=== PATIENT | male | born 1980 | race Caucasian/White ===

== ENCOUNTER 2017-05-06 09:12 | Inpatient (IN) | payer MEDICARE, OTHER ==
[~2017-05-06] VITALS: Ht 182.9 cm; Wt 97.0 kg
[2017-05-06] VITALS (12 sets, daily range): BP systolic 100–160; BP diastolic 56–94; PULSE 111–132; RESP 16–26; TEMP 97.9–102.9; O2SAT 98–100
--- NOTE | 2017-05-06 09:35 | PD ---
HPI . LUE SWELLING Chief Complaint: LUE SWELLING Time Seen by Provider: 09:19 Travel History International Travel<30 days: No Contact w/Intl Traveler<30days: No Traveled to known affect area: No History of Present Illness HPI PATIENT IS A WITH TRAUMATIC BRAIN INJURY. PATIENT IS NOT VERY CLEAR TO THE REASON HE IS HERE, HOWEVER, EMS GAVE REASON OF SWELLING TO LUE BUT UNCLEAR TO HOW LONG PFSH Social History Tobacco Use: No Allergies-Medications (Allergen,Severity, Reaction): Coded Allergies: No Known Allergies (Unverified , 05/06/17) Reported Meds & Prescriptions Reported Meds & Active Scripts Active Reported Trazodone (Trazodone HCl) 100 Mg Tablet 200 Mg PO HS Ranitidine (Ranitidine HCl) 150 Mg Tab 150 Mg PO BID Ambien (Zolpidem Tartrate) 10 Mg Tab 10 Mg PO HS PRN Escitalopram (Escitalopram Oxalate) 10 Mg Tab 20 Mg PO DAILY Klonopin (Clonazepam) 1 Mg Tab 0.5 Mg PO BID Buspirone (Buspirone HCl) 10 Mg Tab 20 Mg PO TID Review of Systems Except as stated in HPI: all other systems reviewed are Neg Skin: Positive Other (LUE SWELLING) Physical Exam Narrative GENERAL: SKIN: Warm and dry. HEAD: Atraumatic. Normocephalic. EYES: Pupils equal and round. No scleral icterus. No injection or drainage. ENT: No nasal bleeding or discharge. Mucous membranes pink and moist. NECK: Trachea midline. No JVD. CARDIOVASCULAR: TACHYCARDIC rate and REGULAR rhythm. RESPIRATORY: No accessory muscle use. Clear to auscultation. Breath sounds equal bilaterally. GASTROINTESTINAL: Abdomen soft, non-tender, nondistended. MUSCULOSKELETAL: Extremities without clubbing, cyanosis, or edema. No obvious deformities. LUE IS TWICE THE SIZE OF HIS RIGHT ARM, SHOWS CELLULITIS, AND HAS BLISTERS BY LEFT ELBOW THAT ARE WEEPING. NO OPEN WOUND PER SE, palpable axillary LAD on left, soft compartments, without any crepitus on lue...RIGHT HAND HAS ERYTHEMA/EDEMA TO RT HAND and forearm NEUROLOGICAL: Awake, SLOW TO RESPOND,. PSYCHIATRIC: Appropriate mood and affect; insight and judgment normal. Data Data Last Documented VS Vital Signs Date Time Temp Pulse Resp B/P (MAP) Pulse Ox O2 Delivery O2 Flow Rate FiO2 05/06/17 11:37 97.9 122 20 130/86 (101) 100 Nasal Cannula 3.00 Orders Orders Electrocardiogram (05/06/17:19) Complete Blood Count With Diff (05/06/17:19) Comprehensive Metabolic Panel (05/06/17:19) Creatine Kinase (Cpk) (05/06/17:19) Troponin I (05/06/17:19) Prothrombin Time / Inr (Pt) (05/06/17:19) Act Partial Throm Time (Ptt) (05/06/17:19) Lipase (05/06/17:19) Urinalysis - C+S If Indicated (05/06/17:) Thyroid Stimulating Hormone (05/06/17:) Chest, Single Ap (05/06/17:19) Ct Brain W/O Iv Contrast(Rout) (05/06/17:19) Iv Access Insert/Monitor (05/06/17:19) Ecg Monitoring (05/06/17:) Oximetry (05/06/17:19) Drug Screen, Random Urine (05/06/17:19) Alcohol (Ethanol) (05/06/17:19) Salicylates (Aspirin) (05/06/17:19) Tylenol (Acetaminophen) (05/06/17:19) Us Arm Venous Doppler Bilat (05/06/17 09:19) Lactic Acid Sepsis Protocol (05/06/17 09:19) CKMB (05/06/17 09:30) CKMB% (05/06/17 09:30) Sodium Chlor 0.9% 1000 Ml Inj (Ns 1000 M (05/06/17 11:00) Clindamycin Inj (Cleocin Inj) (05/06/17 11:00) Act Partial Throm Time (Ptt) (05/06/17 17:46) Piperacil-Tazo 3.375 Gm Premix (Zosyn 3. (05/06/17 11:00) Blood Culture (05/06/17 11:08) Urinary Catheter Insert/Apply (05/06/17 12:06) Admit Order (Ed Use Only) (05/06/17 12:18) Sodium Chlor 0.9% 1000 Ml Inj (Ns 1000 M (05/06/17 12:30) Labs Laboratory Tests Test 05/06/17 09:30 05/06/17 10:55 05/06/17 12:10 White Blood Count 3.3 TH/MM3 Red Blood Count 4.53 MIL/MM3 Hemoglobin 13.6 GM/DL Hematocrit 38.2 % Mean Corpuscular Volume 84.3 FL Mean Corpuscular Hemoglobin 30.0 PG Mean Corpuscular Hemoglobin Concent 35.6 % Red Cell Distribution Width 13.5 % Platelet Count 71 TH/MM3 Mean Platelet Volume 7.9 FL Neutrophils (%) (Auto) 89.5 % Lymphocytes (%) (Auto) 3.7 % Monocytes (%) (Auto) 4.2 % Eosinophils (%) (Auto) 2.5 % Basophils (%) (Auto) 0.1 % Neutrophils # (Auto) 3.0 TH/MM3 Lymphocytes # (Auto) 0.1 TH/MM3 Monocytes # (Auto) 0.1 TH/MM3 Eosinophils # (Auto) 0.1 TH/MM3 Basophils # (Auto) 0.0 TH/MM3 CBC Comment AUTO DIFF Differential Total Cells Counted 100 Neutrophils % (Manual) 82 % Band Neutrophils % 15 % Neutrophils # (Manual) 3.3 TH/MM3 Metamyelocytes 2 % Myelocytes 1 % Differential Comment FINAL DIFF MANUAL Toxic Granulation 1+ Toxic Vacuolation PRESENT Platelet Estimate LOW Platelet Morphology Comment NORMAL Blood Urea Nitrogen 9 MG/DL Creatinine 1.15 MG/DL Random Glucose 93 MG/DL Total Protein 6.3 GM/DL Albumin 2.5 GM/DL Calcium Level 7.9 MG/DL Alkaline Phosphatase 38 U/L Aspartate Amino Transf (AST/SGOT) 91 U/L Alanine Aminotransferase (ALT/SGPT) 45 U/L Total Bilirubin 3.1 MG/DL Sodium Level 102 MEQ/L Potassium Level 3.8 MEQ/L Chloride Level 69 MEQ/L Carbon Dioxide Level 17.3 MEQ/L Anion Gap 16 MEQ/L Estimat Glomerular Filtration Rate 72 ML/MIN Lactic Acid Level 3.7 mmol/L Total Creatine Kinase 422 U/L Creatine Kinase MB 6.0 NG/ML Creatine Kinase MB % 1.4 % Troponin I LESS THAN 0.02 NG/ML Lipase 20 U/L Thyroid Stimulating Hormone 3rd Gen 2.140 uIU/ML Salicylates Level LESS THAN 1.7 MG/DL Acetaminophen Level LESS THAN 2.0 MCG/ML Ethyl Alcohol Level LESS THAN 3 MG/DL Prothrombin Time 16.1 SEC Prothromb Time International Ratio 1.4 RATIO Activated Partial Thromboplast Time 36.4 SEC Fibrinogen 449 mg/dL Urine Color YELLOW Urine Turbidity CLEAR Urine pH 6.5 Urine Specific [place] 1.013 Urine Protein 100 mg/dL Urine Glucose (UA) NEG mg/dL Urine Ketones NEG mg/dL Urine Occult Blood MOD Urine Nitrite NEG Urine Bilirubin NEG Urine Urobilinogen LESS THAN 2.0 MG/DL Urine Leukocyte Esterase SMALL Urine RBC 5 /hpf Urine WBC 19 /hpf Urine Squamous Epithelial Cells <1 /hpf Urine Bacteria OCC /hpf Urine Hyaline Casts 3 /lpf Microscopic Urinalysis Comment CULTURE INDICATED Urine Osmolality 335 MOSM/KG Urine Random Sodium 8 MEQ/L Urine Opiates Screen NEG Urine Barbiturates Screen NEG Urine Amphetamines Screen NEG Urine Benzodiazepines Screen NEG Urine Cocaine Screen NEG Urine Cannabinoids Screen POS MDM Medical Decision Making Medical Screen Exam Complete: Yes Emergency Medical Condition: Yes Medical Record Reviewed: Yes Interpretation(s) SINUS TACHY, 119, NO STEMI PATTERN, NL INTERVALS, Differential Diagnosis DVT V CELLULITIS V RHABDO Narrative Course need for central line when bilateral ue foound to have dvt on ultrasound, therefore no peripheral or midline iv with ultrasound assistance could be done. additionally i believed it higher risk of extension or possibly dislodging a subvclavian or IJ DVT with placement of central line. best site for central line was believed to be right femoral. successfull on first try, available to use faisal with ivf, iv abx and patient admitted to icu Critical Care Narrative CRITICAL CARE NOTE: With evaluation of the patient, labs, EKG, receipt of radiologic studies, administration of medications, reevaluation the patient and discussion of the patient with the admitting physicians, the total critical care time was [60] minutes. Time to perform other separately billable procedures was not included in the critical care time. Procedures Procedure Narrative After the risks and benefits were discussed the following procedure was performed: CENTRAL VENOUS LINE: The site was prepped with Betadine and sterilely draped. It was infiltrated with 1% lidocaine plain. The deep vein was cannulated using normal Seldinger technique. A central line was placed in the [RIGHT FEMORAL] site and secured with simple interrupted suture. The site was sterilely dressed. The patient tolerated the procedure well. CHOICE MADE DUE TO MULTIPLE DVT NOTED FORTINO UPPER EXTREMITY, AND THUS DECISION MADE NOT TO PLACE IJ OR SUBCLAVIAN SINCE HIGH RISK OF EXTENSION INTO A PE OR INTO BRACHIOCEPHALIC TRUNK. Diagnosis Primary Impression: CELLULITIS LUE Additional Impressions: BILATERAL DVT HYPONATREMIA Matt Adames MD May 06, 2017 09:35
[2017-05-06 10:00] LABS: BASOPHIL % 0.1 % (0.0-2.0); EOSINOPHIL # 0.1 TH/MM3 (0-0.4); EOSINOPHIL % 2.5 % (0.0-4.0); HEMATOCRIT 38.2 % (39.0-51.0); LYMPH % 3.7 % (9.0-44.0); LYMPHOCYTE # 0.1 TH/MM3 (1.0-4.8); MEAN CELL VOLUME 84.3 FL (80.0-100.0); MEAN CORPUSCULAR HGB CONC 35.6 % (32.0-36.0); MONO % 4.2 % (0.0-8.0); NEUT % 89.5 % (16.0-70.0); PLATELET COUNT 71 TH/MM3 (150-450); RED BLOOD COUNT 4.53 MIL/MM3 (4.50-5.90); RED CELL DISTRIBUTION WIDTH 13.5 % (11.6-17.2); WHITE BLOOD COUNT 3.3 TH/MM3 (4.0-11.0)
[2017-05-06 10:15] LABS: HEMO FLAGS AUTO DIFF
[2017-05-06 10:23] LABS: ACETAMINOPHEN LESS THAN 2.0 MCG/ML (10.0-30.0); ALCOHOL LESS THAN 3 MG/DL (0-5); ALKALINE PHOSPHATASE 38 U/L (45-117); ALT (GPT) 45 U/L (12-78); ANION GAP 16 MEQ/L (5-15); AST (GOT) 91 U/L (15-37); BICARBONATE 17.3 MEQ/L (21.0-32.0); BLOOD UREA NITROGEN 9 MG/DL (7-18); CHLORIDE 69 MEQ/L (98-107); CREATINE KINASE 422 U/L (39-308); GLOMERULAR FILTRATION RATE 72 ML/MIN (>89); POTASSIUM 3.8 MEQ/L (3.5-5.1); TOTAL BILIRUBIN ADULT 3.1 MG/DL (0.2-1.0)
[2017-05-06 10:27] LABS: SODIUM (NA) 102 MEQ/L (136-145)
[2017-05-06 10:43] LABS: BANDS 15 % (0-6); METAMYELOCYTES 2 % (0-1); MYELOCYTES 1 % (0-0); NEUTROPHIL # MANUAL DIFF 3.3 TH/MM3 (1.8-7.7); POLYS (SEG NEUTROPHILS) 82 % (16-70); WBC DIFF SAMPLE 100
[2017-05-06 10:44] LABS: PLATELET ESTIMATE SMEAR LOW (NORMAL); PLATELET MORPHOLOGY NORMAL (NORMAL); TOXIC GRANULATION 1+ (NORMAL); TOXIC VACUOLATION PRESENT (NONE SEEN)
--- NOTE | 2017-05-06 10:59 | RADRPT ---
EXAM DATE/TIME: 05/06/2017 09:20 [facility] COMPARISON: No previous studies available for comparison. INDICATIONS : Bilateral arm swelling. MEDICAL HISTORY : None. SURGICAL HISTORY : None. ENCOUNTER: Initial ACUITY: 1 day PAIN SCORE: 10/10 LOCATION: Bilateral arms. FINDINGS: RIGHT UPPER EXTREMITY: There is spontaneous flow documented in the brachial, axillary, and subclavian veins. The vessels ar e compressible and augmentation response is documented. No filling defects are seen. The flow is ph asic with respiration. Direction of flow in the jugular vein is caudal. There is noncompressible occlusive clot identified within the basilic, proximal mid and distal f orearm. Occlusive thrombus seen within the proximal right cephalic vein and the technologist was unab le to visualize the mid and distal secondary to patient movement. LEFT UPPER EXTREMITY: There is occlusive clot identified within the mid and distal left brachial vein. There is spontaneous flow documented in the basilic, cephalic, axillary, and subclavian veins. The vessels are compressible and augmentation response is documented. No filling defects are seen. The flow is phasic with respiration. Direction of flow in the jugular vein is caudal. CONCLUSION: There is noncompressible occlusive clot identified in the right basilic, within the r ight proximal cephalic vein with nonvisualization of the mid and distal portion of the cephalic vein secondary to patient movement. Additional clot is identified within the left mid and distal radial ve in. There are bilateral axillary lymph nodes noted. Somewhat larger on the left. Norma Sampson MD on May 06, 2017 at 10:47 Board Certified Radiologist. This report was verified electronically.
[2017-05-06] MEDS ORDERED: HEPARIN-D5W 25,000 U/250 ML 250 ML IV PRN (11:00)
[2017-05-06] MEDS ORDERED: SODIUM CHLOR 0.9% 1000 ML INJ 1,000 ML IV ONE ×2 (11:00→12:30)
[2017-05-06] MEDS ORDERED: CLINDAMYCIN INJ 600 MG in SODIUM CHLORIDE 0.9% INJ 100 ML IV ONE (11:00)
[2017-05-06] MEDS ORDERED: PIPERACIL-TAZO 3.375 GM PREMIX 50 ML IV ONE (11:00)
[2017-05-06 11:15] LABS: SCAN/DIFF FINAL DIFF MANUAL
--- NOTE | 2017-05-06 11:19 | RADRPT ---
EXAM DATE/TIME: 05/06/2017 10:48 [facility] COMPARISON: No previous studies available for comparison. INDICATIONS : Altered mental status. RADIATION DOSE: 69.26 CTDIvol (mGy) MEDICAL HISTORY : Traumatic brain injury. SURGICAL HISTORY : None. ENCOUNTER: Initial ACUITY: 1 day PAIN SCALE: 0/10 LOCATION: cranial TECHNIQUE: Multiple contiguous axial images were obtained of the head. Using automated exposure control and adj ustment of the mA and/or kV according to patient size, radiation dose was kept as low as reasonably a chievable to obtain optimal diagnostic quality images. DICOM format image data is available electro nically for review and comparison. FINDINGS: CEREBRUM: The ventricles are normal for age. No evidence of midline shift, mass lesion, hemorrhage or acute in farction. No extra-axial fluid collections are seen. POSTERIOR FOSSA: The cerebellum and brainstem are intact. The 4th ventricle is midline. The cerebellopontine angle i s unremarkable. EXTRACRANIAL: The visualized portion of the orbits is intact. SKULL: The calvaria is intact. No evidence of skull fracture. CONCLUSION: Normal examination. Norma Sampson MD on May 06, 2017 at 11:17 Board Certified Radiologist. This report was verified electronically.
--- NOTE | 2017-05-06 11:47 | RADRPT ---
EXAM DATE/TIME: 05/06/2017 11:17 [facility] COMPARISON: No previous studies available for comparison. INDICATIONS : Cough and shortness of breath. MEDICAL HISTORY : None. SURGICAL HISTORY : None. ENCOUNTER: Initial ACUITY: 1 day PAIN SCORE: 0/10 LOCATION: Bilateral chest FINDINGS: A single view of the chest demonstrates the lungs to be symmetrically aerated without evidence of mas s, infiltrate or effusion. The cardiomediastinal contours are unremarkable. Osseous structures are intact. CONCLUSION: Normal examination. Norma Sampson MD on May 06, 2017 at 11:45 Board Certified Radiologist. This report was verified electronically.
[2017-05-06 11:48] LABS: APTT (PATIENT) 36.4 SEC (24.3-30.1); INTERNATIONAL NORMALIZED RATIO 1.4 RATIO; PROTHROMBIN TIME - PATIENT 16.1 SEC (9.8-11.6)
[2017-05-06 11:50] LABS: LACTIC ACID GHOST NOT REPORTABLE
[2017-05-06] MEDS ORDERED: VANCOMYCIN INJ 1,000 MG in SODIUM CHLOR 0.9% 250 ML INJ 250 ML IV ONE (12:30)
[2017-05-06 12:35] LABS: BACTERIA, URINE OCC /hpf; BLOOD, URINE MOD (NEG); COMMENT (UR) CULTURE INDICATED; CULTURE IF INDICATED CULTURE INDICATED; GLUCOSE,URINE NEG (NEG); HYALINE CAST, URINE 3 /lpf (RARE); KETONE, URINE NEG (NEG); NITRITE,URINE NEG (NEG); PH, URINE 6.5 (5.0-8.5); SQUAMOUS EPITHELIAL CELL URINE <1 /hpf (0-5); URINE COLOR YELLOW (YELLW/STRAW)
[2017-05-06] MEDS ORDERED: MISCELLANEOUS NURSING INFORMATION XX SCH (12:45)
[2017-05-06] MEDS ORDERED: MAGNESIUM HYDROXIDE SUSP 30 ML CUP PO PRN (12:45)
[2017-05-06] MEDS ORDERED: CHLORHEXIDINE GLUCONATE 2 % 1 PACK (2 CLOTHS) TOP PRN (12:45)
[2017-05-06] MEDS ORDERED: BISACODYL 10 MG SUPP RECTAL PRN (12:45)
[2017-05-06] MEDS ORDERED: LACTULOSE SYRUP 20 GM/30 ML CUP PO PRN (12:45)
[2017-05-06] MEDS ORDERED: SENNOSIDES 8.6 MG TAB PO PRN (12:45)
[2017-05-06] MEDS ORDERED: SODIUM BICARBONATE 8.4% INJ 50 MEQ/50 ML SYR IV PUSH ONE (13:00)
[2017-05-06] MEDS ORDERED: Vancomycin Consult Pharmacy 1 EA OTHER SCH (13:00)
[2017-05-06] MEDS ORDERED: CLINDAMYCIN 300 MG/NS 100 ML IV ONE ×2 (14:00)
[2017-05-06] MEDS: DEXT 5%-NACL 0.9% 1000 ML INJ 1,000 ML IV SCH (14:02)
[2017-05-06] MEDS ORDERED: CLON1 PO (14:32)
[2017-05-06] MEDS ORDERED: BUSP10TA PO (14:32)
[2017-05-06] MEDS ORDERED: ESCI10TA PO (14:32)
[2017-05-06] MEDS ORDERED: RANI150T PO (14:32)
[2017-05-06] MEDS ORDERED: AMBI10TA PO (14:32)
[2017-05-06] MEDS ORDERED: HEPARIN SODIUM - IV 10,000 UNITS/10 ML VIAL IV PUSH ONE (14:45)
[2017-05-06] MEDS ORDERED: hydrALAZINE HCL 20 MG/ML VIAL IV PUSH PRN (14:45)
[2017-05-06] MEDS: ONDANSETRON HCL 4 MG/2 ML VIAL IV PUSH PRN ×2 (14:51→18:39)
[2017-05-06] MEDS: MORPHINE SULFATE 4 MG/ML INJ IV PUSH PRN ×3 (14:52→22:21)
[2017-05-06] MEDS: ACETAMINOPHEN 325 MG TAB PO PRN (14:52)
--- NOTE | 2017-05-06 14:57 | PD.ID.CON ---
History of Present Illness Service ID Consult Requested By Dr Soto Reason for Consult LUE infx, sepsis Primary Care Physician No Primary Care Physician Diagnoses: History of Present Illness 37 yo male with pmhx of TBI, anxiety, depression presented with worsening swelling , pain and redness of LUE x 4-5 days and couple days ago he developped pain and swelling over R forearm Denies IVDU In Er he presesented tachycardic in 130, febrile up to 102.9 ax , co nausea, vomiting, abd discomfort and pain in BUE, more so in LUE Lactic acid 3.7 Increased CK, sand sk mucscle CK MB fraction There is weeping edema His US was + for b/l DVT Pt was started on broad spectrum abx (zosyn, vanco clindamycin) Sodium 102 Review of Systems Constitutional: COMPLAINS OF: Fatigue, Fever, Chills Gastrointestinal: COMPLAINS OF: Abdominal pain, Nausea, Vomiting Except as stated in HPI: all other systems reviewed are Neg Past Family Social History Allergies: Coded Allergies: No Known Allergies (Unverified , 05/06/17) Past Medical History TBI PTSD Past Surgical History L hip surgery Active Ordered Medications Medications where reviewed in EMR Antibiotics Include: zosyn, vanco clindamycin Family History reviewednon contributory no clotting d/o Social History No Tobacco. No ETOH. + MJ no IVDU Physical Exam Vital Signs Vital Signs Date Time Temp Pulse Resp B/P (MAP) Pulse Ox O2 Delivery O2 Flow Rate FiO2 05/06/17 13:06 99.6 122 18 160/67 (98) 99 Nasal Cannula 2.00 05/06/17 12:56 99.6 122 18 160/67 (98) 99 Nasal Cannula 2.00 05/06/17 11:37 97.9 122 20 130/86 (101) 100 Nasal Cannula 3.00 05/06/17 11:00 20 100 Nasal Cannula 2.00 05/06/17 11:00 98.0 128 18 132/68 (89) 99 Physical Exam CONSTITUTIONAL/GENERAL: This is an adequately nourished patient, in apparent distress 2/2 severe nausea, vomiting TUBES/LINES/DRAINS: SKIN: No jaundice, + petechia mcaulr non pruritic rash on the chest , or lesions. Ecchymoses on R forearm. Skin temperature elevated. Not diaphoretic. HEAD: Atraumatic. Normocephalic. EYES: Pupils equal and round and reactive. Extraocular motions intact. No scleral icterus. No injection or drainage. Fundi not examined. ENT: Hearing grossly normal. Nose without bleeding or purulent drainage. Throat without visible erythema, exudates, masses, or lesions. NECK: Trachea midline. Supple, nontender. No palpable thyroid enlargement or nodularity. CARDIOVASCULAR: Regular tachycardia without murmurs, gallops, or rubs. No JVD. Peripheral pulses symmetric. RESPIRATORY/CHEST: Symmetric, unlabored respirations. Clear to auscultation. Breath sounds equal bilaterally. No wheezes, rales, or rhonchi. GASTROINTESTINAL: Abdomen soft, non-tender, nondistended. No hepato-splenomegaly , or palpable masses. No guarding. Bowel sounds present. GENITOURINARY: Without palpable bladder distension. Garcia catheter in place with clear light yellow urine MUSCULOSKELETAL: lower extremities without clubbing, cyanosis, or edema. No joint tenderness or effusion noted. No calf tenderness. No mottling or clubbing. RUE is edematous 3X no erythem, tender and firmish wendy plapation w/o cords + echymposes present on medial aspect LUE is very edematous 4-5X, ethymatosi, weeping w with gage odorles serous d/c on the dressing fingers on b/l fands appear to by cyanotic with present abut delaeyd refill LYMPHATICS: No palpable cervical or supraclavicular adenopathy. NEUROLOGICAL: Awake and alert. Motor and sensory grossly within normal limits. Follows commands. Clear speech. Moves all extremities. PSYCHIATRIC: No obvious anxiety/depression. no apparent hallucinations or other psychotic thought process. Laboratory Laboratory Tests Test 05/06/17 09:30 05/06/17 10:55 05/06/17 12:10 White Blood Count 3.3 Red Blood Count 4.53 Hemoglobin 13.6 Hematocrit 38.2 Mean Corpuscular Volume 84.3 Mean Corpuscular Hemoglobin 30.0 Mean Corpuscular Hemoglobin Concent 35.6 Red Cell Distribution Width 13.5 Platelet Count 71 Mean Platelet Volume 7.9 Neutrophils (%) (Auto) 89.5 Lymphocytes (%) (Auto) 3.7 Monocytes (%) (Auto) 4.2 Eosinophils (%) (Auto) 2.5 Basophils (%) (Auto) 0.1 Neutrophils # (Auto) 3.0 Lymphocytes # (Auto) 0.1 Monocytes # (Auto) 0.1 Eosinophils # (Auto) 0.1 Basophils # (Auto) 0.0 CBC Comment AUTO DIFF Differential Total Cells Counted 100 Neutrophils % (Manual) 82 Band Neutrophils % 15 Neutrophils # (Manual) 3.3 Metamyelocytes 2 Myelocytes 1 Differential Comment FINAL DIFF MANUAL Toxic Granulation 1+ Toxic Vacuolation PRESENT Platelet Estimate LOW Platelet Morphology Comment NORMAL Blood Urea Nitrogen 9 Creatinine 1.15 Random Glucose 93 Total Protein 6.3 Albumin 2.5 Calcium Level 7.9 Alkaline Phosphatase 38 Aspartate Amino Transf (AST/SGOT) 91 Alanine Aminotransferase (ALT/SGPT) 45 Total Bilirubin 3.1 Sodium Level 102 Potassium Level 3.8 Chloride Level 69 Carbon Dioxide Level 17.3 Anion Gap 16 Estimat Glomerular Filtration Rate 72 Lactic Acid Level 3.7 Total Creatine Kinase 422 Creatine Kinase MB 6.0 Creatine Kinase MB % 1.4 Troponin I LESS THAN 0.02 Lipase 20 Thyroid Stimulating Hormone 3rd Gen 2.140 Salicylates Level LESS THAN 1.7 Acetaminophen Level LESS THAN 2.0 Ethyl Alcohol Level LESS THAN 3 Prothrombin Time 16.1 Prothromb Time International Ratio 1.4 Activated Partial Thromboplast Time 36.4 Fibrinogen 449 Urine Color YELLOW Urine Turbidity CLEAR Urine pH 6.5 Urine Specific [place] 1.013 Urine Protein 100 Urine Glucose (UA) NEG Urine Ketones NEG Urine Occult Blood MOD Urine Nitrite NEG Urine Bilirubin NEG Urine Urobilinogen LESS THAN 2.0 Urine Leukocyte Esterase SMALL Urine RBC 5 Urine WBC 19 Urine Squamous Epithelial Cells <1 Urine Bacteria OCC Urine Hyaline Casts 3 Microscopic Urinalysis Comment CULTURE INDICATED Urine Opiates Screen NEG Urine Barbiturates Screen NEG Urine Amphetamines Screen NEG Urine Benzodiazepines Screen NEG Urine Cocaine Screen NEG Urine Cannabinoids Screen POS Date/Time Source Procedure Growth Status 05/06/17 11:50 Blood Peripheral Aerobic Blood Culture Pending Received 05/06/17 11:50 Blood Peripheral Anaerobic Blood Culture Pending Received 05/06/17 12:10 Urine Clean Catch Urine Culture Pending Received Result Diagram: 05/06/17 0930 05/06/17 0930 Imaging CXR negative Assessment and Plan Assessment and Plan Sepsis LUE complicated SSTI, cellulitis, r/o deeper oinfx ? group A BUE DVT Thrombocytopenia with high fibrinogen Pt is ctitically ill cont zosyn, clinda, vanco wound culture consult hem/onc HIV CHRISTIAN test - pt agreable, fu blood clx Discussed Condition With RN pt, spouse Chayo Holley (Hem/Onc), [place] Soto Alexandra A. MD May 06, 2017 14:57
[2017-05-06] MEDS: DILTIAZEM HCL 60 MG TAB PO SCH ×3 (14:58→23:51)
[2017-05-06 15:05] LABS: HEMATOCRIT 34.4 % (39.0-51.0); MEAN CELL VOLUME 84.6 FL (80.0-100.0); MEAN CORPUSCULAR HGB CONC 35.4 % (32.0-36.0); PLATELET COUNT 69 TH/MM3 (150-450); RED BLOOD COUNT 4.06 MIL/MM3 (4.50-5.90); RED CELL DISTRIBUTION WIDTH 13.7 % (11.6-17.2); WHITE BLOOD COUNT 4.1 TH/MM3 (4.0-11.0)
[2017-05-06 15:11] LABS: HEMO FLAGS AUTO DIFF
--- NOTE | 2017-05-06 15:31 | MH ---
cc: CARMENCITA MONTES DE OCA M.D. DATE OF ADMISSION: 05/06/2017 ADMITTING DIAGNOSIS: HISTORY OF PRESENT ILLNESS: The patient is a 37-year-old male with past medical history of anxiety and depression who presented to the [facility] Emergency Department with a one day history of progressive swelling of the left upper extremity associated with blisters at the left elbow. The patient also reports subjective fever, diarrhea and emesis. He denies any abdominal pain, shortness of breath, chest pain. He also reports erythema in his upper extremities bilaterally left greater than right and a rash in his upper chest. On arrival to the emergency room, he was tachycardiac with heart rate in the 120s. Blood pressure 132/68 with a saturation of 99%. His laboratory data is significant for hyponatremia with sodium level of 102, lactic acidosis with lactic acid level of 3.7. There is no history of any seizures. The patient is awake, alert and oriented times three. Other labs showed thrombocytopenia with platelet count of 71, white blood cell count of 3.3. His urine toxicology screen was positive for cannabinoids. CT scan of the brain in the emergency room showed no evidence of any acute intracranial findings. He also had he also had a chest x-ray which was within normal. Ultrasound of the upper extremities showed occlusive clot in the right basilic within the right proximal cephalic vein and an additional clot noted in the left mid and distal radial vein. In the emergency room, the patient received one liter of normal saline and is currently receiving a second liter. In addition, clindamycin, Zosyn and Vancomycin were given. PAST MEDICAL HISTORY: Past medical history is significant for: 1. Anxiety / depression. ALLERGIES: NO KNOWN DRUG ALLERGIES. MEDICATIONS: Medications for anxiety and depression. SOCIAL HISTORY: The patient smokes cigarettes. Denies any ethyl alcohol use. He currently smokes marijuana. FAMILY HISTORY: Noncontributory. REVIEW OF SYSTEMS: The review of systems is as per the history of present illness, and the rest of the review of systems is unremarkable. PHYSICAL EXAMINATION: GENERAL: A 37-year-old male lying in bed in no acute distress however he appears ill. VITAL SIGNS: Temperature 99.6, pulse in the 120s, blood pressure 160/67, saturation 99%. HEAD, EYES, EARS, NOSE, THROAT: Normocephalic and atraumatic. Pupils equal, round and reactive to light and accommodation. Extraocular muscles intact. Conjunctivae are pink. Nonicteric sclerae. Oral mucosa with dry mucous membranes. NECK: The neck is supple. No jugular venous distention, adenopathy or thyromegaly. Trachea in the midline. CARDIOVASCULAR: Tachycardic. Normal S1-S2. No murmurs, rubs or gallops noted. PULMONARY: Bilateral equal air entry. No rales or wheezing. ABDOMEN: The abdomen is soft, nontender and no distention. Positive bowel sounds. EXTREMITIES: Erythema and edema noted along with blisters at the left elbow that are weeping and some burn-like rash noted. The patient also noted to have erythema and edema of the right upper extremity and right hand. NEUROLOGIC: No focal sensory deficit. LABORATORY DATA: WBCs 3.3, hemoglobin 13.6, hematocrit 38, platelet count 71,000. Sodium 102, potassium 3.8, chloride 69, carbon dioxide 17, anion gap 16, BUN 9, creatinine 1.15, lactic acid 3.7, total bilirubin 3.1, AST 91, ALT 45. Total CK 422. Troponin less than 0.02. TSH 2.1. Albumin 2.5. INR 1.4. PT 16.1. PTT 36.4. Urine drug screen positive for cannabinoids. RADIOGRAPHIC STUDIES: CT scan of the brain negative for acute intracranial findings. Chest x-ray shows no acute cardiopulmonary disease. Ultrasound of bilateral upper extremities is positive for DVT. IMPRESSION: 1. Sepsis. 2. Cellulitis of the upper extremities. 3. Rule out necrotizing fasciitis of the left upper extremity. 4. Lactic acidosis. 5. Hyponatremia. 6. Anion gap metabolic acidosis. 7. Elevated AST. 8. DVT bilateral upper extremities. 9. Leukopenia and thrombocytopenia likely secondary to severe sepsis. 10. History of anxiety and depression. RECOMMENDATIONS: 1. Monitor neuro status closely and avoid sedatives. CT scan of the brain in the emergency room negative for acute process and random drug screen positive for cannabinoids. 2. Continue oxygen and maintain saturations above 92%. 3. Bronchodilators on a PRN basis. 4. Monitor heart rate and blood pressure closely and maintain MAP greater than 65 mmHg. The patient is currently receiving a second liter of crystalloids and then will place on maintenance fluids D5 normal saline at 100 mL/hour. 5. Serial lactic acid monitoring until cleared. 6. Monitor renal function, intake and output and electrolyte replacement per protocol. 7. Will check urine and serum osmolality in addition to urine sodium. His TSH measured at 2.1. 8. Will hold off on hypertonic solutions as there is no history of any seizures and the patient is awake and alert. His hyponatremia is likely secondary to hypovolemia. 9. Keep NPO for now and place on Protonix 40 milligrams daily for GI prophylaxis. 10. Continue with broad-spectrum antibiotics in the form of clindamycin, Vancomycin and Zosyn. 11. Monitor for signs of infection, which include fever and WBCs. 12. Follow up on blood cultures and urine culture. 13. Will consult infectious disease service. In addition, will consult orthopedic surgery to rule out necrotizing fasciitis of the left upper extremity. Case discussed with Dr. Irving from orthopedics and plans to see the patient shortly. 14. Will check CT scan of the shoulder and left arm. 15. Sliding scale insulin with Accu-Chek if needed for glycemic control. 16. Monitor CBC and coags and check fibrinogen level. Rule out DIC. Will hold off on anticoagulation for now in case the patient goes to the operating room. 17. GI prophylaxis with Protonix 40 milligrams daily and DVT prophylaxis with SCDs for now. 18. A right femoral central line was placed by the emergency room physician. Further recommendations will be based on the hospital course. MD SOLO Bates/[facility] /12:58 PM /3:00 PM
[2017-05-06 15:32] LABS: CALCIUM-PROTEIN CORRECTED 7.7 MG/DL (8.5-10.1); POTASSIUM 3.3 MEQ/L (3.5-5.1); TOTAL BILIRUBIN ADULT 3.1 MG/DL (0.2-1.0)
[2017-05-06 15:46] LABS: BANDS 26 % (0-6); DOHLE BODIES PRESENT (NONE SEEN); METAMYELOCYTES 4 % (0-1); MYELOCYTES 2 % (0-0); NEUTROPHIL # MANUAL DIFF 4.1 TH/MM3 (1.8-7.7); POLYS (SEG NEUTROPHILS) 68 % (16-70); TOXIC GRANULATION 1+ (NORMAL); WBC DIFF SAMPLE 100
[2017-05-06 15:47] LABS: PLATELET ESTIMATE SMEAR LOW (NORMAL); PLATELET MORPHOLOGY NORMAL (NORMAL); SCAN/DIFF FINAL DIFF MANUAL
[2017-05-06] MEDS ORDERED: IOHEXOL 350 MG/ML 10 ML VIAL (for RAD DIAG) IVCONTRAST ONE (16:10)
--- NOTE | 2017-05-06 16:24 | RADRPT ---
EXAM DATE/TIME: 05/06/2017 15:42 [facility] COMPARISON: No previous studies available for comparison. INDICATIONS : Evaluate for PE IV CONTRAST: 99 cc Omnipaque 350 (iohexol) IV RADIATION DOSE: 23.24 CTDIvol (mGy) MEDICAL HISTORY : Seizures. SURGICAL HISTORY : None. ENCOUNTER: Initial ACUITY: 1 day PAIN SCALE: 8/10 LOCATION: Bilateral chest TECHNIQUE: Volumetric scanning of the chest was performed using a pulmonary embolism protocol MIP images were re constructed. Using automated exposure control and adjustment of the mA and/or kV according to patien t size, radiation dose was kept as low as reasonably achievable to obtain optimal diagnostic quality images. DICOM format image data is available electronically for review and comparison. Follow-up recommendations for detected pulmonary nodules are based at a minimum on nodule size and pa tient risk factors according to Fleischner Society Guidelines. FINDINGS: PULMONARY ARTERIES: No filling defects are seen in the pulmonary arteries through the segmental level. LUNGS: There is no consolidation or pneumothorax . No concerning pulmonary nodule is visualized. PLEURAE: There is no pleural thickening or pleural effusion. MEDIASTINUM: There is good visualization of the great vessels of the middle mediastinum. No evidence of mediastin al or hilar adenopathy/mass. MUSCULOSKELETAL: Within normal limits for patient age. MISCELLANEOUS: There is impressive reactive lymphadenopathy throughout both axilla left greater than right. There is impressive soft tissue edema in the axilla. Bilateral adrenal hyperplasia CONCLUSION: Normal examination of the pulmonary arteries. Extensive edema and reactive adenopathy throughout bot h axilla left worse than right. Jose Angel Huizar MD on May 06, 2017 at 16:20 Board Certified Radiologist. This report was verified electronically.
--- NOTE | 2017-05-06 16:29 | RADRPT ---
EXAM DATE/TIME: 05/06/2017 15:56 [facility] COMPARISON: No previous studies available for comparison. INDICATIONS : Shortness of breath; bilateral DVT in upper extrimeties, swelling. IV CONTRAST: 100 cc Omnipaque 350 (iohexol) IV ; Cumulative dose for multiple exams. RADIATION DOSE: 29.64 CTDIvol (mGy) MEDICAL HISTORY : Seizures. TBI SURGICAL HISTORY : None. ENCOUNTER: Initial ACUITY: 1 day PAIN SCALE: 4/10 LOCATION: Right shoulder TECHNIQUE: Volumetric scanning of the shoulder was performed. Using automated exposure control and adjustment o f the mA and/or kV according to patient size, radiation dose was kept as low as reasonably achievable to obtain optimal diagnostic quality images. DICOM format image data is available electronically fo r review and comparison. FINDINGS: BONES: No evidence of fracture. Alignment is within normal limits. JOINTS: No evidence of joint narrowing or effusion. SOFT TISSUES: Muscles, tendons, and neurovascular structures are grossly unremarkable. The integrity of the rotato r cuff tendons cannot be reliably evaluated on CT without intra-articular contrast. No evidence of m ass, organized fluid collection, or foreign body. CONCLUSION: Normal examination other than reactive adenopathy throughout the right axilla. Jos eAngel Huizar MD on May 06, 2017 at 16:28 Board Certified Radiologist. This report was verified electronically.
--- NOTE | 2017-05-06 16:32 | RADRPT ---
EXAM DATE/TIME: 05/06/2017 16:01 [facility] COMPARISON: No previous studies available for comparison. INDICATIONS : Shortness of breath; bilateral DVT in upper extrimeties. IV CONTRAST: 100 cc Omnipaque 350 (iohexol) IV ; Cumulative dose for multiple exams. RADIATION DOSE: 29.74 CTDIvol (mGy) MEDICAL HISTORY : Seizures. TBI SURGICAL HISTORY : None. ENCOUNTER: Initial ACUITY: 1 day PAIN SCALE: 4/10 LOCATION: Bilateral chest TECHNIQUE: Volumetric scanning of the forearm was performed. Using automated exposure control and adjustment of the mA and/or kV according to patient size, radiation dose was kept as low as reasonably achievable to obtain optimal diagnostic quality images. DICOM format image data is available electronically fo r review and comparison. FINDINGS: BONES: No evidence of fracture. Alignment is within normal limits. JOINTS: No evidence of joint narrowing or effusion. SOFT TISSUES: There is marked subcutaneous soft tissue tissue edema crossing entire forearm. There significant flui d layering between the musculature in the subcutaneous fat not in a usual finding. No deep muscular a bscess is identified CONCLUSION: Marked subcutaneous edema and swelling across the forearm. Some fluid loculated between the muscle an d fascia. No intramuscular abscess is seen. No air identified to suggest necrotizing fasciitis. Jose Angel Huizar MD on May 06, 2017 at 16:28 Board Certified Radiologist. This report was verified electronically.
[2017-05-06] MEDS: RESP: ALBUTEROL 2.5 MG/IPRATROPIUM 0.5 MG NEB (SCH) INH ×2 (16:45→20:54)
[2017-05-06] MEDS: PIPERACIL-TAZO 4.5 GM PREMIX 100 ML IV SCH (17:33)
[2017-05-06] MEDS: HEPARIN-D5W 25,000 U/250 ML 250 ML IV PRN (17:43)
--- NOTE | 2017-05-06 18:17 | MB ---
cc: TREVIZOMITCH DATE OF CONSULTATION 05/06/2017 DATE OF 1980 The patient was seen in [facility]. REASON FOR CONSULTATION Patient with bilateral DVTs and hyponatremia. CHIEF COMPLAINT Left arm pain. HISTORY OF PRESENT ILLNESS Mr. Schulte is a 37-year-old male with a past medical history of PTSD, TBI and a history of anxiety who presents today to the emergency room with left upper extremity swelling and pain. Additionally he is short of breath. 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 He states that over the past [id number] days his left arm began to swell and has been progressively painful and he presented to the emergency room. On arrival a Doppler ultrasound of the upper extremities was obtained which shows a noncompressible occlusive clot in the right basilic vein within the right proximal cephalic vein with nonvisualization of the mid and distal portions of the cephalic vein secondary to patient movement. There was additional clot in the left mid and distal radial vein. There were bilateral axillary lymph nodes that were noted somewhat larger on the left. The patient also had CT of the head on admission which did not reveal any acute abnormalities. Chest x-ray was also obtained which did not reveal any cardiopulmonary abnormalities. On admission the patient's WBC was 3.3, hemoglobin was 13.6 and he had a platelet count of 71,000. Serum chemistries revealed sodium of 102. His urine sample revealed cannabinoid. The remaining urine drug screen was negative. UA showed moderate amount of occult blood. There was small amount of leukocyte esterase. There were occasional bacteria and urine wbc's was 19. The patient has no past history of blood disorders. He tells me that he has never had a major hospitalization. He smokes half-a-pack of cigarettes per day. He very rarely drinks alcohol. He admits to marijuana use. He does not admit to any other illicit drugs. He does not admit to any IV drug use. He denies any weight loss, fevers, chills, night sweats or loss of energy over the past 6 months. He denies any chest pain. No abdominal pain. He is short of breath at rest at this time. He does not have any hemoptysis. REVIEW OF SYSTEMS A comprehensive 14-point review of systems was completed which is negative except as described in HPI. PAST MEDICAL HISTORY 1. Traumatic brain injury. 2. Anxiety. 3. Posttraumatic stress disorder. PAST SURGICAL HISTORY None. MEDICATIONS 1. Pantoprazole 40 mg IV daily. 2. Colace p.r.n. 3. Vancomycin 1500 mg q.12 h. 4. Clindamycin IV q.8 h. 5. Zosyn IV q.6h. 6. Cardizem 60 mg p.o. q.6h. 7. Hydralazine 50 mg IV q.6 h p.r.n. 8. Morphine sulfate 2 mg IV q.4 h p.r.n. 9. Zofran 4 mg IV q.8 h. 10. DuoNebs 1 ampule q.6 h p.r.n. 11. Milk of magnesia p.r.n. 12. Senna as needed. 13. Bisacodyl as needed. 14. Lactulose 30 mL as needed. ALLERGIES NO KNOWN DRUG ALLERGIES. PHYSICAL EXAMINATION VITAL SIGNS: Blood pressure is 160/70, respiratory rate is 18, pulse is 122, temperature 99.6, O2 sats are 99% on 2 liters nasal cannula. GENERAL: Young male in acute distress. He is short of breath. He complains of significant pain in his left arm. HEENT: Pupils are equal, round, reactive to light. EOMI. No oral thrush. No oral lesion. NECK: Supple. No JVD, no bruits. No lymphadenopathy. CHEST: Clear to auscultation bilaterally. CARDIOVASCULAR: S1-S2, tachycardiac. ABDOMEN: Soft, nontender, nondistended. Bowel sounds are present. No abdominal pain. EXTREMITIES: Left upper extremity with significant swelling and tenderness. There is bullous eruptions consistent with cellulitis in the left elbow. There is also some swelling in the right arm originating at the level of the elbow to the mid forearm. Again no lower extremity edema or pain. NEUROLOGIC: No focal deficits. PSYCHIATRIC: Mood and affect is appropriate. LABORATORY DATA WBC is 3.3, hemoglobin is 13.6, platelet count is 71,000, neutrophil percentage is 89.5, lymphocytes 3.7, monocytes 4.2, eosinophils 2.5. Again, absolute lymphocytes are low at 100. Coags reveal a PTT of 36.4, INR 1.4. Sodium is 102, potassium 3.8, chloride 59, CO2 17.3, BUN 9, creatinine 1.15, GFR 72, lactic acid 3.7, total bilirubin 3.1, AST is 91, ALT is 45, alk process 38. CK is elevated to 422. IMAGING STUDIES Reviewed in the EMR, discussed above. ASSESSMENT/PLAN This is a 37-year-old male with a history of PTSD, TBI and anxiety who presents to the emergency department with acute left arm pain and dyspnea. 1. Left arm pain and dyspnea consistent with DVT involving both upper extremities. There does not appear to be any precipitating factor. He has not had any injury or trauma. Given that he is severely hyponatremic, this raises a suspicion of underlying malignancy. We need to start him on anticoagulation with heparin. We need to obtain CT angiogram of the chest to make sure there is not any pulmonary embolism. This will also help us identify any adenopathy or masses in the lung. From the chest x-ray I did not see any abnormalities. 2. Mild leukopenia with lymphopenia likely due to sepsis. We should check HIV panel. 3. Thrombocytopenia. His fibrinogen is preserved at this time. We should obtain LDH and haptoglobin, check hepatitis panel. I will review his peripheral smear. 4. Hyponatremia. We need to repeat CMP certainly the sodium levels are very low and we need to confirm that this is accurate. 5. Sepsis / cellulitis from the left arm. Increased lactic acid levels at 3.7. The patient has been started on vancomycin, Zosyn and clindamycin. Blood cultures are pending. The patient has been seen by Dr. John. 6. Urinary tract infection based on the urinalysis. Urine cultures pending. Thank you for allowing me to participate in the care of this patient. I will continue to follow this patient along. I was called about this consult by Dr. John. MD CHETNA Amato/[facility] /2:50 PM /5:52 PM
[2017-05-06] MEDS ORDERED: TRAZ100T6 PO (18:53)
--- NOTE | 2017-05-06 19:03 | MB ---
cc: FRANCESCA NEWELL M.D. DATE OF CONSULTATION: 05/06/2017. REASON FOR CONSULTATION: Requested to evaluate a critically ill patient with left much more so than the right upper extremity pain and swelling. HISTORY OF PRESENT ILLNESS: Norman Schulte is a 37-year-old with a past medical history of traumatic brain injury with anxiety and depression who states that he developed severe swelling in the left upper extremity over the last 24 hours. He states that several days prior to that he was sick with vomiting and diarrhea but the left upper extremity became severely swollen he noted on Sunday and today is Sunday. He does have a history of a laceration on his ring finger on the right side, which is the opposite site from where the severe swelling is, which happened several weeks ago and he states that there is no significant infectious process involved there. He states that he was vomiting with diarrhea Sunday, , Sunday and just has felt horrible and with worsening symptoms he presented to the emergency room today where he was found to be tachycardic. 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 Ultrasound examination of the left upper extremity revealed noncompressible occlusion, clot identified in the right basilic and within the right proximal cephalic vein with nonvisualization of the mid and distal portions of the cephalic vein secondary to patient movement. Additional clot is identified within the left mid and distal radial vein. Also noted were bilateral axillary lymph nodes, larger on the left. There is no report of any abscess formation. The patient's laboratory workup revealed a low white blood cell count of 3.3 with the percentage of neutrophils a5 89.5% and the percentage of lymphocytes at 3.7. He is noted to have a lactic acid of 3.7 and a total creatine kinase of 422 and he also noted to have a low sodium of 102. His INR is 1.4. Blood cultures have been obtained. Urinalysis did reveal 19 white blood cells of the urine. PAST MEDICAL HISTORY: The patient's past medical history significant for: 1. Traumatic brain injury. 2. He does have a remote history about three or four years ago of IV drug use. PAST SURGICAL HISTORY: Previous history of left hip surgery. MEDICATIONS He has been started on three antibiotics, and the medications were reviewed in the MAR. SOCIAL HISTORY: He is . He is a . He denies alcohol and tobacco use. He does use marijuana. He denies any recent IV drug use. PHYSICAL EXAMINATION: GENERAL: The patient is alert, oriented, appropriate and his is at the bedside. LOWER EXTREMITIES: His lower extremity examination is benign. CHEST: His chest examination shows what appear to be some minimal vague petechiae on his chest. RIGHT UPPER EXTREMITY: His right upper extremity shows a healing laceration of his ring finger at the level of the PIP joint. No evidence of fluctuance or significant erythema in that area. He does have some thickening and swelling on the flexor muscle mass which is tender. He has full motion of his elbow, wrist shoulder. LEFT UPPER EXTREMITY: His left upper extremity shows full motion of his wrist, but he has limited range of motion of his elbow with range of motion 0/ 40/ 120 degrees. He has a marked amount of swelling involving his forearm, his elbow, and his upper arm. All of the tissue is firm. He has multiple blisters, several of which have popped. At the level of the elbow, there is serous drainage. There is no purulent drainage. There is no odor. He has palpable lymph nodes in the axilla. He has good range of motion of his shoulder. He has mild erythema throughout this area. His pulses are intact throughout. ASSESSMENT: 1. Severe infectious process left upper extremity with possible necrotizing fasciitis. 2. Deep venous thrombosis left upper extremity. MEDICAL DECISION MAKING: His condition was discussed. The options of treatment were discussed. Additionally we discussed his overall low white blood cell count and the possibility of HIV. He is going to discuss this further with the infectious disease doctor. There is no obvious abscess on exam and there is no obvious subcutaneous gas. I have told him that if an abscess develops then we would want to proceed with surgery and if he progresses and does worse in regards to swelling of the arm, then possibly compartment release and possible debridement if this is found to be a necrotizing fasciitis. At this point, I am hopeful that he will have significant improvement with the IV antibiotics and the intensive care treatment. I will plan on re-examining him today and if it looks like he is progressing, will discuss more the possibility of surgical intervention. We did also discuss the possibility of obtaining a CT scan of the left upper extremity which would possibly help us understand his condition better. All of his questions and his 's questions were answered. MD ALDAIR Bonilla/[facility] /3:11 PM /6:39 PM
[2017-05-06 19:08] LABS: APTT (PATIENT) 37.8 SEC (24.3-30.1)
[2017-05-06] MEDS ORDERED: CLINDAMYCIN INJ 600 MG in SODIUM CHLORIDE 0.9% INJ 100 ML IV SCH (20:00)
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
[2017-05-06] MEDS: DOCUSATE SODIUM 50 MG/SENNA 8.6 MG TAB PO SCH (21:00)
[2017-05-06] MEDS: SODIUM CHLORIDE 0.9% FLUSH 10 ML FLUSH IV FLUSH SCH (22:10)
[2017-05-06] MEDS: CLINDAMYCIN INJ 900 MG in SODIUM CHLORIDE 0.9% INJ 100 ML IV SCH (22:19)
[2017-05-06] MEDS: VANCOMYCIN INJ 1,500 MG in SODIUM CHLORID 0.9% 500 ML INJ 500 ML IV SCH (22:19)
[2017-05-06 23:39] LABS: APTT (PATIENT) 67.9 SEC (24.3-30.1)
[2017-05-07] VITALS (19 sets, daily range): BP systolic 102–119; BP diastolic 56–58; PULSE 94–125; RESP 17–22; TEMP 98–98.7; O2SAT 95–99
[2017-05-07] MEDS: ACETAMINOPHEN 325 MG TAB PO PRN (00:03)
[2017-05-07] MEDS: PIPERACIL-TAZO 4.5 GM PREMIX 100 ML IV SCH ×4 (00:04→17:14)
[2017-05-07] MEDS ORDERED: VANCOMYCIN INJ 1,000 MG in SODIUM CHLOR 0.9% 250 ML INJ 250 ML IV SCH (01:00)
[2017-05-07] MEDS: CHLORHEXIDINE GLUCONATE 2 % 1 PACK (2 CLOTHS) TOP SCH (02:29)
[2017-05-07] MEDS: MORPHINE SULFATE 4 MG/ML INJ IV PUSH PRN ×3 (02:30→10:01)
[2017-05-07] MEDS: RESP: ALBUTEROL 2.5 MG/IPRATROPIUM 0.5 MG NEB (SCH) INH ×4 (03:17→20:51)
[2017-05-07] MEDS: CLINDAMYCIN INJ 900 MG in SODIUM CHLORIDE 0.9% INJ 100 ML IV SCH ×3 (03:38→20:08)
[2017-05-07 04:43] LABS: CALCIUM-PROTEIN CORRECTED 7.6 MG/DL (8.5-10.1); MAGNESIUM 1.3 MG/DL (1.5-2.5); POTASSIUM 3.3 MEQ/L (3.5-5.1); TOTAL BILIRUBIN ADULT 3.2 MG/DL (0.2-1.0)
[2017-05-07 04:46] LABS: HEMATOCRIT 34.8 % (39.0-51.0); HEMO FLAGS AUTO DIFF; MEAN CELL VOLUME 84.2 FL (80.0-100.0); MEAN CORPUSCULAR HEMOGLOBIN 29.5 PG (27.0-34.0); PLATELET COUNT 66 TH/MM3 (150-450); RED BLOOD COUNT 4.14 MIL/MM3 (4.50-5.90); WHITE BLOOD COUNT 6.8 TH/MM3 (4.0-11.0)
[2017-05-07 04:51] LABS: APTT (PATIENT) 59.3 SEC (24.3-30.1)
[2017-05-07] MEDS: DILTIAZEM HCL 60 MG TAB PO SCH ×3 (05:23→17:14)
[2017-05-07 05:35] LABS: BANDS 36 % (0-6); EOSINOPHILS 1 % (0-4); METAMYELOCYTES 2 % (0-1); NEUTROPHIL # MANUAL DIFF 6.1 TH/MM3 (1.8-7.7); PLATELET ESTIMATE SMEAR LOW (NORMAL); POLYS (SEG NEUTROPHILS) 52 % (16-70); SCAN/DIFF FINAL DIFF MANUAL; WBC DIFF SAMPLE 100
[2017-05-07 05:36] LABS: DOHLE BODIES PRESENT (NONE SEEN); TOXIC GRANULATION 2+ (NORMAL); TOXIC VACUOLATION PRESENT (NONE SEEN)
[2017-05-07] MEDS: DOCUSATE SODIUM 50 MG/SENNA 8.6 MG TAB PO SCH ×2 (09:00→20:08)
--- NOTE | 2017-05-07 09:07 | HHI.CCPN ---
Subjective Remarks/Hospital Course The patient is a 37-year-old male with past medical history of anxiety and depression who presented to the [facility] Emergency Department with a one day history of progressive swelling of the left upper extremity associated with blisters at the left elbow. The patient also reports subjective fever, diarrhea and emesis. He denies any abdominal pain, shortness of breath, chest pain. He also reports erythema in his upper extremities bilaterally left greater than right and a rash in his upper chest. On arrival to the emergency room, he was tachycardiac with heart rate in the 120s. Blood pressure 132/68 with a saturation of 99%. His laboratory data is significant for hyponatremia with sodium level of 102, lactic acidosis with lactic acid level of 3.7. There is no history of any seizures. Patient is awake and alert. Other labs showed thrombocytopenia with platelet count of 71, white blood cell count of 3.3. His urine toxicology screen was positive for cannabinoids. CT scan of the brain in the emergency room showed no evidence of any acute intracranial findings. He also had he also had a chest x-ray which was within normal. Ultrasound of the upper extremities showed occlusive clot in the right basilic within the right proximal cephalic vein and an additional clot noted in the left mid and distal radial vein. In the emergency room, the patient received one liter of normal saline and is currently receiving a second liter. In addition, clindamycin, Zosyn and Vancomycin were given. 05/07 No events overnight. Patient is lying in bed in NAD reports pain in LUE. CT shoulder showed no air or fluid collection. CTA chest negative for PE. On Heparin drip, US UE showed b/l DVT. Objective Vital Signs Date Time Temp Pulse Resp B/P (MAP) Pulse Ox O2 Delivery O2 Flow Rate FiO2 05/07/17 08:52 99 Nasal Cannula 2.00 05/07/17 06:00 125 05/07/17 04:00 98.0 22 103/58 (73) 05/06/17 20:56 21 Intake and Output 05/07/17 05/07/17 05/08/17 08:00 16:00 00:00 Intake Total 1664 ml Output Total 575 ml Balance 1089 ml Result Diagram: 05/07/17 0350 05/07/17 0350 Other Results Laboratory Tests Test 05/06/17 09:30 05/06/17 10:55 05/06/17 12:10 05/06/17 13:30 White Blood Count 3.3 TH/MM3 Red Blood Count 4.53 MIL/MM3 Hemoglobin 13.6 GM/DL Hematocrit 38.2 % Mean Corpuscular Volume 84.3 FL Mean Corpuscular Hemoglobin 30.0 PG Mean Corpuscular Hemoglobin Concent 35.6 % Red Cell Distribution Width 13.5 % Platelet Count 71 TH/MM3 Mean Platelet Volume 7.9 FL Neutrophils (%) (Auto) 89.5 % Lymphocytes (%) (Auto) 3.7 % Monocytes (%) (Auto) 4.2 % Eosinophils (%) (Auto) 2.5 % Basophils (%) (Auto) 0.1 % Neutrophils # (Auto) 3.0 TH/MM3 Lymphocytes # (Auto) 0.1 TH/MM3 Monocytes # (Auto) 0.1 TH/MM3 Eosinophils # (Auto) 0.1 TH/MM3 Basophils # (Auto) 0.0 TH/MM3 CBC Comment AUTO DIFF Differential Total Cells Counted 100 Neutrophils % (Manual) 82 % Band Neutrophils % 15 % Neutrophils # (Manual) 3.3 TH/MM3 Metamyelocytes 2 % Myelocytes 1 % Differential Comment FINAL DIFF MANUAL Toxic Granulation 1+ Toxic Vacuolation PRESENT Platelet Estimate LOW Platelet Morphology Comment NORMAL Blood Urea Nitrogen 9 MG/DL Creatinine 1.15 MG/DL Random Glucose 93 MG/DL Total Protein 6.3 GM/DL Albumin 2.5 GM/DL Calcium Level 7.9 MG/DL Alkaline Phosphatase 38 U/L Aspartate Amino Transf (AST/SGOT) 91 U/L Alanine Aminotransferase (ALT/SGPT) 45 U/L Total Bilirubin 3.1 MG/DL Sodium Level 102 MEQ/L Potassium Level 3.8 MEQ/L Chloride Level 69 MEQ/L Carbon Dioxide Level 17.3 MEQ/L Anion Gap 16 MEQ/L Estimat Glomerular Filtration Rate 72 ML/MIN Lactic Acid Level 3.7 mmol/L Total Creatine Kinase 422 U/L Creatine Kinase MB 6.0 NG/ML Creatine Kinase MB % 1.4 % Troponin I LESS THAN 0.02 NG/ML Lipase 20 U/L Thyroid Stimulating Hormone 3rd Gen 2.140 uIU/ML Salicylates Level LESS THAN 1.7 MG/DL Acetaminophen Level LESS THAN 2.0 MCG/ML Ethyl Alcohol Level LESS THAN 3 MG/DL Prothrombin Time 16.1 SEC Prothromb Time International Ratio 1.4 RATIO Activated Partial Thromboplast Time 36.4 SEC Fibrinogen 449 mg/dL Urine Color YELLOW Urine Turbidity CLEAR Urine pH 6.5 Urine Specific [place] 1.013 Urine Protein 100 mg/dL Urine Glucose (UA) NEG mg/dL Urine Ketones NEG mg/dL Urine Occult Blood MOD Urine Nitrite NEG Urine Bilirubin NEG Urine Urobilinogen LESS THAN 2.0 MG/DL Urine Leukocyte Esterase SMALL Urine RBC 5 /hpf Urine WBC 19 /hpf Urine Squamous Epithelial Cells <1 /hpf Urine Bacteria OCC /hpf Urine Hyaline Casts 3 /lpf Microscopic Urinalysis Comment CULTURE INDICATED Urine Osmolality 335 MOSM/KG Urine Random Sodium 8 MEQ/L Urine Opiates Screen NEG Urine Barbiturates Screen NEG Urine Amphetamines Screen NEG Urine Benzodiazepines Screen NEG Urine Cocaine Screen NEG Urine Cannabinoids Screen POS Nasal Screen MRSA (PCR) MRSA NOT DETECTED Test 05/06/17 14:45 05/06/17 17:35 05/06/17 20:44 05/06/17 21:00 White Blood Count 4.1 TH/MM3 Red Blood Count 4.06 MIL/MM3 Hemoglobin 12.2 GM/DL Hematocrit 34.4 % Mean Corpuscular Volume 84.6 FL Mean Corpuscular Hemoglobin 30.0 PG Mean Corpuscular Hemoglobin Concent 35.4 % Red Cell Distribution Width 13.7 % Platelet Count 69 TH/MM3 Mean Platelet Volume 8.5 FL CBC Comment AUTO DIFF Differential Total Cells Counted 100 Neutrophils % (Manual) 68 % Band Neutrophils % 26 % Neutrophils # (Manual) 4.1 TH/MM3 Metamyelocytes 4 % Myelocytes 2 % Differential Comment FINAL DIFF MANUAL Toxic Granulation 1+ Dohle Bodies PRESENT Platelet Estimate LOW Platelet Morphology Comment NORMAL Red Cell Morphology Comment NORMAL Haptoglobin 364 MG/DL Blood Urea Nitrogen 9 MG/DL Creatinine 1.11 MG/DL Random Glucose 107 MG/DL Total Protein 5.5 GM/DL Albumin 2.2 GM/DL Calcium Level 6.9 MG/DL Alkaline Phosphatase 30 U/L Aspartate Amino Transf (AST/SGOT) 83 U/L Alanine Aminotransferase (ALT/SGPT) 43 U/L Total Bilirubin 3.1 MG/DL Sodium Level 110 MEQ/L 109 MEQ/L 110 MEQ/L Potassium Level 3.3 MEQ/L Chloride Level 73 MEQ/L Carbon Dioxide Level 22.0 MEQ/L Anion Gap 15 MEQ/L Estimat Glomerular Filtration Rate 75 ML/MIN Serum Osmolality 226 MOSM/KG Lactic Acid Level 4.1 mmol/L 3.1 mmol/L Protein Corrected Calcium 7.7 MG/DL Lactate Dehydrogenase 294 U/L Activated Partial Thromboplast Time 37.8 SEC Test 05/06/17 21:44 05/07/17 00:44 05/07/17 03:50 05/07/17 06:00 Activated Partial Thromboplast Time 67.9 SEC 59.3 SEC Sodium Level 113 MEQ/L 112 MEQ/L White Blood Count 6.8 TH/MM3 Red Blood Count 4.14 MIL/MM3 Hemoglobin 12.2 GM/DL Hematocrit 34.8 % Mean Corpuscular Volume 84.2 FL Mean Corpuscular Hemoglobin 29.5 PG Mean Corpuscular Hemoglobin Concent 35.0 % Red Cell Distribution Width 14.0 % Platelet Count 66 TH/MM3 Mean Platelet Volume 9.0 FL CBC Comment AUTO DIFF Differential Total Cells Counted 100 Neutrophils % (Manual) 52 % Band Neutrophils % 36 % Lymphocytes % 3 % Monocytes % 6 % Eosinophils % 1 % Neutrophils # (Manual) 6.1 TH/MM3 Metamyelocytes 2 % Differential Comment FINAL DIFF MANUAL Toxic Granulation 2+ Toxic Vacuolation PRESENT Dohle Bodies PRESENT Platelet Estimate LOW Red Cell Morphology Comment NORMAL Fibrinogen 462 mg/dL Blood Urea Nitrogen 20 MG/DL Creatinine 1.64 MG/DL Random Glucose 77 MG/DL Total Protein 5.3 GM/DL Albumin 2.1 GM/DL Calcium Level 6.7 MG/DL Phosphorus Level 3.4 MG/DL Magnesium Level 1.3 MG/DL Alkaline Phosphatase 30 U/L Aspartate Amino Transf (AST/SGOT) 62 U/L Alanine Aminotransferase (ALT/SGPT) 40 U/L Total Bilirubin 3.2 MG/DL Potassium Level 3.3 MEQ/L Chloride Level 75 MEQ/L Carbon Dioxide Level 24.0 MEQ/L Anion Gap 13 MEQ/L Estimat Glomerular Filtration Rate 48 ML/MIN Serum Osmolality 232 MOSM/KG Lactic Acid Level 3.1 mmol/L Protein Corrected Calcium 7.6 MG/DL Urine Osmolality 298 MOSM/KG Urine Random Sodium 5 MEQ/L Imaging Last Impressions Upper Extremity Ultrasound 05/06/17 0919 Signed Impressions: Service Date/Time: Saturday, May 06, 2017 09:20 - CONCLUSION: There is noncompressible occlusive clot identified in the right basilic, within the right proximal cephalic vein with nonvisualization of the mid and distal portion of the cephalic vein secondary to patient movement. Additional clot is identified within the left mid and distal radial vein. There are bilateral axillary lymph nodes noted. Somewhat larger on the left. Norma Sampson MD Head CT 05/06/17918 Signed Impressions: Service Date/Time: Saturday, May 06, 2017 10:48 - CONCLUSION: Normal examination. Norma Sampson MD Chest X-Ray 05/06/17918 Signed Impressions: Service Date/Time: Saturday, May 06, 2017 11:17 - CONCLUSION: Normal examination. Norma Sampson MD Upper Extremity CT 05/06/17 0000 Signed Impressions: Service Date/Time: Saturday, May 06, 2017 15:56 - CONCLUSION: Normal examination other than reactive adenopathy throughout the right axilla. Jose Angel Huizar MD CT Angiography 05/06/17 0000 Signed Impressions: Service Date/Time: Saturday, May 06, 2017 15:42 - CONCLUSION: Normal examination of the pulmonary arteries. Extensive edema and reactive adenopathy throughout both axilla left worse than right. Jose Angel Huizar MD Objective Remarks GENERAL: Patient is 37 yo lying in bed in NAD SKIN: Warm and dry. HEAD: Normocephalic. EYES: No scleral icterus. No injection or drainage. NECK: Supple, trachea midline. No JVD or lymphadenopathy. CARDIOVASCULAR: Regular rate and rhythm without murmurs, gallops, or rubs. RESPIRATORY: Breath sounds equal bilaterally. No accessory muscle use. GASTROINTESTINAL: Abdomen soft, non-tender, nondistended. MUSCULOSKELETAL: No cyanosis, or edema. Neuro: Awake and alert. A/P Assessment and Plan 1. Sepsis. 2. Cellulitis of LUE 3. BEATRIZ 4. Lactic acidosis. 5. Hyposmolar hypovolemic Hyponatremia. 6. Gram positive Bacteremia 7. Elevated AST. 8. DVT bilateral upper extremities. 9. Leukopenia and thrombocytopenia likely secondary to severe sepsis. 10. History of anxiety and depression. 11 Hx PTSD Plan Neuro: Awake and alert. Monitor neuro status closely and avoid sedatives. CT brain: negative for acute process UDS:+ cannabinoids. Resume BuSpar, Trazodone, Klonopin Pulm: Continue oxygen and maintain >above 92%. Bronchodilators CV: Monitor HR and BP and maintain MAP>65 mmHg. Received 2L crystalloids in ED Serial lactic acid monitoring .. trending down. : Monitor renal function, I/O's and electrolyte replacement per protocol. Renal is following- Dr. Pedro, Monitor Sodium level Q4hr. Sodium correction not to exceed 8-10 in 24 hrs. TSH: 2.1. On D5NS@30ml/hr GI: On Protonix 40 milligrams daily for GI prophylaxis. Start regular diet ID: Continue abx( clindamycin,Vancomycin and Zosyn) ID is following. BC 05/06: GPC, will repat BC x 2 sets today and check 2D echo r/o vegetations. Monitor for signs of infection(fever and WBCs). Follow up on blood, wound and urine culture. Ortho is following. CT shoulder showed no air or abscess Endo: SSI with Accu-Chek for glycemic control. Heme: Monitor CBC and coags- on Heparin drip. Heme is following- Dr. Holley GI prophylaxis with Protonix 40 milligrams daily and DVT prophylaxis with SCDs / on Heparin drip. Lines: Right femoral central line was placed by ED physician. Level 3 Janusz Ayala MD May 07, 2017 09:07
[2017-05-07] MEDS: VANCOMYCIN INJ 1,500 MG in SODIUM CHLORID 0.9% 500 ML INJ 500 ML IV SCH (09:58)
[2017-05-07] MEDS: PANTOPRAZOLE SODIUM 40 MG VIAL IV PUSH SCH (09:59)
[2017-05-07] MEDS: SODIUM CHLORIDE 0.9% FLUSH 10 ML FLUSH IV FLUSH SCH ×2 (09:59→20:08)
[2017-05-07] MEDS: HEPARIN-D5W 25,000 U/250 ML 250 ML IV PRN (11:00)
--- NOTE | 2017-05-07 11:24 | HHI.NPPN ---
Subjective Renal Failure: Acute Interval History He is awake. Requesting PO fluids. Creatinine is worse. (Josiane Norris) Review of Systems Endocrine Endocrine: Thirst (Josiane Norris) Objective Data Data Vital Signs Date Time Temp Pulse Resp B/P (MAP) Pulse Ox O2 Delivery O2 Flow Rate FiO2 05/07/17 08:52 96 Nasal Cannula 21 05/07/17 06:00 125 05/07/17 04:00 113 05/07/17 04:00 98.0 113 22 103/58 (73) 98 05/07/17 02:00 113 05/07/17 00:00 113 05/07/17 00:00 98.1 113 22 102/58 (73) 98 05/06/17 22:00 112 05/06/17 20:56 98 21 05/06/17 20:53 100 Nasal Cannula 2.00 05/06/17 20:00 115 05/06/17 20:00 99.3 115 16 102/56 (71) 99 05/06/17 18:00 111 05/06/17 16:47 98 Nasal Cannula 2.00 05/06/17 16:00 100.2 126 17 100/56 (71) 98 05/06/17 16:00 126 05/06/17 14:00 99 Nasal Cannula 2.00 05/06/17 14:00 102.9 132 26 152/94 (113) 99 05/06/17 14:00 132 05/06/17 13:06 99.6 122 18 160/67 (98) 99 Nasal Cannula 2.00 05/06/17 12:56 99.6 122 18 160/67 (98) 99 Nasal Cannula 2.00 05/06/17 11:37 97.9 122 20 130/86 (101) 100 Nasal Cannula 3.00 (Josiane Norris) -: 05/07/17 0350 05/07/17 0350 Microbiology 05/06/17 Aerobic Blood Culture - Preliminary, Resulted Gram Positive Cocci 05/06/17 Anaerobic Blood Culture - Preliminary, Resulted NO GROWTH IN 1 DAY 05/06/17 Aerobic Blood Culture - Preliminary, Resulted Gram Positive Cocci 05/06/17 Anaerobic Blood Culture - Preliminary, Resulted Gram Positive Cocci 05/06/17 Urine Culture, Received Pending 05/06/17 Gram Stain - Final, Resulted 05/06/17 Wound Culture, Resulted Pending Imaging Last 72 hours Impressions Upper Extremity Ultrasound 05/06/17918 Signed Impressions: Service Date/Time: Saturday, May 06, 2017 09:20 - CONCLUSION: There is noncompressible occlusive clot identified in the right basilic, within the right proximal cephalic vein with nonvisualization of the mid and distal portion of the cephalic vein secondary to patient movement. Additional clot is identified within the left mid and distal radial vein. There are bilateral axillary lymph nodes noted. Somewhat larger on the left. Norma Sampson MD Head CT 05/06/17918 Signed Impressions: Service Date/Time: Saturday, May 06, 2017 10:48 - CONCLUSION: Normal examination. Norma Sampson MD Chest X-Ray 05/06/17918 Signed Impressions: Service Date/Time: Saturday, May 06, 2017 11:17 - CONCLUSION: Normal examination. Norma Sampson MD Upper Extremity CT 05/06/17 0000 Signed Impressions: Service Date/Time: Saturday, May 06, 2017 15:56 - CONCLUSION: Normal examination other than reactive adenopathy throughout the right axilla. Jose Angel Huizar MD Upper Extremity CT 05/06/17 0000 Signed Impressions: Service Date/Time: Saturday, May 06, 2017 16:01 - CONCLUSION: Marked subcutaneous edema and swelling across the forearm. Some fluid loculated between the muscle and fascia. No intramuscular abscess is seen. No air identified to suggest necrotizing fasciitis. Jose Angel Huizar MD CT Angiography 05/06/17 Signed Impressions: Service Date/Time: Saturday, May 06, 2017 15:42 - CONCLUSION: Normal examination of the pulmonary arteries. Extensive edema and reactive adenopathy throughout both axilla left worse than right. Jose Angel Huizar MD Tubes & Lines: Garcia (Josiane Norris) Physical Exam General Appearance: Well Developed, Comfortable, Anxious (Josiane NorrisP) Eyes Eye Exam: Pupils Equal (Josiane Norris LEAD DATA ENTRY OPERATOR) Throat Throat Exam: Oral Mucosa [place] & Moist (Josiane Norris LEAD DATA ENTRY OPERATOR) Pulmonary Resp Exam: Clear Bilaterally, Breath Sounds Equal (Josiane Norris) Cardiology CV Exam: Regular, Normal Sinus Rhythm (Josiane Norris) Gastrointestinal/Abdomen GI Exam: Soft, Non-Tender (Josiane Norris) Musculoskeletal MS Exam: Normal Tone, Good Strength (Josiane Norris) Integumentary Skin Exam: Warm, Dry Skin Remarks erythema to upper extremities (Josiane Norris) Extremeties Extremities Exam: No Edema, Pedal Pulses Palpable (Josiane Norris) Neurologic Neuro Exam: Alert, Awake, Oriented, Moving All Extremities (Josiane Norris) Assessment/Plan Discussed Condition With: Patient Assessment Summary: BEATRIZ/Acute Renal Failure Problem List: (1) BEATRIZ (acute kidney injury) ICD Codes: N17.9 - Acute kidney failure, unspecified Plan: Normal renal function on arrival BEATRIZ may be due to dehydration and also renal hypoperfusion due to sepsis continue IVF, avoid nephrotoxins monitor urine output K replacement has been ordered (2) Hyponatremia ICD Codes: E87.1 - Hypo-osmolality and hyponatremia Plan: Low urine sodium suggesting hypovolemic hyponatremia or low solute hyponatremia Serum Na has corrected some since admission continue D5NS @ 30 cc/hr Follow labs Q4h, avoid overcorrection Limit oral water intake (3) Sepsis ICD Codes: A41.9 - Sepsis, unspecified organism Plan: ID to follow he is on vancomycin, zosyn, and clindamycin (Josiane Norris) Problem List: (1) BEATRIZ (acute kidney injury) ICD Codes: N17.9 - Acute kidney failure, unspecified Plan: Normal renal function on arrival BEATRIZ may be due to dehydration and also renal hypoperfusion due to sepsis continue IVF, avoid nephrotoxins monitor urine output K replacement has been ordered (2) Hyponatremia ICD Codes: E87.1 - Hypo-osmolality and hyponatremia Plan: Low urine sodium suggesting hypovolemic hyponatremia or low solute hyponatremia Serum Na has corrected some since admission continue D5NS @ 30 cc/hr Follow labs Q4h, avoid overcorrection Limit oral water intake (3) Sepsis ICD Codes: A41.9 - Sepsis, unspecified organism Plan: ID to follow he is on vancomycin, zosyn, and clindamycin Plan patient was seen and examined. Urine Na is low, suggestive of hypovolemic hyponatremia. Patient does have the habit of drinking excessive water. Therefore psychogenic polydipsia or low solute hyponatremia also will have to be considered. However, in these two conditions urine osmolality will be low, and urine Na is not expected to be low. (Nasir Rouse MD) Josiane Norris [facility] May 07, 2017 11:24 Nasir Rouse MD May 07, 2017 21:26
[2017-05-07] MEDS ORDERED: POTASSIUM CHLORIDE 10 MEQ CONTROLLED RELEASE TAB PO ONE (11:30)
--- NOTE | 2017-05-07 12:01 | PD.ONC.PN ---
Subjective Subjective Remarks Afebrile overnight. Patient reporting continued pain in arms. Unable to move left arm. Noted weeping in left arm and bullae formation in right arm. Objective Data Date Time Temp Pulse Resp B/P (MAP) Pulse Ox O2 Delivery O2 Flow Rate FiO2 05/07/17 08:52 96 Nasal Cannula 21 05/07/17 06:00 125 05/07/17 04:00 113 05/07/17 04:00 98.0 113 22 103/58 (73) 98 05/07/17 02:00 113 05/07/17 00:00 113 05/07/17 00:00 98.1 113 22 102/58 (73) 98 05/06/17 22:00 112 05/06/17 20:56 98 21 05/06/17 20:53 100 Nasal Cannula 2.00 05/06/17 20:00 115 05/06/17 20:00 99.3 115 16 102/56 (71) 99 05/06/17 18:00 111 05/06/17 16:47 98 Nasal Cannula 2.00 05/06/17 16:00 100.2 126 17 100/56 (71) 98 05/06/17 16:00 126 05/06/17 14:00 99 Nasal Cannula 2.00 05/06/17 14:00 102.9 132 26 152/94 (113) 99 05/06/17 14:00 132 05/06/17 13:06 99.6 122 18 160/67 (98) 99 Nasal Cannula 2.00 05/06/17 12:56 99.6 122 18 160/67 (98) 99 Nasal Cannula 2.00 05/07/17 05/07/17 05/07/17 07:00 15:00 23:00 Intake Total 1664 ml Output Total 575 ml Balance 1089 ml Result Diagram: 05/07/17 0350 05/07/17 1020 Laboratory Results Laboratory Tests Test 05/06/17 12:10 05/06/17 13:30 05/06/17 14:45 05/06/17 17:35 Urine Color YELLOW Urine Turbidity CLEAR Urine pH 6.5 Urine Specific [place] 1.013 Urine Protein 100 mg/dL Urine Glucose (UA) NEG mg/dL Urine Ketones NEG mg/dL Urine Occult Blood MOD Urine Nitrite NEG Urine Bilirubin NEG Urine Urobilinogen LESS THAN 2.0 MG/DL Urine Leukocyte Esterase SMALL Urine RBC 5 /hpf Urine WBC 19 /hpf Urine Squamous Epithelial Cells <1 /hpf Urine Bacteria OCC /hpf Urine Hyaline Casts 3 /lpf Microscopic Urinalysis Comment CULTURE INDICATED Urine Osmolality 335 MOSM/KG Urine Random Sodium 8 MEQ/L Urine Opiates Screen NEG Urine Barbiturates Screen NEG Urine Amphetamines Screen NEG Urine Benzodiazepines Screen NEG Urine Cocaine Screen NEG Urine Cannabinoids Screen POS Nasal Screen MRSA (PCR) MRSA NOT DETECTED White Blood Count 4.1 TH/MM3 Red Blood Count 4.06 MIL/MM3 Hemoglobin 12.2 GM/DL Hematocrit 34.4 % Mean Corpuscular Volume 84.6 FL Mean Corpuscular Hemoglobin 30.0 PG Mean Corpuscular Hemoglobin Concent 35.4 % Red Cell Distribution Width 13.7 % Platelet Count 69 TH/MM3 Mean Platelet Volume 8.5 FL CBC Comment AUTO DIFF Differential Total Cells Counted 100 Neutrophils % (Manual) 68 % Band Neutrophils % 26 % Neutrophils # (Manual) 4.1 TH/MM3 Metamyelocytes 4 % Myelocytes 2 % Differential Comment FINAL DIFF MANUAL Toxic Granulation 1+ Dohle Bodies PRESENT Platelet Estimate LOW Platelet Morphology Comment NORMAL Red Cell Morphology Comment NORMAL Haptoglobin 364 MG/DL Blood Urea Nitrogen 9 MG/DL Creatinine 1.11 MG/DL Random Glucose 107 MG/DL Total Protein 5.5 GM/DL Albumin 2.2 GM/DL Calcium Level 6.9 MG/DL Alkaline Phosphatase 30 U/L Aspartate Amino Transf (AST/SGOT) 83 U/L Alanine Aminotransferase (ALT/SGPT) 43 U/L Total Bilirubin 3.1 MG/DL Sodium Level 110 MEQ/L 109 MEQ/L Potassium Level 3.3 MEQ/L Chloride Level 73 MEQ/L Carbon Dioxide Level 22.0 MEQ/L Anion Gap 15 MEQ/L Estimat Glomerular Filtration Rate 75 ML/MIN Serum Osmolality 226 MOSM/KG Lactic Acid Level 4.1 mmol/L Protein Corrected Calcium 7.7 MG/DL Lactate Dehydrogenase 294 U/L Activated Partial Thromboplast Time 37.8 SEC Test 05/06/17 20:44 05/06/17 21:00 05/06/17 21:44 05/07/17 00:44 Sodium Level 110 MEQ/L 113 MEQ/L Lactic Acid Level 3.1 mmol/L Activated Partial Thromboplast Time 67.9 SEC Test 05/07/17 03:50 05/07/17 06:00 05/07/17 10:20 White Blood Count 6.8 TH/MM3 Red Blood Count 4.14 MIL/MM3 Hemoglobin 12.2 GM/DL Hematocrit 34.8 % Mean Corpuscular Volume 84.2 FL Mean Corpuscular Hemoglobin 29.5 PG Mean Corpuscular Hemoglobin Concent 35.0 % Red Cell Distribution Width 14.0 % Platelet Count 66 TH/MM3 Mean Platelet Volume 9.0 FL CBC Comment AUTO DIFF Differential Total Cells Counted 100 Neutrophils % (Manual) 52 % Band Neutrophils % 36 % Lymphocytes % 3 % Monocytes % 6 % Eosinophils % 1 % Neutrophils # (Manual) 6.1 TH/MM3 Metamyelocytes 2 % Differential Comment FINAL DIFF MANUAL Toxic Granulation 2+ Toxic Vacuolation PRESENT Dohle Bodies PRESENT Platelet Estimate LOW Red Cell Morphology Comment NORMAL Activated Partial Thromboplast Time 59.3 SEC Fibrinogen 462 mg/dL Blood Urea Nitrogen 20 MG/DL Creatinine 1.64 MG/DL Random Glucose 77 MG/DL Total Protein 5.3 GM/DL Albumin 2.1 GM/DL Calcium Level 6.7 MG/DL Phosphorus Level 3.4 MG/DL Magnesium Level 1.3 MG/DL Alkaline Phosphatase 30 U/L Aspartate Amino Transf (AST/SGOT) 62 U/L Alanine Aminotransferase (ALT/SGPT) 40 U/L Total Bilirubin 3.2 MG/DL Sodium Level 112 MEQ/L 110 MEQ/L Potassium Level 3.3 MEQ/L Chloride Level 75 MEQ/L Carbon Dioxide Level 24.0 MEQ/L Anion Gap 13 MEQ/L Estimat Glomerular Filtration Rate 48 ML/MIN Serum Osmolality 232 MOSM/KG Lactic Acid Level 3.1 mmol/L 2.6 mmol/L Protein Corrected Calcium 7.6 MG/DL Hepatitis B Surface Antigen NEGATIVE Hepatitis B Core IgM Antibody NEGATIVE Hepatitis C Antibody REACTIVE Urine Osmolality 298 MOSM/KG Urine Random Sodium 5 MEQ/L Culture Results Microbiology Date/Time Source Procedure Growth Status 05/06/17 11:50 Blood Peripheral Aerobic Blood Culture - Preliminary Gram Positive Cocci Resulted 05/06/17 11:50 Blood Peripheral Anaerobic Blood Culture - Preliminary NO GROWTH IN 1 DAY Resulted 05/06/17 11:30 Blood Peripheral Aerobic Blood Culture - Preliminary Gram Positive Cocci Resulted 05/06/17 11:30 Anaerobic Blood Culture - Preliminary Gram Positive Cocci Resulted 05/06/17 12:10 Urine Clean Catch Urine Culture Pending Received 05/06/17 15:15 Wound Arm Gram Stain - Final Resulted 05/06/17 15:15 Wound Arm Wound Culture Pending Resulted Administered Medications Medications (Trade) Dose Ordered Sig/Hafsa Route PRN Reason Start Time Stop Time Status Last Admin Dose Admin Sodium Chloride (NS Flush) 2 ml BID IV FLUSH 05/06/17 21:00 05/07/17 09:59 Pantoprazole Sodium (Protonix Inj) 40 mg DAILY IV PUSH 05/07/17 09:00 05/07/17 09:59 Albuterol/ Ipratropium (Duoneb Neb) 1 ampule Q6HR NEB INH 05/06/17 12:45 05/07/17 08:52 Miscellaneous Information 1 Q361D XX 05/06/17 12:45 05/06/17 12:45 Chlorhexidine Gluconate (Chlorhexidine 2% Cloth) 3 pack Taper DAILY@04 TOP 05/07/17 04:00 05/03/18 03:59 05/07/17 02:29 Dextrose/Sodium Chloride 1,000 ml @ 30 mls/hr Q24H IV 05/06/17 12:45 05/06/17 14:02 Piperacillin Sod/ Tazobactam Sod 100 ml @ 200 mls/hr Q6H IV 05/06/17 18:00 05/07/17 05:30 Clindamycin Phosphate 900 mg/ Sodium Chloride 106 ml @ 212 mls/hr Q8H IV 05/06/17 20:00 05/07/17 03:38 Vancomycin HCl 1500 mg/Sodium Chloride 515 ml @ 250 mls/hr Q12H IV 05/06/17 21:00 Future Hold 05/07/17 09:58 Acetaminophen (Tylenol) 650 mg Q6H PRN PO pain 1-10 05/06/17 14:30 05/07/17 00:03 Ondansetron HCl (Zofran Inj) 4 mg Q8HR PRN IV PUSH N/V 05/06/17 14:30 05/06/17 18:39 Diltiazem HCl (Cardizem) 60 mg Q6HR PO 05/06/17 14:45 05/06/17 14:58 Heparin Sodium/ Dextrose 250 ml @ 17 mls/hr TITRATE PRN IV Coagulation management 05/06/17 14:45 05/06/17 17:43 Objective Remarks GENERAL: Young man, sitting up in bed in nad. SKIN: Warm and dry. HEAD: Normocephalic. EYES: No injection or drainage. NECK: Supple, trachea midline. CARDIOVASCULAR: Regular rate and rhythm RESPIRATORY: Breath sounds equal bilaterally. No accessory muscle use. GASTROINTESTINAL: Abdomen soft, non-tender, nondistended. EXTREMITIES: No cyanosis. bilateral upper extremities with severe edema. left arm is wrapped with yellow fluid oozing from arm. bullae formation noted along right forearm NEUROLOGICAL: awake and alert, normal speech. Assessment/Plan Problem List: (1) Acute bilateral deep vein thrombosis (DVT) of upper extremities ICD Codes: I82.623 - Acute embolism and thrombosis of deep veins of upper extremity, bilateral Plan: on IV heparin gtt --Doppler ultrasound, upper extremities-->noncompressible occlusive clot in the right basilic vein within the right proximal cephalic vein with nonvisualization of the mid and distal portions of the cephalic vein secondary to patient movement. There was additional clot in the left mid and distal radial vein. --no precipitating factor. --CTA showed no PE (2) Hyponatremia ICD Codes: E87.1 - Hypo-osmolality and hyponatremia Plan: --?malignancy --CTA showing reactive axillary LAD (3) Thrombocytopenia ICD Codes: D69.6 - Thrombocytopenia, unspecified Plan: --fibrinogen is preserved ++hepatitis C (4) Sepsis ICD Codes: A41.9 - Sepsis, unspecified organism Plan: -- Sepsis / cellulitis from the left arm. --on vancomycin, Zosyn and clindamycin. --BC +GPC --UC pending (5) Axillary lymphadenopathy ICD Codes: R59.0 - Localized enlarged lymph nodes Assessment 37y/o male with bilateral DVTs and hyponatremia. h/o past medical history of PTSD, TBI and anxiety Plan 1. continue heparin gtt 2. obtain liver ultrasound 3. monitor CBC Attending Statement The exam, history, and the medical decision-making described in the above note were completed with the assistance of the mid-level provider. I reviewed and agree with the findings presented. I attest that I had a [id number] encounter with the patient on the same day, and personally performed and documented my assessment and findings in the medical record. continue anticoagulation Hypercoagulable w/u ordered Liver U/S --Hep C positive --check Viral load-- will need GI f/u outpatient refused HIV testing thrombocytopenia due to acute infection and Hep C Nephrology addressing hyponatremia d/w rn o/n events reviewed Robyn Scott May 07, 2017 12:01 David Holley MD May 07, 2017 22:28
[2017-05-07] MEDS: busPIRone HCL 10 MG TAB PO SCH ×2 (12:31→17:22)
[2017-05-07] MEDS: HYDROmorphone HCL PF 1 MG/ML VIAL IV PUSH PRN ×2 (12:32→17:15)
[2017-05-07] MEDS: clonazePAM 1 MG TAB PO SCH ×2 (12:53→20:08)
--- NOTE | 2017-05-07 15:06 | HHI.IDPN ---
Subjective Subjective Remarks pt is hemodynamically stable worsening pain and edema Tmax 102.9 CT with LUE loculated fluid collection in muscle, fascia Antibiotics clindamycion zosyn vanco - stopped Allergies: Coded Allergies: No Known Allergies (Unverified , 05/06/17) Objective . Vital Signs Date Time Temp Pulse Resp B/P (MAP) Pulse Ox O2 Delivery O2 Flow Rate FiO2 05/07/17 08:52 96 Nasal Cannula 21 05/07/17 06:00 125 05/07/17 04:00 113 05/07/17 04:00 98.0 113 22 103/58 (73) 98 05/07/17 02:00 113 05/07/17 00:00 113 05/07/17 00:00 98.1 113 22 102/58 (73) 98 05/06/17 22:00 112 05/06/17 20:56 98 21 05/06/17 20:53 100 Nasal Cannula 2.00 05/06/17 20:00 115 05/06/17 20:00 99.3 115 16 102/56 (71) 99 05/06/17 18:00 111 05/06/17 16:47 98 Nasal Cannula 2.00 05/06/17 16:00 100.2 126 17 100/56 (71) 98 05/06/17 16:00 126 . Laboratory Tests Test 05/06/17 09:30 05/06/17 14:45 05/07/17 03:50 White Blood Count 3.3 TH/MM3 4.1 TH/MM3 6.8 TH/MM3 Red Blood Count 4.53 MIL/MM3 4.06 MIL/MM3 4.14 MIL/MM3 Hemoglobin 13.6 GM/DL 12.2 GM/DL 12.2 GM/DL Hematocrit 38.2 % 34.4 % 34.8 % Mean Corpuscular Volume 84.3 FL 84.6 FL 84.2 FL Mean Corpuscular Hemoglobin 30.0 PG 30.0 PG 29.5 PG Mean Corpuscular Hemoglobin Concent 35.6 % 35.4 % 35.0 % Red Cell Distribution Width 13.5 % 13.7 % 14.0 % Platelet Count 71 TH/MM3 69 TH/MM3 66 TH/MM3 Mean Platelet Volume 7.9 FL 8.5 FL 9.0 FL Neutrophils (%) (Auto) 89.5 % Lymphocytes (%) (Auto) 3.7 % Monocytes (%) (Auto) 4.2 % Eosinophils (%) (Auto) 2.5 % Basophils (%) (Auto) 0.1 % Neutrophils # (Auto) 3.0 TH/MM3 Lymphocytes # (Auto) 0.1 TH/MM3 Monocytes # (Auto) 0.1 TH/MM3 Eosinophils # (Auto) 0.1 TH/MM3 Basophils # (Auto) 0.0 TH/MM3 CBC Comment AUTO DIFF AUTO DIFF AUTO DIFF Differential Total Cells Counted 100 100 100 Neutrophils % (Manual) 82 % 68 % 52 % Band Neutrophils % 15 % 26 % 36 % Neutrophils # (Manual) 3.3 TH/MM3 4.1 TH/MM3 6.1 TH/MM3 Metamyelocytes 2 % 4 % 2 % Myelocytes 1 % 2 % Differential Comment FINAL DIFF MANUAL FINAL DIFF MANUAL FINAL DIFF MANUAL Toxic Granulation 1+ 1+ 2+ Toxic Vacuolation PRESENT PRESENT Platelet Estimate LOW LOW LOW Platelet Morphology Comment NORMAL NORMAL Dohle Bodies PRESENT PRESENT Red Cell Morphology Comment NORMAL NORMAL Haptoglobin 364 MG/DL Lymphocytes % 3 % Monocytes % 6 % Eosinophils % 1 % Laboratory Tests Test 05/06/17 09:30 05/06/17 14:45 05/06/17 17:35 05/06/17 20:44 Blood Urea Nitrogen 9 MG/DL 9 MG/DL Creatinine 1.15 MG/DL 1.11 MG/DL Random Glucose 93 MG/DL 107 MG/DL Total Protein 6.3 GM/DL 5.5 GM/DL Albumin 2.5 GM/DL 2.2 GM/DL Calcium Level 7.9 MG/DL 6.9 MG/DL Alkaline Phosphatase 38 U/L 30 U/L Aspartate Amino Transf (AST/SGOT) 91 U/L 83 U/L Alanine Aminotransferase (ALT/SGPT) 45 U/L 43 U/L Total Bilirubin 3.1 MG/DL 3.1 MG/DL Sodium Level 102 MEQ/L 110 MEQ/L 109 MEQ/L 110 MEQ/L Potassium Level 3.8 MEQ/L 3.3 MEQ/L Chloride Level 69 MEQ/L 73 MEQ/L Carbon Dioxide Level 17.3 MEQ/L 22.0 MEQ/L Anion Gap 16 MEQ/L 15 MEQ/L Estimat Glomerular Filtration Rate 72 ML/MIN 75 ML/MIN Lactic Acid Level 3.7 mmol/L 4.1 mmol/L Total Creatine Kinase 422 U/L Creatine Kinase MB 6.0 NG/ML Creatine Kinase MB % 1.4 % Troponin I LESS THAN 0.02 NG/ML Lipase 20 U/L Thyroid Stimulating Hormone 3rd Gen 2.140 uIU/ML Serum Osmolality 226 MOSM/KG Protein Corrected Calcium 7.7 MG/DL Lactate Dehydrogenase 294 U/L Test 05/06/17 21:00 05/07/17 00:44 05/07/17 03:50 05/07/17 10:20 Lactic Acid Level 3.1 mmol/L 3.1 mmol/L 2.6 mmol/L Sodium Level 113 MEQ/L 112 MEQ/L 110 MEQ/L Blood Urea Nitrogen 20 MG/DL Creatinine 1.64 MG/DL Random Glucose 77 MG/DL Total Protein 5.3 GM/DL Albumin 2.1 GM/DL Calcium Level 6.7 MG/DL Phosphorus Level 3.4 MG/DL Magnesium Level 1.3 MG/DL Alkaline Phosphatase 30 U/L Aspartate Amino Transf (AST/SGOT) 62 U/L Alanine Aminotransferase (ALT/SGPT) 40 U/L Total Bilirubin 3.2 MG/DL Potassium Level 3.3 MEQ/L Chloride Level 75 MEQ/L Carbon Dioxide Level 24.0 MEQ/L Anion Gap 13 MEQ/L Estimat Glomerular Filtration Rate 48 ML/MIN Serum Osmolality 232 MOSM/KG Protein Corrected Calcium 7.6 MG/DL Microbiology Date/Time Source Procedure Growth Status 05/07/17 13:45 Blood Peripheral Aerobic Blood Culture Pending Received 05/07/17 13:45 Blood Peripheral Anaerobic Blood Culture Pending Received 05/07/17 10:09 Blood Peripheral Aerobic Blood Culture Pending Received 05/07/17 10:09 Blood Peripheral Anaerobic Blood Culture Pending Received 05/06/17 11:50 Blood Peripheral Aerobic Blood Culture - Preliminary Gram Positive Cocci Resulted 05/06/17 11:50 Blood Peripheral Anaerobic Blood Culture - Preliminary NO GROWTH IN 1 DAY Resulted 05/06/17 11:30 Blood Peripheral Aerobic Blood Culture - Preliminary Gram Positive Cocci Resulted 05/06/17 11:30 Anaerobic Blood Culture - Preliminary Gram Positive Cocci Resulted 05/06/17 12:10 Urine Clean Catch Urine Culture - Preliminary NO GROWTH IN 24 HOURS. Resulted 05/06/17 15:15 Wound Arm Gram Stain - Final Resulted 05/06/17 15:15 Wound Culture - Preliminary Group A Beta Strep Resulted Imaging Last Impressions Upper Extremity Ultrasound 05/06/17918 Signed Impressions: Service Date/Time: Saturday, May 06, 2017 09:20 - CONCLUSION: There is noncompressible occlusive clot identified in the right basilic, within the right proximal cephalic vein with nonvisualization of the mid and distal portion of the cephalic vein secondary to patient movement. Additional clot is identified within the left mid and distal radial vein. There are bilateral axillary lymph nodes noted. Somewhat larger on the left. Norma Sampson MD Head CT 05/06/17918 Signed Impressions: Service Date/Time: Saturday, May 06, 2017 10:48 - CONCLUSION: Normal examination. Norma Sampson MD Chest X-Ray 05/06/17918 Signed Impressions: Service Date/Time: Saturday, May 06, 2017 11:17 - CONCLUSION: Normal examination. Norma Sampson MD Upper Extremity CT 05/06/17 0000 Signed Impressions: Service Date/Time: Saturday, May 06, 2017 15:56 - CONCLUSION: Normal examination other than reactive adenopathy throughout the right axilla. Jose Angel Huizar MD CT Angiography 05/06/17 Signed Impressions: Service Date/Time: Saturday, May 06, 2017 15:42 - CONCLUSION: Normal examination of the pulmonary arteries. Extensive edema and reactive adenopathy throughout both axilla left worse than right. Jose Angel Huizar MD Physical Exam CONSTITUTIONAL/GENERAL: This is an adequately nourished patient, in apparent distress 2/2 severe nausea, vomiting TUBES/LINES/DRAINS: SKIN: No jaundice, + stable petechia mcaulr non pruritic rash on the chest , or lesions. Ecchymoses on R forearm. Skin temperature elevated. Not diaphoretic. CARDIOVASCULAR: Regular tachycardia without murmurs, gallops, or rubs. No JVD. Peripheral pulses symmetric. RESPIRATORY/CHEST: Symmetric, unlabored respirations. Clear to auscultation. Breath sounds equal bilaterally. No wheezes, rales, or rhonchi. GASTROINTESTINAL: Abdomen soft, non-tender, nondistended. No hepato-splenomegaly , or palpable masses. No guarding. Bowel sounds present. GENITOURINARY: Without palpable bladder distension. Garcia catheter in place with clear light yellow urine MUSCULOSKELETAL: lower extremities without clubbing, cyanosis, or edema. No joint tenderness or effusion noted. No calf tenderness. No mottling or clubbing. RUE worsening 3-4X with blisters with hemorragic fluid LUE is very edematous 4-5X, ethymatosi, weeping w with gage odorles serous d/c on the dressing fingers on b/l fands appear to by cyanotic with present abut delaeyd refill NEUROLOGICAL: Awake and alert. Motor and sensory grossly within normal limits. Follows commands. Clear speech. Moves all extremities. PSYCHIATRIC: calm cooperative Assessment & Plan Remarks Assessment and Plan Sepsis, GAS from arms LUE complicated SSTI, cellulitis, CT e/o abscesses (loculated fluid collection) group A BUE DVT Thrombocytopenia with high fibrinogen Pt is ctitically ill Hep C + cont zosyn, clinda, vanco wound culture consult hem/onc cancell HIV CHRISTINA test - pt was previously agreable, now wants to post pone testing fu blood clx Discussed Condition With Jeannie Vernon MD May 07, 2017 15:06
--- NOTE | 2017-05-07 16:46 | ECHRPT ---
Indication: R/O vegetations CONCLUSIONS Normal left ventricular size and wall thickness. The left ventricular systolic function is normal with an estimated ejection fraction in the range of 60-65%. Left ventricular diastolic function parameters are normal. There is trace tricuspid valve regurgitation. The estimated pulmonary arterial pressure is 14.2 mmHg. No massess or vegetations noted BP: / HR: Rhythm: Sinus MEASUREMENTS (Male / Female) Normal Values Technical Quality:Good 2D ECHO LV Diastolic Diameter PLAX 4.1 cm 4.2 - 5.9 / 3.9 - 5.3 cm LV Systolic Diameter PLAX 2.3 cm IVS Diastolic Thickness 0.9 cm 0.6 - 1.0 / 0.6 - 0.9 cm LVPW Diastolic Thickness 0.9 cm 0.6 - 1.0 / 0.6 - 0.9 cm LV Relative Wall Thickness 0.4 RV Internal Dim ED PLAX 2.0 cm LVOT Diameter 2.4 cm LA Systolic Diameter LX 3.7 cm 3.0 - 4.0 / 2.7 - 3.8 cm LV Ejection Fraction MOD 4C 71.0 % LV Ejection Fraction 4C AL 71.5 % M-MODE Aortic Root Diameter MM 3.4 cm AV Cusp Separation MM 2.5 cm DOPPLER AV Peak Velocity 140.0 cm/s AV Peak Gradient 7.8 mmHg LVOT Peak Velocity 122.0 cm/s LVOT Peak Gradient 6.0 mmHg AV Area Cont Eq pk 3.9 cm MV Area PHT 3.9 cm Mitral E Point Velocity 62.9 cm/s Mitral A Point Velocity 67.4 cm/s Mitral E to A Ratio 0.9 LV E' Lateral Velocity 11.7 cm/s Mitral E to LV E' Lateral Ratio 5.4 LV E' Septal Velocity 11.7 cm/s Mitral E to LV E' Septal Ratio 5.4 TR Peak Velocity 102.0 cm/s TR Peak Gradient 4.2 mmHg Right Atrial Pressure 10.0 mmHg Pulmonary Artery Systolic Pressu 14.2 mmHg Right Ventricular Systolic Press 14.2 mmHg PV Peak Velocity 100.0 cm/s PV Peak Gradient 4.0 mmHg FINDINGS LEFT VENTRICLE Normal left ventricular size and wall thickness. The left ventricular systolic function is normal wi th an estimated ejection fraction in the range of 60-65%. Left ventricular diastolic function parameters a re normal. RIGHT VENTRICLE Normal right ventricular size and systolic function. LEFT ATRIUM The left atrial size is normal. RIGHT ATRIUM The right atrial size is normal. ATRIAL SEPTUM Normal atrial septal thickness without atrial level shunting by limited color doppler interrogation. AORTA The aortic root and proximal ascending aorta are normal in size on limited imaging. MITRAL VALVE Structurally normal mitral valve. No mitral valve stenosis or regurgitation. AORTIC VALVE Trileaflet aortic valve. No aortic valve stenosis or regurgitation. TRICUSPID VALVE There is trace tricuspid valve regurgitation. The estimated pulmonary arterial pressure is 14.2 mmHg. PULMONARY VALVE No pulmonary valve regurgitation or stenosis. VESSELS The inferior vena cava is normal in size. PERICARDIUM No pericardial effusion. Carlyle Rueda MD (Electronically Signed) Final Date:07 May 2017 16:46
--- NOTE | 2017-05-07 18:31 | PD.ORT.PN ---
Subjective Subjective Remarks Patient c/o LUE pain. Objective Vitals Vital Signs Date Time Temp Pulse Resp B/P (MAP) Pulse Ox O2 Delivery O2 Flow Rate FiO2 05/07/17 08:52 96 Nasal Cannula 21 05/07/17 06:00 125 05/07/17 04:00 113 05/07/17 04:00 98.0 113 22 103/58 (73) 98 05/07/17 02:00 113 05/07/17 00:00 113 05/07/17 00:00 98.1 113 22 102/58 (73) 98 05/06/17 22:00 112 05/06/17 20:56 98 21 05/06/17 20:53 100 Nasal Cannula 2.00 05/06/17 20:00 115 05/06/17 20:00 99.3 115 16 102/56 (71) 99 I/O 05/06/17 05/06/17 05/06/17 05/07/17 05/07/17 05/07/17 07:00 15:00 23:00 07:00 15:00 23:00 Intake Total 1154 ml 136 ml 1664 ml Output Total 950 ml 575 ml Balance 1154 ml -814 ml 1089 ml Intake Oral 30 ml 520 ml IV Total 1154 ml 106 ml 1144 ml Output Urine Total 850 ml 575 ml Emesis 100 ml # Bowel Movements 0 Result Diagram: 05/07/17 0350 05/07/17 1020 Imaging Last Impressions Upper Extremity Ultrasound 05/06/17918 Signed Impressions: Service Date/Time: Saturday, May 06, 2017 09:20 - CONCLUSION: There is noncompressible occlusive clot identified in the right basilic, within the right proximal cephalic vein with nonvisualization of the mid and distal portion of the cephalic vein secondary to patient movement. Additional clot is identified within the left mid and distal radial vein. There are bilateral axillary lymph nodes noted. Somewhat larger on the left. Norma Sampson MD Head CT 05/06/17918 Signed Impressions: Service Date/Time: Saturday, May 06, 2017 10:48 - CONCLUSION: Normal examination. Norma Sampson MD Chest X-Ray 05/06/17918 Signed Impressions: Service Date/Time: Saturday, May 06, 2017 11:17 - CONCLUSION: Normal examination. Norma Sampson MD Upper Extremity CT 05/06/17 0000 Signed Impressions: Service Date/Time: Saturday, May 06, 2017 15:56 - CONCLUSION: Normal examination other than reactive adenopathy throughout the right axilla. Jose Angel Huizar MD CT Angiography 05/06/17 0000 Signed Impressions: Service Date/Time: Saturday, May 06, 2017 15:42 - CONCLUSION: Normal examination of the pulmonary arteries. Extensive edema and reactive adenopathy throughout both axilla left worse than right. Jose Angel Huizar MD Objective Remarks RIGHT UPPER EXTREMITY: His right upper extremity shows a healing laceration of his ring finger at the level of the PIP joint. No evidence of fluctuance or significant erythema in that area. He does have some thickening and swelling on the flexor muscle mass which is tender. He has full motion of his elbow, wrist shoulder. LEFT UPPER EXTREMITY: His left upper extremity shows full motion of his wrist, but he has limited range of motion of his elbow with range of motion 0/ 40/ 120 degrees. He has a marked amount of swelling involving his forearm, his elbow, and his upper arm. All of the tissue is firm. He has multiple blisters, several of which have popped. At the level of the elbow, there is serous drainage. There is no purulent drainage. There is no odor. He has palpable lymph nodes in the axilla. He has good range of motion of his shoulder. He has mild erythema throughout this area. His pulses are intact throughout. Assessment & Plan Assessment and Plan ASSESSMENT: 1. Severe infectious process left upper extremity with possible necrotizing fasciitis. 2. Deep venous thrombosis left upper extremity. Wound culture demonstrates Group A Beta Strep Pain management ID management ICU management Continue IV antibiotic therapy Conservative management at this time. If an abscess develops then we would want to proceed with surgery and if he progresses and does worse in regards to swelling of the arm, then possibly compartment release and possible debridement if this is found to be a necrotizing fasciitis. CT scans reviewed by Dr. Irving. Hill Burk May 07, 2017 18:31
--- NOTE | 2017-05-07 19:45 | EKG ---
Date Performed: 05/06/2017 Time Performed: 09:33:01 PTAGE: 37 years EKG: SINUS TACHYCARDIA POSSIBLE RIGHT ATRIAL ENLARGEMENT POSSIBLE LEFT ATRIAL ENLARGEMENT ABNORM AL RHYTHM ECG NO PREVIOUS TRACING DOCTOR: Abel Tracy Interpretating Date/Time 05/07/2017 19:40:12
[2017-05-07] MEDS: traZODone HCL 100 MG TAB PO SCH (20:09)
--- NOTE | 2017-05-07 20:20 | RADRPT ---
EXAM DATE/TIME: 05/07/2017 18:39 [facility] COMPARISON: No previous studies available for comparison. INDICATIONS : Hepatitis C. MEDICAL HISTORY : Hepatitis C. Blisters on arms. SURGICAL HISTORY : None. ENCOUNTER: Initial ACUITY: 1 day PAIN SCORE: 0/10 LOCATION: Bilateral upper quadrant MEASUREMENTS: LIVER: 20.9 cm length COMMON DUCT: 7 mm RIGHT KIDNEY: 13.5 x 5.9 x 5.1 cm SPLEEN: 14.1 cm length FINDINGS: LIVER: The liver is enlarged. Focal hepatic lesions are not seen. COMMON DUCT: Common bile duct is dilated at 7 mm. GALLBLADDER: There is gallbladder sludge. Gallstones are not seen. The gallbladder wall is not thickened. PANCREAS: The visualized portions are within normal limits. RIGHT KIDNEY: The right kidney appears echogenic. No hydronephrosis is seen. The left kidney was not examined. SPLEEN: The spleen is enlarged measuring 14.1 cm in length. CONCLUSION: 1. Hepatosplenomegaly 2. Gallbladder sludge. 3. Mild dilatation of the common bile duct. Because of this mild dilatation is not seen. 4. Echogenic right kidney which can be seen with medical renal disease. Brent Nugent MD on May 07, 2017 at 20:16 Board Certified Radiologist. This report was verified electronically.
[2017-05-07 22:18] LABS: TOTAL PROTEIN SPE 4.4 GM/DL (6.0-7.6)
[2017-05-07 22:24] LABS: SODIUM (NA) 108 MEQ/L (136-145)
[2017-05-08] VITALS (15 sets, daily range): BP systolic 103–124; BP diastolic 53–59; PULSE 78–94; RESP 13–26; TEMP 98.1–98.6; O2SAT 94–97
[2017-05-08] MEDS: DILTIAZEM HCL 60 MG TAB PO SCH ×5 (00:02→22:33)
[2017-05-08] MEDS: PIPERACIL-TAZO 4.5 GM PREMIX 100 ML IV SCH ×2 (00:03→05:40)
[2017-05-08] MEDS: HYDROmorphone HCL PF 1 MG/ML VIAL IV PUSH PRN ×6 (00:04→22:12)
[2017-05-08] MEDS: HEPARIN-D5W 25,000 U/250 ML 250 ML IV PRN ×2 (01:34→17:36)
[2017-05-08] MEDS: CLINDAMYCIN INJ 900 MG in SODIUM CHLORIDE 0.9% INJ 100 ML IV SCH ×3 (03:20→22:40)
[2017-05-08 03:39] LABS: AUTOMATED NEUTROPHIL # 10.5 TH/MM3 (1.8-7.7); BASOPHIL % 0.4 % (0.0-2.0); EOSINOPHIL # 0.2 TH/MM3 (0-0.4); EOSINOPHIL % 1.6 % (0.0-4.0); HEMATOCRIT 30.6 % (39.0-51.0); LYMPH % 4.3 % (9.0-44.0); LYMPHOCYTE # 0.5 TH/MM3 (1.0-4.8); MEAN CELL VOLUME 83.9 FL (80.0-100.0); MEAN CORPUSCULAR HEMOGLOBIN 29.6 PG (27.0-34.0); MEAN CORPUSCULAR HGB CONC 35.3 % (32.0-36.0); NEUT % 89.7 % (16.0-70.0); PLATELET COUNT 66 TH/MM3 (150-450); RED BLOOD COUNT 3.65 MIL/MM3 (4.50-5.90); RED CELL DISTRIBUTION WIDTH 14.3 % (11.6-17.2); WHITE BLOOD COUNT 11.7 TH/MM3 (4.0-11.0)
[2017-05-08 03:41] LABS: HEMO FLAGS AUTO DIFF
[2017-05-08] MEDS: CHLORHEXIDINE GLUCONATE 2 % 1 PACK (2 CLOTHS) TOP SCH (04:00)
[2017-05-08] MEDS: RESP: ALBUTEROL 2.5 MG/IPRATROPIUM 0.5 MG NEB (SCH) INH ×3 (04:00→20:37)
[2017-05-08 04:12] LABS: BICARBONATE 24.4 MEQ/L (21.0-32.0); MAGNESIUM 1.6 MG/DL (1.5-2.5); POTASSIUM 3.3 MEQ/L (3.5-5.1); TOTAL BILIRUBIN ADULT 2.7 MG/DL (0.2-1.0)
[2017-05-08 04:16] LABS: CALCIUM-PROTEIN CORRECTED 7.2 MG/DL (8.5-10.1)
[2017-05-08 05:06] LABS: BANDS 31 % (0-6); METAMYELOCYTES 5 % (0-1); NEUTROPHIL # MANUAL DIFF 11.1 TH/MM3 (1.8-7.7); POLYS (SEG NEUTROPHILS) 59 % (16-70); WBC DIFF SAMPLE 100
[2017-05-08 05:07] LABS: DOHLE BODIES PRESENT (NONE SEEN); PLATELET ESTIMATE SMEAR LOW (NORMAL); PLATELET MORPHOLOGY NORMAL (NORMAL); SCAN/DIFF FINAL DIFF MANUAL; TOXIC GRANULATION 1+ (NORMAL); TOXIC VACUOLATION PRESENT (NONE SEEN)
[2017-05-08] MEDS ORDERED: CALCIUM GLUCONATE INJ 2 GM in SODIUM CHLORIDE 0.9% INJ 100 ML IV ONE (05:30)
[2017-05-08] MEDS ORDERED: PHARMACY ORDERED LAB ONE (08:45)
[2017-05-08] MEDS: busPIRone HCL 10 MG TAB PO SCH ×3 (09:23→18:06)
[2017-05-08] MEDS: DOCUSATE SODIUM 50 MG/SENNA 8.6 MG TAB PO SCH ×2 (09:23→21:00)
[2017-05-08] MEDS: PANTOPRAZOLE SODIUM 40 MG VIAL IV PUSH SCH (09:23)
[2017-05-08] MEDS: SODIUM CHLORIDE 0.9% FLUSH 10 ML FLUSH IV FLUSH SCH ×2 (09:24→22:34)
[2017-05-08] MEDS: clonazePAM 1 MG TAB PO SCH ×2 (09:24→22:33)
--- NOTE | 2017-05-08 09:25 | HHI.NPPN ---
Subjective Renal Failure: Acute Interval History His serum sodium is not improving. Renal function is better. (Josiane Norris) Review of Systems General Constitutional: Fatigue (Josiane Norris) Endocrine Endocrine: Thirst (Josiane Norris) Objective Data Data Vital Signs Date Time Temp Pulse Resp B/P (MAP) Pulse Ox O2 Delivery O2 Flow Rate FiO2 05/08/17 08:26 97 21 05/08/17 06:00 89 05/08/17 04:18 95 21 05/08/17 04:00 98.1 91 16 103/54 (70) 95 05/08/17 04:00 91 05/08/17 02:00 92 05/08/17 00:00 98.3 94 17 107/53 (71) 95 05/08/17 00:00 94 05/07/17 23:11 21 05/07/17 22:00 94 05/07/17 20:00 100 05/07/17 20:00 98.1 100 18 116/56 (76) 97 05/07/17 19:00 97 Room Air 05/07/17 18:00 103 05/07/17 17:00 113 05/07/17 16:00 98.3 106 17 119/58 (78) 95 05/07/17 16:00 106 05/07/17 15:00 108 05/07/17 14:00 109 05/07/17 13:00 116 05/07/17 12:00 98.0 111 18 119/58 (78) 98 05/07/17 12:00 111 05/07/17 11:00 121 05/07/17 10:00 119 (Josiane Norris) -: 05/08/17 0326 05/08/17 0800 Microbiology 05/07/17 Aerobic Blood Culture, Received Pending 05/07/17 Anaerobic Blood Culture, Received Pending 05/07/17 Aerobic Blood Culture, Received Pending 05/07/17 Anaerobic Blood Culture, Received Pending Imaging Last 72 hours Impressions Liver Ultrasound 05/07/17 0000 Signed Impressions: Service Date/Time: Sunday, May 07, 2017 18:39 - CONCLUSION: 1. Hepatosplenomegaly 2. Gallbladder sludge. 3. Mild dilatation of the common bile duct. Because of this mild dilatation is not seen. 4. Echogenic right kidney which can be seen with medical renal disease. Brent Nugent MD Upper Extremity Ultrasound 05/06/17918 Signed Impressions: Service Date/Time: Saturday, May 06, 2017 09:20 - CONCLUSION: There is noncompressible occlusive clot identified in the right basilic, within the right proximal cephalic vein with nonvisualization of the mid and distal portion of the cephalic vein secondary to patient movement. Additional clot is identified within the left mid and distal radial vein. There are bilateral axillary lymph nodes noted. Somewhat larger on the left. Norma Sampson MD Head CT 05/06/17918 Signed Impressions: Service Date/Time: Saturday, May 06, 2017 10:48 - CONCLUSION: Normal examination. Norma Sampson MD Chest X-Ray 05/06/17918 Signed Impressions: Service Date/Time: Saturday, May 06, 2017 11:17 - CONCLUSION: Normal examination. Norma Sampson MD Upper Extremity CT 05/06/17 Signed Impressions: Service Date/Time: Saturday, May 06, 2017 15:56 - CONCLUSION: Normal examination other than reactive adenopathy throughout the right axilla. Jose Angel Huizar MD Upper Extremity CT 05/06/17 Signed Impressions: Service Date/Time: Saturday, May 06, 2017 16:01 - CONCLUSION: Marked subcutaneous edema and swelling across the forearm. Some fluid loculated between the muscle and fascia. No intramuscular abscess is seen. No air identified to suggest necrotizing fasciitis. Jose Angel Huizar MD CT Angiography 05/06/17 Signed Impressions: Service Date/Time: Saturday, May 06, 2017 15:42 - CONCLUSION: Normal examination of the pulmonary arteries. Extensive edema and reactive adenopathy throughout both axilla left worse than right. Jose Angel Huizar MD Tubes & Lines: Garcia (Josiane Norris) Physical Exam General Appearance: Well Developed, Comfortable, Anxious (Josiane Norris B. [employer]) Eyes Eye Exam: Pupils Equal (Josiane Norris B. [employer]) Throat Throat Exam: Oral Mucosa Hidalgo & Moist (Josiane Norris [employer]) Pulmonary Resp Exam: Clear Bilaterally, Breath Sounds Equal (Josiane Norris) Cardiology CV Exam: Regular, Normal Sinus Rhythm (Josiane Norris) Gastrointestinal/Abdomen GI Exam: Soft, Non-Tender (Josiane Norris) Musculoskeletal MS Exam: Normal Tone, Good Strength (Josiane Norris) Integumentary Skin Exam: Warm, Dry Skin Remarks erythema to upper extremities; left arm more edematous (Josiane Norris) Extremeties Extremities Exam: No Edema, Pedal Pulses Palpable (Josiane Norris) Neurologic Neuro Exam: Alert, Awake, Oriented, Moving All Extremities (Josiane Norris) Assessment/Plan Discussed Condition With: Patient Assessment Summary: BEATRIZ/Acute Renal Failure Problem List: (1) BEATRIZ (acute kidney injury) ICD Codes: N17.9 - Acute kidney failure, unspecified Plan: Normal renal function on arrival BEATRIZ may be due to dehydration and also renal hypoperfusion due to sepsis Renal function improved slightly continue IVF, avoid nephrotoxins monitor urine output, he is non oliguric K replacement if needed (2) Hyponatremia ICD Codes: E87.1 - Hypo-osmolality and hyponatremia Plan: Low urine sodium suggesting hypovolemic hyponatremia or low solute hyponatremia Serum Na has not improved past 24 hours despite IVF Recheck urine electrolytes; check uric acid as he may have a component of SIADH as well. CT shows bilateral axillary adenopathy, ? malignancy continue D5NS @ 30 cc/hr Follow labs Q4h, avoid overcorrection Limit oral water intake (3) Sepsis ICD Codes: A41.9 - Sepsis, unspecified organism Plan: ID is following he is on zosyn, and clindamycin off vancomycin (4) Acute bilateral deep vein thrombosis (DVT) of upper extremities ICD Codes: I82.623 - Acute embolism and thrombosis of deep veins of upper extremity, bilateral Plan: On heparin gtt; hematology following (Josiane Norris) Plan patient was seen and examined. Hyponatremia has not improved in spite of IVF with isotonic fluid. Start oral fluid restriction. (Nasir Rouse MD) Josiane Norris May 08, 2017 09:25 Nasir Rouse MD May 08, 2017 20:50
[2017-05-08] MEDS ORDERED: AMPICILLIN INJ 2,000 MG in SODIUM CHLORIDE 0.9% INJ 100 ML IV SCH (09:30)
--- NOTE | 2017-05-08 09:41 | HHI.CCPN ---
Subjective Remarks/Hospital Course The patient is a 37-year-old male with past medical history of anxiety and depression who presented to the [facility] Emergency Department with a one day history of progressive swelling of the left upper extremity associated with blisters at the left elbow. The patient also reports subjective fever, diarrhea and emesis. He denies any abdominal pain, shortness of breath, chest pain. He also reports erythema in his upper extremities bilaterally left greater than right and a rash in his upper chest. On arrival to the emergency room, he was tachycardiac with heart rate in the 120s. Blood pressure 132/68 with a saturation of 99%. His laboratory data is significant for hyponatremia with sodium level of 102, lactic acidosis with lactic acid level of 3.7. There is no history of any seizures. Patient is awake and alert. Other labs showed thrombocytopenia with platelet count of 71, white blood cell count of 3.3. His urine toxicology screen was positive for cannabinoids. CT scan of the brain in the emergency room showed no evidence of any acute intracranial findings. He also had he also had a chest x-ray which was within normal. Ultrasound of the upper extremities showed occlusive clot in the right basilic within the right proximal cephalic vein and an additional clot noted in the left mid and distal radial vein. In the emergency room, the patient received one liter of normal saline and is currently receiving a second liter. In addition, clindamycin, Zosyn and Vancomycin were given. 10/2 No events overnight. Patient is lying in bed in NAD reports pain in LUE. CT shoulder showed no air or fluid collection. CTA chest negative for PE. On Heparin drip, US UE showed b/l DVT. 05/08 No events overnight. Afebrile. On Heparin drip. Wound and Blood cxs: Group A Beta strep. Objective Vital Signs Date Time Temp Pulse Resp B/P (MAP) Pulse Ox O2 Delivery O2 Flow Rate FiO2 05/08/17 08:26 97 21 05/08/17 06:00 89 05/08/17 04:00 98.1 16 103/54 (70) 05/07/17 19:00 Room Air 05/07/17 08:52 Intake and Output 05/08/17 05/08/17 05/09/17 08:00 16:00 00:00 Intake Total 2067 ml Output Total 2200 ml Balance -133 ml Result Diagram: 05/08/17 0326 05/08/17 0800 Other Results Laboratory Tests Test 05/07/17 10:20 05/07/17 15:45 05/07/17 20:05 05/07/17 21:03 Sodium Level 110 MEQ/L 108 MEQ/L 108 MEQ/L Lactic Acid Level 2.6 mmol/L Triglycerides Level 343 MG/DL Total Protein 4.4 GM/DL Test 05/08/17 00:18 05/08/17 03:26 05/08/17 08:00 Sodium Level 109 MEQ/L 111 MEQ/L 109 MEQ/L White Blood Count 11.7 TH/MM3 Red Blood Count 3.65 MIL/MM3 Hemoglobin 10.8 GM/DL Hematocrit 30.6 % Mean Corpuscular Volume 83.9 FL Mean Corpuscular Hemoglobin 29.6 PG Mean Corpuscular Hemoglobin Concent 35.3 % Red Cell Distribution Width 14.3 % Platelet Count 66 TH/MM3 Mean Platelet Volume 9.4 FL Neutrophils (%) (Auto) 89.7 % Lymphocytes (%) (Auto) 4.3 % Monocytes (%) (Auto) 4.0 % Eosinophils (%) (Auto) 1.6 % Basophils (%) (Auto) 0.4 % Neutrophils # (Auto) 10.5 TH/MM3 Lymphocytes # (Auto) 0.5 TH/MM3 Monocytes # (Auto) 0.5 TH/MM3 Eosinophils # (Auto) 0.2 TH/MM3 Basophils # (Auto) 0.0 TH/MM3 CBC Comment AUTO DIFF Differential Total Cells Counted 100 Neutrophils % (Manual) 59 % Band Neutrophils % 31 % Lymphocytes % 3 % Monocytes % 2 % Neutrophils # (Manual) 11.1 TH/MM3 Metamyelocytes 5 % Differential Comment FINAL DIFF MANUAL Toxic Granulation 1+ Toxic Vacuolation PRESENT Dohle Bodies PRESENT Platelet Estimate LOW Platelet Morphology Comment NORMAL Red Cell Morphology Comment NORMAL Activated Partial Thromboplast Time 56.0 SEC Blood Urea Nitrogen 30 MG/DL Creatinine 1.56 MG/DL Random Glucose 85 MG/DL Total Protein 5.0 GM/DL Albumin 1.7 GM/DL Calcium Level 6.2 MG/DL Phosphorus Level 3.1 MG/DL Magnesium Level 1.6 MG/DL Alkaline Phosphatase 39 U/L Aspartate Amino Transf (AST/SGOT) 34 U/L Alanine Aminotransferase (ALT/SGPT) 29 U/L Total Bilirubin 2.7 MG/DL Potassium Level 3.3 MEQ/L Chloride Level 74 MEQ/L Carbon Dioxide Level 24.4 MEQ/L Anion Gap 13 MEQ/L Estimat Glomerular Filtration Rate 51 ML/MIN Protein Corrected Calcium 7.2 MG/DL Random Vancomycin Level 15.7 COMMENT Imaging Laboratory Tests Test 05/07/17 10:20 05/07/17 15:45 05/07/17 20:05 05/07/17 21:03 Sodium Level 110 MEQ/L 108 MEQ/L 108 MEQ/L Lactic Acid Level 2.6 mmol/L Triglycerides Level 343 MG/DL Total Protein 4.4 GM/DL Test 05/08/17 00:18 05/08/17 03:26 05/08/17 08:00 Sodium Level 109 MEQ/L 111 MEQ/L 109 MEQ/L White Blood Count 11.7 TH/MM3 Red Blood Count 3.65 MIL/MM3 Hemoglobin 10.8 GM/DL Hematocrit 30.6 % Mean Corpuscular Volume 83.9 FL Mean Corpuscular Hemoglobin 29.6 PG Mean Corpuscular Hemoglobin Concent 35.3 % Red Cell Distribution Width 14.3 % Platelet Count 66 TH/MM3 Mean Platelet Volume 9.4 FL Neutrophils (%) (Auto) 89.7 % Lymphocytes (%) (Auto) 4.3 % Monocytes (%) (Auto) 4.0 % Eosinophils (%) (Auto) 1.6 % Basophils (%) (Auto) 0.4 % Neutrophils # (Auto) 10.5 TH/MM3 Lymphocytes # (Auto) 0.5 TH/MM3 Monocytes # (Auto) 0.5 TH/MM3 Eosinophils # (Auto) 0.2 TH/MM3 Basophils # (Auto) 0.0 TH/MM3 CBC Comment AUTO DIFF Differential Total Cells Counted 100 Neutrophils % (Manual) 59 % Band Neutrophils % 31 % Lymphocytes % 3 % Monocytes % 2 % Neutrophils # (Manual) 11.1 TH/MM3 Metamyelocytes 5 % Differential Comment FINAL DIFF MANUAL Toxic Granulation 1+ Toxic Vacuolation PRESENT Dohle Bodies PRESENT Platelet Estimate LOW Platelet Morphology Comment NORMAL Red Cell Morphology Comment NORMAL Activated Partial Thromboplast Time 56.0 SEC Blood Urea Nitrogen 30 MG/DL Creatinine 1.56 MG/DL Random Glucose 85 MG/DL Total Protein 5.0 GM/DL Albumin 1.7 GM/DL Calcium Level 6.2 MG/DL Phosphorus Level 3.1 MG/DL Magnesium Level 1.6 MG/DL Alkaline Phosphatase 39 U/L Aspartate Amino Transf (AST/SGOT) 34 U/L Alanine Aminotransferase (ALT/SGPT) 29 U/L Total Bilirubin 2.7 MG/DL Potassium Level 3.3 MEQ/L Chloride Level 74 MEQ/L Carbon Dioxide Level 24.4 MEQ/L Anion Gap 13 MEQ/L Estimat Glomerular Filtration Rate 51 ML/MIN Protein Corrected Calcium 7.2 MG/DL Random Vancomycin Level 15.7 COMMENT Objective Remarks GENERAL: Patient is 37 yo lying in bed in NAD SKIN: Warm and dry. HEAD: Normocephalic. EYES: No scleral icterus. No injection or drainage. NECK: Supple, trachea midline. No JVD or lymphadenopathy. CARDIOVASCULAR: Regular rate and rhythm without murmurs, gallops, or rubs. RESPIRATORY: Breath sounds equal bilaterally. No accessory muscle use. GASTROINTESTINAL: Abdomen soft, non-tender, nondistended. MUSCULOSKELETAL: No cyanosis, or edema. Neuro: Awake and alert. A/P Assessment and Plan 1. Sepsis. 2. Cellulitis of LUE 3. BEATRIZ 4. Lactic acidosis. 5. Hyposmolar hypovolemic Hyponatremia. 6. Group A Beta strep Bacteremia 7. Elevated AST. 8. DVT bilateral upper extremities. 9. Leukopenia and thrombocytopenia likely secondary to severe sepsis. 10. History of anxiety and depression. 11 Hx PTSD Plan Neuro: Awake and alert. Monitor neuro status closely and avoid sedatives. CT brain: negative for acute process UDS:+ cannabinoids. On BuSpar, Trazodone, Klonopin Pulm: Continue oxygen and maintain >above 92%. Bronchodilators CV: Monitor HR and BP and maintain MAP>65 mmHg. Received 2L crystalloids in ED Serial lactic acid monitoring .. trending down. : Monitor renal function, I/O's and electrolyte replacement per protocol. Renal is following- Dr. Rouse, Monitor Sodium level Q4hr. Cr: 1.56 from 1.64 Sodium correction not to exceed 8-10 in 24 hrs. TSH: 2.1. Increase D5NS@50ml/hr GI: On Protonix 40 milligrams daily for GI prophylaxis. On PO diet ID: Continue abx( clindamycin,Vancomycin and Zosyn) ID is following. BC, wound cx 05/06: Group A Beta strep. Monitor for signs of infection(fever and WBCs). Ortho is following. CT shoulder showed no air or abscess Discussed with -not enough fluid to drain. Endo: SSI with Accu-Chek for glycemic control. Heme: Monitor CBC and coags- on Heparin drip. Heme is following- Dr. Holley GI prophylaxis with Protonix 40 milligrams daily and DVT prophylaxis with SCDs / on Heparin drip. Lines: Right femoral central line was placed by ED physician. Level 3 Janusz Ayala MD May 08, 2017 09:41
[2017-05-08] MEDS: DEXT 5%-NACL 0.9% 1000 ML INJ 1,000 ML IV SCH ×2 (10:00→10:10)
[2017-05-08] MEDS: AMPICILLIN 2 GM/NS 100 ML IV SCH ×4 (11:36→22:35)
--- NOTE | 2017-05-08 11:45 | PD.ONC.PN ---
Subjective Subjective Remarks Afebrile overnight. Patient resting in room in nad. No complaints. Objective Data Date Time Temp Pulse Resp B/P (MAP) Pulse Ox O2 Delivery O2 Flow Rate FiO2 05/08/17 10:00 85 05/08/17 09:49 16 05/08/17 08:26 97 21 05/08/17 08:00 98.4 84 26 113/55 (74) 95 05/08/17 08:00 85 05/08/17 07:00 Nasal Cannula 2.00 05/08/17 06:00 89 05/08/17 04:18 95 21 05/08/17 04:00 98.1 91 16 103/54 (70) 95 05/08/17 04:00 91 05/08/17 02:00 92 05/08/17 00:00 98.3 94 17 107/53 (71) 95 05/08/17 00:00 94 05/07/17 23:11 21 05/07/17 22:00 94 05/07/17 20:00 100 05/07/17 20:00 98.1 100 18 116/56 (76) 97 05/07/17 19:00 97 Room Air 05/07/17 18:00 103 05/07/17 17:00 113 05/07/17 16:00 98.3 106 17 119/58 (78) 95 05/07/17 16:00 106 05/07/17 15:00 108 05/07/17 14:00 109 05/07/17 13:00 116 05/07/17 12:00 98.0 111 18 119/58 (78) 98 05/07/17 12:00 111 05/08/17 05/08/17 05/08/17 07:00 15:00 23:00 Intake Total 2067 ml Output Total 2200 ml Balance -133 ml Result Diagram: 05/08/17 0326 05/08/17 0800 Laboratory Results Laboratory Tests Test 05/07/17 15:45 05/07/17 20:05 05/07/17 21:03 05/08/17 00:18 Sodium Level 108 MEQ/L 108 MEQ/L 109 MEQ/L Triglycerides Level 343 MG/DL Total Protein 4.4 GM/DL Test 05/08/17 03:26 05/08/17 08:00 White Blood Count 11.7 TH/MM3 Red Blood Count 3.65 MIL/MM3 Hemoglobin 10.8 GM/DL Hematocrit 30.6 % Mean Corpuscular Volume 83.9 FL Mean Corpuscular Hemoglobin 29.6 PG Mean Corpuscular Hemoglobin Concent 35.3 % Red Cell Distribution Width 14.3 % Platelet Count 66 TH/MM3 Mean Platelet Volume 9.4 FL Neutrophils (%) (Auto) 89.7 % Lymphocytes (%) (Auto) 4.3 % Monocytes (%) (Auto) 4.0 % Eosinophils (%) (Auto) 1.6 % Basophils (%) (Auto) 0.4 % Neutrophils # (Auto) 10.5 TH/MM3 Lymphocytes # (Auto) 0.5 TH/MM3 Monocytes # (Auto) 0.5 TH/MM3 Eosinophils # (Auto) 0.2 TH/MM3 Basophils # (Auto) 0.0 TH/MM3 CBC Comment AUTO DIFF Differential Total Cells Counted 100 Neutrophils % (Manual) 59 % Band Neutrophils % 31 % Lymphocytes % 3 % Monocytes % 2 % Neutrophils # (Manual) 11.1 TH/MM3 Metamyelocytes 5 % Differential Comment FINAL DIFF MANUAL Toxic Granulation 1+ Toxic Vacuolation PRESENT Dohle Bodies PRESENT Platelet Estimate LOW Platelet Morphology Comment NORMAL Red Cell Morphology Comment NORMAL Activated Partial Thromboplast Time 56.0 SEC Blood Urea Nitrogen 30 MG/DL Creatinine 1.56 MG/DL Random Glucose 85 MG/DL Total Protein 5.0 GM/DL Albumin 1.7 GM/DL Calcium Level 6.2 MG/DL Phosphorus Level 3.1 MG/DL Magnesium Level 1.6 MG/DL Alkaline Phosphatase 39 U/L Aspartate Amino Transf (AST/SGOT) 34 U/L Alanine Aminotransferase (ALT/SGPT) 29 U/L Total Bilirubin 2.7 MG/DL Sodium Level 111 MEQ/L 109 MEQ/L Potassium Level 3.3 MEQ/L Chloride Level 74 MEQ/L Carbon Dioxide Level 24.4 MEQ/L Anion Gap 13 MEQ/L Estimat Glomerular Filtration Rate 51 ML/MIN Protein Corrected Calcium 7.2 MG/DL Random Vancomycin Level 15.7 COMMENT Culture Results Microbiology Date/Time Source Procedure Growth Status 05/07/17 13:45 Blood Peripheral Aerobic Blood Culture - Preliminary NO GROWTH IN 1 DAY Resulted 05/07/17 13:45 Blood Peripheral Anaerobic Blood Culture - Preliminary NO GROWTH IN 1 DAY Resulted 05/07/17 13:35 Blood Peripheral Aerobic Blood Culture - Preliminary NO GROWTH IN 1 DAY Resulted 10/2/17 13:35 Blood Peripheral Anaerobic Blood Culture - Preliminary NO GROWTH IN 1 DAY Resulted 05/06/17 11:50 Blood Peripheral Aerobic Blood Culture - Preliminary Group A Beta Strep Resulted 05/06/17 11:50 Blood Peripheral Anaerobic Blood Culture - Preliminary NO GROWTH IN 2 DAYS Resulted 05/06/17 11:30 Blood Peripheral Aerobic Blood Culture - Final Group A Beta Strep Complete 05/06/17 11:30 Anaerobic Blood Culture - Final Group A Beta Strep Complete 05/06/17 12:10 Urine Clean Catch Urine Culture - Final NO GROWTH IN 48 HOURS. Complete 05/06/17 15:15 Wound Arm Gram Stain - Final Complete 05/06/17 15:15 Wound Culture - Final Group A Beta Strep Complete Administered Medications Medications (Trade) Dose Ordered Sig/Hafsa Route PRN Reason Start Time Stop Time Status Last Admin Dose Admin Sodium Chloride (NS Flush) 2 ml BID IV FLUSH 05/06/17 21:00 05/08/17 09:24 Pantoprazole Sodium (Protonix Inj) 40 mg DAILY IV PUSH 05/07/17 09:00 05/08/17 09:23 Albuterol/ Ipratropium (Duoneb Neb) 1 ampule Q6HR NEB INH 05/06/17 12:45 05/07/17 08:52 Miscellaneous Information 1 Q361D XX 05/06/17 12:45 05/06/17 12:45 Chlorhexidine Gluconate (Chlorhexidine 2% Cloth) 3 pack Taper DAILY@04 TOP 05/07/17 04:00 05/03/18 03:59 05/07/17 02:29 Senna/Docusate Sodium (Tammy-Colace) 1 tab BID PO 05/06/17 21:00 05/08/17 09:23 Clindamycin Phosphate 900 mg/ Sodium Chloride 106 ml @ 212 mls/hr Q8H IV 05/06/17 20:00 05/08/17 03:20 Acetaminophen (Tylenol) 650 mg Q6H PRN PO pain 1-10 05/06/17 14:30 05/07/17 00:03 Ondansetron HCl (Zofran Inj) 4 mg Q8HR PRN IV PUSH N/V 05/06/17 14:30 05/06/17 18:39 Diltiazem HCl (Cardizem) 60 mg Q6HR PO 05/06/17 14:45 05/08/17 05:40 Heparin Sodium/ Dextrose 250 ml @ 17 mls/hr TITRATE PRN IV Coagulation management 05/06/17 14:45 05/08/17 01:34 Buspirone HCl (Buspar) 20 mg TID PO 05/07/17 13:00 05/08/17 09:23 Clonazepam (KlonoPIN) 0.5 mg BID PO 05/07/17 11:15 05/08/17 09:24 Trazodone HCl (Desyrel) 200 mg HS PO 05/07/17 21:00 05/07/17 20:09 Hydromorphone HCl (Dilaudid Pf Inj) 1 mg Q4H PRN IV PUSH pain 1-10 05/07/17 10:15 05/08/17 09:19 Ampicillin Sodium 2000 mg/Sodium Chloride 100 ml @ 300 mls/hr Q4H IV 05/08/17 11:00 05/08/17 11:36 Dextrose/Sodium Chloride 1,000 ml @ 50 mls/hr Q20H IV 05/08/17 10:00 05/08/17 10:00 Objective Remarks GENERAL: Young man, upright in bed, anxious, but otherwise in nad. SKIN: Warm and dry. HEAD: Normocephalic. EYES: No injection or drainage. NECK: Supple, trachea midline. CARDIOVASCULAR: Regular rate and rhythm RESPIRATORY: Breath sounds equal bilaterally. No accessory muscle use. GASTROINTESTINAL: Abdomen soft, non-tender, nondistended. EXTREMITIES: No cyanosis. left arm with edema and weeping. right arm edematous. NEUROLOGICAL: awake and alert, normal speech. Assessment/Plan Problem List: (1) Acute bilateral deep vein thrombosis (DVT) of upper extremities ICD Codes: I82.623 - Acute embolism and thrombosis of deep veins of upper extremity, bilateral Plan: on IV heparin gtt --Doppler ultrasound, upper extremities-->noncompressible occlusive clot in the right basilic vein within the right proximal cephalic vein with nonvisualization of the mid and distal portions of the cephalic vein secondary to patient movement. There was additional clot in the left mid and distal radial vein. --no precipitating factor. --CTA showed no PE (2) Hyponatremia ICD Codes: E87.1 - Hypo-osmolality and hyponatremia Plan: --?malignancy --CTA showing reactive axillary LAD (3) Thrombocytopenia ICD Codes: D69.6 - Thrombocytopenia, unspecified Plan: --multifactorial d/t splenomegaly, infection, possible medication effect , consumption from DVT's --fibrinogen is preserved ++hepatitis C --liver u/s shows hepatosplenomegaly (4) Sepsis ICD Codes: A41.9 - Sepsis, unspecified organism Plan: -- Sepsis / cellulitis from the left arm. --on Ampicillin and clindamycin. --BC +group A beta strep --UC no growth (5) Axillary lymphadenopathy ICD Codes: R59.0 - Localized enlarged lymph nodes Assessment 37y/o male with bilateral DVTs and hyponatremia. h/o past medical history of PTSD, TBI and anxiety Plan 1. continue heparin gtt 2. monitor CBC Attending Statement The exam, history, and the medical decision-making described in the above note were completed with the assistance of the mid-level provider. I reviewed and agree with the findings presented. I attest that I had a [id number] encounter with the patient on the same day, and personally performed and documented my assessment and findings in the medical record. Thrombocytopenia due to sepsis/consumption/Hep C Check daily fibrinogen continue Heparin d/w rn o/n events reviewed Robyn Scott May 08, 2017 11:45 David Holley MD May 08, 2017 23:22
--- NOTE | 2017-05-08 17:24 | HHI.PR ---
Addendum to Inpatient Note Additional Information seen around 1600 full note to follow Jeannie John MD May 08, 2017 17:24
--- NOTE | 2017-05-08 17:51 | PD.ORT.PN ---
Subjective Subjective Remarks Patient c/o bilateral upper extremities, LUE>RUE. Objective Vitals Vital Signs Date Time Temp Pulse Resp B/P (MAP) Pulse Ox O2 Delivery O2 Flow Rate FiO2 05/08/17 14:00 85 05/08/17 13:42 16 05/08/17 12:00 85 05/08/17 12:00 98.5 78 14 118/55 (76) 94 05/08/17 10:00 85 05/08/17 08:26 97 21 05/08/17 08:00 98.4 84 26 113/55 (74) 95 05/08/17 08:00 85 05/08/17 07:00 Nasal Cannula 2.00 05/08/17 06:00 89 05/08/17 04:18 95 21 05/08/17 04:00 98.1 91 16 103/54 (70) 95 05/08/17 04:00 91 05/08/17 02:00 92 05/08/17 00:00 98.3 94 17 107/53 (71) 95 05/08/17 00:00 94 05/07/17 23:11 21 05/07/17 22:00 94 05/07/17 20:00 100 05/07/17 20:00 98.1 100 18 116/56 (76) 97 05/07/17 19:00 97 Room Air 05/07/17 18:00 103 I/O 05/07/17 05/07/17 05/07/17 05/08/17 05/08/17 05/08/17 07:00 15:00 23:00 07:00 15:00 23:00 Intake Total 1664 ml 2106 ml 2067 ml Output Total 575 ml 50 ml 2200 ml Balance 1089 ml 2056 ml -133 ml Intake Oral 520 ml 2000 ml 960 ml IV Total 1144 ml 106 ml 1107 ml Output Urine Total 575 ml 50 ml 2200 ml Result Diagram: 05/08/17 0326 05/08/17 1625 Imaging Last Impressions Upper Extremity Ultrasound 05/06/17 0919 Signed Impressions: Service Date/Time: Saturday, May 06, 2017 09:20 - CONCLUSION: There is noncompressible occlusive clot identified in the right basilic, within the right proximal cephalic vein with nonvisualization of the mid and distal portion of the cephalic vein secondary to patient movement. Additional clot is identified within the left mid and distal radial vein. There are bilateral axillary lymph nodes noted. Somewhat larger on the left. Norma Sampson MD Head CT 05/06/17918 Signed Impressions: Service Date/Time: Saturday, May 06, 2017 10:48 - CONCLUSION: Normal examination. Norma Sampson MD Chest X-Ray 05/06/17918 Signed Impressions: Service Date/Time: Saturday, May 06, 2017 11:17 - CONCLUSION: Normal examination. Norma Sampson MD Upper Extremity CT 05/06/17 0000 Signed Impressions: Service Date/Time: Saturday, May 06, 2017 15:56 - CONCLUSION: Normal examination other than reactive adenopathy throughout the right axilla. Jose Angel Huizar MD CT Angiography 05/06/17 Signed Impressions: Service Date/Time: Saturday, May 06, 2017 15:42 - CONCLUSION: Normal examination of the pulmonary arteries. Extensive edema and reactive adenopathy throughout both axilla left worse than right. Jose Angel Huizar MD Objective Remarks RIGHT UPPER EXTREMITY: His right upper extremity shows a healing laceration of his ring finger at the level of the PIP joint. No evidence of fluctuance or significant erythema in that area. He does have some thickening and swelling on the flexor muscle mass which is tender. He has full motion of his elbow, wrist shoulder. Multiple blisters noted throughout upper arm and forearm LEFT UPPER EXTREMITY: His left upper extremity shows full motion of his wrist, but he has limited range of motion of his elbow with range of motion 0/ 40/ 120 degrees. He has a marked amount of swelling involving his forearm, his elbow, and his upper arm. All of the tissue is firm. He has multiple blisters, several of which have popped. At the level of the elbow, there is serous drainage. There is no purulent drainage. There is no odor. He has palpable lymph nodes in the axilla. He has good range of motion of his shoulder. He has mild erythema throughout this area. His pulses are intact throughout. Assessment & Plan Assessment and Plan ASSESSMENT: 1. Severe infectious process left upper extremity with possible necrotizing fasciitis. 2. Deep venous thrombosis left upper extremity. Wound culture demonstrates Group A Beta Strep Pain management ID management ICU management Continue IV antibiotic therapy Conservative management at this time. If an abscess develops then we would want to proceed with surgery and if he progresses and does worse in regards to swelling of the arm, then possibly compartment release and possible debridement if this is found to be a necrotizing fasciitis. Monitor Hill Lopez May 08, 2017 17:51
--- NOTE | 2017-05-08 21:02 | HHI.IDPN ---
Subjective Subjective Remarks seen around 1600 delayed entry Pt pain is the same LUE hurts more no fever BP is stable Upset about his Hep C diagnosis Now agereable again to HIV testing Antibiotics clindamycion zosyn Allergies: Coded Allergies: No Known Allergies (Unverified , 05/06/17) Objective . Vital Signs Date Time Temp Pulse Resp B/P (MAP) Pulse Ox O2 Delivery O2 Flow Rate FiO2 05/08/17 20:37 97 21 05/08/17 18:00 85 05/08/17 16:00 85 05/08/17 16:00 98.6 79 13 111/54 (73) 95 05/08/17 14:00 85 05/08/17 13:42 16 05/08/17 12:00 85 05/08/17 12:00 98.5 78 14 118/55 (76) 94 05/08/17 10:00 85 05/08/17 08:26 97 21 05/08/17 08:00 98.4 84 26 113/55 (74) 95 05/08/17 08:00 85 05/08/17 07:00 Nasal Cannula 2.00 05/08/17 06:00 89 05/08/17 04:18 95 21 05/08/17 04:00 98.1 91 16 103/54 (70) 95 05/08/17 04:00 91 05/08/17 02:00 92 05/08/17 00:00 98.3 94 17 107/53 (71) 95 05/08/17 00:00 94 05/07/17 23:11 21 05/07/17 22:00 94 05/08/17 05/08/17 05/09/17 15:00 23:00 07:00 Intake Total 2206 ml Output Total 3500 ml Balance -1294 ml Intake Oral 900 ml IV Total 1306 ml Output Urine Total 3500 ml . Laboratory Tests Test 05/07/17 03:50 05/08/17 03:26 White Blood Count 6.8 TH/MM3 11.7 TH/MM3 Red Blood Count 4.14 MIL/MM3 3.65 MIL/MM3 Hemoglobin 12.2 GM/DL 10.8 GM/DL Hematocrit 34.8 % 30.6 % Mean Corpuscular Volume 84.2 FL 83.9 FL Mean Corpuscular Hemoglobin 29.5 PG 29.6 PG Mean Corpuscular Hemoglobin Concent 35.0 % 35.3 % Red Cell Distribution Width 14.0 % 14.3 % Platelet Count 66 TH/MM3 66 TH/MM3 Mean Platelet Volume 9.0 FL 9.4 FL CBC Comment AUTO DIFF AUTO DIFF Differential Total Cells Counted 100 100 Neutrophils % (Manual) 52 % 59 % Band Neutrophils % 36 % 31 % Lymphocytes % 3 % 3 % Monocytes % 6 % 2 % Eosinophils % 1 % Neutrophils # (Manual) 6.1 TH/MM3 11.1 TH/MM3 Metamyelocytes 2 % 5 % Differential Comment FINAL DIFF MANUAL FINAL DIFF MANUAL Toxic Granulation 2+ 1+ Toxic Vacuolation PRESENT PRESENT Dohle Bodies PRESENT PRESENT Platelet Estimate LOW LOW Red Cell Morphology Comment NORMAL NORMAL Neutrophils (%) (Auto) 89.7 % Lymphocytes (%) (Auto) 4.3 % Monocytes (%) (Auto) 4.0 % Eosinophils (%) (Auto) 1.6 % Basophils (%) (Auto) 0.4 % Neutrophils # (Auto) 10.5 TH/MM3 Lymphocytes # (Auto) 0.5 TH/MM3 Monocytes # (Auto) 0.5 TH/MM3 Eosinophils # (Auto) 0.2 TH/MM3 Basophils # (Auto) 0.0 TH/MM3 Platelet Morphology Comment NORMAL Laboratory Tests Test 05/06/17 21:00 05/07/17 00:44 05/07/17 03:50 05/07/17 10:20 Lactic Acid Level 3.1 mmol/L 3.1 mmol/L 2.6 mmol/L Sodium Level 113 MEQ/L 112 MEQ/L 110 MEQ/L Blood Urea Nitrogen 20 MG/DL Creatinine 1.64 MG/DL Random Glucose 77 MG/DL Total Protein 5.3 GM/DL Albumin 2.1 GM/DL Calcium Level 6.7 MG/DL Phosphorus Level 3.4 MG/DL Magnesium Level 1.3 MG/DL Alkaline Phosphatase 30 U/L Aspartate Amino Transf (AST/SGOT) 62 U/L Alanine Aminotransferase (ALT/SGPT) 40 U/L Total Bilirubin 3.2 MG/DL Potassium Level 3.3 MEQ/L Chloride Level 75 MEQ/L Carbon Dioxide Level 24.0 MEQ/L Anion Gap 13 MEQ/L Estimat Glomerular Filtration Rate 48 ML/MIN Serum Osmolality 232 MOSM/KG Protein Corrected Calcium 7.6 MG/DL Test 05/07/17 15:45 05/07/17 20:05 05/07/17 21:03 05/08/17 00:18 Sodium Level 108 MEQ/L 108 MEQ/L 109 MEQ/L Triglycerides Level 343 MG/DL Total Protein 4.4 GM/DL Test 05/08/17 03:26 05/08/17 08:00 05/08/17 12:00 05/08/17 16:25 Blood Urea Nitrogen 30 MG/DL Creatinine 1.56 MG/DL Random Glucose 85 MG/DL Total Protein 5.0 GM/DL Albumin 1.7 GM/DL Calcium Level 6.2 MG/DL Phosphorus Level 3.1 MG/DL Magnesium Level 1.6 MG/DL Alkaline Phosphatase 39 U/L Aspartate Amino Transf (AST/SGOT) 34 U/L Alanine Aminotransferase (ALT/SGPT) 29 U/L Total Bilirubin 2.7 MG/DL Sodium Level 111 MEQ/L 109 MEQ/L 110 MEQ/L 112 MEQ/L Potassium Level 3.3 MEQ/L Chloride Level 74 MEQ/L Carbon Dioxide Level 24.4 MEQ/L Anion Gap 13 MEQ/L Estimat Glomerular Filtration Rate 51 ML/MIN Protein Corrected Calcium 7.2 MG/DL Microbiology Date/Time Source Procedure Growth Status 05/07/17 13:45 Blood Peripheral Aerobic Blood Culture - Preliminary NO GROWTH IN 1 DAY Resulted 05/07/17 13:45 Blood Peripheral Anaerobic Blood Culture - Preliminary NO GROWTH IN 1 DAY Resulted 05/07/17 13:35 Blood Peripheral Aerobic Blood Culture - Preliminary NO GROWTH IN 1 DAY Resulted 05/07/17 13:35 Blood Peripheral Anaerobic Blood Culture - Preliminary NO GROWTH IN 1 DAY Resulted 05/06/17 11:50 Blood Peripheral Aerobic Blood Culture - Preliminary Group A Beta Strep Resulted 05/06/17 11:50 Blood Peripheral Anaerobic Blood Culture - Preliminary NO GROWTH IN 2 DAYS Resulted 05/06/17 11:30 Blood Peripheral Aerobic Blood Culture - Final Group A Beta Strep Complete 05/06/17 11:30 Anaerobic Blood Culture - Final Group A Beta Strep Complete 05/06/17 12:10 Urine Clean Catch Urine Culture - Final NO GROWTH IN 48 HOURS. Complete 05/06/17 15:15 Wound Arm Gram Stain - Final Complete 05/06/17 15:15 Wound Culture - Final Group A Beta Strep Complete Imaging Last Impressions Liver Ultrasound 05/07/17 0000 Signed Impressions: Service Date/Time: Sunday, May 07, 2017 18:39 - CONCLUSION: 1. Hepatosplenomegaly 2. Gallbladder sludge. 3. Mild dilatation of the common bile duct. Because of this mild dilatation is not seen. 4. Echogenic right kidney which can be seen with medical renal disease. Brent Nugent MD Upper Extremity Ultrasound 05/06/17918 Signed Impressions: Service Date/Time: Saturday, May 06, 2017 09:20 - CONCLUSION: There is noncompressible occlusive clot identified in the right basilic, within the right proximal cephalic vein with nonvisualization of the mid and distal portion of the cephalic vein secondary to patient movement. Additional clot is identified within the left mid and distal radial vein. There are bilateral axillary lymph nodes noted. Somewhat larger on the left. Norma Sampson MD Head CT 05/06/17918 Signed Impressions: Service Date/Time: Saturday, May 06, 2017 10:48 - CONCLUSION: Normal examination. Norma Sampson MD Chest X-Ray 05/06/17918 Signed Impressions: Service Date/Time: Saturday, May 06, 2017 11:17 - CONCLUSION: Normal examination. Norma Sampson MD Upper Extremity CT 05/06/17 Signed Impressions: Service Date/Time: Saturday, May 06, 2017 15:56 - CONCLUSION: Normal examination other than reactive adenopathy throughout the right axilla. Jose Angel Huizar MD CT Angiography 05/06/17 Signed Impressions: Service Date/Time: Saturday, May 06, 2017 15:42 - CONCLUSION: Normal examination of the pulmonary arteries. Extensive edema and reactive adenopathy throughout both axilla left worse than right. Jose Angel Huizar MD Physical Exam CONSTITUTIONAL/GENERAL: This is an adequately nourished patient, in apparent distress 2/2 severe nausea, vomiting TUBES/LINES/DRAINS: SKIN: No jaundice, + stable petechia mcaulr non pruritic rash on the chest , or lesions. Ecchymoses on R forearm. Skin temperature elevated. Not diaphoretic. CARDIOVASCULAR: Regular tachycardia without murmurs, gallops, or rubs. No JVD. Peripheral pulses symmetric. RESPIRATORY/CHEST: Symmetric, unlabored respirations. Clear to auscultation. Breath sounds equal bilaterally. No wheezes, rales, or rhonchi. GASTROINTESTINAL: Abdomen soft, non-tender, nondistended. No hepato-splenomegaly , or palpable masses. No guarding. Bowel sounds present. GENITOURINARY: Without palpable bladder distension. Garcia catheter in place with clear light yellow urine MUSCULOSKELETAL: lower extremities without clubbing, cyanosis, or edema. No joint tenderness or effusion noted. No calf tenderness. No mottling or clubbing. RUE worsening 3-4X with blisters with hemorragic fluid LUE is very edematous 4-5X, ethymatosi, weeping w with gage odorles serous d/c on the dressing More redness spreading proximally now noted on the back fingers on b/l fands appear be well perfused and free of neurovasc deficit NEUROLOGICAL: Awake and alert. Motor and sensory grossly within normal limits. Follows commands. Clear speech. Moves all extremities. PSYCHIATRIC: tearful, anxious Assessment & Plan Remarks Assessment and Plan Sepsis, GAS from BUE complicated SSTI LUE complicated SSTI, cellulitis, CT e/o abscesses (loculated fluid collection) group A - ortho recommends conservative treatmetn and monitoring for signs of compartment sdf BUE DVT Thrombocytopenia with high fibrinogen Refractory hyponatremia - Hep C + dc zosyn, - switch to ampicillin + clinda, monitor erythema spreading HIV Rosa Maria - pt counseled and is agreable, again Discussed Condition With RN Dr Brittany John,Jeannie Bentley MD May 08, 2017 21:02
[2017-05-08] MEDS: traZODone HCL 100 MG TAB PO SCH (22:34)
[2017-05-08 22:43] LABS: URIC ACID 4.4 MG/DL (2.6-7.2)
[2017-05-09] VITALS (41 sets, daily range): BP systolic 105–176; BP diastolic 51–97; PULSE 67–109; RESP 9–39; TEMP 97.4–98.5; O2SAT 94–100
[2017-05-09] MEDS: HYDROmorphone HCL PF 1 MG/ML VIAL IV PUSH PRN ×4 (02:07→16:49)
[2017-05-09] MEDS: AMPICILLIN 2 GM/NS 100 ML IV SCH ×12 (02:07→20:11)
[2017-05-09] MEDS: CHLORHEXIDINE GLUCONATE 2 % 1 PACK (2 CLOTHS) TOP SCH (04:00)
[2017-05-09] MEDS: RESP: ALBUTEROL 2.5 MG/IPRATROPIUM 0.5 MG NEB (SCH) INH ×3 (04:00→20:45)
[2017-05-09] MEDS: CLINDAMYCIN INJ 900 MG in SODIUM CHLORIDE 0.9% INJ 100 ML IV SCH ×3 (05:08→20:58)
[2017-05-09] MEDS: DILTIAZEM HCL 60 MG TAB PO SCH ×4 (06:06→23:09)
[2017-05-09] MEDS: HEPARIN-D5W 25,000 U/250 ML 250 ML IV PRN ×2 (06:09→23:08)
[2017-05-09] MEDS: DEXT 5%-NACL 0.9% 1000 ML INJ 1,000 ML IV SCH (06:11)
[2017-05-09 06:21] LABS: APTT (PATIENT) 45.7 SEC (24.3-30.1)
[2017-05-09 06:22] LABS: HEMATOCRIT 28.7 % (39.0-51.0); MEAN CELL VOLUME 84.8 FL (80.0-100.0); MEAN CORPUSCULAR HEMOGLOBIN 29.8 PG (27.0-34.0); MEAN CORPUSCULAR HGB CONC 35.1 % (32.0-36.0); PLATELET COUNT 88 TH/MM3 (150-450); RED BLOOD COUNT 3.38 MIL/MM3 (4.50-5.90); RED CELL DISTRIBUTION WIDTH 14.3 % (11.6-17.2)
[2017-05-09 06:26] LABS: HEMO FLAGS AUTO DIFF
[2017-05-09 06:44] LABS: BICARBONATE 25.4 MEQ/L (21.0-32.0)
[2017-05-09 06:48] LABS: POTASSIUM 2.7 MEQ/L (3.5-5.1)
[2017-05-09 07:03] LABS: CALCIUM-PROTEIN CORRECTED 8.5 MG/DL (8.5-10.1)
[2017-05-09] MEDS ORDERED: POTASSIUM CHLOR 20 MEQ PREMIX 100 ML IV PRN ×2 (09:00)
[2017-05-09] MEDS ORDERED: POTASSIUM PHOSPHATE INJ 30 MMOL in SODIUM CHLOR 0.9% 250 ML INJ 250 ML IV PRN (09:00)
[2017-05-09] MEDS ORDERED: MAGNESIUM SULFATE INJ 2 GM in SODIUM CHLORIDE 0.9% INJ 96 ML IV PRN (09:00)
[2017-05-09] MEDS ORDERED: SODIUM PHOSPHATE INJ 30 MMOL in SODIUM CHLOR 0.9% 250 ML INJ 240 ML IV PRN (09:00)
[2017-05-09] MEDS ORDERED: POTASSIUM CHLORIDE 25 MEQ EFFERVESCENT TAB PO PRN (09:00)
[2017-05-09] MEDS ORDERED: POTASSIUM PHOSPHATE MONOBASIC 500 MG TAB PO PRN (09:00)
[2017-05-09] MEDS ORDERED: MAGNESIUM SULFATE INJ 4 GM in SODIUM CHLORIDE 0.9% INJ 92 ML IV PRN (09:00)
[2017-05-09] MEDS ORDERED: MAGNESIUM OXIDE 400 MG TAB PO PRN (09:00)
[2017-05-09] MEDS ORDERED: POTASSIUM PHOSPHATE MONOBASIC 500 MG TAB PO/TUBE PRN (09:00)
[2017-05-09] MEDS ORDERED: POTASSIUM CHLOR 40 MEQ PREMIX 100 ML IV PRN ×2 (09:00)
--- NOTE | 2017-05-09 09:02 | HHI.CCPN ---
Subjective Remarks/Hospital Course The patient is a 37-year-old male with past medical history of anxiety and depression who presented to the [facility] Emergency Department with a one day history of progressive swelling of the left upper extremity associated with blisters at the left elbow. The patient also reports subjective fever, diarrhea and emesis. He denies any abdominal pain, shortness of breath, chest pain. He also reports erythema in his upper extremities bilaterally left greater than right and a rash in his upper chest. On arrival to the emergency room, he was tachycardiac with heart rate in the 120s. Blood pressure 132/68 with a saturation of 99%. His laboratory data is significant for hyponatremia with sodium level of 102, lactic acidosis with lactic acid level of 3.7. There is no history of any seizures. Patient is awake and alert. Other labs showed thrombocytopenia with platelet count of 71, white blood cell count of 3.3. His urine toxicology screen was positive for cannabinoids. CT scan of the brain in the emergency room showed no evidence of any acute intracranial findings. He also had he also had a chest x-ray which was within normal. Ultrasound of the upper extremities showed occlusive clot in the right basilic within the right proximal cephalic vein and an additional clot noted in the left mid and distal radial vein. In the emergency room, the patient received one liter of normal saline and is currently receiving a second liter. In addition, clindamycin, Zosyn and Vancomycin were given. 10 No events overnight. Patient is lying in bed in NAD reports pain in LUE. CT shoulder showed no air or fluid collection. CTA chest negative for PE. On Heparin drip, US UE showed b/l DVT. 05/08 No events overnight. Afebrile. On Heparin drip. Wound and Blood cxs: Group A Beta strep. 05/09 No events overnight. Remains on Geaprin drip. Sodium is improving 118 this morning. Objective Vital Signs Date Time Temp Pulse Resp B/P (MAP) Pulse Ox O2 Delivery O2 Flow Rate FiO2 05/09/17 06:00 69 05/09/17 04:00 98.3 16 105/51 (69) 96 05/08/17 20:37 21 05/08/17 19:00 Room Air 05/08/17 07:00 2.00 Intake and Output 05/09/17 05/09/17 05/10/17 08:00 16:00 00:00 Intake Total 2110 ml Output Total 4000 ml Balance -1890 ml Result Diagram: 05/09/17 0600 05/09/17 0600 Other Results Laboratory Tests Test 05/08/17 12:00 05/08/17 16:25 05/08/17 21:45 05/09/17 06:00 Urine Osmolality 148 MOSM/KG Urine Random Sodium 6 MEQ/L Sodium Level 110 MEQ/L 112 MEQ/L 116 MEQ/L 118 MEQ/L Uric Acid 4.4 MG/DL White Blood Count 17.0 TH/MM3 Red Blood Count 3.38 MIL/MM3 Hemoglobin 10.1 GM/DL Hematocrit 28.7 % Mean Corpuscular Volume 84.8 FL Mean Corpuscular Hemoglobin 29.8 PG Mean Corpuscular Hemoglobin Concent 35.1 % Red Cell Distribution Width 14.3 % Platelet Count 88 TH/MM3 Mean Platelet Volume 9.1 FL CBC Comment AUTO DIFF Activated Partial Thromboplast Time 45.7 SEC Fibrinogen 449 mg/dL Blood Urea Nitrogen 28 MG/DL Creatinine 1.03 MG/DL Random Glucose 103 MG/DL Total Protein 5.1 GM/DL Calcium Level 7.4 MG/DL Potassium Level 2.7 MEQ/L Chloride Level 84 MEQ/L Carbon Dioxide Level 25.4 MEQ/L Anion Gap 9 MEQ/L Estimat Glomerular Filtration Rate 82 ML/MIN Protein Corrected Calcium 8.5 MG/DL Imaging Last Impressions Liver Ultrasound 05/07/17 0000 Signed Impressions: Service Date/Time: Sunday, May 07, 2017 18:39 - CONCLUSION: 1. Hepatosplenomegaly 2. Gallbladder sludge. 3. Mild dilatation of the common bile duct. Because of this mild dilatation is not seen. 4. Echogenic right kidney which can be seen with medical renal disease. Brent Nugent MD Upper Extremity Ultrasound 05/06/17 0919 Signed Impressions: Service Date/Time: Saturday, May 06, 2017 09:20 - CONCLUSION: There is noncompressible occlusive clot identified in the right basilic, within the right proximal cephalic vein with nonvisualization of the mid and distal portion of the cephalic vein secondary to patient movement. Additional clot is identified within the left mid and distal radial vein. There are bilateral axillary lymph nodes noted. Somewhat larger on the left. Norma Sampson MD Head CT 05/06/17918 Signed Impressions: Service Date/Time: Saturday, May 06, 2017 10:48 - CONCLUSION: Normal examination. Norma Sampson MD Chest X-Ray 05/06/17918 Signed Impressions: Service Date/Time: Saturday, May 06, 2017 11:17 - CONCLUSION: Normal examination. Norma Sampson MD Upper Extremity CT 05/06/17 Signed Impressions: Service Date/Time: Saturday, May 06, 2017 15:56 - CONCLUSION: Normal examination other than reactive adenopathy throughout the right axilla. Jose Angel Huizar MD CT Angiography 05/06/17 Signed Impressions: Service Date/Time: Saturday, May 06, 2017 15:42 - CONCLUSION: Normal examination of the pulmonary arteries. Extensive edema and reactive adenopathy throughout both axilla left worse than right. Jose Angel Huizar MD Objective Remarks GENERAL: Patient is 37 yo lying in bed in NAD SKIN: Warm and dry. HEAD: Normocephalic. EYES: No scleral icterus. No injection or drainage. NECK: Supple, trachea midline. No JVD or lymphadenopathy. CARDIOVASCULAR: Regular rate and rhythm without murmurs, gallops, or rubs. RESPIRATORY: Breath sounds equal bilaterally. No accessory muscle use. GASTROINTESTINAL: Abdomen soft, non-tender, nondistended. MUSCULOSKELETAL: No cyanosis, or edema. Neuro: Awake and alert. A/P Assessment and Plan 1. Sepsis. 2. Cellulitis of LUE 3. BEATRIZ 4. Lactic acidosis. 5. Hyposmolar hypovolemic Hyponatremia. 6. Group A Beta strep Bacteremia 7. Elevated AST. 8. DVT bilateral upper extremities. 9. Leukopenia and thrombocytopenia likely secondary to severe sepsis. 10. History of anxiety and depression. 11 Hx PTSD Plan Neuro: Awake and alert. Monitor neuro status closely and avoid sedatives. CT brain: negative for acute process UDS:+ cannabinoids. On BuSpar, Trazodone, Klonopin Pulm: Continue oxygen and maintain >above 92%. Bronchodilators CV: Monitor HR and BP and maintain MAP>65 mmHg. Received 2L crystalloids in ED Serial lactic acid monitoring .. trending down. : Monitor renal function, I/O's and electrolyte replacement per protocol. Will need K replacement today Renal is following- Dr. Rouse, Monitor Sodium level Q4hr. Cr: 1.03 from 1.56 Sodium correction not to exceed 8-10 in 24 hrs. TSH: 2.1. Change IVF NS@42ml/hr GI: On Protonix 40 milligrams daily for GI prophylaxis. On PO diet ID: Continue abx( clindamycin, Ampicillin) ID is following. BC, wound cx 05/06: Group A Beta strep. Monitor for signs of infection(fever and WBCs). Ortho is following. CT shoulder showed no air or abscess Discussed with -not enough fluid to drain. Endo: SSI with Accu-Chek for glycemic control. Heme: Monitor CBC and coags- on Heparin drip. Heme is following- Dr. Holely GI prophylaxis with Protonix 40 milligrams daily and DVT prophylaxis with SCDs / on Heparin drip. Lines: Right femoral central line was placed by ED physician. Level 3 Janusz Ayala MD May 09, 2017 09:02
[2017-05-09] MEDS: clonazePAM 1 MG TAB PO SCH ×2 (09:18→20:12)
[2017-05-09] MEDS: busPIRone HCL 10 MG TAB PO SCH ×3 (09:18→16:49)
[2017-05-09] MEDS: SODIUM CHLOR 0.9% 1000 ML INJ 1,000 ML IV SCH (09:18)
[2017-05-09] MEDS: PANTOPRAZOLE SODIUM 40 MG VIAL IV PUSH SCH (09:18)
[2017-05-09] MEDS: SODIUM CHLORIDE 0.9% FLUSH 10 ML FLUSH IV FLUSH SCH ×2 (09:19→20:11)
[2017-05-09] MEDS: DOCUSATE SODIUM 50 MG/SENNA 8.6 MG TAB PO SCH ×2 (09:19→20:12)
[2017-05-09] MEDS: POTASSIUM CHLORIDE 20 MEQ CONTROLLED RELEASE TAB PO SCH ×2 (09:47→20:12)
--- NOTE | 2017-05-09 09:58 | HHI.NPPN ---
Subjective Renal Failure: Acute Interval History His sodium is improving. Renal function is also better. He made over 7 liters of urine. (Josiane Norris) Review of Systems General Constitutional: Fatigue (Josiane Norris) Endocrine Endocrine: Thirst (Josiane Norris) Objective Data Data Vital Signs Date Time Temp Pulse Resp B/P (MAP) Pulse Ox O2 Delivery O2 Flow Rate FiO2 05/09/17 09:37 100 21 05/09/17 06:00 69 05/09/17 04:00 98.3 69 16 105/51 (69) 96 05/09/17 04:00 69 05/09/17 02:00 75 05/09/17 00:00 98.1 76 13 122/57 (78) 95 05/09/17 00:00 76 05/08/17 22:00 83 05/08/17 20:37 97 21 05/08/17 20:00 88 05/08/17 20:00 98.5 88 15 124/59 (80) 95 05/08/17 19:00 94 Room Air 05/08/17 18:00 85 05/08/17 16:00 85 05/08/17 16:00 98.6 79 13 111/54 (73) 95 05/08/17 14:00 85 05/08/17 13:42 16 05/08/17 12:00 85 05/08/17 12:00 98.5 78 14 118/55 (76) 94 05/08/17 10:00 85 (Josiane Norris) -: 05/09/17 0600 05/09/17 0600 Tubes & Lines: Garcia (Josiane Norris) Physical Exam General Appearance: Well Developed, Comfortable, Anxious (Josiane Norris) Eyes Eye Exam: Pupils Equal (Josiane Norris) Throat Throat Exam: Oral Mucosa Downs & Moist (Josiane Norris) Pulmonary Resp Exam: Clear Bilaterally, Breath Sounds Equal (Josiane Norris) Cardiology CV Exam: Regular, Normal Sinus Rhythm (Josiane Norris) Gastrointestinal/Abdomen GI Exam: Soft, Non-Tender (Josiane Norris) Musculoskeletal MS Exam: Normal Tone, Good Strength (Josiane Norris) Integumentary Skin Exam: Warm, Dry Skin Remarks erythema to upper extremities; left arm more edematous (Josiane Norris) Extremeties Extremities Exam: No Edema, Pedal Pulses Palpable (Josiane Norris) Neurologic Neuro Exam: Alert, Awake, Oriented, Moving All Extremities (Josiane Norris) Assessment/Plan Discussed Condition With: Patient Assessment Summary: BEATRIZ/Acute Renal Failure Problem List: (1) BEATRIZ (acute kidney injury) ICD Codes: N17.9 - Acute kidney failure, unspecified Plan: Normal renal function on arrival BEATRIZ may be due to dehydration and also renal hypoperfusion due to sepsis Renal function has improved continue IVF, avoid nephrotoxins monitor urine output, he is polyuric due to saline diuresis K replacement ordered (2) Hyponatremia ICD Codes: E87.1 - Hypo-osmolality and hyponatremia Plan: Mixed picture: initially low urine sodium suggesting hypovolemic hyponatremia Serum Na with minimal improvement initially despite IVF Rechecked urine sodium which is consistently low; however now urine osmolality is now low which may suggest low solute hyponatremia May have not limited oral intake initially; now on 1200 ml fluid restriction IVF changed to NS @ 50 cc/hr Follow labs Q4h, avoid overcorrection Limit oral water intake (3) Sepsis ICD Codes: A41.9 - Sepsis, unspecified organism Plan: ID is following he is on zosyn and ampicillin (4) Acute bilateral deep vein thrombosis (DVT) of upper extremities ICD Codes: I82.623 - Acute embolism and thrombosis of deep veins of upper extremity, bilateral Plan: On heparin gtt; hematology following (Josiane Norris) Plan patient was seen and examined. Agree with above assessment and plan. (Nasir Rouse MD) Josiane Norris May 09, 2017 09:58 Nasir Rouse MD May 10, 2017 07:56
[2017-05-09 10:02] LABS: BANDS 19 % (0-6); EOSINOPHILS 1 % (0-4); NEUTROPHIL # MANUAL DIFF 15.8 TH/MM3 (1.8-7.7); POLYS (SEG NEUTROPHILS) 74 % (16-70); WBC DIFF SAMPLE 100
[2017-05-09 10:03] LABS: DOHLE BODIES PRESENT (NONE SEEN); PLATELET ESTIMATE SMEAR LOW (NORMAL); PLATELET MORPHOLOGY NORMAL (NORMAL); SCAN/DIFF FINAL DIFF MANUAL; TOXIC GRANULATION 2+ (NORMAL)
[2017-05-09 11:04] LABS: POTASSIUM 2.7 MEQ/L (3.5-5.1)
[2017-05-09] MEDS: SODIUM CHLORIDE 0.9% FLUSH 10 ML FLUSH IV FLUSH PRN (12:37)
--- NOTE | 2017-05-09 12:53 | PD.ONC.PN ---
Subjective Subjective Remarks Afebrile overnight. Patient complaining of thirst. asking for water. He is currently on fluid restriction d/t hyponatremia. Objective Data Date Time Temp Pulse Resp B/P (MAP) Pulse Ox O2 Delivery O2 Flow Rate FiO2 05/09/17 09:37 100 21 05/09/17 06:00 69 05/09/17 04:00 98.3 69 16 105/51 (69) 96 05/09/17 04:00 69 05/09/17 02:00 75 05/09/17 00:00 98.1 76 13 122/57 (78) 95 05/09/17 00:00 76 05/08/17 22:00 83 05/08/17 20:37 97 21 05/08/17 20:00 88 05/08/17 20:00 98.5 88 15 124/59 (80) 95 05/08/17 19:00 94 Room Air 05/08/17 18:00 85 05/08/17 16:00 85 05/08/17 16:00 98.6 79 13 111/54 (73) 95 05/08/17 14:00 85 05/08/17 13:42 16 05/09/17 05/09/17 05/09/17 07:00 15:00 23:00 Intake Total 2316 ml Output Total 4000 ml Balance -1684 ml Result Diagram: 05/09/17 0600 05/09/17 0937 Laboratory Results Laboratory Tests Test 05/08/17 16:25 05/08/17 21:45 05/09/17 06:00 05/09/17 09:37 Sodium Level 112 MEQ/L 116 MEQ/L 118 MEQ/L 119 MEQ/L Uric Acid 4.4 MG/DL White Blood Count 17.0 TH/MM3 Red Blood Count 3.38 MIL/MM3 Hemoglobin 10.1 GM/DL Hematocrit 28.7 % Mean Corpuscular Volume 84.8 FL Mean Corpuscular Hemoglobin 29.8 PG Mean Corpuscular Hemoglobin Concent 35.1 % Red Cell Distribution Width 14.3 % Platelet Count 88 TH/MM3 Mean Platelet Volume 9.1 FL CBC Comment AUTO DIFF Differential Total Cells Counted 100 Neutrophils % (Manual) 74 % Band Neutrophils % 19 % Lymphocytes % 3 % Monocytes % 3 % Eosinophils % 1 % Neutrophils # (Manual) 15.8 TH/MM3 Differential Comment FINAL DIFF MANUAL Toxic Granulation 2+ Dohle Bodies PRESENT Platelet Estimate LOW Platelet Morphology Comment NORMAL Activated Partial Thromboplast Time 45.7 SEC Fibrinogen 449 mg/dL Blood Urea Nitrogen 28 MG/DL Creatinine 1.03 MG/DL Random Glucose 103 MG/DL Total Protein 5.1 GM/DL Calcium Level 7.4 MG/DL Potassium Level 2.7 MEQ/L 2.7 MEQ/L Chloride Level 84 MEQ/L Carbon Dioxide Level 25.4 MEQ/L Anion Gap 9 MEQ/L Estimat Glomerular Filtration Rate 82 ML/MIN Protein Corrected Calcium 8.5 MG/DL Phosphorus Level 1.7 MG/DL Culture Results Microbiology Date/Time Source Procedure Growth Status 05/07/17 13:45 Blood Peripheral Aerobic Blood Culture - Preliminary NO GROWTH IN 2 DAYS Resulted 05/07/17 13:45 Blood Peripheral Anaerobic Blood Culture - Preliminary NO GROWTH IN 2 DAYS Resulted 05/07/17 13:35 Blood Peripheral Aerobic Blood Culture - Preliminary NO GROWTH IN 2 DAYS Resulted 05/07/17 13:35 Blood Peripheral Anaerobic Blood Culture - Preliminary NO GROWTH IN 2 DAYS Resulted 05/06/17 15:15 Wound Arm Gram Stain - Final Complete 05/06/17 15:15 Wound Culture - Final Group A Beta Strep Complete Administered Medications Medications (Trade) Dose Ordered Sig/Hafsa Route PRN Reason Start Time Stop Time Status Last Admin Dose Admin Sodium Chloride (NS Flush) 2 ml UNSCH PRN IV FLUSH FLUSH AFTER USING IV ACCESS 05/06/17 12:45 05/09/17 12:37 Sodium Chloride (NS Flush) 2 ml BID IV FLUSH 05/06/17 21:00 05/09/17 09:19 Pantoprazole Sodium (Protonix Inj) 40 mg DAILY IV PUSH 05/07/17 09:00 05/09/17 09:18 Albuterol/ Ipratropium (Duoneb Neb) 1 ampule Q6HR NEB INH 05/06/17 12:45 05/08/17 15:00 Miscellaneous Information 1 [id number] XX 05/06/17 12:45 05/06/17 12:45 Chlorhexidine Gluconate (Chlorhexidine 2% Cloth) 3 pack Taper DAILY@04 TOP 05/07/17 04:00 05/03/18 03:59 05/09/17 04:00 Senna/Docusate Sodium (Tammy-Colace) 1 tab BID PO 05/06/17 21:00 05/09/17 09:19 Clindamycin Phosphate 900 mg/ Sodium Chloride 106 ml @ 212 mls/hr Q8H IV 05/06/17 20:00 05/09/17 05:08 Acetaminophen (Tylenol) 650 mg Q6H PRN PO pain 1-10 05/06/17 14:30 05/07/17 00:03 Ondansetron HCl (Zofran Inj) 4 mg Q8HR PRN IV PUSH N/V 05/06/17 14:30 05/06/17 18:39 Diltiazem HCl (Cardizem) 60 mg Q6HR PO 05/06/17 14:45 05/09/17 06:06 Heparin Sodium/ Dextrose 250 ml @ 17 mls/hr TITRATE PRN IV Coagulation management 05/06/17 14:45 05/09/17 06:09 Buspirone HCl (Buspar) 20 mg TID PO 05/07/17 13:00 05/09/17 09:18 Clonazepam (KlonoPIN) 0.5 mg BID PO 05/07/17 11:15 05/09/17 09:18 Trazodone HCl (Desyrel) 200 mg HS PO 05/07/17 21:00 05/08/17 22:34 Hydromorphone HCl (Dilaudid Pf Inj) 1 mg Q4H PRN IV PUSH pain 1-10 05/07/17 10:15 05/09/17 12:37 Ampicillin Sodium 2000 mg/Sodium Chloride 100 ml @ 300 mls/hr Q4H IV 05/08/17 11:00 05/09/17 06:06 Potassium Chloride (KCl) 40 meq BID PO 05/09/17 09:00 05/10/17 09:00 05/09/17 09:47 Sodium Chloride 1,000 ml @ 42 mls/hr [id number] IV 05/09/17 09:00 05/09/17 09:18 Potassium Chloride 100 ml @ 50 mls/hr Q2H PRN IV For Potassium 2.8 - 3.2 mEq/L 05/09/17 09:00 05/09/17 09:46 Objective Remarks GENERAL: Young man, sitting upright in bed, at bedside. SKIN: Warm and dry. HEAD: Normocephalic. EYES: No injection or drainage. NECK: Supple, trachea midline. CARDIOVASCULAR: Regular rate and rhythm RESPIRATORY: Breath sounds equal bilaterally. No accessory muscle use. GASTROINTESTINAL: Abdomen soft, non-tender, nondistended. EXTREMITIES: No cyanosis. bilateral upper extremities edematous, weeping, L>R NEUROLOGICAL: awake and alert, normal speech. Assessment/Plan Problem List: (1) Acute bilateral deep vein thrombosis (DVT) of upper extremities ICD Codes: I82.623 - Acute embolism and thrombosis of deep veins of upper extremity, bilateral Plan: on IV heparin gtt --Doppler ultrasound, upper extremities-->noncompressible occlusive clot in the right basilic vein within the right proximal cephalic vein with nonvisualization of the mid and distal portions of the cephalic vein secondary to patient movement. There was additional clot in the left mid and distal radial vein. --no precipitating factor. --CTA showed no PE (2) Hyponatremia ICD Codes: E87.1 - Hypo-osmolality and hyponatremia Plan: --?malignancy --CTA showing reactive axillary LAD (3) Thrombocytopenia ICD Codes: D69.6 - Thrombocytopenia, unspecified Plan: --multifactorial d/t splenomegaly, infection, possible medication effect , consumption from DVT's --fibrinogen is preserved ++hepatitis C --liver u/s shows hepatosplenomegaly (4) Sepsis ICD Codes: A41.9 - Sepsis, unspecified organism Plan: -- Sepsis / cellulitis from the left arm. --on Ampicillin and clindamycin. --BC +group A beta strep --UC no growth (5) Axillary lymphadenopathy ICD Codes: R59.0 - Localized enlarged lymph nodes Assessment 37y/o male with bilateral DVTs and hyponatremia. h/o past medical history of PTSD, TBI and anxiety Plan 1. continue heparin gtt 2. monitor CBC Attending Statement The exam, history, and the medical decision-making described in the above note were completed with the assistance of the mid-level provider. I reviewed and agree with the findings presented. I attest that I had a [id number] encounter with the patient on the same day, and personally performed and documented my assessment and findings in the medical record. Thrombocytopenia due to sepsis/Hep C B/L UE DVT on Heparin GTT Will order hypercoagulable w/u d/w rn o/n events reviewed Robyn Scott May 09, 2017 12:53 David Holley MD May 09, 2017 22:56
[2017-05-09] MEDS: traZODone HCL 100 MG TAB PO SCH (20:12)
--- NOTE | 2017-05-09 22:39 | HHI.IDPN ---
Subjective Subjective Remarks seen around 1800 delayed entry hemodynamically stable and afebrile Sodium improving co BUE pain staes the same Antibiotics clindamycion ampicillin Allergies: Coded Allergies: No Known Allergies (Unverified , 05/06/17) Objective . Vital Signs Date Time Temp Pulse Resp B/P (MAP) Pulse Ox O2 Delivery O2 Flow Rate FiO2 05/09/17 18:00 73 12 118/57 (77) 98 05/09/17 17:45 74 11 117/56 (76) 97 05/09/17 17:30 75 20 122/59 (80) 100 05/09/17 17:15 78 19 122/58 (79) 100 05/09/17 17:00 98.5 82 22 135/70 (91) 99 05/09/17 16:45 78 18 139/68 (91) 100 05/09/17 16:30 77 23 139/69 (92) 100 05/09/17 16:01 75 18 122/60 (80) 100 05/09/17 16:00 78 17 100 05/09/17 15:45 74 16 112/57 (75) 99 05/09/17 15:30 78 21 139/63 (88) 100 05/09/17 15:15 93 20 139/65 (89) 97 05/09/17 15:01 106 23 105/59 (74) 99 05/09/17 15:00 109 29 99 05/09/17 11:45 80 29 126/57 (80) 100 05/09/17 11:30 78 13 129/56 (80) 97 05/09/17 11:15 82 17 128/58 (81) 98 05/09/17 11:01 100 15 152/97 (115) 99 05/09/17 11:00 98 19 99 05/09/17 10:45 75 13 131/59 (83) 96 05/09/17 10:30 78 15 133/56 (81) 99 05/09/17 10:15 79 15 142/65 (90) 100 05/09/17 10:00 75 15 144/62 (89) 100 05/09/17 09:45 83 25 158/75 (102) 98 05/09/17 09:37 100 21 05/09/17 09:32 75 14 119/60 (79) 99 05/09/17 09:00 68 22 110/53 (72) 97 05/09/17 08:45 67 39 111/55 (73) 96 05/09/17 08:30 67 15 107/51 (69) 97 05/09/17 08:15 70 22 111/55 (73) 96 05/09/17 08:00 70 9 111/53 (72) 96 05/09/17 07:45 74 13 117/56 (76) 95 05/09/17 07:30 80 13 123/59 (80) 94 05/09/17 07:15 109 19 141/59 (86) 99 05/09/17 07:00 77 14 131/60 (83) 94 05/09/17 06:00 69 05/09/17 04:00 98.3 69 16 105/51 (69) 96 05/09/17 04:00 69 05/09/17 02:00 75 05/09/17 00:00 98.1 76 13 122/57 (78) 95 05/09/17 00:00 76 05/09/17 05/09/17 05/10/17 15:00 23:00 07:00 Intake Total 300 ml 1815 ml Output Total 3700 ml Balance 300 ml -1885 ml Intake Oral 810 ml IV Total 300 ml 1005 ml Output Urine Total 3700 ml # Bowel Movements 0 . Laboratory Tests Test 05/08/17 03:26 05/09/17 06:00 White Blood Count 11.7 TH/MM3 17.0 TH/MM3 Red Blood Count 3.65 MIL/MM3 3.38 MIL/MM3 Hemoglobin 10.8 GM/DL 10.1 GM/DL Hematocrit 30.6 % 28.7 % Mean Corpuscular Volume 83.9 FL 84.8 FL Mean Corpuscular Hemoglobin 29.6 PG 29.8 PG Mean Corpuscular Hemoglobin Concent 35.3 % 35.1 % Red Cell Distribution Width 14.3 % 14.3 % Platelet Count 66 TH/MM3 88 TH/MM3 Mean Platelet Volume 9.4 FL 9.1 FL Neutrophils (%) (Auto) 89.7 % Lymphocytes (%) (Auto) 4.3 % Monocytes (%) (Auto) 4.0 % Eosinophils (%) (Auto) 1.6 % Basophils (%) (Auto) 0.4 % Neutrophils # (Auto) 10.5 TH/MM3 Lymphocytes # (Auto) 0.5 TH/MM3 Monocytes # (Auto) 0.5 TH/MM3 Eosinophils # (Auto) 0.2 TH/MM3 Basophils # (Auto) 0.0 TH/MM3 CBC Comment AUTO DIFF AUTO DIFF Differential Total Cells Counted 100 100 Neutrophils % (Manual) 59 % 74 % Band Neutrophils % 31 % 19 % Lymphocytes % 3 % 3 % Monocytes % 2 % 3 % Neutrophils # (Manual) 11.1 TH/MM3 15.8 TH/MM3 Metamyelocytes 5 % Differential Comment FINAL DIFF MANUAL FINAL DIFF MANUAL Toxic Granulation 1+ 2+ Toxic Vacuolation PRESENT Dohle Bodies PRESENT PRESENT Platelet Estimate LOW LOW Platelet Morphology Comment NORMAL NORMAL Red Cell Morphology Comment NORMAL Eosinophils % 1 % Laboratory Tests Test 05/08/17 00:18 05/08/17 03:26 05/08/17 08:00 05/08/17 12:00 Sodium Level 109 MEQ/L 111 MEQ/L 109 MEQ/L 110 MEQ/L Blood Urea Nitrogen 30 MG/DL Creatinine 1.56 MG/DL Random Glucose 85 MG/DL Total Protein 5.0 GM/DL Albumin 1.7 GM/DL Calcium Level 6.2 MG/DL Phosphorus Level 3.1 MG/DL Magnesium Level 1.6 MG/DL Alkaline Phosphatase 39 U/L Aspartate Amino Transf (AST/SGOT) 34 U/L Alanine Aminotransferase (ALT/SGPT) 29 U/L Total Bilirubin 2.7 MG/DL Potassium Level 3.3 MEQ/L Chloride Level 74 MEQ/L Carbon Dioxide Level 24.4 MEQ/L Anion Gap 13 MEQ/L Estimat Glomerular Filtration Rate 51 ML/MIN Protein Corrected Calcium 7.2 MG/DL Test 05/08/17 16:25 05/08/17 21:45 05/09/17 06:00 05/09/17 09:37 Sodium Level 112 MEQ/L 116 MEQ/L 118 MEQ/L 119 MEQ/L Uric Acid 4.4 MG/DL Blood Urea Nitrogen 28 MG/DL Creatinine 1.03 MG/DL Random Glucose 103 MG/DL Total Protein 5.1 GM/DL Calcium Level 7.4 MG/DL Potassium Level 2.7 MEQ/L 2.7 MEQ/L Chloride Level 84 MEQ/L Carbon Dioxide Level 25.4 MEQ/L Anion Gap 9 MEQ/L Estimat Glomerular Filtration Rate 82 ML/MIN Protein Corrected Calcium 8.5 MG/DL Phosphorus Level 1.7 MG/DL Test 05/09/17 16:00 05/09/17 21:30 Sodium Level 125 MEQ/L 127 MEQ/L Potassium Level 3.5 MEQ/L Microbiology Date/Time Source Procedure Growth Status 05/07/17 13:45 Blood Peripheral Aerobic Blood Culture - Preliminary NO GROWTH IN 2 DAYS Resulted 05/07/17 13:45 Blood Peripheral Anaerobic Blood Culture - Preliminary NO GROWTH IN 2 DAYS Resulted 05/07/17 13:35 Blood Peripheral Aerobic Blood Culture - Preliminary NO GROWTH IN 2 DAYS Resulted 05/07/17 13:35 Blood Peripheral Anaerobic Blood Culture - Preliminary NO GROWTH IN 2 DAYS Resulted Imaging Last Impressions Liver Ultrasound 05/07/17 Signed Impressions: Service Date/Time: Sunday, May 07, 2017 18:39 - CONCLUSION: 1. Hepatosplenomegaly 2. Gallbladder sludge. 3. Mild dilatation of the common bile duct. Because of this mild dilatation is not seen. 4. Echogenic right kidney which can be seen with medical renal disease. Brent Nugent MD Upper Extremity Ultrasound 05/06/17918 Signed Impressions: Service Date/Time: Saturday, May 06, 2017 09:20 - CONCLUSION: There is noncompressible occlusive clot identified in the right basilic, within the right proximal cephalic vein with nonvisualization of the mid and distal portion of the cephalic vein secondary to patient movement. Additional clot is identified within the left mid and distal radial vein. There are bilateral axillary lymph nodes noted. Somewhat larger on the left. Norma Sampson MD Head CT 05/06/17918 Signed Impressions: Service Date/Time: Saturday, May 06, 2017 10:48 - CONCLUSION: Normal examination. Norma Sampson MD Chest X-Ray 05/06/17918 Signed Impressions: Service Date/Time: Saturday, May 06, 2017 11:17 - CONCLUSION: Normal examination. Norma Sampson MD Upper Extremity CT 05/06/17 Signed Impressions: Service Date/Time: Saturday, May 06, 2017 15:56 - CONCLUSION: Normal examination other than reactive adenopathy throughout the right axilla. Jose Angel Huizar MD CT Angiography 05/06/17 Signed Impressions: Service Date/Time: Saturday, May 06, 2017 15:42 - CONCLUSION: Normal examination of the pulmonary arteries. Extensive edema and reactive adenopathy throughout both axilla left worse than right. Jose Angel Huizar MD Physical Exam CONSTITUTIONAL/GENERAL: This is an adequately nourished patient, in apparent distress 2/2 severe nausea, vomiting TUBES/LINES/DRAINS: SKIN: No jaundice, rash resolved CARDIOVASCULAR: Regular tachycardia without murmurs, gallops, or rubs. No JVD. Peripheral pulses symmetric. RESPIRATORY/CHEST: Symmetric, unlabored respirations. Clear to auscultation. Breath sounds equal bilaterally. No wheezes, rales, or rhonchi. GASTROINTESTINAL: Abdomen soft, non-tender, nondistended. No hepato-splenomegaly , or palpable masses. No guarding. Bowel sounds present. GENITOURINARY: Without palpable bladder distension. Garcia catheter in place with clear light yellow urine MUSCULOSKELETAL: lower extremities without clubbing, cyanosis, or edema. BUE edema and erythema gradually improving both UE with considerable weeping edema NEUROLOGICAL: Awake and alert. non focal PSYCHIATRIC: anxious Assessment & Plan Remarks Assessment and Plan Sepsis, GAS from BUE complicated SSTI BUE complicated SSTI, cellulitis, CT e/o abscesses (loculated fluid collection) group A - ortho recommends conservative treatmetn and monitoring for signs of compartment sdf BUE DVT Thrombocytopenia with high fibrinogen Refractory hyponatremia - Hep C + / HIV negative Overall appear s to improve Worsening leukocytosis -cont ampicillin + clinda, - fu WBC fu HIV Rosa Maria Discussed Condition With Jeannie Vernon MD May 09, 2017 22:39
[2017-05-10] VITALS (12 sets, daily range): BP systolic 108–173; BP diastolic 55–78; PULSE 71–95; RESP 15–31; TEMP 96.7–98.1; O2SAT 96–100
[2017-05-10] MEDS: AMPICILLIN 2 GM/NS 100 ML IV SCH ×10 (01:27→18:22)
[2017-05-10] MEDS: HYDROmorphone HCL PF 1 MG/ML VIAL IV PUSH PRN ×5 (01:27→17:34)
[2017-05-10] MEDS: CLINDAMYCIN INJ 900 MG in SODIUM CHLORIDE 0.9% INJ 100 ML IV SCH ×3 (04:00→20:00)
[2017-05-10] MEDS: RESP: ALBUTEROL 2.5 MG/IPRATROPIUM 0.5 MG NEB (SCH) INH ×2 (04:00→09:30)
[2017-05-10] MEDS: CHLORHEXIDINE GLUCONATE 2 % 1 PACK (2 CLOTHS) TOP SCH (04:00)
[2017-05-10 05:24] LABS: INTERNATIONAL NORMALIZED RATIO 1.3 RATIO; PROTHROMBIN TIME - PATIENT 14.3 SEC (9.8-11.6)
[2017-05-10] MEDS: DILTIAZEM HCL 60 MG TAB PO SCH ×3 (05:39→18:36)
--- NOTE | 2017-05-10 07:48 | PD.ORT.PN ---
Subjective Subjective Remarks Patient is feeling stronger Chart reviewed Labs Reviewed Objective Vitals Vital Signs Date Time Temp Pulse Resp B/P (MAP) Pulse Ox O2 Delivery O2 Flow Rate FiO2 05/10/17 06:09 18 05/10/17 06:00 75 05/10/17 04:00 86 05/10/17 04:00 96.8 72 15 125/58 (80) 96 05/10/17 02:00 71 05/10/17 00:00 98.1 88 31 139/65 (89) 98 05/10/17 00:00 88 05/09/17 22:00 76 05/09/17 20:00 97.4 85 21 176/80 (112) 100 05/09/17 20:00 85 05/09/17 19:00 97 Room Air 05/09/17 18:00 73 12 118/57 (77) 98 05/09/17 17:45 74 11 117/56 (76) 97 05/09/17 17:30 75 20 122/59 (80) 100 05/09/17 17:15 78 19 122/58 (79) 100 05/09/17 17:00 98.5 82 22 135/70 (91) 99 05/09/17 16:45 78 18 139/68 (91) 100 05/09/17 16:30 77 23 139/69 (92) 100 05/09/17 16:01 75 18 122/60 (80) 100 05/09/17 16:00 78 17 100 05/09/17 15:45 74 16 112/57 (75) 99 05/09/17 15:30 78 21 139/63 (88) 100 05/09/17 15:15 93 20 139/65 (89) 97 05/09/17 15:01 106 23 105/59 (74) 99 05/09/17 15:00 109 29 99 05/09/17 11:45 80 29 126/57 (80) 100 05/09/17 11:30 78 13 129/56 (80) 97 05/09/17 11:15 82 17 128/58 (81) 98 05/09/17 11:01 100 15 152/97 (115) 99 05/09/17 11:00 98 19 99 05/09/17 10:45 75 13 131/59 (83) 96 05/09/17 10:30 78 15 133/56 (81) 99 05/09/17 10:15 79 15 142/65 (90) 100 05/09/17 10:00 75 15 144/62 (89) 100 05/09/17 09:45 83 25 158/75 (102) 98 05/09/17 09:37 100 21 05/09/17 09:32 75 14 119/60 (79) 99 05/09/17 09:00 68 22 110/53 (72) 97 05/09/17 08:45 67 39 111/55 (73) 96 05/09/17 08:30 67 15 107/51 (69) 97 05/09/17 08:15 70 22 111/55 (73) 96 05/09/17 08:00 70 9 111/53 (72) 96 05/09/17 07:45 74 13 117/56 (76) 95 I/O 05/09/17 05/09/17 05/09/17 05/10/17 05/10/17 05/10/17 07:00 15:00 23:00 07:00 15:00 23:00 Intake Total 2316 ml 300 ml 1815 ml 390 ml Output Total 4000 ml 3700 ml 3300 ml Balance -1684 ml 300 ml -1885 ml -2910 ml Intake Oral 1000 ml 810 ml 390 ml IV Total 1316 ml 300 ml 1005 ml Output Urine Total 4000 ml 3700 ml 3300 ml # Bowel Movements 0 0 2 Result Diagram: 05/09/17 0600 05/10/17 0455 Other Results Laboratory Tests Test 05/10/17 04:55 Prothromb Time International Ratio 1.3 RATIO Prothrombin Time 14.3 SEC (9.8-11.6) Imaging Last Impressions Upper Extremity Ultrasound 05/06/17918 Signed Impressions: Service Date/Time: Saturday, May 06, 2017 09:20 - CONCLUSION: There is noncompressible occlusive clot identified in the right basilic, within the right proximal cephalic vein with nonvisualization of the mid and distal portion of the cephalic vein secondary to patient movement. Additional clot is identified within the left mid and distal radial vein. There are bilateral axillary lymph nodes noted. Somewhat larger on the left. Norma Sampson MD Head CT 05/06/17918 Signed Impressions: Service Date/Time: Saturday, May 06, 2017 10:48 - CONCLUSION: Normal examination. Norma Sampson MD Chest X-Ray 05/06/17 0919 Signed Impressions: Service Date/Time: Saturday, May 06, 2017 11:17 - CONCLUSION: Normal examination. Norma Sampson MD Upper Extremity CT 05/06/17 0000 Signed Impressions: Service Date/Time: Saturday, May 06, 2017 15:56 - CONCLUSION: Normal examination other than reactive adenopathy throughout the right axilla. Jose Angel Huizar MD CT Angiography 05/06/17 0000 Signed Impressions: Service Date/Time: Saturday, May 06, 2017 15:42 - CONCLUSION: Normal examination of the pulmonary arteries. Extensive edema and reactive adenopathy throughout both axilla left worse than right. Jose Angel Huizar MD Objective Remarks RIGHT UPPER EXTREMITY: Decreased but continued generalized swelling of the forearm Soft to palpation No fluctuance 0/10/140 Neuro intact Vascular intact LEFT UPPER EXTREMITY: Decreased but continued generalized swelling of the forearm/elbow/arm Multiple small petechia Delaminating blisters Mild generalized errythema Soft to palpation No fluctuance 0/20/140 Neuro intact Vascular intact Assessment & Plan Assessment and Plan ASSESSMENT: 1. Severe/improving Strep infectious process left upper extremity(Cellulitis/ Myositis/Fascitis) 2. Deep venous thrombosis left upper extremity. No evidence of abscess Overall, he is markedly improved Risk of developing abscess appears relatively low ID management ICU management I will sign off at this time Lenny Irving MD May 10, 2017 07:48
[2017-05-10 08:39] LABS: AUTOMATED NEUTROPHIL # 19.3 TH/MM3 (1.8-7.7); BASOPHIL # 0.1 TH/MM3 (0-0.2); BASOPHIL % 0.4 % (0.0-2.0); EOSINOPHIL # 0.3 TH/MM3 (0-0.4); EOSINOPHIL % 1.2 % (0.0-4.0); HEMATOCRIT 27.1 % (39.0-51.0); LYMPH % 10.2 % (9.0-44.0); LYMPHOCYTE # 2.4 TH/MM3 (1.0-4.8); MEAN CELL VOLUME 84.3 FL (80.0-100.0); MEAN CORPUSCULAR HGB CONC 35.6 % (32.0-36.0); MONO % 5.7 % (0.0-8.0); NEUT % 82.5 % (16.0-70.0); PLATELET COUNT 126 TH/MM3 (150-450); RED BLOOD COUNT 3.22 MIL/MM3 (4.50-5.90); RED CELL DISTRIBUTION WIDTH 14.1 % (11.6-17.2); WHITE BLOOD COUNT 23.4 TH/MM3 (4.0-11.0)
--- NOTE | 2017-05-10 08:40 | HHI.NPPN ---
Subjective Renal Failure: Acute Interval History patient is about the same. His main concern is that he is not getting enough to eat and drink(fluids). He appears forgetful, likely due to TBI Review of Systems General Constitutional: Fatigue Endocrine Endocrine: Thirst Objective Data Data Vital Signs Date Time Temp Pulse Resp B/P (MAP) Pulse Ox O2 Delivery O2 Flow Rate FiO2 05/10/17 06:09 18 05/10/17 06:00 75 05/10/17 04:00 86 05/10/17 04:00 96.8 72 15 125/58 (80) 96 05/10/17 02:00 71 05/10/17 00:00 98.1 88 31 139/65 (89) 98 05/10/17 00:00 88 05/09/17 22:00 76 05/09/17 20:00 97.4 85 21 176/80 (112) 100 05/09/17 20:00 85 05/09/17 19:00 97 Room Air 05/09/17 18:00 73 12 118/57 (77) 98 05/09/17 17:45 74 11 117/56 (76) 97 05/09/17 17:30 75 20 122/59 (80) 100 05/09/17 17:15 78 19 122/58 (79) 100 05/09/17 17:00 98.5 82 22 135/70 (91) 99 05/09/17 16:45 78 18 139/68 (91) 100 05/09/17 16:30 77 23 139/69 (92) 100 05/09/17 16:01 75 18 122/60 (80) 100 05/09/17 16:00 78 17 100 05/09/17 15:45 74 16 112/57 (75) 99 05/09/17 15:30 78 21 139/63 (88) 100 05/09/17 15:15 93 20 139/65 (89) 97 05/09/17 15:01 106 23 105/59 (74) 99 05/09/17 15:00 109 29 99 05/09/17 11:45 80 29 126/57 (80) 100 05/09/17 11:30 78 13 129/56 (80) 97 05/09/17 11:15 82 17 128/58 (81) 98 05/09/17 11:01 100 15 152/97 (115) 99 10/4/17 11:00 98 19 99 05/09/17 10:45 75 13 131/59 (83) 96 05/09/17 10:30 78 15 133/56 (81) 99 05/09/17 10:15 79 15 142/65 (90) 100 05/09/17 10:00 75 15 144/62 (89) 100 05/09/17 09:45 83 25 158/75 (102) 98 05/09/17 09:37 100 21 05/09/17 09:32 75 14 119/60 (79) 99 05/09/17 09:00 68 22 110/53 (72) 97 05/09/17 08:45 67 39 111/55 (73) 96 -: 05/09/17 0600 05/10/17 0455 Tubes & Lines: Garcia Physical Exam General Appearance: Well Developed, Comfortable, Anxious Eyes Eye Exam: Pupils Equal Throat Throat Exam: Oral Mucosa Salix & Moist Pulmonary Resp Exam: Clear Bilaterally, Breath Sounds Equal Cardiology CV Exam: Regular, Normal Sinus Rhythm Gastrointestinal/Abdomen GI Exam: Soft, Non-Tender Musculoskeletal MS Exam: Normal Tone, Good Strength Integumentary Skin Exam: Warm, Dry Extremeties Extremities Exam: No Edema, Pedal Pulses Palpable Neurologic Neuro Exam: Alert, Awake, Oriented, Moving All Extremities Assessment/Plan Discussed Condition With: Patient Assessment Summary: BEATRIZ/Acute Renal Failure Problem List: (1) BEATRIZ (acute kidney injury) ICD Codes: N17.9 - Acute kidney failure, unspecified Plan: Normal renal function on arrival BEATRIZ may be due to dehydration and also renal hypoperfusion due to sepsis Renal function has improved Replace potassium and phosphorus as needed. (2) Hyponatremia ICD Codes: E87.1 - Hypo-osmolality and hyponatremia Plan: Mixed picture: initially low urine sodium suggesting hypovolemic hyponatremia Serum Na with minimal improvement initially despite IVF Serum Na improved after fluid restriction. Patient may have a component of polydipsia: he does have a tendency to drink a lot of water, always is asking for water. Off IVF. Continue fluid restriction, increase fluid intake to 1500 ml. (3) Sepsis ICD Codes: A41.9 - Sepsis, unspecified organism Plan: ID is following he is on zosyn and ampicillin (4) Acute bilateral deep vein thrombosis (DVT) of upper extremities ICD Codes: I82.623 - Acute embolism and thrombosis of deep veins of upper extremity, bilateral Plan: On heparin gtt; hematology following Nasir Rouse MD May 10, 2017 08:40
[2017-05-10 08:41] LABS: HEMO FLAGS AUTO DIFF
[2017-05-10 08:45] LABS: APTT (PATIENT) 42.1 SEC (24.3-30.1)
--- NOTE | 2017-05-10 08:45 | HHI.CCPN ---
Subjective Remarks/Hospital Course The patient is a 37-year-old male with past medical history of anxiety and depression who presented to the [facility] Emergency Department with a one day history of progressive swelling of the left upper extremity associated with blisters at the left elbow. The patient also reports subjective fever, diarrhea and emesis. He denies any abdominal pain, shortness of breath, chest pain. He also reports erythema in his upper extremities bilaterally left greater than right and a rash in his upper chest. On arrival to the emergency room, he was tachycardiac with heart rate in the 120s. Blood pressure 132/68 with a saturation of 99%. His laboratory data is significant for hyponatremia with sodium level of 102, lactic acidosis with lactic acid level of 3.7. There is no history of any seizures. Patient is awake and alert. Other labs showed thrombocytopenia with platelet count of 71, white blood cell count of 3.3. His urine toxicology screen was positive for cannabinoids. CT scan of the brain in the emergency room showed no evidence of any acute intracranial findings. He also had he also had a chest x-ray which was within normal. Ultrasound of the upper extremities showed occlusive clot in the right basilic within the right proximal cephalic vein and an additional clot noted in the left mid and distal radial vein. In the emergency room, the patient received one liter of normal saline and is currently receiving a second liter. In addition, clindamycin, Zosyn and Vancomycin were given. 10 No events overnight. Patient is lying in bed in NAD reports pain in LUE. CT shoulder showed no air or fluid collection. CTA chest negative for PE. On Heparin drip, US UE showed b/l DVT. 05/08 No events overnight. Afebrile. On Heparin drip. Wound and Blood cxs: Group A Beta strep. 05/09 No events overnight. Remains on Heaprin drip. Sodium is improving 118 this morning. 05/10 No events overnight. Afebrile. Decrease swelling LUE. Objective Vital Signs Date Time Temp Pulse Resp B/P (MAP) Pulse Ox O2 Delivery O2 Flow Rate FiO2 05/10/17 06:09 18 05/10/17 06:00 75 05/10/17 04:00 96.8 125/58 (80) 96 05/09/17 19:00 Room Air 05/09/17 09:37 21 05/08/17 07:00 2.00 Intake and Output 05/10/17 05/10/17 05/11/17 08:00 16:00 00:00 Intake Total 390 ml Output Total 3300 ml Balance -2910 ml Result Diagram: 05/09/17 0600 05/10/17 0455 Other Results Laboratory Tests Test 05/09/17 09:37 05/09/17 16:00 05/09/17 21:30 05/10/17 04:55 Sodium Level 119 MEQ/L 125 MEQ/L 127 MEQ/L 128 MEQ/L Potassium Level 2.7 MEQ/L 3.5 MEQ/L Phosphorus Level 1.7 MG/DL Prothrombin Time 14.3 SEC Prothromb Time International Ratio 1.3 RATIO Fibrinogen 392 mg/dL Test 05/10/17 07:45 Imaging Last Impressions Liver Ultrasound 05/07/17 0000 Signed Impressions: Service Date/Time: Sunday, May 07, 2017 18:39 - CONCLUSION: 1. Hepatosplenomegaly 2. Gallbladder sludge. 3. Mild dilatation of the common bile duct. Because of this mild dilatation is not seen. 4. Echogenic right kidney which can be seen with medical renal disease. Brent Nugent MD Upper Extremity Ultrasound 05/06/17918 Signed Impressions: Service Date/Time: Saturday, May 06, 2017 09:20 - CONCLUSION: There is noncompressible occlusive clot identified in the right basilic, within the right proximal cephalic vein with nonvisualization of the mid and distal portion of the cephalic vein secondary to patient movement. Additional clot is identified within the left mid and distal radial vein. There are bilateral axillary lymph nodes noted. Somewhat larger on the left. Norma Sampson MD Head CT 05/06/17918 Signed Impressions: Service Date/Time: Saturday, May 06, 2017 10:48 - CONCLUSION: Normal examination. Norma Sampson MD Chest X-Ray 05/06/17918 Signed Impressions: Service Date/Time: Saturday, May 06, 2017 11:17 - CONCLUSION: Normal examination. Norma Sampson MD Upper Extremity CT 05/06/17 0000 Signed Impressions: Service Date/Time: Saturday, May 06, 2017 15:56 - CONCLUSION: Normal examination other than reactive adenopathy throughout the right axilla. Jose Angel Huizar MD CT Angiography 05/06/17 0000 Signed Impressions: Service Date/Time: Saturday, May 06, 2017 15:42 - CONCLUSION: Normal examination of the pulmonary arteries. Extensive edema and reactive adenopathy throughout both axilla left worse than right. Jose Angel Huizar MD Objective Remarks GENERAL: Patient is 37 yo lying in bed in NAD SKIN: Warm and dry. HEAD: Normocephalic. EYES: No scleral icterus. No injection or drainage. NECK: Supple, trachea midline. No JVD or lymphadenopathy. CARDIOVASCULAR: Regular rate and rhythm without murmurs, gallops, or rubs. RESPIRATORY: Breath sounds equal bilaterally. No accessory muscle use. GASTROINTESTINAL: Abdomen soft, non-tender, nondistended. MUSCULOSKELETAL: LUE:: Decreased swelling ,multiple small petechia and mild generalized erythema Neuro: Awake and alert. A/P Assessment and Plan 1. Sepsis. 2. Cellulitis of LUE 3. BEATRIZ 4. Lactic acidosis. 5. Hyposmolar hypovolemic Hyponatremia. 6. Group A Beta strep Bacteremia 7. Elevated AST. 8. DVT bilateral upper extremities. 9. Leukopenia and thrombocytopenia likely secondary to severe sepsis. 10. History of anxiety and depression. 11 Hx PTSD 12: Reactive Hep C antibody. Plan Neuro: Awake and alert. Monitor neuro status closely and avoid sedatives. CT brain: negative for acute process UDS:+ cannabinoids. On BuSpar, Trazodone, Klonopin Pulm: Continue oxygen and maintain >above 92%. Bronchodilators CV: Monitor HR and BP and maintain MAP>65 mmHg. Received 2L crystalloids in ED Serial lactic acid monitoring .. trending down. : Monitor renal function, I/O's and electrolyte replacement per protocol. Renal is following- Dr. Rouse, Monitor Sodium level Q4hr. Follow up on BMP. Sodium correction not to exceed 8-10 in 24 hrs. TSH: 2.1. IVF NS@30ml/hr GI: On Protonix 40 milligrams daily for GI prophylaxis. On PO diet ID: Continue abx( clindamycin, Ampicillin) ID is following. BC, wound cx 05/06: Group A Beta strep. Monitor for signs of infection(fever and WBCs). Ortho is following. CT shoulder showed no air or abscess Discussed with Dr.Aristides -not enough fluid to drain. Endo: SSI with Accu-Chek for glycemic control. Heme: Monitor CBC and coags- on Heparin drip. Heme is following- Dr. Holley Doppler US : DVT b/l UE. GI prophylaxis with Protonix 40 milligrams daily and DVT prophylaxis with SCDs / on Heparin drip. Lines: Right femoral central line was placed by ED physician. Not a candidate for peripheral IV;s in arms due to swelling and DVT upper ext b/l. Follow up on labs Level 3 Janusz Ayala MD May 10, 2017 08:45
[2017-05-10 08:48] LABS: BICARBONATE 26.2 MEQ/L (21.0-32.0); POTASSIUM 3.3 MEQ/L (3.5-5.1)
[2017-05-10] MEDS: PANTOPRAZOLE SODIUM 40 MG VIAL IV PUSH SCH (08:48)
[2017-05-10] MEDS: clonazePAM 1 MG TAB PO SCH ×2 (08:49→20:37)
[2017-05-10] MEDS: POTASSIUM CHLORIDE 20 MEQ CONTROLLED RELEASE TAB PO SCH (08:50)
[2017-05-10] MEDS: SODIUM CHLOR 0.9% 1000 ML INJ 1,000 ML IV SCH (09:00)
[2017-05-10] MEDS: DOCUSATE SODIUM 50 MG/SENNA 8.6 MG TAB PO SCH ×2 (09:00→20:37)
[2017-05-10] MEDS: SODIUM CHLORIDE 0.9% FLUSH 10 ML FLUSH IV FLUSH SCH ×2 (09:00→21:00)
[2017-05-10] MEDS: busPIRone HCL 10 MG TAB PO SCH ×3 (09:00→18:00)
[2017-05-10 09:04] LABS: CALCIUM-PROTEIN CORRECTED 8.5 MG/DL (8.5-10.1)
[2017-05-10 09:27] LABS: BANDS 25 % (0-6); EOSINOPHILS 2 % (0-4); METAMYELOCYTES 4 % (0-1); MYELOCYTES 6 % (0-0); NEUTROPHIL # MANUAL DIFF 18.7 TH/MM3 (1.8-7.7); POLYS (SEG NEUTROPHILS) 44 % (16-70); PROMYELOCYTES 1 % (0-0); WBC DIFF SAMPLE 100
[2017-05-10 09:29] LABS: PLATELET ESTIMATE SMEAR LOW (NORMAL); PLATELET MORPHOLOGY NORMAL (NORMAL); SCAN/DIFF FINAL DIFF MANUAL; TOXIC GRANULATION 2+ (NORMAL)
--- NOTE | 2017-05-10 09:33 | PD.ONC.PN ---
Subjective Subjective Remarks Afebrile overnight. patient sitting up in bed in nad. No complaints. Objective Data Date Time Temp Pulse Resp B/P (MAP) Pulse Ox O2 Delivery O2 Flow Rate FiO2 05/10/17 08:00 95 05/10/17 08:00 75 05/10/17 07:00 100 Room Air 05/10/17 06:09 18 05/10/17 06:00 75 05/10/17 04:00 86 05/10/17 04:00 96.8 72 15 125/58 (80) 96 05/10/17 02:00 71 05/10/17 00:00 98.1 88 31 139/65 (89) 98 05/10/17 00:00 88 05/09/17 22:00 76 05/09/17 20:00 97.4 85 21 176/80 (112) 100 05/09/17 20:00 85 05/09/17 19:00 97 Room Air 05/09/17 18:00 73 12 118/57 (77) 98 05/09/17 17:45 74 11 117/56 (76) 97 05/09/17 17:30 75 20 122/59 (80) 100 05/09/17 17:15 78 19 122/58 (79) 100 05/09/17 17:00 98.5 82 22 135/70 (91) 99 05/09/17 16:45 78 18 139/68 (91) 100 05/09/17 16:30 77 23 139/69 (92) 100 05/09/17 16:01 75 18 122/60 (80) 100 05/09/17 16:00 78 17 100 05/09/17 15:45 74 16 112/57 (75) 99 05/09/17 15:30 78 21 139/63 (88) 100 05/09/17 15:15 93 20 139/65 (89) 97 05/09/17 15:01 106 23 105/59 (74) 99 05/09/17 15:00 109 29 99 05/09/17 11:45 80 29 126/57 (80) 100 05/09/17 11:30 78 13 129/56 (80) 97 05/09/17 11:15 82 17 128/58 (81) 98 05/09/17 11:01 100 15 152/97 (115) 99 05/09/17 11:00 98 19 99 05/09/17 10:45 75 13 131/59 (83) 96 05/09/17 10:30 78 15 133/56 (81) 99 05/09/17 10:15 79 15 142/65 (90) 100 05/09/17 10:00 75 15 144/62 (89) 100 05/09/17 09:45 83 25 158/75 (102) 98 05/09/17 09:37 100 21 05/09/17 09:32 75 14 119/60 (79) 99 05/10/17 05/10/17 05/10/17 07:00 15:00 23:00 Intake Total 390 ml Output Total 3300 ml Balance -2910 ml Result Diagram: 05/10/1745 05/10/17 0745 Laboratory Results Laboratory Tests Test 05/09/17 09:37 05/09/17 16:00 05/09/17 21:30 05/10/17 04:55 Sodium Level 119 MEQ/L 125 MEQ/L 127 MEQ/L 128 MEQ/L Potassium Level 2.7 MEQ/L 3.5 MEQ/L Phosphorus Level 1.7 MG/DL Prothrombin Time 14.3 SEC Prothromb Time International Ratio 1.3 RATIO Activated Partial Thromboplast Time 42.1 SEC Fibrinogen 392 mg/dL Test 05/10/17 07:45 White Blood Count 23.4 TH/MM3 Red Blood Count 3.22 MIL/MM3 Hemoglobin 9.7 GM/DL Hematocrit 27.1 % Mean Corpuscular Volume 84.3 FL Mean Corpuscular Hemoglobin 30.0 PG Mean Corpuscular Hemoglobin Concent 35.6 % Red Cell Distribution Width 14.1 % Platelet Count 126 TH/MM3 Mean Platelet Volume 9.0 FL Neutrophils (%) (Auto) 82.5 % Lymphocytes (%) (Auto) 10.2 % Monocytes (%) (Auto) 5.7 % Eosinophils (%) (Auto) 1.2 % Basophils (%) (Auto) 0.4 % Neutrophils # (Auto) 19.3 TH/MM3 Lymphocytes # (Auto) 2.4 TH/MM3 Monocytes # (Auto) 1.3 TH/MM3 Eosinophils # (Auto) 0.3 TH/MM3 Basophils # (Auto) 0.1 TH/MM3 CBC Comment AUTO DIFF Blood Urea Nitrogen 19 MG/DL Creatinine 0.76 MG/DL Random Glucose 101 MG/DL Total Protein 5.2 GM/DL Calcium Level 7.4 MG/DL Sodium Level 128 MEQ/L Potassium Level 3.3 MEQ/L Chloride Level 94 MEQ/L Carbon Dioxide Level 26.2 MEQ/L Anion Gap 8 MEQ/L Estimat Glomerular Filtration Rate 116 ML/MIN Protein Corrected Calcium 8.5 MG/DL Culture Results Microbiology Date/Time Source Procedure Growth Status 05/07/17 13:45 Blood Peripheral Aerobic Blood Culture - Preliminary NO GROWTH IN 2 DAYS Resulted 05/07/17 13:45 Blood Peripheral Anaerobic Blood Culture - Preliminary NO GROWTH IN 2 DAYS Resulted 05/07/17 13:35 Blood Peripheral Aerobic Blood Culture - Preliminary NO GROWTH IN 2 DAYS Resulted 05/07/17 13:35 Blood Peripheral Anaerobic Blood Culture - Preliminary NO GROWTH IN 2 DAYS Resulted Administered Medications Medications (Trade) Dose Ordered Sig/Hafsa Route PRN Reason Start Time Stop Time Status Last Admin Dose Admin Sodium Chloride (NS Flush) 2 ml UNSCH PRN IV FLUSH FLUSH AFTER USING IV ACCESS 05/06/17 12:45 05/09/17 12:37 Sodium Chloride (NS Flush) 2 ml BID IV FLUSH 05/06/17 21:00 05/10/17 09:00 Pantoprazole Sodium (Protonix Inj) 40 mg DAILY IV PUSH 05/07/17 09:00 05/10/17 08:48 Albuterol/ Ipratropium (Duoneb Neb) 1 ampule Q6HR NEB INH 05/06/17 12:45 05/08/17 15:00 Miscellaneous Information 1 Q361D XX 05/06/17 12:45 05/06/17 12:45 Chlorhexidine Gluconate (Chlorhexidine 2% Cloth) 3 pack Taper DAILY@04 TOP 05/07/17 04:00 05/03/18 03:59 05/10/17 04:00 Senna/Docusate Sodium (Tammy-Colace) 1 tab BID PO 05/06/17 21:00 05/09/17 20:12 Clindamycin Phosphate 900 mg/ Sodium Chloride 106 ml @ 212 mls/hr Q8H IV 05/06/17 20:00 05/10/17 04:00 Acetaminophen (Tylenol) 650 mg Q6H PRN PO pain 1-10 05/06/17 14:30 05/07/17 00:03 Ondansetron HCl (Zofran Inj) 4 mg Q8HR PRN IV PUSH N/V 05/06/17 14:30 05/06/17 18:39 Diltiazem HCl (Cardizem) 60 mg Q6HR PO 05/06/17 14:45 05/10/17 05:39 Heparin Sodium/ Dextrose 250 ml @ 17 mls/hr TITRATE PRN IV Coagulation management 05/06/17 14:45 05/09/17 23:08 Buspirone HCl (Buspar) 20 mg TID PO 05/07/17 13:00 05/09/17 16:49 Clonazepam (KlonoPIN) 0.5 mg BID PO 05/07/17 11:15 05/10/17 08:49 Trazodone HCl (Desyrel) 200 mg HS PO 05/07/17 21:00 05/09/17 20:12 Hydromorphone HCl (Dilaudid Pf Inj) 1 mg Q4H PRN IV PUSH pain 1-10 05/07/17 10:15 05/10/17 05:39 Ampicillin Sodium 2000 mg/Sodium Chloride 100 ml @ 300 mls/hr Q4H IV 05/08/17 11:00 05/10/17 07:38 Sodium Chloride 1,000 ml @ 30 mls/hr Q24H IV 05/09/17 09:00 05/09/17 09:18 Potassium Chloride 100 ml @ 50 mls/hr Q2H PRN IV For Potassium 2.8 - 3.2 mEq/L 05/09/17 09:00 05/09/17 09:46 Objective Remarks GENERAL: Young man, upright in bed in nad. SKIN: Warm and dry. HEAD: Normocephalic. EYES: No injection or drainage. NECK: Supple, trachea midline. CARDIOVASCULAR: Regular rate and rhythm RESPIRATORY: Breath sounds equal bilaterally. No accessory muscle use. GASTROINTESTINAL: Abdomen soft, non-tender, nondistended. EXTREMITIES: No cyanosis. bilateral upper extremities with edema and weeping. NEUROLOGICAL: awake and alert, normal speech. Assessment/Plan Problem List: (1) Acute bilateral deep vein thrombosis (DVT) of upper extremities ICD Codes: I82.623 - Acute embolism and thrombosis of deep veins of upper extremity, bilateral Plan: on IV heparin gtt --Doppler ultrasound, upper extremities-->noncompressible occlusive clot in the right basilic vein within the right proximal cephalic vein with nonvisualization of the mid and distal portions of the cephalic vein secondary to patient movement. There was additional clot in the left mid and distal radial vein. --no precipitating factor. --CTA showed no PE (2) Hyponatremia ICD Codes: E87.1 - Hypo-osmolality and hyponatremia Plan: --improving (3) Thrombocytopenia ICD Codes: D69.6 - Thrombocytopenia, unspecified Plan: --multifactorial d/t splenomegaly, infection, possible medication effect , consumption from DVT's --fibrinogen is preserved ++hepatitis C --liver u/s shows hepatosplenomegaly (4) Sepsis ICD Codes: A41.9 - Sepsis, unspecified organism Plan: -- Sepsis / cellulitis from the left arm. --on Ampicillin and clindamycin. --BC +group A beta strep --UC no growth (5) Axillary lymphadenopathy ICD Codes: R59.0 - Localized enlarged lymph nodes Assessment 37y/o male with bilateral DVTs and hyponatremia. h/o past medical history of PTSD, TBI and anxiety Plan 1. monitor CBC 2. supportive care 3. continue heparin gtt Attending Statement The exam, history, and the medical decision-making described in the above note were completed with the assistance of the mid-level provider. I reviewed and agree with the findings presented. I attest that I had a [id number] encounter with the patient on the same day, and personally performed and documented my assessment and findings in the medical record. Thrombocytopenia improving on Heparin GTT overall clinical improvement Robyn Scott May 10, 2017 09:33 David Holley MD May 10, 2017 23:30
[2017-05-10 13:52] LABS: HCV RNA PCR IU/ML LESS THAN 15 IU/mL (0-14); HCV RNA PCR LOGIU/ML LESS THAN 1.18 (0-1.18)
[2017-05-10] MEDS: HEPARIN-D5W 25,000 U/250 ML 250 ML IV PRN (14:27)
[2017-05-10] MEDS: traZODone HCL 100 MG TAB PO SCH (20:37)
[2017-05-11] VITALS (11 sets, daily range): BP systolic 111–143; BP diastolic 55–67; PULSE 78–94; RESP 13–18; TEMP 95.8–98.9; O2SAT 93–100
[2017-05-11] MEDS: SODIUM CHLOR 0.9% 1000 ML INJ 1,000 ML IV SCH (02:23)
[2017-05-11] MEDS: AMPICILLIN 2 GM/NS 100 ML IV SCH ×14 (02:25→22:09)
[2017-05-11] MEDS: DILTIAZEM HCL 60 MG TAB PO SCH ×4 (02:25→18:12)
[2017-05-11] MEDS: HYDROmorphone HCL PF 1 MG/ML VIAL IV PUSH PRN ×5 (02:32→19:00)
[2017-05-11] MEDS: CHLORHEXIDINE GLUCONATE 2 % 1 PACK (2 CLOTHS) TOP SCH (03:45)
[2017-05-11] MEDS: CLINDAMYCIN INJ 900 MG in SODIUM CHLORIDE 0.9% INJ 100 ML IV SCH ×3 (04:39→21:31)
[2017-05-11 05:32] LABS: AUTOMATED NEUTROPHIL # 20.6 TH/MM3 (1.8-7.7); BASOPHIL # 0.2 TH/MM3 (0-0.2); BASOPHIL % 0.6 % (0.0-2.0); EOSINOPHIL # 0.2 TH/MM3 (0-0.4); EOSINOPHIL % 0.9 % (0.0-4.0); LYMPH % 13.9 % (9.0-44.0); LYMPHOCYTE # 3.5 TH/MM3 (1.0-4.8); MEAN CELL VOLUME 85.4 FL (80.0-100.0); MEAN CORPUSCULAR HGB CONC 35.1 % (32.0-36.0); MONO % 2.4 % (0.0-8.0); NEUT % 82.2 % (16.0-70.0); PLATELET COUNT 160 TH/MM3 (150-450); RED BLOOD COUNT 3.16 MIL/MM3 (4.50-5.90); RED CELL DISTRIBUTION WIDTH 14.4 % (11.6-17.2)
[2017-05-11 05:35] LABS: HEMO FLAGS AUTO DIFF
[2017-05-11 05:47] LABS: APTT (PATIENT) 114.4 SEC (24.3-30.1)
[2017-05-11 05:51] LABS: BICARBONATE 25.6 MEQ/L (21.0-32.0); POTASSIUM 3.7 MEQ/L (3.5-5.1)
[2017-05-11] MEDS: HEPARIN-D5W 25,000 U/250 ML 250 ML IV PRN ×2 (06:02→20:29)
[2017-05-11 06:32] LABS: APTT (PATIENT) 83.7 SEC (24.3-30.1)
[2017-05-11] MEDS: clonazePAM 1 MG TAB PO SCH ×2 (08:14→21:32)
[2017-05-11] MEDS: busPIRone HCL 10 MG TAB PO SCH ×3 (08:14→18:00)
[2017-05-11] MEDS: DOCUSATE SODIUM 50 MG/SENNA 8.6 MG TAB PO SCH ×2 (08:15→21:32)
[2017-05-11] MEDS: PANTOPRAZOLE SODIUM 40 MG VIAL IV PUSH SCH (08:15)
[2017-05-11] MEDS: SODIUM CHLORIDE 0.9% FLUSH 10 ML FLUSH IV FLUSH SCH ×2 (08:16→21:32)
[2017-05-11 08:31] LABS: BANDS 22 % (0-6); METAMYELOCYTES 8 % (0-1); MYELOCYTES 4 % (0-0); NEUTROPHIL # MANUAL DIFF 20.8 TH/MM3 (1.8-7.7); PLATELET ESTIMATE SMEAR NORMAL (NORMAL); PLATELET MORPHOLOGY NORMAL (NORMAL); POLYS (SEG NEUTROPHILS) 48 % (16-70); PROMYELOCYTES 1 % (0-0); SCAN/DIFF FINAL DIFF MANUAL; TOXIC GRANULATION 2+ (NORMAL); WBC DIFF SAMPLE 100
--- NOTE | 2017-05-11 09:07 | HHI.NPPN ---
Subjective Renal Failure: Acute Interval History He looks better. Out of bed using bedside commode. Sodium continues to improve. (Josiane Norris) Review of Systems General Constitutional: Fatigue (Josiane Norris) Endocrine Endocrine: Thirst (Josiane Norris) Objective Data Data Vital Signs Date Time Temp Pulse Resp B/P (MAP) Pulse Ox O2 Delivery O2 Flow Rate FiO2 05/11/17 06:30 18 05/11/17 06:00 83 05/11/17 04:00 84 05/11/17 04:00 97.6 84 13 143/64 (90) 05/11/17 02:00 83 05/11/17 00:00 98.1 79 18 111/55 (73) 95 05/11/17 00:00 79 05/10/17 22:00 83 05/10/17 20:00 88 05/10/17 20:00 97.7 88 18 153/78 (103) 100 05/10/17 19:00 100 Room Air 05/10/17 18:00 82 05/10/17 16:00 97.7 78 20 108/55 (72) 96 05/10/17 16:00 79 05/10/17 14:00 82 05/10/17 12:00 80 05/10/17 12:00 97.3 80 22 137/68 (91) 99 05/10/17 11:15 80 (Josiane Norris) -: 05/11/17 0430 05/11/17 0430 Tubes & Lines Comment TLC Drip Comment heparin (Josiane Norris) Physical Exam General Appearance: Well Developed, Well Nourished, Comfortable (Josiane Norris) Eyes Eye Exam: Pupils Equal (Josiane Norris) Throat Throat Exam: Oral Mucosa [place] & Moist (Josiane Norris) Pulmonary Resp Exam: Clear Bilaterally, Breath Sounds Equal, No Distress (Josiane Norris) Cardiology CV Exam: Regular, Normal Sinus Rhythm (Josiane Norris) Gastrointestinal/Abdomen GI Exam: Soft, Non-Tender, Bowel Sounds Present (Josiane Norris) Musculoskeletal MS Exam: Joints Intact, Normal Tone, Good Strength (Josiane Norris) Integumentary Skin Exam: Warm, Dry Skin Remarks erythema to upper extremities; left arm more edematous (Josiane Norris) Extremeties Extremities Exam: No Edema, Pedal Pulses Palpable (Josiane Norris) Neurologic Neuro Exam: Alert, Awake, Oriented, Speech Clear, Moving All Extremities (Josiane Norris) Assessment/Plan Discussed Condition With: Patient Assessment Summary: BEATRIZ/Acute Renal Failure Electrolyte Assessment: Hyponatremia Problem List: (1) BEATRIZ (acute kidney injury) ICD Codes: N17.9 - Acute kidney failure, unspecified Plan: Normal renal function on arrival BEATRIZ may be due to dehydration and also renal hypoperfusion due to sepsis Renal function has returned to baseline Replace potassium and phosphorus as needed. On replacement protocols. Avoid nephrotoxins (2) Hyponatremia ICD Codes: E87.1 - Hypo-osmolality and hyponatremia Plan: Mixed picture: initially low urine sodium suggesting hypovolemic hyponatremia Serum Na with minimal improvement initially despite IVF Serum Na improved after fluid restriction. Patient may have a component of polydipsia: he does have a tendency to drink a lot of water, always is asking for water. On 0.9% @ 30 ml/hr Continue fluid restriction, increase fluid intake to 1500 ml. (3) Sepsis ICD Codes: A41.9 - Sepsis, unspecified organism Plan: ID is following he is on zosyn and ampicillin (4) Acute bilateral deep vein thrombosis (DVT) of upper extremities ICD Codes: I82.623 - Acute embolism and thrombosis of deep veins of upper extremity, bilateral Plan: On heparin gtt; hematology following (Josiane Norris) Problem List: (1) BEATRIZ (acute kidney injury) ICD Codes: N17.9 - Acute kidney failure, unspecified Plan: Normal renal function on arrival BEATRIZ may be due to dehydration and also renal hypoperfusion due to sepsis Renal function has returned to baseline Replace potassium and phosphorus as needed. On replacement protocols. Avoid nephrotoxins (2) Hyponatremia ICD Codes: E87.1 - Hypo-osmolality and hyponatremia Plan: Mixed picture: initially low urine sodium suggesting hypovolemic hyponatremia Serum Na with minimal improvement initially despite IVF Serum Na improved after fluid restriction. Patient may have a component of polydipsia: he does have a tendency to drink a lot of water, always is asking for water. On 0.9% @ 30 ml/hr Continue fluid restriction, increase fluid intake to 1500 ml. (3) Sepsis ICD Codes: A41.9 - Sepsis, unspecified organism Plan: ID is following he is on zosyn and ampicillin (4) Acute bilateral deep vein thrombosis (DVT) of upper extremities ICD Codes: I82.623 - Acute embolism and thrombosis of deep veins of upper extremity, bilateral Plan: On heparin gtt; hematology following Plan patient was seen and examined. Renal function continues to improve. We will see as needed. Thanks. Continue fluid restriction. IVF can be stopped. (Nasir Rouse MD) Josiane Norris May 11, 2017 09:07 Nasir Rouse MD May 11, 2017 16:49
[2017-05-11 09:50] LABS: APTT (PATIENT) 47.4 SEC (24.3-30.1)
--- NOTE | 2017-05-11 11:35 | PD.ONC.PN ---
Subjective Subjective Remarks Afebrile overnight. Patient resting in bed in nad. Reports skin is peeling off arms. Objective Data Date Time Temp Pulse Resp B/P (MAP) Pulse Ox O2 Delivery O2 Flow Rate FiO2 05/11/17 10:00 91 05/11/17 08:00 78 05/11/17 08:00 98.3 78 13 115/63 (80) 100 05/11/17 07:00 98 Room Air 05/11/17 06:30 18 05/11/17 06:00 83 05/11/17 04:00 84 05/11/17 04:00 97.6 84 13 143/64 (90) 05/11/17 02:00 83 05/11/17 00:00 98.1 79 18 111/55 (73) 95 05/11/17 00:00 79 05/10/17 22:00 83 05/10/17 20:00 88 05/10/17 20:00 97.7 88 18 153/78 (103) 100 05/10/17 19:00 100 Room Air 05/10/17 18:00 82 05/10/17 16:00 97.7 78 20 108/55 (72) 96 05/10/17 16:00 79 05/10/17 14:00 82 05/10/17 12:00 80 05/10/17 12:00 97.3 80 22 137/68 (91) 99 05/11/17 05/11/17 05/11/17 07:00 15:00 23:00 Intake Total 2665 ml Output Total 1400 ml Balance 1265 ml Result Diagram: 05/11/17 0430 05/11/17 043 Laboratory Results Laboratory Tests Test 05/10/17 13:45 05/10/17 18:25 05/11/17 04:30 05/11/17 06:10 Sodium Level 127 MEQ/L 128 MEQ/L 130 MEQ/L White Blood Count 25.0 TH/MM3 Red Blood Count 3.16 MIL/MM3 Hemoglobin 9.5 GM/DL Hematocrit 27.0 % Mean Corpuscular Volume 85.4 FL Mean Corpuscular Hemoglobin 30.0 PG Mean Corpuscular Hemoglobin Concent 35.1 % Red Cell Distribution Width 14.4 % Platelet Count 160 TH/MM3 Mean Platelet Volume 8.6 FL Neutrophils (%) (Auto) 82.2 % Lymphocytes (%) (Auto) 13.9 % Monocytes (%) (Auto) 2.4 % Eosinophils (%) (Auto) 0.9 % Basophils (%) (Auto) 0.6 % Neutrophils # (Auto) 20.6 TH/MM3 Lymphocytes # (Auto) 3.5 TH/MM3 Monocytes # (Auto) 0.6 TH/MM3 Eosinophils # (Auto) 0.2 TH/MM3 Basophils # (Auto) 0.2 TH/MM3 CBC Comment AUTO DIFF Differential Total Cells Counted 100 Neutrophils % (Manual) 48 % Band Neutrophils % 22 % Lymphocytes % 12 % Monocytes % 5 % Neutrophils # (Manual) 20.8 TH/MM3 Metamyelocytes 8 % Myelocytes 4 % Promyelocytes 1 % Differential Comment FINAL DIFF MANUAL Toxic Granulation 2+ Platelet Estimate NORMAL Platelet Morphology Comment NORMAL Red Cell Morphology Comment NORMAL Activated Partial Thromboplast Time 114.4 SEC 83.7 SEC Blood Urea Nitrogen 10 MG/DL Creatinine 0.60 MG/DL Random Glucose 94 MG/DL Calcium Level 7.5 MG/DL Phosphorus Level 2.3 MG/DL Magnesium Level 2.0 MG/DL Potassium Level 3.7 MEQ/L Chloride Level 97 MEQ/L Carbon Dioxide Level 25.6 MEQ/L Anion Gap 7 MEQ/L Estimat Glomerular Filtration Rate 152 ML/MIN Test 05/11/17 08:20 Activated Partial Thromboplast Time 47.4 SEC Administered Medications Medications (Trade) Dose Ordered Sig/Hafsa Route PRN Reason Start Time Stop Time Status Last Admin Dose Admin Sodium Chloride (NS Flush) 2 ml UNSCH PRN IV FLUSH FLUSH AFTER USING IV ACCESS 05/06/17 12:45 05/09/17 12:37 Sodium Chloride (NS Flush) 2 ml BID IV FLUSH 05/06/17 21:00 05/11/17 08:16 Pantoprazole Sodium (Protonix Inj) 40 mg DAILY IV PUSH 05/07/17 09:00 05/11/17 08:15 Miscellaneous Information 1 Q361D XX 05/06/17 12:45 05/06/17 12:45 Chlorhexidine Gluconate (Chlorhexidine 2% Cloth) 3 pack Taper DAILY@04 TOP 05/07/17 04:00 05/03/18 03:59 05/11/17 03:45 Senna/Docusate Sodium (Tammy-Colace) 1 tab BID PO 05/06/17 21:00 05/10/17 20:37 Clindamycin Phosphate 900 mg/ Sodium Chloride 106 ml @ 212 mls/hr Q8H IV 05/06/17 20:00 05/11/17 04:39 Acetaminophen (Tylenol) 650 mg Q6H PRN PO pain 1-10 05/06/17 14:30 05/07/17 00:03 Ondansetron HCl (Zofran Inj) 4 mg Q8HR PRN IV PUSH N/V 05/06/17 14:30 05/06/17 18:39 Diltiazem HCl (Cardizem) 60 mg Q6HR PO 05/06/17 14:45 05/11/17 11:22 Heparin Sodium/ Dextrose 250 ml @ 17 mls/hr TITRATE PRN IV Coagulation management 05/06/17 14:45 05/11/17 06:02 Buspirone HCl (Buspar) 20 mg TID PO 05/07/17 13:00 05/11/17 08:14 Clonazepam (KlonoPIN) 0.5 mg BID PO 05/07/17 11:15 05/11/17 08:14 Trazodone HCl (Desyrel) 200 mg HS PO 05/07/17 21:00 05/10/17 20:37 Hydromorphone HCl (Dilaudid Pf Inj) 1 mg Q4H PRN IV PUSH pain 1-10 05/07/17 10:15 05/11/17 10:06 Ampicillin Sodium 2000 mg/Sodium Chloride 100 ml @ 300 mls/hr Q4H IV 05/08/17 11:00 05/11/17 11:22 Sodium Chloride 1,000 ml @ 30 mls/hr Q24H IV 05/09/17 09:00 05/11/17 02:23 Potassium Chloride 100 ml @ 50 mls/hr Q2H PRN IV For Potassium 2.8 - 3.2 mEq/L 05/09/17 09:00 05/09/17 09:46 Potassium Chloride 100 ml @ 25 mls/hr UNSCH PRN IV For Potassium 3.3 - 3.5 mEq/L 05/09/17 09:00 05/10/17 14:20 Objective Remarks GENERAL: Young man, sitting up in bed in [facility]. SKIN: Warm and dry. HEAD: Normocephalic. EYES: No injection or drainage. NECK: Supple, trachea midline. CARDIOVASCULAR: Regular rate and rhythm RESPIRATORY: Breath sounds equal bilaterally. No accessory muscle use. GASTROINTESTINAL: Abdomen soft, non-tender, nondistended. EXTREMITIES: No cyanosis. bilateral upper extremities with extensive edema, L> R. skin in upper extremities peeling/sloughing off. NEUROLOGICAL: awake and alert, normal speech. moving all extremities. Assessment/Plan Problem List: (1) Acute bilateral deep vein thrombosis (DVT) of upper extremities ICD Codes: I82.623 - Acute embolism and thrombosis of deep veins of upper extremity, bilateral Plan: on IV heparin gtt --Doppler ultrasound, upper extremities-->noncompressible occlusive clot in the right basilic vein within the right proximal cephalic vein with nonvisualization of the mid and distal portions of the cephalic vein secondary to patient movement. There was additional clot in the left mid and distal radial vein. --no precipitating factor. --CTA showed no PE (2) Hyponatremia ICD Codes: E87.1 - Hypo-osmolality and hyponatremia Plan: --improving (3) Thrombocytopenia ICD Codes: D69.6 - Thrombocytopenia, unspecified Status: Resolved Plan: --multifactorial d/t splenomegaly, infection, possible medication effect , consumption from DVT's --fibrinogen is preserved --liver u/s shows hepatosplenomegaly (4) Sepsis ICD Codes: A41.9 - Sepsis, unspecified organism Plan: -- Sepsis / cellulitis from the left arm. --on Ampicillin and clindamycin. --BC +group A beta strep --UC no growth (5) Axillary lymphadenopathy ICD Codes: R59.0 - Localized enlarged lymph nodes Assessment 37y/o male with bilateral DVTs and hyponatremia. h/o past medical history of PTSD, TBI and anxiety Plan 1. monitor CBC 2. supportive care 3. continue heparin gtt Attending Statement The exam, history, and the medical decision-making described in the above note were completed with the assistance of the mid-level provider. I reviewed and agree with the findings presented. I attest that I had a [id number] encounter with the patient on the same day, and personally performed and documented my assessment and findings in the medical record. Thrombocytopenia resolved continue Heparin GTT Hypercoag w/u pending. APL Ab positive d/w rn o/n events reviewed Robyn Scott May 11, 2017 11:35 David Holley MD May 11, 2017 19:17
[2017-05-11 12:18] LABS: ALBUMIN SPE 2.11 GM/DL (3.50-5.00); ALPHA 1 GLOBULIN 0.35 GM/DL (0.11-0.29); ALPHA 2 GLOBULIN 0.97 GM/DL (0.22-1.00); BETA GLOBULINS (SPE) 0.42 GM/DL (0.53-1.03)
[2017-05-11] MEDS ORDERED: RESP: ALBUTEROL 2.5 MG/3 ML NEB (PRN) NEB (13:00)
--- NOTE | 2017-05-11 13:12 | HHI.CCPN ---
Subjective Remarks/Hospital Course The patient is a 37-year-old male with past medical history of anxiety and depression who presented to the [facility] Emergency Department with a one day history of progressive swelling of the left upper extremity associated with blisters at the left elbow. The patient also reports subjective fever, diarrhea and emesis. He denies any abdominal pain, shortness of breath, chest pain. He also reports erythema in his upper extremities bilaterally left greater than right and a rash in his upper chest. On arrival to the emergency room, he was tachycardiac with heart rate in the 120s. Blood pressure 132/68 with a saturation of 99%. His laboratory data is significant for hyponatremia with sodium level of 102, lactic acidosis with lactic acid level of 3.7. There is no history of any seizures. Patient is awake and alert. Other labs showed thrombocytopenia with platelet count of 71, white blood cell count of 3.3. His urine toxicology screen was positive cannabinoids. CT scan of the brain in the emergency room showed no evidence of any acute intracranial findings. He also had he also had a chest x-ray which was within normal. Ultrasound of the upper extremities showed occlusive clot in the right basilic within the right proximal cephalic vein and an additional clot noted in the left mid and distal radial vein. In the emergency room, the patient received one liter of normal saline and is currently receiving a second liter. In addition, clindamycin, Zosyn and Vancomycin were given. 10 No events overnight. Patient is lying in bed in NAD reports pain in LUE. CT shoulder showed no air or fluid collection. CTA chest negative for PE. On Heparin drip, US UE showed b/l DVT. 05/08 No events overnight. Afebrile. On Heparin drip. Wound and Blood cxs: Group A Beta strep. 05/09 No events overnight. Remains on Heparin drip. Sodium is improving 118 this morning. 05/10 No events overnight. Afebrile. Decrease swelling LUE. Subjective 05/11: Afebrile. Sodium currently 130. Remains on heparin drip. Pain controlled with Dilaudid. Objective Vital Signs Date Time Temp Pulse Resp B/P (MAP) Pulse Ox O2 Delivery O2 Flow Rate FiO2 05/11/17 10:00 91 05/11/17 08:00 98.3 13 115/63 (80) 100 05/11/17 07:00 Room Air 10/4/17 09:37 21 05/08/17 07:00 2.00 Intake and Output 05/11/17 05/11/17 05/12/17 08:00 16:00 00:00 Intake Total 2665 ml Output Total 1400 ml Balance 1265 ml Result Diagram: 05/11/17 0430 05/11/17 0430 Other Results Microbiology Date/Time Source Procedure Growth Status 05/07/17 13:45 Blood Peripheral Aerobic Blood Culture - Preliminary NO GROWTH IN 4 DAYS Resulted 05/07/17 13:45 Blood Peripheral Anaerobic Blood Culture - Preliminary NO GROWTH IN 4 DAYS Resulted 05/06/17 12:10 Urine Clean Catch Urine Culture - Final NO GROWTH IN 48 HOURS. Complete 05/06/17 15:15 Wound Arm Gram Stain - Final Complete 05/06/17 15:15 Wound Culture - Final Group A Beta Strep Complete Imaging Last Impressions Liver Ultrasound 05/07/17 0000 Signed Impressions: Service Date/Time: Sunday, May 07, 2017 18:39 - CONCLUSION: 1. Hepatosplenomegaly 2. Gallbladder sludge. 3. Mild dilatation of the common bile duct. Because of this mild dilatation is not seen. 4. Echogenic right kidney which can be seen with medical renal disease. Brent Nugent MD Upper Extremity Ultrasound 05/06/17918 Signed Impressions: Service Date/Time: Saturday, May 06, 2017 09:20 - CONCLUSION: There is noncompressible occlusive clot identified in the right basilic, within the right proximal cephalic vein with nonvisualization of the mid and distal portion of the cephalic vein secondary to patient movement. Additional clot is identified within the left mid and distal radial vein. There are bilateral axillary lymph nodes noted. Somewhat larger on the left. Norma Sampson MD Head CT 05/06/17918 Signed Impressions: Service Date/Time: Saturday, May 06, 2017 10:48 - CONCLUSION: Normal examination. Norma Sampson MD Chest X-Ray 05/06/17918 Signed Impressions: Service Date/Time: Saturday, May 06, 2017 11:17 - CONCLUSION: Normal examination. Norma Sampson MD Upper Extremity CT 05/06/17 0000 Signed Impressions: Service Date/Time: Saturday, May 06, 2017 15:56 - CONCLUSION: Normal examination other than reactive adenopathy throughout the right axilla. Jose Angel Huizar MD CT Angiography 05/06/17 0000 Signed Impressions: Service Date/Time: Saturday, May 06, 2017 15:42 - CONCLUSION: Normal examination of the pulmonary arteries. Extensive edema and reactive adenopathy throughout both axilla left worse than right. Jose Angel Huizar MD Objective Remarks GENERAL: Patient is 37 yo lying in bed in NAD SKIN: Warm and dry. HEAD: Normocephalic. EYES: No scleral icterus. No injection or drainage. NECK: Supple, trachea midline. No JVD or lymphadenopathy. CARDIOVASCULAR: Regular rate and rhythm without murmurs, gallops, or rubs. RESPIRATORY: Breath sounds equal bilaterally. No accessory muscle use. GASTROINTESTINAL: Abdomen soft, non-tender, nondistended. MUSCULOSKELETAL: LUE:: Decreased swelling ,multiple small petechiae and mild generalized erythema Neuro: Awake and alert. Strength is equal symmetric. Normal sensation A/P Assessment and Plan Neuro/Psych: Anxiety disorder NOS History of TBI Posttraumatic stress disorder THC use Awake and alert. CT brain: negative for acute process UDS:+ cannabinoids. Resume home medications of buspirone 20 mg 3 times a day, trazodone 200 mg a night and clonazepam 0.5 mill grams twice a day Restart escitalopram 20 mg daily for depression Hydromorphone as needed for pain management. Start hydrocodone/acetaminophen 1 tabs every 4 hours when necessary pain Acetaminophen for fever Pulm: Continue oxygen and maintain >above 92%. albuterol aerosol every 2 hours as needed Dyspnea CV: Monitor HR and BP and maintain MAP>65 mmHg. Received 2L crystalloids in ED Serial lactic acid monitoring .. trending down. Echocardiogram revealed EF 60-65%. PAP 14.2 mmHg RENAL/FEN/: Hypoosmolar hypovolemic hyponatremia Acute kidney injury - resolved Monitor renal function, I/O's and electrolyte replacement per protocol. Renal is following- Dr. Rouse, Monitor Sodium level Q8hr. IVF NS@30ml/hr GI: Reactive Hep C antibody. Hepatosplenomegaly On ranitidine 150 mg twice a day for GI prophylaxis. Abdominal ultrasound revealed HSM. Mildly dilatated common bile duct. Gallbladder sludge. ID: Group A beta strep cellulitis/fasciitis Continue abx( clindamycin, Ampicillin) ID is following. BC, wound cx 05/06: Group A Beta strep. Monitor for signs of infection(fever and WBCs). Ortho as followed and signed off. CT shoulder showed no air or abscess Discussed with -not enough fluid to drain. Endo: SSI with Accu-Chek for glycemic control. TSH 2.1 Heme: Right basilic/cephalic superficial thrombus/left mid/distal radial thrombus Monitor CBC and coags- on Heparin drip. Heme is following- Dr. Holley Doppler ultrasound revealed right cephalic/basilic superficial thrombus in left mid/distal radial thrombus. Noted IgM phospholipid antibody positive GI prophylaxis with ranitidine 150 mg twice a day and DVT prophylaxis with SCDs / on Heparin drip. Lines: Right femoral central line was placed by ED physician. Not a candidate for peripheral IV;s in arms due to swelling and DVT upper ext b/ l. Level 2 Patient is stable from a critical care medicine standpoint. Transfer care to hospitalist in a.m. 05/12 Jeremie Jon MD May 11, 2017 13:12
[2017-05-11] MEDS: ACETAMINOPHEN/HYDROcodone 325 MG/5 MG TAB PO PRN ×2 (18:12→22:58)
[2017-05-11] MEDS: traZODone HCL 100 MG TAB PO SCH (21:32)
[2017-05-11] MEDS: FAMOTIDINE 20 MG TAB PO SCH (21:32)
[2017-05-12] VITALS: BP 118/63; PULSE 93; RESP 17; TEMP 97.9; O2SAT 98
[2017-05-12] MEDS: DILTIAZEM HCL 60 MG TAB PO SCH ×5 (00:24→23:05)
[2017-05-12 01:35] LABS: APTT (PATIENT) 44.8 SEC (24.3-30.1)
[2017-05-12] MEDS: AMPICILLIN 2 GM/NS 100 ML IV SCH ×12 (03:00→23:04)
[2017-05-12] MEDS: HYDROmorphone HCL PF 1 MG/ML VIAL IV PUSH PRN ×6 (03:12→23:05)
[2017-05-12] MEDS: CHLORHEXIDINE GLUCONATE 2 % 1 PACK (2 CLOTHS) TOP SCH (04:00)
[2017-05-12] MEDS: CLINDAMYCIN INJ 900 MG in SODIUM CHLORIDE 0.9% INJ 100 ML IV SCH ×3 (04:00→19:46)
[2017-05-12 05:20] LABS: AUTOMATED NEUTROPHIL # 17.7 TH/MM3 (1.8-7.7); BASOPHIL # 0.1 TH/MM3 (0-0.2); BASOPHIL % 0.5 % (0.0-2.0); EOSINOPHIL # 0.1 TH/MM3 (0-0.4); EOSINOPHIL % 0.4 % (0.0-4.0); HEMATOCRIT 25.2 % (39.0-51.0); LYMPH % 14.9 % (9.0-44.0); LYMPHOCYTE # 3.4 TH/MM3 (1.0-4.8); MEAN CELL VOLUME 85.2 FL (80.0-100.0); MEAN CORPUSCULAR HGB CONC 35.3 % (32.0-36.0); MONO % 6.7 % (0.0-8.0); NEUT % 77.5 % (16.0-70.0); PLATELET COUNT 195 TH/MM3 (150-450); RED BLOOD COUNT 2.96 MIL/MM3 (4.50-5.90); RED CELL DISTRIBUTION WIDTH 14.3 % (11.6-17.2); WHITE BLOOD COUNT 22.9 TH/MM3 (4.0-11.0)
[2017-05-12 05:35] LABS: APTT (PATIENT) 42.9 SEC (24.3-30.1); HEMO FLAGS AUTO DIFF
[2017-05-12 05:42] LABS: BICARBONATE 24.3 MEQ/L (21.0-32.0); MAGNESIUM 1.8 MG/DL (1.5-2.5); POTASSIUM 3.9 MEQ/L (3.5-5.1)
[2017-05-12 05:45] LABS: CALCIUM-PROTEIN CORRECTED 8.2 MG/DL (8.5-10.1); TOTAL BILIRUBIN ADULT 0.8 MG/DL (0.2-1.0)
[2017-05-12] MEDS: ACETAMINOPHEN/HYDROcodone 325 MG/5 MG TAB PO PRN ×2 (06:06→09:47)
[2017-05-12 06:08] VITALS: BP 115/67; PULSE 102
[2017-05-12 08:00] VITALS: BP 120/66; PULSE 101; RESP 19; TEMP 97.4; O2SAT 96
[2017-05-12] MEDS: busPIRone HCL 10 MG TAB PO SCH ×3 (08:13→17:29)
[2017-05-12] MEDS: FAMOTIDINE 20 MG TAB PO SCH ×2 (08:14→19:48)
[2017-05-12] MEDS: DOCUSATE SODIUM 50 MG/SENNA 8.6 MG TAB PO SCH ×2 (08:14→19:48)
[2017-05-12] MEDS: ESCITALOPRAM OXALATE 20 MG TAB PO SCH (08:14)
[2017-05-12] MEDS: clonazePAM 1 MG TAB PO SCH ×2 (08:15→19:49)
[2017-05-12] MEDS: SODIUM CHLORIDE 0.9% FLUSH 10 ML FLUSH IV FLUSH SCH ×2 (08:17→19:46)
[2017-05-12 09:21] LABS: BANDS 17 % (0-6); METAMYELOCYTES 6 % (0-1); MYELOCYTES 6 % (0-0); NEUTROPHIL # MANUAL DIFF 18.3 TH/MM3 (1.8-7.7); PLATELET ESTIMATE SMEAR NORMAL (NORMAL); PLATELET MORPHOLOGY NORMAL (NORMAL); POLYS (SEG NEUTROPHILS) 50 % (16-70); PROMYELOCYTES 1 % (0-0); SCAN/DIFF FINAL DIFF MANUAL; WBC DIFF SAMPLE 100
[2017-05-12 09:22] LABS: DOHLE BODIES PRESENT (NONE SEEN); TARGET CELLS 1+ (NORMAL); TOXIC GRANULATION 1+ (NORMAL); TOXIC VACUOLATION PRESENT (NONE SEEN)
--- NOTE | 2017-05-12 09:51 | HHI.PR ---
Subjective Remarks Follow up for bilateral upper extremity complicated cellulitis, bilateral upper ext DVT. Patient complains of inadequate pain control. Denies any fever, chills, chest pain, SOB. Objective Vitals Vital Signs Date Time Temp Pulse Resp B/P (MAP) Pulse Ox O2 Delivery O2 Flow Rate FiO2 05/12/17 08:00 97.4 101 19 120/66 (84) 96 05/12/17 06:08 102 115/67 (83) 05/12/17 03:42 16 05/12/17 00:00 97.9 93 17 118/63 (81) 98 05/11/17 20:00 95.8 91 17 127/67 (87) 96 05/11/17 19:00 98 Room Air 05/11/17 18:00 94 05/11/17 16:00 88 05/11/17 16:00 98.9 88 16 133/60 (84) 93 05/11/17 14:00 85 05/11/17 12:00 98.3 86 16 140/61 (87) 100 05/11/17 12:00 86 05/11/17 10:00 91 I/O 05/11/17 05/11/17 05/11/17 05/12/17 05/12/17 05/12/17 06:59 14:59 22:59 06:59 14:59 22:59 Intake Total 2665 ml 406 ml 1980 ml 240 ml 120 ml Output Total 1400 ml Balance 1265 ml 406 ml 1980 ml 240 ml 120 ml Intake Oral 800 ml 1630 ml 240 ml 120 ml IV Total 1865 ml 406 ml 350 ml Output Urine Total 1400 ml # Voids 4 1 # Bowel Movements 1 1 Result Diagram: 05/12/17 0500 05/12/17 0500 Imaging Last Impressions Liver Ultrasound 05/07/17 0000 Signed Impressions: Service Date/Time: Sunday, May 07, 2017 18:39 - CONCLUSION: 1. Hepatosplenomegaly 2. Gallbladder sludge. 3. Mild dilatation of the common bile duct. Because of this mild dilatation is not seen. 4. Echogenic right kidney which can be seen with medical renal disease. Brent Nugent MD Upper Extremity Ultrasound 05/06/17 0919 Signed Impressions: Service Date/Time: Saturday, May 06, 2017 09:20 - CONCLUSION: There is noncompressible occlusive clot identified in the right basilic, within the right proximal cephalic vein with nonvisualization of the mid and distal portion of the cephalic vein secondary to patient movement. Additional clot is identified within the left mid and distal radial vein. There are bilateral axillary lymph nodes noted. Somewhat larger on the left. Norma Sampson MD Head CT 05/06/17918 Signed Impressions: Service Date/Time: Saturday, May 06, 2017 10:48 - CONCLUSION: Normal examination. Norma Sampson MD Chest X-Ray 05/06/17918 Signed Impressions: Service Date/Time: Saturday, May 06, 2017 11:17 - CONCLUSION: Normal examination. Norma Sampson MD Upper Extremity CT 05/06/17 0000 Signed Impressions: Service Date/Time: Saturday, May 06, 2017 15:56 - CONCLUSION: Normal examination other than reactive adenopathy throughout the right axilla. Jose Angel Huizar MD CT Angiography 05/06/17 0000 Signed Impressions: Service Date/Time: Saturday, May 06, 2017 15:42 - CONCLUSION: Normal examination of the pulmonary arteries. Extensive edema and reactive adenopathy throughout both axilla left worse than right. Jose Angel Huizar MD Objective Remarks GENERAL: Alert, Oriented x 3, NAD. SKIN: Warm and dry. HEAD: Normocephalic. EYES: No scleral icterus. No injection or drainage. NECK: Supple, trachea midline. No JVD or lymphadenopathy. CARDIOVASCULAR: Regular rate and rhythm without murmurs, gallops, or rubs. RESPIRATORY: Breath sounds equal bilaterally. No accessory muscle use. GASTROINTESTINAL: Abdomen soft, non-tender, nondistended. MUSCULOSKELETAL: No cyanosis, or edema. Significant edema, erythema with drainage present specially on the left upper ext. BACK: Nontender without obvious deformity. No CVA tenderness. Procedures 05/07/2017 Echo Normal left ventricular size and wall thickness. The left ventricular systolic function is normal with an estimated ejection fraction in the range of 60-65%. Left ventricular diastolic function parameters are normal. There is trace tricuspid valve regurgitation. The estimated pulmonary arterial pressure is 14.2 mmHg. No massess or vegetations noted A/P Problem List: (1) Bacteremia due to Streptococcus ICD Code: R78.81 - Bacteremia (2) Cellulitis of left upper extremity ICD Code: L03.114 - Cellulitis of left upper limb (3) Cellulitis of right upper extremity ICD Code: L03.113 - Cellulitis of right upper limb (4) Group A streptococcal infection ICD Code: B95.0 - Streptococcus, group A, as the cause of diseases classified elsewhere Assessment and Plan Mr. Schulte is a pleasant 37 year old [employer] with a history of TBI, anxiety, depression who was admitted to the hospital on 05/06/2017 due to progressive swelling, erythema, blisters of both upper extremities, especially left upper ext. Several days prior to this admission, patient was taking care of his generator. He cut is arms and subsequently also burned his arms by the exhaust system of the generator. In the ensuing days, he noticed progressive erythema, swelling of his upper extremities and he also developed nausea, vomiting, diarrhea. Upon arrival, HR 128, Resp 18, BP 132/68. Temp 98%, 99% on 2L of O2 via NC. WBC 3.3 with 89.5% neutrophils, Hgb 13.6, HCT 38.2, Plt 71K. Sodium 102, Potassium 3.8, Cr 1.15, Lactic acid 3.7, 4.1. CT of the extremities indicated soft tissue swelling but no evidence of necrotizing fascitis. Orthopedic surgery, ID were consulted. Patient was started on Vancomycin, Zosyn and Clindamycin. - Severe Sepsis (Tachycardia, WBC < 4.0, Lactic acid >2.0, know infection upper ext). - Bilateral upper extremity cellulitis due to Group A streptococcus - Bacteremia due to Group A Streptococcus - Sepsis resolved. - ID following. Patient is currently on Ampicillin IV 2g Q4hrs and Clindamycin 900 mg Q8hrs. - Continue wound care. - Orthopedic surgery evaluated patient and recommended no surgical intervention. - Patient is currently on [place] PRN and Dilaudid for breakthrough. - Will change [place] to Percocet and keep Dilaudid for breakthrough. - Bilateral upper extremity DVT - Thrombocytopenia - Hematology was consulted. Patient is currently on Heparin drip. - Thrombocytopenia is likely due to hepatosplenomegaly as well as infection, medications. - PLT count improved to 160, 195K. - Acute kidney injury - Hyponatremia - BEATRIZ likely due to volume depletion, sepsis. Currently resolved. - Hyponatremia is possibly psychotropic meds - Buspirone, Lexapro. - Patient has not found these meds helpful. - Hyponatremia is improved to 129-130. - Anxiety/Depression - TBI - Continue Clonazepam 0.5mg BID. - Continue Trazodone. Full code. Heparin drip. Stas Perez DO May 12, 2017 09:51
[2017-05-12] MEDS: SODIUM CHLORIDE 0.9% FLUSH 10 ML FLUSH IV FLUSH PRN (10:40)
[2017-05-12] MEDS: HEPARIN-D5W 25,000 U/250 ML 250 ML IV PRN (11:14)
[2017-05-12 12:00] VITALS: BP 114/59; PULSE 100; RESP 19; TEMP 98.1; O2SAT 96
[2017-05-12] MEDS: oxyCODONE/ACETAMINOPHEN 10 MG/325 MG TAB PO PRN ×3 (14:04→22:15)
[2017-05-12 16:00] VITALS: BP 127/71; PULSE 100; RESP 19; TEMP 97.8; O2SAT 95
[2017-05-12] MEDS: traZODone HCL 100 MG TAB PO SCH (19:49)
[2017-05-12 20:00] VITALS: BP 118/57; PULSE 97; RESP 22; TEMP 99.1; O2SAT 95
[2017-05-13] VITALS: BP 112/56; PULSE 98; RESP 22; TEMP 99.8; O2SAT 93
[2017-05-13] MEDS: oxyCODONE/ACETAMINOPHEN 10 MG/325 MG TAB PO PRN ×6 (02:15→22:09)
[2017-05-13] MEDS: HEPARIN-D5W 25,000 U/250 ML 250 ML IV PRN ×2 (02:15→17:28)
[2017-05-13] MEDS: AMPICILLIN 2 GM/NS 100 ML IV SCH ×12 (02:15→22:50)
[2017-05-13] MEDS: HYDROmorphone HCL PF 1 MG/ML VIAL IV PUSH PRN ×6 (03:15→22:51)
[2017-05-13] MEDS: CLINDAMYCIN INJ 900 MG in SODIUM CHLORIDE 0.9% INJ 100 ML IV SCH ×3 (03:15→20:07)
[2017-05-13] MEDS: CHLORHEXIDINE GLUCONATE 2 % 1 PACK (2 CLOTHS) TOP SCH (03:35)
[2017-05-13 03:52] LABS: THROMBIN TIME FOR LA ND sec (13-19)
[2017-05-13] MEDS: DILTIAZEM HCL 60 MG TAB PO SCH ×3 (06:18→17:29)
[2017-05-13 06:46] LABS: APTT (PATIENT) 45.1 SEC (24.3-30.1)
[2017-05-13 08:00] VITALS: BP 114/56; PULSE 100; RESP 20; TEMP 99.1; O2SAT 97
[2017-05-13] MEDS: busPIRone HCL 10 MG TAB PO SCH ×3 (09:00→16:32)
[2017-05-13] MEDS: SODIUM CHLORIDE 0.9% FLUSH 10 ML FLUSH IV FLUSH SCH ×2 (09:00→20:07)
[2017-05-13] MEDS: ESCITALOPRAM OXALATE 20 MG TAB PO SCH (09:00)
[2017-05-13] MEDS: FAMOTIDINE 20 MG TAB PO SCH ×2 (09:02→20:10)
[2017-05-13] MEDS: DOCUSATE SODIUM 50 MG/SENNA 8.6 MG TAB PO SCH ×2 (09:02→20:10)
[2017-05-13] MEDS: clonazePAM 1 MG TAB PO SCH ×2 (09:02→20:09)
--- NOTE | 2017-05-13 09:49 | HHI.PR ---
Subjective Remarks Follow up for bilateral upper extremity complicated cellulitis, bilateral upper ext DVT. Mr. Schulte is doing well. No fever, chills. However, he continues to have pain on his upper ext moshe left upper ext. Pain is reasonably controlled with current pain meds (Percocet and Dilaudid IV for breakthrough). Objective Vitals Vital Signs Date Time Temp Pulse Resp B/P (MAP) Pulse Ox O2 Delivery O2 Flow Rate FiO2 05/13/17 08:00 99.1 100 20 114/56 (75) 97 05/13/17 07:40 18 05/13/17 00:00 99.8 98 22 112/56 (74) 93 05/12/17 20:00 99.1 97 22 118/57 (77) 95 05/12/17 18:31 18 05/12/17 16:00 97.8 100 19 127/71 (89) 95 05/12/17 12:00 98.1 100 19 114/59 (77) 96 05/12/17 10:47 18 I/O 05/12/17 05/12/17 05/12/17 05/13/17 05/13/17 05/13/17 07:00 15:00 23:00 07:00 15:00 23:00 Intake Total 240 ml 120 ml 3010 ml 718 ml 120 ml Output Total 1100 ml Balance 240 ml 120 ml 1910 ml 718 ml 120 ml Intake Oral 240 ml 120 ml 1720 ml 240 ml 120 ml IV Total 1290 ml 478 ml Output Urine Total 1100 ml # Voids 1 2 1 # Bowel Movements 1 Result Diagram: 05/12/17 0500 05/12/17 0500 Imaging Last Impressions Liver Ultrasound 05/07/17 0000 Signed Impressions: Service Date/Time: Sunday, May 07, 2017 18:39 - CONCLUSION: 1. Hepatosplenomegaly 2. Gallbladder sludge. 3. Mild dilatation of the common bile duct. Because of this mild dilatation is not seen. 4. Echogenic right kidney which can be seen with medical renal disease. Brent Nugent MD Upper Extremity Ultrasound 05/06/17 0919 Signed Impressions: Service Date/Time: Saturday, May 06, 2017 09:20 - CONCLUSION: There is noncompressible occlusive clot identified in the right basilic, within the right proximal cephalic vein with nonvisualization of the mid and distal portion of the cephalic vein secondary to patient movement. Additional clot is identified within the left mid and distal radial vein. There are bilateral axillary lymph nodes noted. Somewhat larger on the left. Norma Sampson MD Head CT 05/06/1719 Signed Impressions: Service Date/Time: Saturday, May 06, 2017 10:48 - CONCLUSION: Normal examination. Norma Sampson MD Chest X-Ray 05/06/17918 Signed Impressions: Service Date/Time: Saturday, May 06, 2017 11:17 - CONCLUSION: Normal examination. Norma Sampson MD Upper Extremity CT 05/06/17 0000 Signed Impressions: Service Date/Time: Saturday, May 06, 2017 15:56 - CONCLUSION: Normal examination other than reactive adenopathy throughout the right axilla. Jose Angel Huizar MD CT Angiography 05/06/17 0000 Signed Impressions: Service Date/Time: Saturday, May 06, 2017 15:42 - CONCLUSION: Normal examination of the pulmonary arteries. Extensive edema and reactive adenopathy throughout both axilla left worse than right. Jose Angel Huizar MD Objective Remarks GENERAL: Alert, Oriented x 3, NAD. SKIN: Warm and dry. HEAD: Normocephalic. EYES: No scleral icterus. No injection or drainage. NECK: Supple, trachea midline. No JVD or lymphadenopathy. CARDIOVASCULAR: Regular rate and rhythm without murmurs, gallops, or rubs. RESPIRATORY: Breath sounds equal bilaterally. No accessory muscle use. GASTROINTESTINAL: Abdomen soft, non-tender, nondistended. MUSCULOSKELETAL: No cyanosis, or edema. Significant edema, erythema with drainage present specially on the left upper ext. BACK: Nontender without obvious deformity. No CVA tenderness. Procedures 05/07/2017 Echo Normal left ventricular size and wall thickness. The left ventricular systolic function is normal with an estimated ejection fraction in the range of 60-65%. Left ventricular diastolic function parameters are normal. There is trace tricuspid valve regurgitation. The estimated pulmonary arterial pressure is 14.2 mmHg. No massess or vegetations noted A/P Assessment and Plan Mr. Schulte is a pleasant 37 year old [employer] with a history of TBI, anxiety, depression who was admitted to the hospital on 05/06/2017 due to progressive swelling, erythema, blisters of both upper extremities, especially left upper ext. Several days prior to this admission, patient was taking care of his generator. He cut is arms and subsequently also burned his arms by the exhaust system of the generator. In the ensuing days, he noticed progressive erythema, swelling of his upper extremities and he also developed nausea, vomiting, diarrhea. Upon arrival, HR 128, Resp 18, BP 132/68. Temp 98%, 99% on 2L of O2 via NC. WBC 3.3 with 89.5% neutrophils, Hgb 13.6, HCT 38.2, Plt 71K. Sodium 102, Potassium 3.8, Cr 1.15, Lactic acid 3.7, 4.1. CT of the extremities indicated soft tissue swelling but no evidence of necrotizing fascitis. Orthopedic surgery, ID were consulted. Patient was started on Vancomycin, Zosyn and Clindamycin. - Severe Sepsis (Tachycardia, WBC < 4.0, Lactic acid >2.0, know infection upper ext). - Bilateral upper extremity cellulitis due to Group A streptococcus - Bacteremia due to Group A Streptococcus - Sepsis resolved. - ID following. Patient is currently on Ampicillin IV 2g Q4hrs and Clindamycin 900 mg Q8hrs. - Continue wound care. - Orthopedic surgery evaluated patient and recommended no surgical intervention. - Will change [place] to Percocet and keep Dilaudid for breakthrough. - Patient had an episode of fever today. If fever continues, we will obtain CXR, UA, blood cultures and d/w ID. - Bilateral upper extremity DVT - Thrombocytopenia - Hematology was consulted. Patient is currently on Heparin drip. - Thrombocytopenia is likely due to hepatosplenomegaly as well as infection, medications. - PLT count improved to 160, 195K. - Obtain CBC, BMP in the AM. - Acute kidney injury - Hyponatremia - BEATRIZ likely due to volume depletion, sepsis. Currently resolved. - Hyponatremia is possibly psychotropic meds - Buspirone, Lexapro. - Patient has not found these meds helpful. - Hyponatremia is improved to 129-130. - Anxiety/Depression - TBI - Continue Clonazepam 0.5mg BID. - Continue Trazodone. Full code. Heparin drip. Stas Perez DO May 13, 2017 09:49
[2017-05-13] MEDS: ACETAMINOPHEN 325 MG TAB PO PRN (11:34)
[2017-05-13 12:00] VITALS: BP 126/56; PULSE 105; RESP 19; TEMP 101.4; O2SAT 96
[2017-05-13 13:54] LABS: PHOSPHATIDYLSERINE AB IGA LESS THAN 20.0 U/mL (< 20.0)
[2017-05-13 16:00] VITALS: BP 122/59; PULSE 92; RESP 19; TEMP 97.8; O2SAT 95
[2017-05-13 20:00] VITALS: BP 112/57; PULSE 97; RESP 18; TEMP 100.8; O2SAT 98
[2017-05-13] MEDS: traZODone HCL 100 MG TAB PO SCH (20:08)
[2017-05-14] VITALS: BP 97/56; PULSE 91; RESP 18; TEMP 101.3; O2SAT 96
[2017-05-14] MEDS: oxyCODONE/ACETAMINOPHEN 10 MG/325 MG TAB PO PRN ×6 (02:43→23:48)
[2017-05-14] MEDS: AMPICILLIN 2 GM/NS 100 ML IV SCH ×12 (02:44→23:44)
[2017-05-14] MEDS: CHLORHEXIDINE GLUCONATE 2 % 1 PACK (2 CLOTHS) TOP SCH (03:42)
[2017-05-14] MEDS: CLINDAMYCIN INJ 900 MG in SODIUM CHLORIDE 0.9% INJ 100 ML IV SCH ×3 (03:42→20:22)
[2017-05-14] MEDS: HYDROmorphone HCL PF 1 MG/ML VIAL IV PUSH PRN ×5 (03:46→20:11)
[2017-05-14 04:04] VITALS: BP 109/61
[2017-05-14] MEDS: DILTIAZEM HCL 60 MG TAB PO SCH ×5 (04:56→23:48)
[2017-05-14] MEDS: SODIUM CHLORIDE 0.9% FLUSH 10 ML FLUSH IV FLUSH PRN ×2 (06:03→23:45)
[2017-05-14 06:29] LABS: APTT (PATIENT) 56.8 SEC (24.3-30.1)
[2017-05-14 08:00] VITALS: BP 112/56; PULSE 85; RESP 18; TEMP 98.5; O2SAT 97
--- NOTE | 2017-05-14 08:19 | RADRPT ---
EXAM DATE/TIME: 05/14/2017 07:50 [place] COMPARISON: CHEST SINGLE AP, May 06, 2017, 11:17. INDICATIONS : Short of breath. MEDICAL HISTORY : Seizures. TBI SURGICAL HISTORY : None. ENCOUNTER: Subsequent ACUITY: 2 days PAIN SCORE: 0/10 LOCATION: Bilateral chest FINDINGS: A single view of the chest demonstrates minimal bibasilar patchy densities. Heart and the upper limit s of normal in size. The cardiomediastinal contours are unremarkable. Osseous structures are intact. CONCLUSION: Minimal bibasilar patchy infiltrates. Francisco Coulter MD on May 14, 2017 at 8:17 Board Certified Radiologist. This report was verified electronically.
[2017-05-14] MEDS: clonazePAM 1 MG TAB PO SCH ×2 (09:01→21:40)
[2017-05-14] MEDS: FAMOTIDINE 20 MG TAB PO SCH ×2 (09:01→20:21)
[2017-05-14] MEDS: DOCUSATE SODIUM 50 MG/SENNA 8.6 MG TAB PO SCH ×2 (09:01→20:15)
[2017-05-14] MEDS: SODIUM CHLORIDE 0.9% FLUSH 10 ML FLUSH IV FLUSH SCH ×2 (09:13→20:09)
[2017-05-14 09:24] LABS: BLOOD, URINE NEG (NEG); GLUCOSE,URINE NEG (NEG); KETONE, URINE NEG (NEG); NITRITE,URINE NEG (NEG); PH, URINE 6.5 (5.0-8.5); URINE COLOR LIGHT-YELLOW (YELLW/STRAW)
[2017-05-14 10:12] LABS: COMMENT (UR) CULT NOT INDICATED; CULTURE IF INDICATED CULT NOT INDICATED
--- NOTE | 2017-05-14 10:26 | PD.ONC.PN ---
Subjective Subjective Remarks Tmax 101.3 overnight. Patient states he can move arms a bit more today. Eating breakfast. No complaints. Objective Data Date Time Temp Pulse Resp B/P (MAP) Pulse Ox O2 Delivery O2 Flow Rate FiO2 05/14/17 08:00 98.5 85 18 112/56 (74) 97 05/14/17 04:04 109/61 (77) 05/14/17 00:00 101.3 91 18 97/56 (70) 96 05/13/17 20:00 100.8 97 18 112/57 (75) 98 05/13/17 18:54 18 05/13/17 16:00 97.8 92 19 122/59 (80) 95 05/13/17 12:00 101.4 105 19 126/56 (79) 96 05/13/17 11:30 18 05/14/17 05/14/17 05/14/17 07:00 15:00 23:00 Intake Total 300 ml Balance 300 ml Result Diagram: 05/12/17 0500 05/12/17 0500 Laboratory Results Laboratory Tests Test 05/14/17 06:05 05/14/17 08:55 Activated Partial Thromboplast Time 56.8 SEC Urine Color LIGHT-YELLOW Urine Turbidity CLEAR Urine pH 6.5 Urine Specific [place] 1.004 Urine Protein NEG mg/dL Urine Glucose (UA) NEG mg/dL Urine Ketones NEG mg/dL Urine Occult Blood NEG Urine Nitrite NEG Urine Bilirubin NEG Urine Urobilinogen LESS THAN 2.0 MG/DL Urine Leukocyte Esterase NEG Urine RBC 1 /hpf Urine WBC LESS THAN 1 /hpf Microscopic Urinalysis Comment CULT NOT INDICATED Imaging Studies Last 24 hours Impressions Chest X-Ray 05/14/17 0000 Signed Impressions: Service Date/Time: Sunday, May 14, 2017 07:50 - CONCLUSION: Minimal bibasilar patchy infiltrates. Francisco Coulter MD Administered Medications Medications (Trade) Dose Ordered Sig/Hafsa Route PRN Reason Start Time Stop Time Status Last Admin Dose Admin Sodium Chloride (NS Flush) 2 ml UNSCH PRN IV FLUSH FLUSH AFTER USING IV ACCESS 05/06/17 12:45 05/14/17 06:03 Sodium Chloride (NS Flush) 2 ml BID IV FLUSH 05/06/17 21:00 05/14/17 09:13 Miscellaneous Information 1 Q361D XX 05/06/17 12:45 05/06/17 12:45 Chlorhexidine Gluconate (Chlorhexidine 2% Cloth) Taper DAILY@04 TOP 05/07/17 04:00 05/03/18 03:59 05/11/17 03:45 Senna/Docusate Sodium (Tammy-Colace) 1 tab BID PO 05/06/17 21:00 05/14/17 09:01 Clindamycin Phosphate 900 mg/ Sodium Chloride 106 ml @ 212 mls/hr Q8H IV 05/06/17 20:00 05/14/17 03:42 Acetaminophen (Tylenol) 650 mg Q6H PRN PO Headache, fever, pain 1-4 05/06/17 14:30 05/13/17 11:34 Ondansetron HCl (Zofran Inj) 4 mg Q8HR PRN IV PUSH N/V 05/06/17 14:30 05/06/17 18:39 Diltiazem HCl (Cardizem) 60 mg Q6HR PO 05/06/17 14:45 05/13/17 17:29 Heparin Sodium/ Dextrose 250 ml @ 17 mls/hr TITRATE PRN IV Coagulation management 05/06/17 14:45 05/13/17 17:28 Clonazepam (KlonoPIN) 0.5 mg BID PO 05/07/17 11:15 05/14/17 09:01 Trazodone HCl (Desyrel) 200 mg HS PO 05/07/17 21:00 05/13/17 20:08 Hydromorphone HCl (Dilaudid Pf Inj) 1 mg Q4H PRN IV PUSH breakthrough pain 05/07/17 10:15 05/14/17 08:01 Ampicillin Sodium 2000 mg/Sodium Chloride 100 ml @ 300 mls/hr Q4H IV 05/08/17 11:00 05/14/17 06:02 Famotidine (Pepcid) 20 mg BID PO 05/11/17 21:00 05/14/17 09:01 Oxycodone/ Acetaminophen (Percocet 10-325 Mg) 1 tab Q4H PRN PO PAIN SCALE 5 TO 10 05/12/17 10:00 05/14/17 06:35 Objective Remarks GENERAL: Young man, upright in bed in nad. SKIN: Warm and dry. HEAD: Normocephalic. EYES: No injection or drainage. NECK: Supple, trachea midline. CARDIOVASCULAR: Regular rate and rhythm RESPIRATORY: Breath sounds equal bilaterally. No accessory muscle use. GASTROINTESTINAL: Abdomen soft, non-tender, nondistended. EXTREMITIES: No cyanosis. bue with extensive edema. NEUROLOGICAL: awake and alert, normal speech. moving all extremities. Assessment/Plan Problem List: (1) Acute bilateral deep vein thrombosis (DVT) of upper extremities ICD Codes: I82.623 - Acute embolism and thrombosis of deep veins of upper extremity, bilateral Plan: on IV heparin gtt --Doppler ultrasound, upper extremities-->noncompressible occlusive clot in the right basilic vein within the right proximal cephalic vein with nonvisualization of the mid and distal portions of the cephalic vein secondary to patient movement. There was additional clot in the left mid and distal radial vein. --no precipitating factor. --CTA showed no PE (2) Hyponatremia ICD Codes: E87.1 - Hypo-osmolality and hyponatremia Plan: --improving (3) Thrombocytopenia ICD Codes: D69.6 - Thrombocytopenia, unspecified Status: Resolved Plan: --multifactorial d/t splenomegaly, infection, possible medication effect , consumption from DVT's --fibrinogen is preserved --liver u/s shows hepatosplenomegaly (4) Sepsis ICD Codes: A41.9 - Sepsis, unspecified organism Plan: -- Sepsis / cellulitis from the left arm. --on Ampicillin and clindamycin. --BC +group A beta strep --UC no growth (5) Axillary lymphadenopathy ICD Codes: R59.0 - Localized enlarged lymph nodes Assessment 37y/o male with bilateral DVTs and hyponatremia. h/o past medical history of PTSD, TBI and anxiety Plan 1. check CBC today 2. supportive care 3. Stop heparin and start Eliquis tonight. Attending Statement The exam, history, and the medical decision-making described in the above note were completed with the assistance of the mid-level provider. I reviewed and agree with the findings presented. I attest that I had a [id number] encounter with the patient on the same day, and personally performed and documented my assessment and findings in the medical record. Hypercoagulable w/u largely negative thus far Only weak positive Phospholipid IgM positive which can be seen in reactive conditions transition to eliquis d/w rn o/n events reviewed Robyn Scott May 14, 2017 10:26 David Holley MD May 14, 2017 22:49
[2017-05-14 10:36] LABS: AUTOMATED NEUTROPHIL # 13.4 TH/MM3 (1.8-7.7); BASOPHIL # 0.1 TH/MM3 (0-0.2); BASOPHIL % 0.4 % (0.0-2.0); EOSINOPHIL % 0.2 % (0.0-4.0); HEMATOCRIT 24.2 % (39.0-51.0); HEMO FLAGS DIFF FINAL; LYMPH % 8.3 % (9.0-44.0); LYMPHOCYTE # 1.4 TH/MM3 (1.0-4.8); MEAN CELL VOLUME 86.2 FL (80.0-100.0); MEAN CORPUSCULAR HEMOGLOBIN 29.9 PG (27.0-34.0); MEAN CORPUSCULAR HGB CONC 34.7 % (32.0-36.0); MONO % 10.1 % (0.0-8.0); PLATELET COUNT 215 TH/MM3 (150-450); RED BLOOD COUNT 2.81 MIL/MM3 (4.50-5.90); WHITE BLOOD COUNT 16.6 TH/MM3 (4.0-11.0)
[2017-05-14] MEDS: HEPARIN-D5W 25,000 U/250 ML 250 ML IV PRN (10:58)
[2017-05-14 11:07] LABS: BICARBONATE 25.1 MEQ/L (21.0-32.0); POTASSIUM 3.8 MEQ/L (3.5-5.1)
[2017-05-14 12:00] VITALS: BP 117/58; PULSE 93; RESP 18; TEMP 98.9; O2SAT 94
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
[2017-05-14 16:00] VITALS: BP 133/59; PULSE 96; RESP 18; TEMP 100.9; O2SAT 96
--- NOTE | 2017-05-14 16:33 | HHI.PR ---
Addendum to Inpatient Note Additional Information pt seen around 1500 full note to follow Jeannie Tinajero RN, MD May 14, 2017 16:33
[2017-05-14 20:00] VITALS: BP 115/55; PULSE 96; RESP 20; TEMP 99.8; O2SAT 94
[2017-05-14] MEDS: APIXABAN 5 MG TABLET PO SCH (21:39)
[2017-05-14] MEDS: traZODone HCL 100 MG TAB PO SCH (21:40)
--- NOTE | 2017-05-14 23:37 | HHI.IDPN ---
Subjective Subjective Remarks delayed entry pt seen around 1500 + low grade fever co persistently swollen, painful LUE Antibiotics clindamycion ampicillin Allergies: Coded Allergies: No Known Allergies (Unverified , 05/06/17) Objective . Vital Signs Date Time Temp Pulse Resp B/P (MAP) Pulse Ox O2 Delivery O2 Flow Rate FiO2 05/14/17 20:00 99.8 96 20 115/55 (75) 94 05/14/17 16:00 100.9 96 18 133/59 (83) 96 05/14/17 12:00 98.9 93 18 117/58 (77) 94 05/14/17 08:00 98.5 85 18 112/56 (74) 97 05/14/17 04:04 109/61 (77) 05/14/17 00:00 101.3 91 18 97/56 (70) 96 05/14/17 05/14/17 05/15/17 15:00 23:00 07:00 Intake Total 1387 ml 100 ml Balance 1387 ml 100 ml Intake Oral 750 ml IV Total 637 ml 100 ml # Voids 3 # Bowel Movements 1 . Laboratory Tests Test 05/14/17 10:05 White Blood Count 16.6 TH/MM3 Red Blood Count 2.81 MIL/MM3 Hemoglobin 8.4 GM/DL Hematocrit 24.2 % Mean Corpuscular Volume 86.2 FL Mean Corpuscular Hemoglobin 29.9 PG Mean Corpuscular Hemoglobin Concent 34.7 % Red Cell Distribution Width 14.0 % Platelet Count 215 TH/MM3 Mean Platelet Volume 8.1 FL Neutrophils (%) (Auto) 81.0 % Lymphocytes (%) (Auto) 8.3 % Monocytes (%) (Auto) 10.1 % Eosinophils (%) (Auto) 0.2 % Basophils (%) (Auto) 0.4 % Neutrophils # (Auto) 13.4 TH/MM3 Lymphocytes # (Auto) 1.4 TH/MM3 Monocytes # (Auto) 1.7 TH/MM3 Eosinophils # (Auto) 0.0 TH/MM3 Basophils # (Auto) 0.1 TH/MM3 CBC Comment DIFF FINAL Differential Comment Laboratory Tests Test 05/14/17 10:05 Blood Urea Nitrogen 5 MG/DL Creatinine 0.68 MG/DL Random Glucose 108 MG/DL Calcium Level 7.6 MG/DL Sodium Level 121 MEQ/L Potassium Level 3.8 MEQ/L Chloride Level 88 MEQ/L Carbon Dioxide Level 25.1 MEQ/L Anion Gap 8 MEQ/L Estimat Glomerular Filtration Rate 132 ML/MIN Imaging Last Impressions Chest X-Ray 05/14/17 Signed Impressions: Service Date/Time: Sunday, May 14, 2017 07:50 - CONCLUSION: Minimal bibasilar patchy infiltrates. Francisco Coulter MD Liver Ultrasound 05/07/17 Signed Impressions: Service Date/Time: Sunday, May 07, 2017 18:39 - CONCLUSION: 1. Hepatosplenomegaly 2. Gallbladder sludge. 3. Mild dilatation of the common bile duct. Because of this mild dilatation is not seen. 4. Echogenic right kidney which can be seen with medical renal disease. Brent Nugent MD Upper Extremity Ultrasound [id number]/06/17918 Signed Impressions: Service Date/Time: Saturday, May 06, 2017 09:20 - CONCLUSION: There is noncompressible occlusive clot identified in the right basilic, within the right proximal cephalic vein with nonvisualization of the mid and distal portion of the cephalic vein secondary to patient movement. Additional clot is identified within the left mid and distal radial vein. There are bilateral axillary lymph nodes noted. Somewhat larger on the left. Norma Sampson MD Head CT [id number]/06/[id number] Signed Impressions: Service Date/Time: Saturday, May 06, 2017 10:48 - CONCLUSION: Normal examination. Norma Sampson MD Upper Extremity CT 05/06/17 Signed Impressions: Service Date/Time: Saturday, May 06, 2017 15:56 - CONCLUSION: Normal examination other than reactive adenopathy throughout the right axilla. Jose Angel Huizar MD CT Angiography 05/06/17 Signed Impressions: Service Date/Time: Saturday, May 06, 2017 15:42 - CONCLUSION: Normal examination of the pulmonary arteries. Extensive edema and reactive adenopathy throughout both axilla left worse than right. Jose Angel Huizar MD Physical Exam CONSTITUTIONAL/GENERAL: This is an adequately nourished patient, in NAD TUBES/LINES/DRAINS: SKIN: No jaundice, no rash CARDIOVASCULAR: Regular tachycardia without murmurs, gallops, or rubs. No JVD. Peripheral pulses symmetric. RESPIRATORY/CHEST: Symmetric, unlabored respirations. Clear to auscultation. Breath sounds equal bilaterally. No wheezes, rales, or rhonchi. GASTROINTESTINAL: Abdomen soft, non-tender, nondistended. No hepato-splenomegaly , or palpable masses. No guarding. Bowel sounds present. GENITOURINARY: Without palpable bladder distension. MUSCULOSKELETAL: lower extremities without clubbing, cyanosis, or edema. RUE edema and erythema has markedly improved LUE with persistent weeping edema, erythema, induration + tender to palpation + sloughing of skin NEUROLOGICAL: Awake and alert. non focal PSYCHIATRIC: calm and cooperative Assessment & Plan Remarks Assessment and Plan Sepsis, GAS from BUE complicated SSTI BUE complicated SSTI, cellulitis, CT e/o abscesses (loculated fluid collection) group A - ortho recommends conservative treatmetn and monitoring for signs of compartment sdf BUE DVT Thrombocytopenia with high fibrinogen Refractory hyponatremia - Hep C + / HIV negative Overall appear s to improve Persistent fever and leukocytosis -cont ampicillin + clinda, - fu WBC - will re-image to exclude an underlying abscess Jeannie John MD May 14, 2017 23:37
[2017-05-15] VITALS: BP 112/55; PULSE 88; RESP 20; TEMP 100.3; O2SAT 95
[2017-05-15] MEDS: HYDROmorphone HCL PF 1 MG/ML VIAL IV PUSH PRN ×7 (00:44→23:47)
[2017-05-15] MEDS: SODIUM CHLORIDE 0.9% FLUSH 10 ML FLUSH IV FLUSH PRN ×4 (00:44→05:50)
[2017-05-15] MEDS: AMPICILLIN 2 GM/NS 100 ML IV SCH ×12 (03:27→23:47)
[2017-05-15] MEDS: oxyCODONE/ACETAMINOPHEN 10 MG/325 MG TAB PO PRN ×5 (03:27→19:45)
[2017-05-15] MEDS: CHLORHEXIDINE GLUCONATE 2 % 1 PACK (2 CLOTHS) TOP SCH (03:30)
[2017-05-15] MEDS: CLINDAMYCIN INJ 900 MG in SODIUM CHLORIDE 0.9% INJ 100 ML IV SCH ×3 (03:30→19:44)
[2017-05-15 04:00] VITALS: BP 105/58; PULSE 97; RESP 20; TEMP 97.5; O2SAT 95
[2017-05-15] MEDS: DILTIAZEM HCL 60 MG TAB PO SCH ×3 (04:47→17:18)
[2017-05-15 06:18] LABS: AUTOMATED NEUTROPHIL # 11.3 TH/MM3 (1.8-7.7); BASOPHIL # 0.1 TH/MM3 (0-0.2); BASOPHIL % 0.4 % (0.0-2.0); EOSINOPHIL % 0.2 % (0.0-4.0); HEMO FLAGS DIFF FINAL; LYMPH % 8.4 % (9.0-44.0); LYMPHOCYTE # 1.2 TH/MM3 (1.0-4.8); MEAN CELL VOLUME 86.5 FL (80.0-100.0); MEAN CORPUSCULAR HEMOGLOBIN 29.6 PG (27.0-34.0); MEAN CORPUSCULAR HGB CONC 34.3 % (32.0-36.0); MONO % 11.4 % (0.0-8.0); NEUT % 79.6 % (16.0-70.0); PLATELET COUNT 235 TH/MM3 (150-450); RED BLOOD COUNT 2.66 MIL/MM3 (4.50-5.90); RED CELL DISTRIBUTION WIDTH 13.9 % (11.6-17.2); WHITE BLOOD COUNT 14.2 TH/MM3 (4.0-11.0)
[2017-05-15 06:27] LABS: APTT (PATIENT) 35.2 SEC (24.3-30.1)
[2017-05-15 06:41] LABS: BICARBONATE 25.6 MEQ/L (21.0-32.0); POTASSIUM 3.5 MEQ/L (3.5-5.1)
[2017-05-15 08:00] VITALS: BP 104/51; PULSE 84; RESP 17; TEMP 98.8; O2SAT 98
[2017-05-15] MEDS: DOCUSATE SODIUM 50 MG/SENNA 8.6 MG TAB PO SCH ×3 (08:54→21:00)
[2017-05-15] MEDS: FAMOTIDINE 20 MG TAB PO SCH ×2 (08:54→19:46)
[2017-05-15] MEDS: clonazePAM 1 MG TAB PO SCH ×2 (08:55→19:46)
[2017-05-15] MEDS: APIXABAN 5 MG TABLET PO SCH ×2 (08:55→19:46)
[2017-05-15] MEDS: SODIUM CHLORIDE 0.9% FLUSH 10 ML FLUSH IV FLUSH SCH ×2 (08:55→19:46)
[2017-05-15 12:00] VITALS: BP 101/50; PULSE 82; RESP 18; TEMP 98.7; O2SAT 99
--- NOTE | 2017-05-15 12:01 | HHI.NPPN ---
Subjective Renal Failure: Acute Interval History We were asked to see this patient again as his hyponatremia is worse. He is more alert today. Not on IVF. Left arm remains edematous with multiple skin lesions. (Josiane Norris) Review of Systems General Constitutional: Fatigue (Josiane Norris) Endocrine Endocrine: Thirst (Josiane Norris) Objective Data Data Vital Signs Date Time Temp Pulse Resp B/P (MAP) Pulse Ox O2 Delivery O2 Flow Rate FiO2 05/15/17 08:00 98.8 84 17 104/51 (68) 98 05/15/17 04:00 97.5 97 20 105/58 (74) 95 05/15/17 00:00 100.3 88 20 112/55 (74) 95 05/14/17 20:00 99.8 96 20 115/55 (75) 94 05/14/17 16:00 100.9 96 18 133/59 (83) 96 05/14/17 12:00 98.9 93 18 117/58 (77) 94 (Josiane Norris) -: 05/15/17 0600 05/15/17 0600 Imaging Last Impressions Chest X-Ray 05/14/17 0000 Signed Impressions: Service Date/Time: Sunday, May 14, 2017 07:50 - CONCLUSION: Minimal bibasilar patchy infiltrates. Francisco Coulter MD Liver Ultrasound 05/07/17 0000 Signed Impressions: Service Date/Time: Sunday, May 07, 2017 18:39 - CONCLUSION: 1. Hepatosplenomegaly 2. Gallbladder sludge. 3. Mild dilatation of the common bile duct. Because of this mild dilatation is not seen. 4. Echogenic right kidney which can be seen with medical renal disease. Brent Nugent MD Upper Extremity Ultrasound 05/06/17 0919 Signed Impressions: Service Date/Time: Saturday, May 06, 2017 09:20 - CONCLUSION: There is noncompressible occlusive clot identified in the right basilic, within the right proximal cephalic vein with nonvisualization of the mid and distal portion of the cephalic vein secondary to patient movement. Additional clot is identified within the left mid and distal radial vein. There are bilateral axillary lymph nodes noted. Somewhat larger on the left. Norma Sampson MD Head CT 05/06/17 0919 Signed Impressions: Service Date/Time: Saturday, May 06, 2017 10:48 - CONCLUSION: Normal examination. Norma Sampson MD Upper Extremity CT 05/06/17 0000 Signed Impressions: Service Date/Time: Saturday, May 06, 2017 15:56 - CONCLUSION: Normal examination other than reactive adenopathy throughout the right axilla. Jose Angel Huizar MD CT Angiography 05/06/17 0000 Signed Impressions: Service Date/Time: Saturday, May 06, 2017 15:42 - CONCLUSION: Normal examination of the pulmonary arteries. Extensive edema and reactive adenopathy throughout both axilla left worse than right. Jose Angel Huizar MD Tubes & Lines Comment TLC (Jr,Josiane B. REHAB TRAINER) Physical Exam General Appearance: Well Developed, Well Nourished, No Acute Distress, Comfortable (Jr,Josiane B. REHAB TRAINER) Eyes Eye Exam: Pupils Equal (Jr,Josiane B. REHAB TRAINER) Throat Throat Exam: Oral Mucosa [place] & Moist (Jr,Josiane B. REHAB TRAINER) Pulmonary Resp Exam: Clear Bilaterally, Breath Sounds Equal, No Distress (Jr,Josiane B. REHAB TRAINER) Cardiology CV Exam: Regular, Normal Sinus Rhythm, Good Perfusion (Jr,Josiane B. REHAB TRAINER) Gastrointestinal/Abdomen GI Exam: Soft, Non-Tender, Bowel Sounds Present (Jr,Josiane B. REHAB TRAINER) Musculoskeletal MS Exam: Joints Intact, Normal Tone, Good Strength (Jr,Josiane B. REHAB TRAINER) Integumentary Skin Exam: Warm, Dry Skin Remarks erythema to upper extremities; left arm more edematous (Jr,Josiane B. REHAB TRAINER) Extremeties Extremities Exam: No Edema, Pedal Pulses Palpable (Jr,Josiane B. REHAB TRAINER) Neurologic Neuro Exam: Alert, Awake, Oriented, Speech Clear, Moving All Extremities (Jr,Josiane B. REHAB TRAINER) Assessment/Plan Discussed Condition With: Patient Assessment Summary: BEATRIZ/Acute Renal Failure Electrolyte Assessment: Hyponatremia Problem List: (1) Hyponatremia ICD Codes: E87.1 - Hypo-osmolality and hyponatremia Plan: Mixed picture: initially low urine sodium suggesting hypovolemic hyponatremia; which improved slightly with IVF then plateaued After fluid restriction he continued to improve, suggesting he may have a component of polydipsia Repeat urine studies for osmolality and sodium levels has been ordered He is not on IVF, was on heparin in D5 which may have contributed to worsening hyponatremia Restrict fluids to 1 liter/day, we discussed this with the patient Repeat labs in the morning (2) BEATRIZ (acute kidney injury) ICD Codes: N17.9 - Acute kidney failure, unspecified Plan: BEATRIZ may be due to dehydration and also renal hypoperfusion due to sepsis Renal function has returned to baseline Monitor for changes Avoid nephrotoxins. (3) Sepsis ICD Codes: A41.9 - Sepsis, unspecified organism Plan: ID is following he is on clindamycin and ampicillin continue wound care (4) Acute bilateral deep vein thrombosis (DVT) of upper extremities ICD Codes: I82.623 - Acute embolism and thrombosis of deep veins of upper extremity, bilateral Plan: Off heparin gtt; he is on eliquis hematology following (Josiane Norris) Plan patient was seen and examined. His serum Na has dropped again. He will need to restrict fluid intake. Repeat Urine Na and urine osmolality. (Nasir Rouse MD) Josiane Norris May 15, 2017 12:01 Nasir Rouse MD May 15, 2017 17:04
--- NOTE | 2017-05-15 16:44 | RADRPT ---
EXAM DATE/TIME: 05/15/2017 16:14 [place] COMPARISON: No previous studies available for comparison. INDICATIONS : Patient presents with upper extremity deep vein thrombosis in need of central line placement for medi cation administration. MEDICAL HISTORY : Anxiety Bilat DVT Sepsis Cellulitis SURGICAL HISTORY : n/a ENCOUNTER: Initial ACUITY: 1 week PAIN SCORE: 10/10 LOCATION: Left upper arm FLUORO TIME: 0.3 minutes IMAGE SERIES: ACCESS: Right internal jugular vein DEVICE(S): 1.) 7 Tamaz[place] triple lumen 20 cm Central line PROCEDURE : 1. Ultrasound guided venipuncture. 2. Fluoroscopic guidance. 3. Central line placement. The risks, benefits and alternatives to the procedure were explained and verbal and written consent w as obtained. The site was prepped in sterile fashion. Full sterile technique was used, including ca p, mask, sterile gloves and gown and a large sterile sheet. Hand hygiene and 2% chlorhexidine prep w as utilized per protocol for cutaneous antisepsis with appropriate dry time for site. Sterile gel an d sterile probe cover were utilized for ultrasound guidance. The skin and subcutaneous tissues were infiltrated with local anesthetic solution. A suitable site a osmany the vein was selected with ultrasound and fluoroscopic guidance. A small incision was made. Th e vein was accessed under direct ultrasound visualization using the micropuncture technique. The elias ropuncture set was exchanged for a 0.035 wire. The tract was dilated. The catheter was advanced int o position under direct fluoroscopic visualization. The catheter was fixed in place with suture and a sterile dressing was applied. The patient tolerated the procedure well and there were no complications. CONCLUSION: Uncomplicated line placement as above. Anish Avila MD on May 15, 2017 at 16:42 Board Certified Radiologist. This report was verified electronically.
--- NOTE | 2017-05-15 17:08 | PD.RAD ---
Post Procedure Progress Note Pre Procedure Diagnosis: (1) Sepsis Post Procedure Diagnosis: (1) Sepsis Procedure Date: May 15, 2017 Supervising Radiologist: Anish Avila Proceduralist/Assist: Cristal Smith RT(R)(), RT Cristian(R) Anesthesia: Local Plan of Activity Patient to Unit: Nursing Unit Patient Condition: Good See PACS Report for procedural detail/treatment Central Venous Access Device Procedure 1 Right Internal Jugular Central Line Placement triple lumen Anish Avila MD May 15, 2017 17:08
[2017-05-15] MEDS ORDERED: SODIUM CHLORIDE 0.9% FLUSH 10 ML FLUSH IV FLUSH PRN (17:15)
[2017-05-15 17:19] VITALS: BP 115/55; PULSE 97
[2017-05-15] MEDS: traZODone HCL 100 MG TAB PO SCH (19:45)
[2017-05-15 20:00] VITALS: BP 126/58; PULSE 93; RESP 20; TEMP 98.7; O2SAT 97
--- NOTE | 2017-05-15 22:06 | HHI.PR ---
Subjective Remarks Patient seen in the morning. Follow up for bilateral upper extremity complicated cellulitis, bilateral upper ext DVT. Patient is currently doing well. He reports persistent left upper ext pain. He continues to have low grade fever but clinically feels very well. Objective Vitals Vital Signs Date Time Temp Pulse Resp B/P (MAP) Pulse Ox O2 Delivery O2 Flow Rate FiO2 05/15/17 20:00 98.7 93 20 126/58 (80) 97 05/15/17 17:19 97 115/55 (75) 05/15/17 12:00 98.7 82 18 101/50 (67) 99 05/15/17 08:00 98.8 84 17 104/51 (68) 98 05/15/17 04:00 97.5 97 20 105/58 (74) 95 05/15/17 00:00 100.3 88 20 112/55 (74) 95 I/O 05/14/17 05/14/17 05/14/17 05/15/17 05/15/17 05/15/17 06:59 14:59 22:59 06:59 14:59 22:59 Intake Total 300 ml 1387 ml 880 ml 100 ml 240 ml Output Total 475 ml Balance 300 ml 1387 ml 880 ml 100 ml -235 ml Intake Oral 750 ml 480 ml 240 ml IV Total 300 ml 637 ml 400 ml 100 ml Output Urine Total 475 ml # Voids 2 3 4 # Bowel Movements 1 1 0 Result Diagram: 05/15/17 0600 05/15/17 0600 Objective Remarks GENERAL: Alert, Oriented x 3, NAD. SKIN: Warm and dry. HEAD: Normocephalic. EYES: No scleral icterus. No injection or drainage. NECK: Supple, trachea midline. No JVD or lymphadenopathy. CARDIOVASCULAR: Regular rate and rhythm without murmurs, gallops, or rubs. RESPIRATORY: Breath sounds equal bilaterally. No accessory muscle use. GASTROINTESTINAL: Abdomen soft, non-tender, nondistended. MUSCULOSKELETAL: No cyanosis, or edema. Significant edema, erythema with drainage present specially on the left upper ext. BACK: Nontender without obvious deformity. No CVA tenderness. Procedures 05/07/2017 Echo Normal left ventricular size and wall thickness. The left ventricular systolic function is normal with an estimated ejection fraction in the range of 60-65%. Left ventricular diastolic function parameters are normal. There is trace tricuspid valve regurgitation. The estimated pulmonary arterial pressure is 14.2 mmHg. No massess or vegetations noted A/P Problem List: (1) Bacteremia due to Streptococcus ICD Code: R78.81 - Bacteremia (2) Cellulitis of left upper extremity ICD Code: L03.114 - Cellulitis of left upper limb (3) Cellulitis of right upper extremity ICD Code: L03.113 - Cellulitis of right upper limb (4) Group A streptococcal infection ICD Code: B95.0 - Streptococcus, group A, as the cause of diseases classified elsewhere Assessment and Plan Mr. Schulte is a pleasant 37 year old [employer] with a history of TBI, anxiety, depression who was admitted to the hospital on 05/06/2017 due to progressive swelling, erythema, blisters of both upper extremities, especially left upper ext. Several days prior to this admission, patient was taking care of his generator. He cut is arms and subsequently also burned his arms by the exhaust system of the generator. In the ensuing days, he noticed progressive erythema, swelling of his upper extremities and he also developed nausea, vomiting, diarrhea. Upon arrival, HR 128, Resp 18, BP 132/68. Temp 98%, 99% on 2L of O2 via NC. WBC 3.3 with 89.5% neutrophils, Hgb 13.6, HCT 38.2, Plt 71K. Sodium 102, Potassium 3.8, Cr 1.15, Lactic acid 3.7, 4.1. CT of the extremities indicated soft tissue swelling but no evidence of necrotizing fascitis. Orthopedic surgery, ID were consulted. Patient was started on Vancomycin, Zosyn and Clindamycin. - Severe Sepsis (Tachycardia, WBC < 4.0, Lactic acid >2.0, know infection upper ext). - Bilateral upper extremity cellulitis due to Group A streptococcus - Bacteremia due to Group A Streptococcus - Sepsis resolved. - ID following. Patient is currently on Ampicillin IV 2g Q4hrs and Clindamycin 900 mg Q8hrs. - Continue wound care. - Orthopedic surgery evaluated patient and recommended no surgical intervention. - Continue Percocet and keep Dilaudid for breakthrough. - Discontinue femoral line today and will consult IR for a IJ central line placement. - Bilateral upper extremity DVT - Thrombocytopenia - Hematology was consulted. Heparin drip was discontinued and patient is now on Apixaban. - Thrombocytopenia is likely due to hepatosplenomegaly as well as infection, medications. - PLT count improved to 215K - WBC 22.9 --> 16.6. - Acute kidney injury - Hyponatremia - BEATRIZ likely due to volume depletion, sepsis. Currently resolved. - Hyponatremia is possibly psychotropic meds - Buspirone, Lexapro. - Patient has not found these meds helpful. - Hyponatremia 129 --> 121 --> 123. - Nephrology evaluated patient, recommends fluid restriction to 1L. - Anxiety/Depression - TBI - Continue Clonazepam 0.5mg BID. - Continue Trazodone. Full code. Apixaban. Discussed with ID, Hematology. Stas Perez DO May 15, 2017 22:06
--- NOTE | 2017-05-15 23:26 | PD.ONC.PN ---
Subjective Subjective Remarks left arm swelling and cellulitis improving asking for pain meds on Eliquis no bleeding Objective Data Date Time Temp Pulse Resp B/P (MAP) Pulse Ox O2 Delivery O2 Flow Rate FiO2 05/15/17 20:00 98.7 93 20 126/58 (80) 97 05/15/17 17:19 97 115/55 (75) 05/15/17 12:00 98.7 82 18 101/50 (67) 99 05/15/17 08:00 98.8 84 17 104/51 (68) 98 05/15/17 04:00 97.5 97 20 105/58 (74) 95 05/15/17 00:00 100.3 88 20 112/55 (74) 95 Result Diagram: 05/15/17 0605/15/17 06 Laboratory Results Laboratory Tests Test 05/15/17 06:00 05/15/17 11:20 White Blood Count 14.2 TH/MM3 Red Blood Count 2.66 MIL/MM3 Hemoglobin 7.9 GM/DL Hematocrit 23.0 % Mean Corpuscular Volume 86.5 FL Mean Corpuscular Hemoglobin 29.6 PG Mean Corpuscular Hemoglobin Concent 34.3 % Red Cell Distribution Width 13.9 % Platelet Count 235 TH/MM3 Mean Platelet Volume 7.8 FL Neutrophils (%) (Auto) 79.6 % Lymphocytes (%) (Auto) 8.4 % Monocytes (%) (Auto) 11.4 % Eosinophils (%) (Auto) 0.2 % Basophils (%) (Auto) 0.4 % Neutrophils # (Auto) 11.3 TH/MM3 Lymphocytes # (Auto) 1.2 TH/MM3 Monocytes # (Auto) 1.6 TH/MM3 Eosinophils # (Auto) 0.0 TH/MM3 Basophils # (Auto) 0.1 TH/MM3 CBC Comment DIFF FINAL Differential Comment Activated Partial Thromboplast Time 35.2 SEC Blood Urea Nitrogen 4 MG/DL Creatinine 0.66 MG/DL Random Glucose 102 MG/DL Calcium Level 7.7 MG/DL Sodium Level 123 MEQ/L Potassium Level 3.5 MEQ/L Chloride Level 90 MEQ/L Carbon Dioxide Level 25.6 MEQ/L Anion Gap 7 MEQ/L Estimat Glomerular Filtration Rate 137 ML/MIN Lactic Acid Level 1.0 mmol/L Urine Osmolality 233 MOSM/KG Urine Random Sodium 28 MEQ/L Imaging Studies Last 24 hours Impressions Central Venous Line 05/15/17 1339 Signed Impressions: Service Date/Time: Monday, May 15, 2017 16:14 - CONCLUSION: Uncomplicated line placement as above. Anish Avila MD Administered Medications Medications (Trade) Dose Ordered Sig/Hafsa Route PRN Reason Start Time Stop Time Status Last Admin Dose Admin Sodium Chloride (NS Flush) 2 ml UNSCH PRN IV FLUSH FLUSH AFTER USING IV ACCESS 05/06/17 12:45 05/15/17 05:50 Sodium Chloride (NS Flush) 2 ml BID IV FLUSH 05/06/17 21:00 05/15/17 19:46 Miscellaneous Information 1 Q361D XX 05/06/17 12:45 05/06/17 12:45 Chlorhexidine Gluconate (Chlorhexidine 2% Cloth) Taper DAILY@04 TOP 05/07/17 04:00 05/03/18 03:59 05/11/17 03:45 Senna/Docusate Sodium (Tammy-Colace) 1 tab BID PO 05/06/17 21:00 05/15/17 08:54 Clindamycin Phosphate 900 mg/ Sodium Chloride 106 ml @ 212 mls/hr Q8H IV 05/06/17 20:00 05/15/17 19:44 Acetaminophen (Tylenol) 650 mg Q6H PRN PO Headache, fever, pain 1-4 05/06/17 14:30 05/13/17 11:34 Ondansetron HCl (Zofran Inj) 4 mg Q8HR PRN IV PUSH N/V 05/06/17 14:30 05/06/17 18:39 Diltiazem HCl (Cardizem) 60 mg Q6HR PO 05/06/17 14:45 05/14/17 18:52 Clonazepam (KlonoPIN) 0.5 mg BID PO 05/07/17 11:15 05/15/17 19:46 Trazodone HCl (Desyrel) 200 mg HS PO 05/07/17 21:00 05/15/17 19:45 Hydromorphone HCl (Dilaudid Pf Inj) 1 mg Q4H PRN IV PUSH breakthrough pain 05/07/17 10:15 05/15/17 21:14 Ampicillin Sodium 2000 mg/Sodium Chloride 100 ml @ 300 mls/hr Q4H IV 05/08/17 11:00 05/15/17 17:12 Famotidine (Pepcid) 20 mg BID PO 05/11/17 21:00 05/15/17 19:46 Oxycodone/ Acetaminophen (Percocet 10-325 Mg) 1 tab Q4H PRN PO PAIN SCALE 5 TO 10 05/12/17 10:00 05/15/17 19:45 Apixaban (Eliquis) 10 mg BID PO 05/14/17 21:00 05/21/17 20:59 05/15/17 19:46 Objective Remarks GENERAL: nad SKIN: Warm and dry.. LYMPHATIC: No adenopathy. CARDIOVASCULAR: Regular rate and rhythm without murmurs. RESPIRATORY: Breath sounds equal bilaterally. No accessory muscle use. GASTROINTESTINAL: Abdomen soft, non-tender, nondistended. EXTREMITIES: left arm swelling Assessment/Plan Problem List: (1) Acute bilateral deep vein thrombosis (DVT) of upper extremities ICD Codes: I82.623 - Acute embolism and thrombosis of deep veins of upper extremity, bilateral Plan: on IV heparin gtt --Doppler ultrasound, upper extremities-->noncompressible occlusive clot in the right basilic vein within the right proximal cephalic vein with nonvisualization of the mid and distal portions of the cephalic vein secondary to patient movement. There was additional clot in the left mid and distal radial vein. --no precipitating factor. --CTA showed no PE (2) Hyponatremia ICD Codes: E87.1 - Hypo-osmolality and hyponatremia Plan: --improving (3) Thrombocytopenia ICD Codes: D69.6 - Thrombocytopenia, unspecified Status: Resolved Plan: --multifactorial d/t splenomegaly, infection, possible medication effect , consumption from DVT's --fibrinogen is preserved --liver u/s shows hepatosplenomegaly (4) Sepsis ICD Codes: A41.9 - Sepsis, unspecified organism Plan: -- Sepsis / cellulitis from the left arm. --on Ampicillin and clindamycin. --BC +group A beta strep --UC no growth (5) Axillary lymphadenopathy ICD Codes: R59.0 - Localized enlarged lymph nodes Assessment 37y/o male with bilateral DVTs and hyponatremia. h/o past medical history of PTSD, TBI and anxiety Plan - Will need to be on anticoagulation for 6 months to 1 year - DVT occurred in the setting for cellulitis David Holley MD May 15, 2017 23:26
[2017-05-16] VITALS: BP 118/60; PULSE 81; RESP 20; TEMP 96.9; O2SAT 98
[2017-05-16] MEDS: oxyCODONE/ACETAMINOPHEN 10 MG/325 MG TAB PO PRN ×6 (00:54→21:19)
[2017-05-16] MEDS: CLINDAMYCIN INJ 900 MG in SODIUM CHLORIDE 0.9% INJ 100 ML IV SCH ×3 (03:48→21:22)
[2017-05-16] MEDS: AMPICILLIN 2 GM/NS 100 ML IV SCH ×12 (03:48→23:54)
[2017-05-16] MEDS: HYDROmorphone HCL PF 1 MG/ML VIAL IV PUSH PRN ×5 (03:48→20:09)
[2017-05-16 04:00] VITALS: BP 127/68; PULSE 101; RESP 20; TEMP 97; O2SAT 96
[2017-05-16] MEDS: CHLORHEXIDINE GLUCONATE 2 % 1 PACK (2 CLOTHS) TOP SCH (04:00)
[2017-05-16 05:06] LABS: APTT (PATIENT) 31.3 SEC (24.3-30.1)
[2017-05-16] MEDS: DILTIAZEM HCL 60 MG TAB PO SCH ×5 (05:27→23:54)
[2017-05-16] MEDS: clonazePAM 1 MG TAB PO SCH ×2 (07:56→22:50)
[2017-05-16] MEDS: FAMOTIDINE 20 MG TAB PO SCH ×2 (07:56→22:50)
[2017-05-16] MEDS: DOCUSATE SODIUM 50 MG/SENNA 8.6 MG TAB PO SCH ×2 (07:58→21:00)
[2017-05-16] MEDS: SODIUM CHLORIDE 0.9% FLUSH 10 ML FLUSH IV FLUSH SCH ×3 (07:58→22:51)
[2017-05-16] MEDS: APIXABAN 5 MG TABLET PO SCH ×2 (07:58→22:51)
[2017-05-16 08:00] VITALS: BP 130/62; PULSE 99; RESP 18; TEMP 96.6; O2SAT 96
--- NOTE | 2017-05-16 11:33 | HHI.PR ---
Subjective Remarks patient c/o of pain in upper extremities, more on the left denies fevers/chills states he is very thirsty Objective Vitals Vital Signs Date Time Temp Pulse Resp B/P (MAP) Pulse Ox O2 Delivery O2 Flow Rate FiO2 05/16/17 08:00 96.6 99 18 130/62 (84) 96 05/16/17 04:00 97.0 101 20 127/68 (87) 96 05/16/17 00:00 96.9 81 20 118/60 (79) 98 05/15/17 20:00 98.7 93 20 126/58 (80) 97 05/15/17 17:19 97 115/55 (75) 05/15/17 12:00 98.7 82 18 101/50 (67) 99 I/O 05/15/17 05/15/17 05/15/17 05/16/17 05/16/17 05/16/17 07:00 15:00 23:00 07:00 15:00 23:00 Intake Total 880 ml 100 ml 340 ml 780 ml Output Total 475 ml Balance 880 ml 100 ml -135 ml 780 ml Intake Oral 480 ml 240 ml 480 ml IV Total 400 ml 100 ml 100 ml 300 ml Output Urine Total 475 ml # Voids 4 3 # Bowel Movements 1 0 2 Result Diagram: 05/15/17 0600 05/15/17 0600 Imaging Last Impressions Central Venous Line 05/15/17 1339 Signed Impressions: Service Date/Time: Monday, May 15, 2017 16:14 - CONCLUSION: Uncomplicated line placement as above. Anish Avila MD Chest X-Ray 05/14/17 0000 Signed Impressions: Service Date/Time: Sunday, May 14, 2017 07:50 - CONCLUSION: Minimal bibasilar patchy infiltrates. Francisco Coulter MD Liver Ultrasound 05/07/17 0000 Signed Impressions: Service Date/Time: Sunday, May 07, 2017 18:39 - CONCLUSION: 1. Hepatosplenomegaly 2. Gallbladder sludge. 3. Mild dilatation of the common bile duct. Because of this mild dilatation is not seen. 4. Echogenic right kidney which can be seen with medical renal disease. Brent Nugent MD Upper Extremity Ultrasound 05/06/17 0919 Signed Impressions: Service Date/Time: Saturday, May 06, 2017 09:20 - CONCLUSION: There is noncompressible occlusive clot identified in the right basilic, within the right proximal cephalic vein with nonvisualization of the mid and distal portion of the cephalic vein secondary to patient movement. Additional clot is identified within the left mid and distal radial vein. There are bilateral axillary lymph nodes noted. Somewhat larger on the left. Norma Sampson MD Head CT 05/06/17 0919 Signed Impressions: Service Date/Time: Saturday, May 06, 2017 10:48 - CONCLUSION: Normal examination. Norma Sampson MD Upper Extremity CT 05/06/17 0000 Signed Impressions: Service Date/Time: Saturday, May 06, 2017 15:56 - CONCLUSION: Normal examination other than reactive adenopathy throughout the right axilla. Jose Angel Huizar MD CT Angiography 05/06/17 0000 Signed Impressions: Service Date/Time: Saturday, May 06, 2017 15:42 - CONCLUSION: Normal examination of the pulmonary arteries. Extensive edema and reactive adenopathy throughout both axilla left worse than right. Jose Angel Huizar MD Objective Remarks Awake, alert and oriented 3 There is significant edema especially in the left upper extremity with associated crusting. abdomen soft, non tender, non distended no edema in lower extremities. There is a left sided IJ Procedures 05/07/2017 Echo Normal left ventricular size and wall thickness. The left ventricular systolic function is normal with an estimated ejection fraction in the range of 60-65%. Left ventricular diastolic function parameters are normal. There is trace tricuspid valve regurgitation. The estimated pulmonary arterial pressure is 14.2 mmHg. No massess or vegetations noted Medications and IVs Current Medications Medications (Trade) Dose Ordered Sig/Hafsa Route Start Time Stop Time Status Last Admin (NS Flush) 2 ml UNSCH PRN IV FLUSH 05/06/17 12:45 05/15/17 05:50 (NS Flush) 2 ml BID IV FLUSH 05/06/17 21:00 05/16/17 07:58 Miscellaneous Information 1 Q361D XX 05/06/17 12:45 05/06/17 12:45 (Chlorhexidine 2% Cloth) Taper DAILY@04 TOP 05/07/17 04:00 05/03/18 03:59 05/11/17 03:45 (Chlorhexidine 2% Cloth) 3 pack UNSCH PRN TOP 05/06/17 12:45 (Tammy-Colace) 1 tab BID PO 05/06/17 21:00 05/15/17 08:54 (Milk Of Magnesia Liq) 30 ml Q12H PRN PO 05/06/17 12:45 (Senokot) 17.2 mg Q12H PRN PO 05/06/17 12:45 (Dulcolax Supp) 10 mg DAILY PRN RECTAL 05/06/17 12:45 (Lactulose Liq) 30 ml DAILY PRN PO 05/06/17 12:45 Clindamycin Phosphate 900 mg/ Sodium Chloride 106 ml @ 212 mls/hr Q8H IV 05/06/17 20:00 05/16/17 03:48 (Tylenol) 650 mg Q6H PRN PO 05/06/17 14:30 05/13/17 11:34 (Zofran Inj) 4 mg Q8HR PRN IV PUSH 05/06/17 14:30 05/06/17 18:39 (Cardizem) 60 mg Q6HR PO 05/06/17 14:45 05/14/17 18:52 (Apresoline Inj) 10 mg Q6H PRN IV PUSH 05/06/17 14:45 (KlonoPIN) 0.5 mg BID PO 05/07/17 11:15 05/16/17 07:56 (Desyrel) 200 mg HS PO 05/07/17 21:00 05/15/17 19:45 (Dilaudid Pf Inj) 1 mg Q4H PRN IV PUSH 05/07/17 10:15 05/16/17 07:55 Ampicillin Sodium 2000 mg/Sodium Chloride 100 ml @ 300 mls/hr Q4H IV 05/08/17 11:00 05/16/17 07:58 (Ambien) 10 mg HS PRN PO 05/11/17 21:00 (Pepcid) 20 mg BID PO 05/11/17 21:00 05/16/17 07:56 (Albuterol Neb) 2.5 mg Q2HR NEB PRN NEB 05/11/17 13:00 (Percocet 10-325 Mg) 1 tab Q4H PRN PO 05/12/17 10:00 05/16/17 09:10 (Eliquis) 10 mg BID PO 05/14/17 21:00 05/21/17 20:59 05/16/17 07:58 (NS Flush) DAILY IV FLUSH 05/16/17 09:00 05/16/17 07:59 (NS Flush) UNSCH PRN IV FLUSH 05/15/17 17:15 A/P Problem List: (1) Bacteremia due to Streptococcus ICD Code: R78.81 - Bacteremia (2) Cellulitis of left upper extremity ICD Code: L03.114 - Cellulitis of left upper limb (3) Cellulitis of right upper extremity ICD Code: L03.113 - Cellulitis of right upper limb (4) Group A streptococcal infection ICD Code: B95.0 - Streptococcus, group A, as the cause of diseases classified elsewhere Assessment and Plan Mr. Schulte is a pleasant 37 year old [employer] with a history of TBI, anxiety, depression who was admitted to the hospital on 05/06/2017 due to progressive swelling, erythema, blisters of both upper extremities, especially left upper ext. Several days prior to this admission, patient was taking care of his generator. He cut is arms and subsequently also burned his arms by the exhaust system of the generator. In the ensuing days, he noticed progressive erythema, swelling of his upper extremities and he also developed nausea, vomiting, diarrhea. Upon arrival, HR 128, Resp 18, BP 132/68. Temp 98%, 99% on 2L of O2 via NC. WBC 3.3 with 89.5% neutrophils, Hgb 13.6, HCT 38.2, Plt 71K. Sodium 102, Potassium 3.8, Cr 1.15, Lactic acid 3.7, 4.1. CT of the extremities indicated soft tissue swelling but no evidence of necrotizing fascitis. Orthopedic surgery, ID were consulted. Patient was started on Vancomycin, Zosyn and Clindamycin. - Severe Sepsis (Tachycardia, WBC < 4.0, Lactic acid >2.0, know infection upper ext). - Bilateral upper extremity cellulitis due to Group A streptococcus - Bacteremia due to Group A Streptococcus - ID consulted on following patient. Continue antibiotics as per ID. -Patient is currently on Ampicillin IV 2g Q4hrs and Clindamycin 900 mg Q8hrs. - Continue wound care. - Orthopedic surgery evaluated patient and recommended no surgical intervention. - Continue Percocet and keep Dilaudid for breakthrough. - Discontinue femoral line today and will consult IR for a IJ central line placement. - Bilateral upper extremity DVT - Thrombocytopenia - Hematology was consulted. Heparin drip was discontinued and patient was transitioned to Apixaban. - Thrombocytopenia is likely due to hepatosplenomegaly as well as infection, medications. - PLT count improved to 215K - WBC 22.9 --> 16.6 --> 14.2 - 05/16 thrombocytopenia resolved. Continue management as per hematology oncology. Continue apixaban. Monitor WBC for leukocytosis which is likely secondary to sepsis and cellulitis. - Acute kidney injury - Hyponatremia - BEATRIZ likely due to volume depletion, sepsis. Currently resolved. - Hyponatremia is possibly psychotropic meds - Buspirone, Lexapro. - Patient has not found these meds helpful. - Hyponatremia 129 --> 121 --> 123. - Nephrology consulted. Patient on 1 liter fluid restriction - 05/16 Continue to monitor BMP. Nephrology following. Case discussed with franki Norris ([facility]). Patient will be started on sodium chloride tablets. - Anxiety/Depression - TBI - Continue Clonazepam 0.5mg BID. - Continue Trazodone. - Seems to be stable. Will consult psychiatry since all psych Meds have been discontinued due to hyponatremia. Full code. Apixaban. Discharge Planning Patient still hyponatremic, cellulitis still present, needs ID Clearance. Jonel Correa MD May 16, 2017 11:33
[2017-05-16 12:00] VITALS: BP 111/56; PULSE 79; RESP 17; TEMP 97.7; O2SAT 93
--- NOTE | 2017-05-16 12:30 | HHI.NPPN ---
Subjective Renal Failure: Acute Interval History Repeat sodium is 128. He is on a 1L oral fluid restriction. (Josiane Norris) Review of Systems General Constitutional: Fatigue (Josiane Norris) Endocrine Endocrine: Thirst (Josiane Norris) Objective Data Data Vital Signs Date Time Temp Pulse Resp B/P (MAP) Pulse Ox O2 Delivery O2 Flow Rate FiO2 05/16/17 08:00 96.6 99 18 130/62 (84) 96 05/16/17 04:00 97.0 101 20 127/68 (87) 96 05/16/17 00:00 96.9 81 20 118/60 (79) 98 05/15/17 20:00 98.7 93 20 126/58 (80) 97 05/15/17 17:19 97 115/55 (75) (Josiane Norris) -: 05/15/17 0600 05/15/17 0600 Imaging Last Impressions Central Venous Line 05/15/17 1339 Signed Impressions: Service Date/Time: Monday, May 15, 2017 16:14 - CONCLUSION: Uncomplicated line placement as above. Anish Avila MD Chest X-Ray 05/14/17 0000 Signed Impressions: Service Date/Time: Sunday, May 14, 2017 07:50 - CONCLUSION: Minimal bibasilar patchy infiltrates. Francisco Coulter MD Liver Ultrasound 05/07/17 0000 Signed Impressions: Service Date/Time: Sunday, May 07, 2017 18:39 - CONCLUSION: 1. Hepatosplenomegaly 2. Gallbladder sludge. 3. Mild dilatation of the common bile duct. Because of this mild dilatation is not seen. 4. Echogenic right kidney which can be seen with medical renal disease. Brent Nugent MD Upper Extremity Ultrasound 05/06/17 0919 Signed Impressions: Service Date/Time: Saturday, May 06, 2017 09:20 - CONCLUSION: There is noncompressible occlusive clot identified in the right basilic, within the right proximal cephalic vein with nonvisualization of the mid and distal portion of the cephalic vein secondary to patient movement. Additional clot is identified within the left mid and distal radial vein. There are bilateral axillary lymph nodes noted. Somewhat larger on the left. Norma Sampson MD Head CT 05/06/17 0919 Signed Impressions: Service Date/Time: Saturday, May 06, 2017 10:48 - CONCLUSION: Normal examination. Norma Sampson MD Upper Extremity CT 05/06/17 0000 Signed Impressions: Service Date/Time: Saturday, May 06, 2017 15:56 - CONCLUSION: Normal examination other than reactive adenopathy throughout the right axilla. Jose Angel Huizar MD CT Angiography 05/06/17 0000 Signed Impressions: Service Date/Time: Saturday, May 06, 2017 15:42 - CONCLUSION: Normal examination of the pulmonary arteries. Extensive edema and reactive adenopathy throughout both axilla left worse than right. Jose Angel Huizar MD Tubes & Lines Comment TLC (Jr,[employer]iane [employer]) Physical Exam General Appearance: Well Developed, Well Nourished, No Acute Distress, Comfortable (Jr,[employer]) Eyes Eye Exam: Pupils Equal (Jr,[employer]) Throat Throat Exam: Oral Mucosa [place] & Moist (Jr,[employer]) Pulmonary Resp Exam: Clear Bilaterally, Breath Sounds Equal, No Distress (Jr,[employer]) Cardiology CV Exam: Regular, Normal Sinus Rhythm, Good Perfusion (Jr,[employer]) Gastrointestinal/Abdomen GI Exam: Soft, Non-Tender, Bowel Sounds Present (Jr,[employer]) Musculoskeletal MS Exam: Joints Intact, Normal Tone, Good Strength (Jr,[employer]) Integumentary Skin Exam: Warm, Dry Skin Remarks erythema to upper extremities; left arm more edematous (Jr,[employer]) Extremeties Extremities Exam: No Edema, Pedal Pulses Palpable (Jr,[employer]) Neurologic Neuro Exam: Alert, Awake, Oriented, Speech Clear, Moving All Extremities (Jr,[employer]) Assessment/Plan Discussed Condition With: Patient Assessment Summary: BEATRIZ/Acute Renal Failure Electrolyte Assessment: Hyponatremia Problem List: (1) Hyponatremia ICD Codes: E87.1 - Hypo-osmolality and hyponatremia Plan: Mixed picture: initially had hypovolemic hyponatremia; which improved slightly with IVF then plateaued After fluid restriction he continued to improve, suggesting he may have a component of polydipsia His fluid restriction did not account for IVF, in addition he was on isotonic fluid in the heparin gtt that may have worsened his condition Repeat sodium level is improving. Repeat labs tomorrow. Consider NaCl tabs, possibly a dose of tolvaptan if no improvement. Avoid IVF Repeat labs in the morning (2) BEATRIZ (acute kidney injury) ICD Codes: N17.9 - Acute kidney failure, unspecified Plan: BEATRIZ may be due to dehydration and also renal hypoperfusion due to sepsis Renal function has returned to baseline Monitor for changes Avoid nephrotoxins. (3) Sepsis ICD Codes: A41.9 - Sepsis, unspecified organism Plan: ID is following he is on clindamycin and ampicillin continue wound care (4) Acute bilateral deep vein thrombosis (DVT) of upper extremities ICD Codes: I82.623 - Acute embolism and thrombosis of deep veins of upper extremity, bilateral Plan: Off heparin gtt; he is on eliquis hematology following (Josiane Norris) Problem List: (1) Hyponatremia ICD Codes: E87.1 - Hypo-osmolality and hyponatremia Plan: Mixed picture: initially had hypovolemic hyponatremia; which improved slightly with IVF then plateaued After fluid restriction he continued to improve, suggesting he may have a component of polydipsia His fluid restriction did not account for IVF, in addition he was on isotonic fluid in the heparin gtt that may have worsened his condition Repeat sodium level is improving. Repeat labs tomorrow. Consider NaCl tabs, possibly a dose of tolvaptan if no improvement. Avoid IVF Repeat labs in the morning (2) BEATRIZ (acute kidney injury) ICD Codes: N17.9 - Acute kidney failure, unspecified Plan: BEATRIZ may be due to dehydration and also renal hypoperfusion due to sepsis Renal function has returned to baseline Monitor for changes Avoid nephrotoxins. (3) Sepsis ICD Codes: A41.9 - Sepsis, unspecified organism Plan: ID is following he is on clindamycin and ampicillin continue wound care (4) Acute bilateral deep vein thrombosis (DVT) of upper extremities ICD Codes: I82.623 - Acute embolism and thrombosis of deep veins of upper extremity, bilateral Plan: Off heparin gtt; he is on eliquis hematology following Plan patient was seen and examined. Continue fluid restriction. (Nasir Rouse MD) Josiane Norris [employer] May 16, 2017 12:30 Nasir Rouse MD May 16, 2017 17:56
[2017-05-16 14:01] LABS: AUTOMATED NEUTROPHIL # 5.5 TH/MM3 (1.8-7.7); BASOPHIL # 0.1 TH/MM3 (0-0.2); BASOPHIL % 0.8 % (0.0-2.0); EOSINOPHIL % 0.4 % (0.0-4.0); HEMATOCRIT 21.9 % (39.0-51.0); HEMO FLAGS DIFF FINAL; LYMPH % 18.6 % (9.0-44.0); LYMPHOCYTE # 1.5 TH/MM3 (1.0-4.8); MEAN CELL VOLUME 86.2 FL (80.0-100.0); MEAN CORPUSCULAR HEMOGLOBIN 29.9 PG (27.0-34.0); MEAN CORPUSCULAR HGB CONC 34.6 % (32.0-36.0); MONO % 12.1 % (0.0-8.0); NEUT % 68.1 % (16.0-70.0); PLATELET COUNT 324 TH/MM3 (150-450); RED BLOOD COUNT 2.54 MIL/MM3 (4.50-5.90); RED CELL DISTRIBUTION WIDTH 14.2 % (11.6-17.2); WHITE BLOOD COUNT 8.1 TH/MM3 (4.0-11.0)
[2017-05-16 14:34] LABS: BICARBONATE 26.3 MEQ/L (21.0-32.0); POTASSIUM 3.5 MEQ/L (3.5-5.1)
[2017-05-16 16:00] VITALS: BP 121/58; PULSE 84; RESP 16; TEMP 97.9; O2SAT 96
[2017-05-16 20:00] VITALS: BP 133/71; PULSE 91; RESP 16; TEMP 97.8; O2SAT 97
--- NOTE | 2017-05-16 22:33 | PD.ONC.PN ---
Subjective Subjective Remarks drowsy because of pain meds arm swelling about the same continues to complain of pain no bleeding platelet count has completed recovered Objective Data Date Time Temp Pulse Resp B/P (MAP) Pulse Ox O2 Delivery O2 Flow Rate FiO2 05/16/17 20:00 97.8 91 16 133/71 (91) 97 05/16/17 16:00 97.9 84 16 121/58 (79) 96 05/16/17 12:00 97.7 79 17 111/56 (74) 93 05/16/17 08:00 96.6 99 18 130/62 (84) 96 05/16/17 04:00 97.0 101 20 127/68 (87) 96 05/16/17 00:00 96.9 81 20 118/60 (79) 98 05/16/17 05/16/17 05/16/17 06:59 14:59 22:59 Intake Total 780 ml 200 ml 480 ml Output Total 650 ml Balance 780 ml 200 ml -170 ml Result Diagram: 05/16/17 1325 05/16/17 1325 Laboratory Results Laboratory Tests Test 05/16/17 04:35 05/16/17 13:25 Activated Partial Thromboplast Time 31.3 SEC White Blood Count 8.1 TH/MM3 Red Blood Count 2.54 MIL/MM3 Hemoglobin 7.6 GM/DL Hematocrit 21.9 % Mean Corpuscular Volume 86.2 FL Mean Corpuscular Hemoglobin 29.9 PG Mean Corpuscular Hemoglobin Concent 34.6 % Red Cell Distribution Width 14.2 % Platelet Count 324 TH/MM3 Mean Platelet Volume 7.7 FL Neutrophils (%) (Auto) 68.1 % Lymphocytes (%) (Auto) 18.6 % Monocytes (%) (Auto) 12.1 % Eosinophils (%) (Auto) 0.4 % Basophils (%) (Auto) 0.8 % Neutrophils # (Auto) 5.5 TH/MM3 Lymphocytes # (Auto) 1.5 TH/MM3 Monocytes # (Auto) 1.0 TH/MM3 Eosinophils # (Auto) 0.0 TH/MM3 Basophils # (Auto) 0.1 TH/MM3 CBC Comment DIFF FINAL Differential Comment Blood Urea Nitrogen 4 MG/DL Creatinine 0.46 MG/DL Random Glucose 97 MG/DL Calcium Level 7.5 MG/DL Sodium Level 128 MEQ/L Potassium Level 3.5 MEQ/L Chloride Level 95 MEQ/L Carbon Dioxide Level 26.3 MEQ/L Anion Gap 7 MEQ/L Estimat Glomerular Filtration Rate 207 ML/MIN Administered Medications Medications (Trade) Dose Ordered Sig/Hafsa Route PRN Reason Start Time Stop Time Status Last Admin Dose Admin Sodium Chloride (NS Flush) 2 ml UNSCH PRN IV FLUSH FLUSH AFTER USING IV ACCESS 05/06/17 12:45 05/15/17 05:50 Sodium Chloride (NS Flush) 2 ml BID IV FLUSH 05/06/17 21:00 05/16/17 07:58 Miscellaneous Information 1 Q361D XX 05/06/17 12:45 05/06/17 12:45 Chlorhexidine Gluconate (Chlorhexidine 2% Cloth) Taper DAILY@04 TOP 05/07/17 04:00 05/03/18 03:59 05/11/17 03:45 Senna/Docusate Sodium (Tammy-Colace) 1 tab BID PO 05/06/17 21:00 05/15/17 08:54 Clindamycin Phosphate 900 mg/ Sodium Chloride 106 ml @ 212 mls/hr Q8H IV 05/06/17 20:00 05/16/17 21:22 Acetaminophen (Tylenol) 650 mg Q6H PRN PO Headache, fever, pain 1-4 05/06/17 14:30 05/13/17 11:34 Ondansetron HCl (Zofran Inj) 4 mg Q8HR PRN IV PUSH N/V 05/06/17 14:30 05/06/17 18:39 Diltiazem HCl (Cardizem) 60 mg Q6HR PO 05/06/17 14:45 05/14/17 18:52 Clonazepam (KlonoPIN) 0.5 mg BID PO 05/07/17 11:15 05/16/17 07:56 Trazodone HCl (Desyrel) 200 mg HS PO 05/07/17 21:00 05/15/17 19:45 Hydromorphone HCl (Dilaudid Pf Inj) 1 mg Q4H PRN IV PUSH breakthrough pain 05/07/17 10:15 05/16/17 20:09 Ampicillin Sodium 2000 mg/Sodium Chloride 100 ml @ 300 mls/hr Q4H IV 05/08/17 11:00 10/11/17 20:15 Famotidine (Pepcid) 20 mg BID PO 05/11/17 21:00 05/16/17 07:56 Oxycodone/ Acetaminophen (Percocet 10-325 Mg) 1 tab Q4H PRN PO PAIN SCALE 5 TO 10 05/12/17 10:00 05/16/17 21:19 Apixaban (Eliquis) 10 mg BID PO 05/14/17 21:00 05/21/17 20:59 05/16/17 07:58 Sodium Chloride (NS Flush) DAILY IV FLUSH 05/16/17 09:00 05/16/17 07:59 Objective Remarks GENERAL:nad SKIN: Warm and dry. HEAD: Normocephalic. EYES: No scleral icterus. No injection or drainage. NECK: Supple, trachea midline. No JVD or lymphadenopathy. LYMPHATIC: No adenopathy. CARDIOVASCULAR: Regular rate and rhythm without murmurs. RESPIRATORY: Breath sounds equal bilaterally. No accessory muscle use. GASTROINTESTINAL: Abdomen soft, non-tender, nondistended. EXTREMITIES: No cyanosis, left arm swelling //cellulitis Assessment/Plan Problem List: (1) Acute bilateral deep vein thrombosis (DVT) of upper extremities ICD Codes: I82.623 - Acute embolism and thrombosis of deep veins of upper extremity, bilateral Plan: on IV heparin gtt --Doppler ultrasound, upper extremities-->noncompressible occlusive clot in the right basilic vein within the right proximal cephalic vein with nonvisualization of the mid and distal portions of the cephalic vein secondary to patient movement. There was additional clot in the left mid and distal radial vein. --no precipitating factor. --CTA showed no PE (2) Hyponatremia ICD Codes: E87.1 - Hypo-osmolality and hyponatremia Plan: --improving (3) Thrombocytopenia ICD Codes: D69.6 - Thrombocytopenia, unspecified Status: Resolved Plan: --multifactorial d/t splenomegaly, infection, possible medication effect , consumption from DVT's --fibrinogen is preserved --liver u/s shows hepatosplenomegaly (4) Sepsis ICD Codes: A41.9 - Sepsis, unspecified organism Plan: -- Sepsis / cellulitis from the left arm. --on Ampicillin and clindamycin. --BC +group A beta strep --UC no growth (5) Axillary lymphadenopathy ICD Codes: R59.0 - Localized enlarged lymph nodes Assessment 37y/o male with bilateral DVTs and hyponatremia. h/o past medical history of PTSD, TBI and anxiety Plan - Will need to be on anticoagulation for 6 months to 1 year - DVT occurred in the setting for cellulitis - severe anemia - obtain anemia studies - stool heme-occult - Transfuse 2 units of pRBC - d/w rn o/n events reviewed David Holley MD May 16, 2017 22:33
[2017-05-16] MEDS ORDERED: ACETAMINOPHEN 325 MG TAB PO PRN (22:45)
[2017-05-16] MEDS ORDERED: diphenhydrAMINE HCL 25 MG CAP PO PRN (22:45)
[2017-05-16] MEDS: traZODone HCL 100 MG TAB PO SCH (22:50)
[2017-05-17] VITALS (10 sets, daily range): BP systolic 115–134; BP diastolic 55–71; PULSE 70–90; RESP 16–20; TEMP 95.7–98.3; O2SAT 93–100
[2017-05-17] MEDS: oxyCODONE/ACETAMINOPHEN 10 MG/325 MG TAB PO PRN ×6 (01:10→21:12)
[2017-05-17 01:13] LABS: TRANSFERRIN IRON PROFILE 139 MG/DL (200-360)
[2017-05-17 01:55] LABS: FERRITIN 743 NG/ML (26-388)
[2017-05-17] MEDS: CHLORHEXIDINE GLUCONATE 2 % 1 PACK (2 CLOTHS) TOP SCH (04:00)
[2017-05-17] MEDS: HYDROmorphone HCL PF 1 MG/ML VIAL IV PUSH PRN ×6 (04:04→20:08)
[2017-05-17] MEDS: AMPICILLIN 2 GM/NS 100 ML IV SCH ×10 (04:07→20:13)
[2017-05-17] MEDS: CLINDAMYCIN INJ 900 MG in SODIUM CHLORIDE 0.9% INJ 100 ML IV SCH ×2 (05:05→13:04)
[2017-05-17] MEDS: DILTIAZEM HCL 60 MG TAB PO SCH ×3 (05:05→18:00)
[2017-05-17] MEDS: clonazePAM 1 MG TAB PO SCH ×2 (08:06→22:45)
[2017-05-17] MEDS: FAMOTIDINE 20 MG TAB PO SCH ×2 (08:06→21:13)
[2017-05-17] MEDS: APIXABAN 5 MG TABLET PO SCH ×2 (08:06→21:13)
[2017-05-17] MEDS: SODIUM CHLORIDE 0.9% FLUSH 10 ML FLUSH IV FLUSH SCH ×3 (08:11→21:14)
[2017-05-17] MEDS: DOCUSATE SODIUM 50 MG/SENNA 8.6 MG TAB PO SCH ×2 (08:12→21:12)
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
--- NOTE | 2017-05-17 12:12 | HHI.NPPN ---
Subjective Renal Failure: Acute Interval History Ambulates in the room. Looks better. Awaiting repeat labs. (Josiane Norris) Review of Systems General Constitutional: Fatigue (Josiane Norris) Endocrine Endocrine: Thirst (Josiane Norris) Objective Data Data 05/17/17 05/18/17 19:00 07:00 Intake Total 500 ml Balance 500 ml IV Total 100 ml Packed Cells 400 ml Vital Signs Date Time Temp Pulse Resp B/P (MAP) Pulse Ox O2 Delivery O2 Flow Rate FiO2 05/17/17 08:00 97.2 70 18 131/63 (85) 93 05/17/17 06:02 95.7 78 20 121/66 98 05/17/17 05:45 96.7 81 20 118/56 97 05/17/17 05:26 96.6 83 20 130/62 99 05/17/17 03:02 97.8 80 18 116/55 96 05/17/17 02:38 98.1 86 18 123/59 100 05/17/17 00:00 98.3 77 16 134/71 (92) 100 05/16/17 20:00 97.8 91 16 133/71 (91) 97 05/16/17 16:00 97.9 84 16 121/58 (79) 96 (Josiane Norris) -: 05/16/17 1325 05/16/17 1325 Tubes & Lines Comment TLC (Josiane Norris) Physical Exam General Appearance: Well Developed, Well Nourished, No Acute Distress, Comfortable (Josiane Norrsi) Eyes Eye Exam: Pupils Equal (Josiane Norris) Throat Throat Exam: Oral Mucosa [place] & Moist (Josiane Norris) Pulmonary Resp Exam: Clear Bilaterally, Breath Sounds Equal, No Distress (Josiane Norris) Cardiology CV Exam: Regular, Normal Sinus Rhythm, Good Perfusion (Josiane Norris) Gastrointestinal/Abdomen GI Exam: Soft, Non-Tender, Bowel Sounds Present (Josiane Norris) Musculoskeletal MS Exam: Joints Intact, Normal Tone, Good Strength (Josiane Norris) Integumentary Skin Exam: Warm, Dry Skin Remarks erythema to upper extremities; left arm more edematous (Josiane Norris) Extremeties Extremities Exam: No Edema, Pedal Pulses Palpable (Josiane Norris) Neurologic Neuro Exam: Alert, Awake, Oriented, Speech Clear, Moving All Extremities (Josiane Norris) Assessment/Plan Discussed Condition With: Patient Assessment Summary: BEATRIZ/Acute Renal Failure Electrolyte Assessment: Hyponatremia Problem List: (1) Hyponatremia ICD Codes: E87.1 - Hypo-osmolality and hyponatremia Plan: Sodium improves with oral fluid restriction, 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 Renal function is preserved Avoid IVF; limit oral intake . Continue to monitor (2) BEATRIZ (acute kidney injury) ICD Codes: N17.9 - Acute kidney failure, unspecified Plan: BEATRIZ may be due to dehydration and also renal hypoperfusion due to sepsis Renal function has returned to baseline Monitor for changes Avoid nephrotoxins. (3) Sepsis ICD Codes: A41.9 - Sepsis, unspecified organism Plan: ID is following he is on clindamycin and ampicillin continue wound care (4) Acute bilateral deep vein thrombosis (DVT) of upper extremities ICD Codes: I82.623 - Acute embolism and thrombosis of deep veins of upper extremity, bilateral Plan: Off heparin gtt; he is on eliquis hematology following Plan patient was seen and examined. Continue fluid restriction. (Josiane Norris) Plan May need to start Sodium tablet. (Nasir Rouse MD) Josiane Norris May 17, 2017 12:12 Nasir Rouse MD May 17, 2017 16:59
[2017-05-17 13:05] LABS: AUTOMATED NEUTROPHIL # 4.4 TH/MM3 (1.8-7.7); BASOPHIL # 0.2 TH/MM3 (0-0.2); BASOPHIL % 2.4 % (0.0-2.0); EOSINOPHIL % 0.6 % (0.0-4.0); HEMATOCRIT 26.9 % (39.0-51.0); HEMO FLAGS DIFF FINAL; LYMPH % 20.8 % (9.0-44.0); LYMPHOCYTE # 1.5 TH/MM3 (1.0-4.8); MEAN CELL VOLUME 85.7 FL (80.0-100.0); MEAN CORPUSCULAR HEMOGLOBIN 29.8 PG (27.0-34.0); MEAN CORPUSCULAR HGB CONC 34.8 % (32.0-36.0); MONO % 13.7 % (0.0-8.0); NEUT % 62.5 % (16.0-70.0); PLATELET COUNT 387 TH/MM3 (150-450); RED BLOOD COUNT 3.14 MIL/MM3 (4.50-5.90); RED CELL DISTRIBUTION WIDTH 14.3 % (11.6-17.2)
[2017-05-17 13:13] LABS: APTT (PATIENT) 25.8 SEC (24.3-30.1)
[2017-05-17 13:34] LABS: ANION GAP 9 MEQ/L (5-15); BICARBONATE 25.2 MEQ/L (21.0-32.0); BLOOD UREA NITROGEN 3 MG/DL (7-18); CHLORIDE 92 MEQ/L (98-107); GLOMERULAR FILTRATION RATE 184 ML/MIN (>89); MAGNESIUM 1.8 MG/DL (1.5-2.5); POTASSIUM 3.6 MEQ/L (3.5-5.1); SODIUM (NA) 126 MEQ/L (136-145)
[2017-05-17 13:35] LABS: ALT (GPT) 18 U/L (12-78); AST (GOT) 30 U/L (15-37)
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
[2017-05-17 13:38] LABS: ALKALINE PHOSPHATASE 91 U/L (45-117); TOTAL BILIRUBIN ADULT 0.4 MG/DL (0.2-1.0)
--- NOTE | 2017-05-17 13:52 | HHI.IDPN ---
Subjective Subjective Remarks no fever, WBC normal still has considerable pauin, swelling, redness LUE RUE improving rapidly Antibiotics clindamycion ampicillin Allergies: Coded Allergies: No Known Allergies (Unverified , 05/06/17) Objective . Vital Signs Date Time Temp Pulse Resp B/P (MAP) Pulse Ox O2 Delivery O2 Flow Rate FiO2 05/17/17 08:00 97.2 70 18 131/63 (85) 93 05/17/17 06:02 95.7 78 20 121/66 98 05/17/17 05:45 96.7 81 20 118/56 97 05/17/17 05:26 96.6 83 20 130/62 99 05/17/17 03:02 97.8 80 18 116/55 96 05/17/17 02:38 98.1 86 18 123/59 100 05/17/17 00:00 98.3 77 16 134/71 (92) 100 05/16/17 20:00 97.8 91 16 133/71 (91) 97 05/16/17 16:00 97.9 84 16 121/58 (79) 96 05/17/17 05/17/17 05/18/17 15:00 23:00 07:00 Intake Total 600 ml Balance 600 ml IV Total 200 ml Packed Cells 400 ml . Laboratory Tests Test 05/16/17 13:25 05/17/17 12:56 White Blood Count 8.1 TH/MM3 7.0 TH/MM3 Red Blood Count 2.54 MIL/MM3 3.14 MIL/MM3 Hemoglobin 7.6 GM/DL 9.4 GM/DL Hematocrit 21.9 % 26.9 % Mean Corpuscular Volume 86.2 FL 85.7 FL Mean Corpuscular Hemoglobin 29.9 PG 29.8 PG Mean Corpuscular Hemoglobin Concent 34.6 % 34.8 % Red Cell Distribution Width 14.2 % 14.3 % Platelet Count 324 TH/MM3 387 TH/MM3 Mean Platelet Volume 7.7 FL 7.3 FL Neutrophils (%) (Auto) 68.1 % 62.5 % Lymphocytes (%) (Auto) 18.6 % 20.8 % Monocytes (%) (Auto) 12.1 % 13.7 % Eosinophils (%) (Auto) 0.4 % 0.6 % Basophils (%) (Auto) 0.8 % 2.4 % Neutrophils # (Auto) 5.5 TH/MM3 4.4 TH/MM3 Lymphocytes # (Auto) 1.5 TH/MM3 1.5 TH/MM3 Monocytes # (Auto) 1.0 TH/MM3 1.0 TH/MM3 Eosinophils # (Auto) 0.0 TH/MM3 0.0 TH/MM3 Basophils # (Auto) 0.1 TH/MM3 0.2 TH/MM3 CBC Comment DIFF FINAL DIFF FINAL Differential Comment Laboratory Tests Test 05/16/17 13:25 05/17/17 00:27 05/17/17 12:56 Blood Urea Nitrogen 4 MG/DL 3 MG/DL Creatinine 0.46 MG/DL 0.51 MG/DL Random Glucose 97 MG/DL 92 MG/DL Calcium Level 7.5 MG/DL 7.8 MG/DL Sodium Level 128 MEQ/L 126 MEQ/L Potassium Level 3.5 MEQ/L 3.6 MEQ/L Chloride Level 95 MEQ/L 92 MEQ/L Carbon Dioxide Level 26.3 MEQ/L 25.2 MEQ/L Anion Gap 7 MEQ/L 9 MEQ/L Estimat Glomerular Filtration Rate 207 ML/MIN 184 ML/MIN Iron Level 16 MCG/DL Total Iron Binding Capacity 195 MCG/DL Percent Iron Saturation 8.2 % Ferritin 743 NG/ML Vitamin B12 Level GREATER THAN 2000 PG/ML Total Protein 6.2 GM/DL Albumin 1.8 GM/DL Phosphorus Level 3.8 MG/DL Magnesium Level 1.8 MG/DL Alkaline Phosphatase 91 U/L Aspartate Amino Transf (AST/SGOT) 30 U/L Alanine Aminotransferase (ALT/SGPT) 18 U/L Total Bilirubin 0.4 MG/DL Imaging Last Impressions Central Venous Line 05/15/17 1339 Signed Impressions: Service Date/Time: Monday, May 15, 2017 16:14 - CONCLUSION: Uncomplicated line placement as above. Anish Avila MD Chest X-Ray 05/14/17 0000 Signed Impressions: Service Date/Time: Sunday, May 14, 2017 07:50 - CONCLUSION: Minimal bibasilar patchy infiltrates. Francisco Coulter MD Liver Ultrasound 05/07/17 0000 Signed Impressions: Service Date/Time: Sunday, May 07, 2017 18:39 - CONCLUSION: 1. Hepatosplenomegaly 2. Gallbladder sludge. 3. Mild dilatation of the common bile duct. Because of this mild dilatation is not seen. 4. Echogenic right kidney which can be seen with medical renal disease. Brent Nugent MD Upper Extremity Ultrasound 05/06/17918 Signed Impressions: Service Date/Time: Saturday, May 06, 2017 09:20 - CONCLUSION: There is noncompressible occlusive clot identified in the right basilic, within the right proximal cephalic vein with nonvisualization of the mid and distal portion of the cephalic vein secondary to patient movement. Additional clot is identified within the left mid and distal radial vein. There are bilateral axillary lymph nodes noted. Somewhat larger on the left. Norma Sampson MD Head CT 05/06/17918 Signed Impressions: Service Date/Time: Saturday, May 06, 2017 10:48 - CONCLUSION: Normal examination. Norma Sampson MD Upper Extremity CT 05/06/17 Signed Impressions: Service Date/Time: Saturday, May 06, 2017 15:56 - CONCLUSION: Normal examination other than reactive adenopathy throughout the right axilla. Jose Angel Huizar MD CT Angiography 05/06/17 0000 Signed Impressions: Service Date/Time: Saturday, May 06, 2017 15:42 - CONCLUSION: Normal examination of the pulmonary arteries. Extensive edema and reactive adenopathy throughout both axilla left worse than right. Jose Angel Huizar MD Physical Exam CONSTITUTIONAL/GENERAL: This is an adequately nourished patient, in NAD TUBES/LINES/DRAINS: SKIN: No jaundice, no rash CARDIOVASCULAR: Regular tachycardia without murmurs, gallops, or rubs. No JVD. Peripheral pulses symmetric. RESPIRATORY/CHEST: Symmetric, unlabored respirations. Clear to auscultation. Breath sounds equal bilaterally. No wheezes, rales, or rhonchi. GASTROINTESTINAL: Abdomen soft, non-tender, nondistended. No hepato-splenomegaly , or palpable masses. No guarding. Bowel sounds present. GENITOURINARY: Without palpable bladder distension. MUSCULOSKELETAL: lower extremities without clubbing, cyanosis, or edema. RUE edema and erythema has markedly improved, crusting LUE with persistent weeping edema, erythema, induration + needle loom tender to palpation + sloughing of skin There is a very tense, indurated area on prox forearm exquisetely tender to palpation NEUROLOGICAL: Awake and alert. non focal PSYCHIATRIC: anxious Assessment & Plan Remarks Assessment and Plan Sepsis, GAS from BUE complicated SSTI BUE complicated SSTI, cellulitis, CT e/o abscesses (loculated fluid collection) group A - ortho recommends conservative treatmetn and monitoring for signs of compartment sdf BUE DVT Thrombocytopenia with high fibrinogen Refractory hyponatremia - Hep C + / HIV negative Overall appear s to improve Persistent fever and leukocytosis -cont ampicillin dc clinda, - fu WBC - will re-image to exclude an underlying abscess ( MRI w and w/o c) - dw radiologist : his ipsilateral hip harware is not a contraindication to MRI dw Dr Herberth villatoro radiologist Jeannie John MD May 17, 2017 13:52
[2017-05-17] MEDS ORDERED: GADODIAMIDE PF 287 MG/ML 20 ML VIAL (for RAD MRI) IVCONTRAST ONE (18:53)
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
--- NOTE | 2017-05-17 19:30 | RADRPT ---
EXAM DATE/TIME: 05/17/2017 19:10 [facility] COMPARISON: No previous studies available for comparison. INDICATIONS : Evaluate left hip previous dislocation MEDICAL HISTORY : Cellulitis bilateral arms, Anxiety SURGICAL HISTORY : Left total hip arthroplasty ENCOUNTER: Initial ACUITY: 1 week PAIN SCORE: 3/10 LOCATION: Left Hip FINDINGS: Examination of the left hip was performed with AP Pelvis. Postoperative left total hip replacement. N ormal alignment. No fracture or dislocation. Mild sclerosis at the right femoral head. CONCLUSION: 1. Postoperative left hip replacement. Mild sclerosis of the right femoral head that could represent mild changes of avascular necrosis. Chava Robbins MD on May 17, 2017 at 19:26 Board Certified Radiologist. This report was verified electronically.
[2017-05-17] MEDS: traZODone HCL 100 MG TAB PO SCH (22:44)
--- NOTE | 2017-05-17 23:48 | PD.ONC.PN ---
Subjective Subjective Remarks doing okay eating able to walk around in rooms still has pain and swelling in left arm Objective Data Date Time Temp Pulse Resp B/P (MAP) Pulse Ox O2 Delivery O2 Flow Rate FiO2 05/17/17 20:00 98.2 90 18 127/71 (89) 99 05/17/17 16:00 97.9 82 16 134/65 (88) 99 05/17/17 12:00 97.2 89 20 115/56 (75) 97 05/17/17 08:00 97.2 70 18 131/63 (85) 93 05/17/17 06:02 95.7 78 20 121/66 98 05/17/17 05:45 96.7 81 20 118/56 97 05/17/17 05:26 96.6 83 20 130/62 99 05/17/17 03:02 97.8 80 18 116/55 96 05/17/17 02:38 98.1 86 18 123/59 100 05/17/17 00:00 98.3 77 16 134/71 (92) 100 Result Diagram: 05/17/17 1256 05/17/17 1256 Laboratory Results Laboratory Tests Test 05/17/17 00:27 05/17/17 12:56 Iron Level 16 MCG/DL Total Iron Binding Capacity 195 MCG/DL Percent Iron Saturation 8.2 % Ferritin 743 NG/ML Vitamin B12 Level GREATER THAN 2000 PG/ML White Blood Count 7.0 TH/MM3 Red Blood Count 3.14 MIL/MM3 Hemoglobin 9.4 GM/DL Hematocrit 26.9 % Mean Corpuscular Volume 85.7 FL Mean Corpuscular Hemoglobin 29.8 PG Mean Corpuscular Hemoglobin Concent 34.8 % Red Cell Distribution Width 14.3 % Platelet Count 387 TH/MM3 Mean Platelet Volume 7.3 FL Neutrophils (%) (Auto) 62.5 % Lymphocytes (%) (Auto) 20.8 % Monocytes (%) (Auto) 13.7 % Eosinophils (%) (Auto) 0.6 % Basophils (%) (Auto) 2.4 % Neutrophils # (Auto) 4.4 TH/MM3 Lymphocytes # (Auto) 1.5 TH/MM3 Monocytes # (Auto) 1.0 TH/MM3 Eosinophils # (Auto) 0.0 TH/MM3 Basophils # (Auto) 0.2 TH/MM3 CBC Comment DIFF FINAL Differential Comment Activated Partial Thromboplast Time 25.8 SEC Blood Urea Nitrogen 3 MG/DL Creatinine 0.51 MG/DL Random Glucose 92 MG/DL Total Protein 6.2 GM/DL Albumin 1.8 GM/DL Calcium Level 7.8 MG/DL Phosphorus Level 3.8 MG/DL Magnesium Level 1.8 MG/DL Alkaline Phosphatase 91 U/L Aspartate Amino Transf (AST/SGOT) 30 U/L Alanine Aminotransferase (ALT/SGPT) 18 U/L Total Bilirubin 0.4 MG/DL Sodium Level 126 MEQ/L Potassium Level 3.6 MEQ/L Chloride Level 92 MEQ/L Carbon Dioxide Level 25.2 MEQ/L Anion Gap 9 MEQ/L Estimat Glomerular Filtration Rate 184 ML/MIN Culture Results Microbiology Date/Time Source Procedure Growth Status 05/17/17 22:55 Stool Stool Stool Occult Blood (JAREN) Pending Received Administered Medications Medications (Trade) Dose Ordered Sig/Hafsa Route PRN Reason Start Time Stop Time Status Last Admin Dose Admin Sodium Chloride (NS Flush) 2 ml UNSCH PRN IV FLUSH FLUSH AFTER USING IV ACCESS 05/06/17 12:45 05/15/17 05:50 Sodium Chloride (NS Flush) 2 ml BID IV FLUSH 05/06/17 21:00 05/17/17 21:14 Miscellaneous Information 1 Q361D XX 05/06/17 12:45 05/06/17 12:45 Chlorhexidine Gluconate (Chlorhexidine 2% Cloth) Taper DAILY@04 TOP 05/07/17 04:00 05/03/18 03:59 05/11/17 03:45 Senna/Docusate Sodium (Tammy-Colace) 1 tab BID PO 05/06/17 21:00 05/17/17 21:12 Acetaminophen (Tylenol) 650 mg Q6H PRN PO Headache, fever, pain 1-4 05/06/17 14:30 05/13/17 11:34 Ondansetron HCl (Zofran Inj) 4 mg Q8HR PRN IV PUSH N/V 05/06/17 14:30 05/06/17 18:39 Diltiazem HCl (Cardizem) 60 mg Q6HR PO 05/06/17 14:45 05/14/17 18:52 Clonazepam (KlonoPIN) 0.5 mg BID PO 05/07/17 11:15 05/17/17 22:45 Trazodone HCl (Desyrel) 200 mg HS PO 05/07/17 21:00 05/17/17 22:44 Hydromorphone HCl (Dilaudid Pf Inj) 1 mg Q4H PRN IV PUSH breakthrough pain 05/07/17 10:15 05/17/17 20:08 Ampicillin Sodium 2000 mg/Sodium Chloride 100 ml @ 300 mls/hr Q4H IV 05/08/17 11:00 05/17/17 20:13 Famotidine (Pepcid) 20 mg BID PO 05/11/17 21:00 05/17/17 21:13 Oxycodone/ Acetaminophen (Percocet 10-325 Mg) 1 tab Q4H PRN PO PAIN SCALE 5 TO 10 05/12/17 10:00 05/17/17 21:12 Apixaban (Eliquis) 10 mg BID PO 05/14/17 21:00 05/21/17 20:59 05/17/17 21:13 Sodium Chloride (NS Flush) DAILY IV FLUSH 05/16/17 09:00 05/17/17 08:11 Objective Remarks GENERAL: nad SKIN: Warm and dry. NECK: Supple, trachea midline. No JVD or lymphadenopathy. LYMPHATIC: No adenopathy. CARDIOVASCULAR: Regular rate and rhythm without murmurs. RESPIRATORY: Breath sounds equal bilaterally. No accessory muscle use. GASTROINTESTINAL: Abdomen soft, non-tender, nondistended. EXTREMITIES: No cyanosis, upperarm sweling Assessment/Plan Problem List: (1) Acute bilateral deep vein thrombosis (DVT) of upper extremities ICD Codes: I82.623 - Acute embolism and thrombosis of deep veins of upper extremity, bilateral Plan: on IV heparin gtt --Doppler ultrasound, upper extremities-->noncompressible occlusive clot in the right basilic vein within the right proximal cephalic vein with nonvisualization of the mid and distal portions of the cephalic vein secondary to patient movement. There was additional clot in the left mid and distal radial vein. --no precipitating factor. --CTA showed no PE (2) Hyponatremia ICD Codes: E87.1 - Hypo-osmolality and hyponatremia Plan: --improving (3) Thrombocytopenia ICD Codes: D69.6 - Thrombocytopenia, unspecified Status: Resolved Plan: --multifactorial d/t splenomegaly, infection, possible medication effect , consumption from DVT's --fibrinogen is preserved --liver u/s shows hepatosplenomegaly (4) Sepsis ICD Codes: A41.9 - Sepsis, unspecified organism Plan: -- Sepsis / cellulitis from the left arm. --on Ampicillin and clindamycin. --BC +group A beta strep --UC no growth (5) Axillary lymphadenopathy ICD Codes: R59.0 - Localized enlarged lymph nodes Assessment 37y/o male with bilateral DVTs and hyponatremia. h/o past medical history of PTSD, TBI and anxiety Plan - Will need to be on anticoagulation for 6 months to 1 year - DVT occurred in the setting for cellulitis - s/p pRBC transfusion - stool heme-occult pending - d/w rn o/n events reviewed David Holley MD May 17, 2017 23:48
[2017-05-18] MEDS: HYDROmorphone HCL PF 1 MG/ML VIAL IV PUSH PRN ×6 (00:01→20:09)
[2017-05-18] MEDS: AMPICILLIN 2 GM/NS 100 ML IV SCH ×14 (00:02→23:37)
[2017-05-18 00:15] VITALS: BP 126/58; PULSE 72; RESP 18; TEMP 98.2; O2SAT 98
[2017-05-18] MEDS: oxyCODONE/ACETAMINOPHEN 10 MG/325 MG TAB PO PRN ×6 (01:07→21:20)
[2017-05-18] MEDS: CHLORHEXIDINE GLUCONATE 2 % 1 PACK (2 CLOTHS) TOP SCH ×2 (01:22→23:42)
[2017-05-18 05:58] LABS: HEMATOCRIT 26.6 % (39.0-51.0); MEAN CELL VOLUME 85.6 FL (80.0-100.0); MEAN CORPUSCULAR HEMOGLOBIN 29.4 PG (27.0-34.0); MEAN CORPUSCULAR HGB CONC 34.4 % (32.0-36.0); PLATELET COUNT 438 TH/MM3 (150-450); RED CELL DISTRIBUTION WIDTH 14.7 % (11.6-17.2); REVIEW FLAG FINAL; WHITE BLOOD COUNT 6.1 TH/MM3 (4.0-11.0)
[2017-05-18] MEDS: DILTIAZEM HCL 60 MG TAB PO SCH ×5 (06:00→21:22)
[2017-05-18 08:00] VITALS: BP 140/64; PULSE 82; RESP 19; TEMP 97.2; O2SAT 100
[2017-05-18] MEDS: SODIUM CHLORIDE 1 GRAM TAB PO SCH ×2 (08:16→21:19)
[2017-05-18] MEDS: APIXABAN 5 MG TABLET PO SCH ×2 (08:16→21:20)
[2017-05-18] MEDS: DOCUSATE SODIUM 50 MG/SENNA 8.6 MG TAB PO SCH ×2 (08:16→21:00)
[2017-05-18] MEDS: FAMOTIDINE 20 MG TAB PO SCH ×2 (08:17→21:20)
[2017-05-18] MEDS: clonazePAM 1 MG TAB PO SCH ×2 (08:17→21:20)
[2017-05-18] MEDS: SODIUM CHLORIDE 0.9% FLUSH 10 ML FLUSH IV FLUSH SCH ×3 (08:18→21:21)
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
[2017-05-18 12:00] VITALS: BP 118/58; PULSE 78; RESP 17; TEMP 97.9; O2SAT 99
--- NOTE | 2017-05-18 12:36 | HHI.NPPN ---
Subjective Renal Failure: Acute Interval History He is ambulating to bathroom. No new concerns. Sodium level has improved. (Josiane Norris) Review of Systems General Constitutional: Fatigue (Josiane Norris) Endocrine Endocrine: Thirst (Josiane Norris) Objective Data Data 05/18/17 05/19/17 19:00 07:00 Intake Total 320 ml Balance 320 ml Intake Oral 120 ml IV Total 200 ml Vital Signs Date Time Temp Pulse Resp B/P (MAP) Pulse Ox O2 Delivery O2 Flow Rate FiO2 05/18/17 08:00 97.2 82 19 140/64 (89) 100 05/18/17 00:15 98.2 72 18 126/58 (80) 98 05/17/17 20:00 98.2 90 18 127/71 (89) 99 05/17/17 16:00 97.9 82 16 134/65 (88) 99 (Josiane Norris) -: 05/18/17 0450 05/17/17 1256 Microbiology 05/17/17 Stool Occult Blood (JAREN) - Final, Complete HEMOCCULT NEGATIVE Imaging Last 72 hours Impressions Upper Extremity MRI 05/17/17 0000 Signed Impressions: Service Date/Time: May 17:56 - CONCLUSION: 1. Extensive cellulitis and fasciitis of the left arm with probable microabscess formation along the posterior fascial surface of the arm musculature. No drainable fluid. There is also muscular edema but no evidence for osteomyelitis. Chava Robbins MD Upper Extremity MRI 05/17/17 0000 Signed Impressions: Service Date/Time: May 17:56 - CONCLUSION: 1. Extensive cellulitis and soft tissue swelling of the forearm with probable microabscess formation subcutaneously. Negative for osteomyelitis. Chava Robbins MD Hip and Pelvis X-Ray 05/17/17 0000 Signed Impressions: Service Date/Time: May 19:10 - CONCLUSION: 1. Postoperative left hip replacement. Mild sclerosis of the right femoral head that could represent mild changes of avascular necrosis. Chava Robbins MD Central Venous Line 05/15/17 1339 Signed Impressions: Service Date/Time: Darlin, May 15, 2017 16:14 - CONCLUSION: Uncomplicated line placement as above. Anish Avila MD Tubes & Lines Comment TLC (Faisal Norrison B. OTOLARYNGOLOGY SURGEON) Physical Exam General Appearance: Well Developed, Well Nourished, No Acute Distress, Comfortable (JrJosiane B. OTOLARYNGOLOGY SURGEON) Eyes Eye Exam: Pupils Equal (Jr,Josiane B. OTOLARYNGOLOGY SURGEON) Throat Throat Exam: Oral Mucosa Filley & Moist (JrJosiane B. OTOLARYNGOLOGY SURGEON) Pulmonary Resp Exam: Clear Bilaterally, Breath Sounds Equal, No Distress (Jr,Josiane B. OTOLARYNGOLOGY SURGEON) Cardiology CV Exam: Regular, Normal Sinus Rhythm, Good Perfusion (JrJosiane B. OTOLARYNGOLOGY SURGEON) Gastrointestinal/Abdomen GI Exam: Soft, Non-Tender, Bowel Sounds Present (JrJosiane B. OTOLARYNGOLOGY SURGEON) Musculoskeletal MS Exam: Joints Intact, Normal Tone, Good Strength (Jr,Josiane B. OTOLARYNGOLOGY SURGEON) Integumentary Skin Exam: Warm, Dry Skin Remarks erythema to upper extremities; left arm more edematous (JrJosiane B. OTOLARYNGOLOGY SURGEON) Extremeties Extremities Exam: No Edema, Pedal Pulses Palpable (JrJosiane B. OTOLARYNGOLOGY SURGEON) Neurologic Neuro Exam: Alert, Awake, Oriented, Speech Clear, Moving All Extremities (JrJosiane B. 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 Continue to monitor BMP (2) BEATRIZ (acute kidney injury) ICD Codes: N17.9 - Acute kidney failure, unspecified Plan: Secondary to renal hypoperfusion from sepsis Renal function has returned to baseline Monitor for changes Avoid nephrotoxins. (3) Sepsis ICD Codes: A41.9 - Sepsis, unspecified organism Plan: ID is following he is on ampicillin; clindamycin was stopped MRI reviewed, he has microabscessed and significant inflammation of left arm continue wound care (4) Acute bilateral deep vein thrombosis (DVT) of upper extremities ICD Codes: I82.623 - Acute embolism and thrombosis of deep veins of upper extremity, bilateral Plan: he is on eliquis x 6 months hematology following Plan (Josiane Norris) Problem List: (1) Hyponatremia ICD Codes: E87.1 - Hypo-osmolality and hyponatremia Plan: Mixed picture Sodium had initially improved with oral fluid restriction, 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 Continue to monitor BMP (2) BEATRIZ (acute kidney injury) ICD Codes: N17.9 - Acute kidney failure, unspecified Plan: Secondary to renal hypoperfusion from sepsis Renal function has returned to baseline Monitor for changes Avoid nephrotoxins. (3) Sepsis ICD Codes: A41.9 - Sepsis, unspecified organism Plan: ID is following he is on ampicillin; clindamycin was stopped MRI reviewed, he has microabscessed and significant inflammation of left arm continue wound care (4) Acute bilateral deep vein thrombosis (DVT) of upper extremities ICD Codes: I82.623 - Acute embolism and thrombosis of deep veins of upper extremity, bilateral Plan: he is on eliquis x 6 months hematology following Plan patient was seen and examined. Hyponatremia could be due to polydipsia. It improves with strict fluid restriction. (Nasir Rouse MD) Josiane Norris May 18, 2017 12:35 Nasir Rouse MD May 18, 2017 16:45
[2017-05-18 14:27] LABS: BICARBONATE 26.7 MEQ/L (21.0-32.0); POTASSIUM 3.8 MEQ/L (3.5-5.1)
--- NOTE | 2017-05-18 14:29 | PD.ONC.PN ---
Subjective Subjective Remarks pain and swelling of left arm no bleeding ambulating eating MRI of arm shows cellulitis/abscess seen by ortho on abx on Eliquis for DVT Objective Data Date Time Temp Pulse Resp B/P (MAP) Pulse Ox O2 Delivery O2 Flow Rate FiO2 05/18/17 12:00 97.9 78 17 118/58 (78) 99 05/18/17 08:00 97.2 82 19 140/64 (89) 100 05/18/17 00:15 98.2 72 18 126/58 (80) 98 05/17/17 20:00 98.2 90 18 127/71 (89) 99 05/17/17 16:00 97.9 82 16 134/65 (88) 99 05/18/17 05/18/17 05/18/17 07:00 15:00 23:00 Intake Total 200 ml 320 ml Balance 200 ml 320 ml Result Diagram: 05/18/17 0450 05/18/17 1315 Laboratory Results Laboratory Tests Test 05/18/17 04:50 05/18/17 13:15 White Blood Count 6.1 TH/MM3 Red Blood Count 3.10 MIL/MM3 Hemoglobin 9.1 GM/DL Hematocrit 26.6 % Mean Corpuscular Volume 85.6 FL Mean Corpuscular Hemoglobin 29.4 PG Mean Corpuscular Hemoglobin Concent 34.4 % Red Cell Distribution Width 14.7 % Platelet Count 438 TH/MM3 Mean Platelet Volume 6.9 FL Blood Urea Nitrogen 3 MG/DL Creatinine 0.57 MG/DL Random Glucose 99 MG/DL Calcium Level 7.9 MG/DL Sodium Level 128 MEQ/L Potassium Level 3.8 MEQ/L Chloride Level 95 MEQ/L Carbon Dioxide Level 26.7 MEQ/L Anion Gap 6 MEQ/L Estimat Glomerular Filtration Rate 162 ML/MIN Culture Results Microbiology Date/Time Source Procedure Growth Status 05/17/17 22:55 Stool Stool Stool Occult Blood (JAREN) - Final HEMOCCULT NEGATIVE Complete Administered Medications Medications (Trade) Dose Ordered Sig/Hafsa Route PRN Reason Start Time Stop Time Status Last Admin Dose Admin Sodium Chloride (NS Flush) 2 ml UNSCH PRN IV FLUSH FLUSH AFTER USING IV ACCESS 05/06/17 12:45 05/15/17 05:50 Sodium Chloride (NS Flush) 2 ml BID IV FLUSH 05/06/17 21:00 05/18/17 08:18 Miscellaneous Information 1 Q361D XX 05/06/17 12:45 05/06/17 12:45 Chlorhexidine Gluconate (Chlorhexidine 2% Cloth) Taper DAILY@04 TOP 05/07/17 04:00 05/03/18 03:59 05/11/17 03:45 Senna/Docusate Sodium (Tammy-Colace) 1 tab BID PO 05/06/17 21:00 05/17/17 21:12 Acetaminophen (Tylenol) 650 mg Q6H PRN PO Headache, fever, pain 1-4 05/06/17 14:30 05/13/17 11:34 Ondansetron HCl (Zofran Inj) 4 mg Q8HR PRN IV PUSH N/V 05/06/17 14:30 05/06/17 18:39 Diltiazem HCl (Cardizem) 60 mg Q6HR PO 05/06/17 14:45 05/14/17 18:52 Clonazepam (KlonoPIN) 0.5 mg BID PO 05/07/17 11:15 05/18/17 08:17 Trazodone HCl (Desyrel) 200 mg HS PO 05/07/17 21:00 05/17/17 22:44 Hydromorphone HCl (Dilaudid Pf Inj) 1 mg Q4H PRN IV PUSH breakthrough pain 05/07/17 10:15 05/18/17 12:13 Ampicillin Sodium 2000 mg/Sodium Chloride 100 ml @ 300 mls/hr Q4H IV 05/08/17 11:00 05/18/17 11:45 Famotidine (Pepcid) 20 mg BID PO 05/11/17 21:00 05/18/17 08:17 Oxycodone/ Acetaminophen (Percocet 10-325 Mg) 1 tab Q4H PRN PO PAIN SCALE 5 TO 10 05/12/17 10:00 05/18/17 13:11 Apixaban (Eliquis) 10 mg BID PO 05/14/17 21:00 05/21/17 20:59 05/18/17 08:16 Sodium Chloride (NS Flush) DAILY IV FLUSH 05/16/17 09:00 05/18/17 08:18 Sodium Chloride (Sodium Chloride) 1 gm BID PO 05/18/17 09:00 05/18/17 08:16 Objective Remarks GENERAL: nad SKIN: Warm and dry LYMPHATIC: No adenopathy. CARDIOVASCULAR: Regular rate and rhythm without murmurs. RESPIRATORY: Breath sounds equal bilaterally. No accessory muscle use. GASTROINTESTINAL: Abdomen soft, non-tender, nondistended. EXTREMITIES: No cyanosis, left arm swelling Assessment/Plan Problem List: (1) Acute bilateral deep vein thrombosis (DVT) of upper extremities ICD Codes: I82.623 - Acute embolism and thrombosis of deep veins of upper extremity, bilateral Plan: on IV heparin gtt --Doppler ultrasound, upper extremities-->noncompressible occlusive clot in the right basilic vein within the right proximal cephalic vein with nonvisualization of the mid and distal portions of the cephalic vein secondary to patient movement. There was additional clot in the left mid and distal radial vein. --no precipitating factor. --CTA showed no PE (2) Hyponatremia ICD Codes: E87.1 - Hypo-osmolality and hyponatremia Plan: --improving (3) Thrombocytopenia ICD Codes: D69.6 - Thrombocytopenia, unspecified Status: Resolved Plan: --multifactorial d/t splenomegaly, infection, possible medication effect , consumption from DVT's --fibrinogen is preserved --liver u/s shows hepatosplenomegaly (4) Sepsis ICD Codes: A41.9 - Sepsis, unspecified organism Plan: -- Sepsis / cellulitis from the left arm. --on Ampicillin and clindamycin. --BC +group A beta strep --UC no growth (5) Axillary lymphadenopathy ICD Codes: R59.0 - Localized enlarged lymph nodes Assessment 37y/o male with bilateral DVTs and hyponatremia. h/o past medical history of PTSD, TBI and anxiety Plan - Will need to be on anticoagulation for 6 months to 1 year - DVT occurred in the setting for cellulitis - s/p pRBC transfusion - stool heme-occult pending - d/w rn o/n events reviewed David Holley MD May 18, 2017 14:29
--- NOTE | 2017-05-18 14:54 | HHI.IDPN ---
Subjective Subjective Remarks no fever, WBC normal no new co MRI result noted Antibiotics ampicillin Allergies: Coded Allergies: No Known Allergies (Unverified , 05/06/17) Objective . Vital Signs Date Time Temp Pulse Resp B/P (MAP) Pulse Ox O2 Delivery O2 Flow Rate FiO2 05/18/17 12:00 97.9 78 17 118/58 (78) 99 05/18/17 08:00 97.2 82 19 140/64 (89) 100 05/18/17 00:15 98.2 72 18 126/58 (80) 98 05/17/17 20:00 98.2 90 18 127/71 (89) 99 05/17/17 16:00 97.9 82 16 134/65 (88) 99 05/18/17 05/18/17 05/19/17 15:00 23:00 07:00 Intake Total 320 ml Balance 320 ml Intake Oral 120 ml IV Total 200 ml . Laboratory Tests Test 05/17/17 12:56 05/18/17 04:50 White Blood Count 7.0 TH/MM3 6.1 TH/MM3 Red Blood Count 3.14 MIL/MM3 3.10 MIL/MM3 Hemoglobin 9.4 GM/DL 9.1 GM/DL Hematocrit 26.9 % 26.6 % Mean Corpuscular Volume 85.7 FL 85.6 FL Mean Corpuscular Hemoglobin 29.8 PG 29.4 PG Mean Corpuscular Hemoglobin Concent 34.8 % 34.4 % Red Cell Distribution Width 14.3 % 14.7 % Platelet Count 387 TH/MM3 438 TH/MM3 Mean Platelet Volume 7.3 FL 6.9 FL Neutrophils (%) (Auto) 62.5 % Lymphocytes (%) (Auto) 20.8 % Monocytes (%) (Auto) 13.7 % Eosinophils (%) (Auto) 0.6 % Basophils (%) (Auto) 2.4 % Neutrophils # (Auto) 4.4 TH/MM3 Lymphocytes # (Auto) 1.5 TH/MM3 Monocytes # (Auto) 1.0 TH/MM3 Eosinophils # (Auto) 0.0 TH/MM3 Basophils # (Auto) 0.2 TH/MM3 CBC Comment DIFF FINAL Differential Comment Laboratory Tests Test 05/17/17 00:27 05/17/17 12:56 05/18/17 13:15 Iron Level 16 MCG/DL Total Iron Binding Capacity 195 MCG/DL Percent Iron Saturation 8.2 % Ferritin 743 NG/ML Vitamin B12 Level GREATER THAN 2000 PG/ML Blood Urea Nitrogen 3 MG/DL 3 MG/DL Creatinine 0.51 MG/DL 0.57 MG/DL Random Glucose 92 MG/DL 99 MG/DL Total Protein 6.2 GM/DL Albumin 1.8 GM/DL Calcium Level 7.8 MG/DL 7.9 MG/DL Phosphorus Level 3.8 MG/DL Magnesium Level 1.8 MG/DL Alkaline Phosphatase 91 U/L Aspartate Amino Transf (AST/SGOT) 30 U/L Alanine Aminotransferase (ALT/SGPT) 18 U/L Total Bilirubin 0.4 MG/DL Sodium Level 126 MEQ/L 128 MEQ/L Potassium Level 3.6 MEQ/L 3.8 MEQ/L Chloride Level 92 MEQ/L 95 MEQ/L Carbon Dioxide Level 25.2 MEQ/L 26.7 MEQ/L Anion Gap 9 MEQ/L 6 MEQ/L Estimat Glomerular Filtration Rate 184 ML/MIN 162 ML/MIN Microbiology Date/Time Source Procedure Growth Status 05/17/17 22:55 Stool Stool Stool Occult Blood (JAREN) - Final HEMOCCULT NEGATIVE Complete Imaging Last Impressions Upper Extremity MRI 05/17/17 0000 Signed Impressions: Service Date/Time: May 17:56 - CONCLUSION: 1. Extensive cellulitis and fasciitis of the left arm with probable microabscess formation along the posterior fascial surface of the arm musculature. No drainable fluid. There is also muscular edema but no evidence for osteomyelitis. Chava Robbins MD Hip and Pelvis X-Ray 05/17/17 0000 Signed Impressions: Service Date/Time: May 19:10 - CONCLUSION: 1. Postoperative left hip replacement. Mild sclerosis of the right femoral head that could represent mild changes of avascular necrosis. Chava Robbins MD Central Venous Line 05/15/17 1339 Signed Impressions: Service Date/Time: Monday, May 15, 2017 16:14 - CONCLUSION: Uncomplicated line placement as above. Anish Avila MD Chest X-Ray 05/14/17 0000 Signed Impressions: Service Date/Time: Sunday, May 14, 2017 07:50 - CONCLUSION: Minimal bibasilar patchy infiltrates. Francisco Coulter MD Liver Ultrasound 10/2/17 0000 Signed Impressions: Service Date/Time: Sunday, May 07, 2017 18:39 - CONCLUSION: 1. Hepatosplenomegaly 2. Gallbladder sludge. 3. Mild dilatation of the common bile duct. Because of this mild dilatation is not seen. 4. Echogenic right kidney which can be seen with medical renal disease. Brent Nugent MD Upper Extremity Ultrasound 05/06/17918 Signed Impressions: Service Date/Time: Saturday, May 06, 2017 09:20 - CONCLUSION: There is noncompressible occlusive clot identified in the right basilic, within the right proximal cephalic vein with nonvisualization of the mid and distal portion of the cephalic vein secondary to patient movement. Additional clot is identified within the left mid and distal radial vein. There are bilateral axillary lymph nodes noted. Somewhat larger on the left. Norma Sampson MD Head CT 05/06/17918 Signed Impressions: Service Date/Time: Saturday, May 06, 2017 10:48 - CONCLUSION: Normal examination. Norma Sampson MD Upper Extremity CT 05/06/17 Signed Impressions: Service Date/Time: Saturday, May 06, 2017 15:56 - CONCLUSION: Normal examination other than reactive adenopathy throughout the right axilla. Jose Angel Huizar MD CT Angiography 05/06/17 Signed Impressions: Service Date/Time: Saturday, May 06, 2017 15:42 - CONCLUSION: Normal examination of the pulmonary arteries. Extensive edema and reactive adenopathy throughout both axilla left worse than right. Jose Angel Huizar MD Physical Exam CONSTITUTIONAL/GENERAL: This is an adequately nourished patient, in NAD TUBES/LINES/DRAINS: SKIN: No jaundice, no rash RESPIRATORY/CHEST: unlabored respirations. MUSCULOSKELETAL: lower extremities without clubbing, cyanosis, or edema. RUE edema and erythema has markedly improved, crusting LUE with persistent weeping edema, erythema, induration looks about the same as yday There is a very tense, indurated area on prox forearm exquisetely tender to palpation NEUROLOGICAL: Awake and alert. non focal; ambulates around avery PSYCHIATRIC: calm and pleasant Assessment & Plan Remarks Assessment and Plan Sepsis, GAS from BUE complicated SSTI BUE complicated SSTI, cellulitis, CT e/o abscesses (loculated fluid collection) group A - ortho recommends conservative treatmetn and monitoring for signs of compartment sdf - likely has myocytis based on MRI - no drainagble abcessws BUE DVT Thrombocytopenia with high fibrinogen Refractory hyponatremia - markedly improved Hep C + / HIV negative Persistent fever and leukocytosis: resolved -cont ampicillin - will restart clindamycin (po ) Once get better and ready for dc will switch to PO - monitor for the need of drainage anticipate at least 4 weeks of total abx course - fu WBC dw Jeannie Calderon MD May 18, 2017 14:54
[2017-05-18] MEDS: CLINDAMYCIN 150 MG CAP PO SCH ×2 (15:33→21:19)
[2017-05-18 16:00] VITALS: BP 141/68; PULSE 70; RESP 19; TEMP 98.2; O2SAT 100
--- NOTE | 2017-05-18 17:19 | HHI.PR ---
Subjective Remarks Still w significant pain and swelling in left upper extremity denies fevers/chills was able to sleep overnight sodium trending up Objective Vitals Vital Signs Date Time Temp Pulse Resp B/P (MAP) Pulse Ox O2 Delivery O2 Flow Rate FiO2 05/18/17 16:00 98.2 70 19 141/68 (92) 100 05/18/17 12:00 97.9 78 17 118/58 (78) 99 05/18/17 08:00 97.2 82 19 140/64 (89) 100 05/18/17 00:15 98.2 72 18 126/58 (80) 98 05/17/17 20:00 98.2 90 18 127/71 (89) 99 I/O 05/17/17 05/17/17 05/17/17 05/18/17 05/18/17 05/18/17 06:59 14:59 22:59 06:59 14:59 22:59 Intake Total 766 ml 700 ml 820 ml 200 ml 320 ml 100 ml Output Total 850 ml Balance 766 ml 700 ml -30 ml 200 ml 320 ml 100 ml Intake Oral 620 ml 120 ml IV Total 306 ml 300 ml 200 ml 200 ml 200 ml 100 ml Packed Cells 400 ml 400 ml Blood Product IV Normal Saline Flush 60 ml Output Urine Total 850 ml # Voids 2 2 # Bowel Movements 1 0 1 Result Diagram: 05/18/17 0450 05/18/17 1315 Imaging Last Impressions Upper Extremity MRI 05/17/17 0000 Signed Impressions: Service Date/Time: May 17:56 - CONCLUSION: 1. Extensive cellulitis and fasciitis of the left arm with probable microabscess formation along the posterior fascial surface of the arm musculature. No drainable fluid. There is also muscular edema but no evidence for osteomyelitis. Chava Robbins MD Hip and Pelvis X-Ray 05/17/17 0000 Signed Impressions: Service Date/Time: May 19:10 - CONCLUSION: 1. Postoperative left hip replacement. Mild sclerosis of the right femoral head that could represent mild changes of avascular necrosis. Chava Robbins MD Central Venous Line 05/15/17 1339 Signed Impressions: Service Date/Time: Monday, May 15, 2017 16:14 - CONCLUSION: Uncomplicated line placement as above. Anish Avila MD Chest X-Ray 05/14/17 Signed Impressions: Service Date/Time: Sunday, May 14, 2017 07:50 - CONCLUSION: Minimal bibasilar patchy infiltrates. Francisco Coulter MD Liver Ultrasound 05/07/17 Signed Impressions: Service Date/Time: Sunday, May 07, 2017 18:39 - CONCLUSION: 1. Hepatosplenomegaly 2. Gallbladder sludge. 3. Mild dilatation of the common bile duct. Because of this mild dilatation is not seen. 4. Echogenic right kidney which can be seen with medical renal disease. Brent Nugent MD Upper Extremity Ultrasound 05/06/17918 Signed Impressions: Service Date/Time: Saturday, May 06, 2017 09:20 - CONCLUSION: There is noncompressible occlusive clot identified in the right basilic, within the right proximal cephalic vein with nonvisualization of the mid and distal portion of the cephalic vein secondary to patient movement. Additional clot is identified within the left mid and distal radial vein. There are bilateral axillary lymph nodes noted. Somewhat larger on the left. Norma Sampson MD Head CT 05/06/17918 Signed Impressions: Service Date/Time: Saturday, May 06, 2017 10:48 - CONCLUSION: Normal examination. Norma Sampson MD Upper Extremity CT 05/06/17 Signed Impressions: Service Date/Time: Saturday, May 06, 2017 15:56 - CONCLUSION: Normal examination other than reactive adenopathy throughout the right axilla. Jose Angel Huizar MD CT Angiography 05/06/17 Signed Impressions: Service Date/Time: Saturday, May 06, 2017 15:42 - CONCLUSION: Normal examination of the pulmonary arteries. Extensive edema and reactive adenopathy throughout both axilla left worse than right. Jose Angel Huizar MD Objective Remarks Awake, alert and oriented 3 There is significant edema especially in the left upper extremity with associated crusting. abdomen soft, non tender, non distended no edema in lower extremities. There is a left sided IJ Procedures 05/07/2017 Echo Normal left ventricular size and wall thickness. The left ventricular systolic function is normal with an estimated ejection fraction in the range of 60-65%. Left ventricular diastolic function parameters are normal. There is trace tricuspid valve regurgitation. The estimated pulmonary arterial pressure is 14.2 mmHg. No massess or vegetations noted Urinary Catheter: No Vascular Central Line Catheter: No Side: Right Location: Subclavian A/P Problem List: (1) Bacteremia due to Streptococcus ICD Code: R78.81 - Bacteremia (2) Cellulitis of left upper extremity ICD Code: L03.114 - Cellulitis of left upper limb (3) Cellulitis of right upper extremity ICD Code: L03.113 - Cellulitis of right upper limb (4) Group A streptococcal infection ICD Code: B95.0 - Streptococcus, group A, as the cause of diseases classified elsewhere Assessment and Plan Mr. Schulte is a pleasant 37 year old [employer] with a history of TBI, anxiety, depression who was admitted to the hospital on 05/06/2017 due to progressive swelling, erythema, blisters of both upper extremities, especially left upper ext. Several days prior to this admission, patient was taking care of his generator. He cut is arms and subsequently also burned his arms by the exhaust system of the generator. In the ensuing days, he noticed progressive erythema, swelling of his upper extremities and he also developed nausea, vomiting, diarrhea. Upon arrival, HR 128, Resp 18, BP 132/68. Temp 98%, 99% on 2L of O2 via NC. WBC 3.3 with 89.5% neutrophils, Hgb 13.6, HCT 38.2, Plt 71K. Sodium 102, Potassium 3.8, Cr 1.15, Lactic acid 3.7, 4.1. CT of the extremities indicated soft tissue swelling but no evidence of necrotizing fascitis. Orthopedic surgery, ID were consulted. Patient was started on Vancomycin, Zosyn and Clindamycin. - Severe Sepsis (Tachycardia, WBC < 4.0, Lactic acid >2.0, know infection upper ext). - Bilateral upper extremity cellulitis due to Group A streptococcus - Bacteremia due to Group A Streptococcus - ID consulted on following patient. Continue antibiotics as per ID. -Patient is currently on Ampicillin IV 2g Q4hrs and Clindamycin 900 mg Q8hrs. - Continue wound care. - Orthopedic surgery evaluated patient and recommended no surgical intervention. - Continue Percocet and keep Dilaudid for breakthrough. - Femoral line discontinued --> Right IJ placed - 05/[address] John. there is still significant erythema and swelling of the left upper extremity, along with some induration. ID recommends ordering MRI of upper extremities to r/o abscess formation. Will follow. Clindamycin DC'd, continue Ampicillin as per ID recommendations. - 05/18 MRI upper extremities noted. MRI of the left upper extremity shows extensive cellulitis and fasciitis of the left arm with probable microabscesses formation along the posterior fascial surface of the musculature, no drainable fluid. There is also muscular edema but no evidence of osteomyelitis. I will call Dr. Lenny bishop from orthopedic surgery to discuss case with him. - Bilateral upper extremity DVT - Thrombocytopenia - Hematology was consulted. Heparin drip was discontinued and patient was transitioned to Apixaban. - Thrombocytopenia is likely due to hepatosplenomegaly as well as infection, medications. - PLT count improved to 215K - WBC 22.9 --> 16.6 --> 14.2 - Thrombocytopenia resolved. Continue management as per hematology oncology. Continue apixaban. - Leukocytosis resolved. Continue to monitor CBC. - Acute kidney injury - Hyponatremia - BEATRIZ likely due to volume depletion, sepsis. Currently resolved. - Hyponatremia is possibly psychotropic meds - Buspirone, Lexapro. - Patient has not found these meds helpful. - Hyponatremia 129 --> 121 --> 123. - Nephrology consulted. Patient on 1 liter fluid restriction - 05/16 Continue to monitor BMP. Nephrology following. Case discussed with franki Norris ([facility]). Patient will be started on sodium chloride tablets. - 05/18 patient started on sodium chloride tablets on 05/17. Sodium slowly trending up and now 128 from 126. - Anxiety/Depression - TBI - Continue Clonazepam 0.5mg BID. - Continue Trazodone. -- 05/17 seems to be stable. Offered psychiatric help however patient states will not take any antipsychotics again. Full code. Apixaban. Discharge Planning Patient still hyponatremic, cellulitis still present, pending clinical improvement and ID clearance. Jonel Correa MD May 18, 2017 17:19
[2017-05-18 20:37] VITALS: BP 143/74; PULSE 76; RESP 20; TEMP 96.8; O2SAT 98
[2017-05-18] MEDS: ZOLPIDEM TARTRATE 10 MG TAB PO PRN (21:21)
[2017-05-18] MEDS: traZODone HCL 100 MG TAB PO SCH (21:21)
[2017-05-19] MEDS: HYDROmorphone HCL PF 1 MG/ML VIAL IV PUSH PRN ×5 (00:13→16:03)
[2017-05-19 00:24] VITALS: BP 158/78; PULSE 79; RESP 20; TEMP 98.7; O2SAT 98
[2017-05-19] MEDS: oxyCODONE/ACETAMINOPHEN 10 MG/325 MG TAB PO PRN ×6 (01:16→22:43)
[2017-05-19] MEDS: CLINDAMYCIN 150 MG CAP PO SCH ×4 (03:43→21:25)
[2017-05-19] MEDS: AMPICILLIN 2 GM/NS 100 ML IV SCH ×12 (03:43→22:43)
[2017-05-19 04:41] LABS: AUTOMATED NEUTROPHIL # 3.4 TH/MM3 (1.8-7.7); BASOPHIL # 0.1 TH/MM3 (0-0.2); BASOPHIL % 1.3 % (0.0-2.0); EOSINOPHIL # 0.1 TH/MM3 (0-0.4); EOSINOPHIL % 0.9 % (0.0-4.0); HEMATOCRIT 30.3 % (39.0-51.0); HEMO FLAGS DIFF FINAL; LYMPH % 35.3 % (9.0-44.0); LYMPHOCYTE # 2.6 TH/MM3 (1.0-4.8); MEAN CELL VOLUME 86.1 FL (80.0-100.0); MEAN CORPUSCULAR HGB CONC 33.7 % (32.0-36.0); MONO % 15.8 % (0.0-8.0); NEUT % 46.7 % (16.0-70.0); PLATELET COUNT 496 TH/MM3 (150-450); RED BLOOD COUNT 3.52 MIL/MM3 (4.50-5.90); RED CELL DISTRIBUTION WIDTH 14.6 % (11.6-17.2); WHITE BLOOD COUNT 7.3 TH/MM3 (4.0-11.0)
[2017-05-19 05:14] LABS: BICARBONATE 26.7 MEQ/L (21.0-32.0); MAGNESIUM 1.9 MG/DL (1.5-2.5); POTASSIUM 4.1 MEQ/L (3.5-5.1)
[2017-05-19 08:00] VITALS: BP 134/71; PULSE 67; RESP 18; TEMP 97.9; O2SAT 100
[2017-05-19] MEDS: SODIUM CHLORIDE 0.9% FLUSH 10 ML FLUSH IV FLUSH SCH ×3 (08:33→20:06)
[2017-05-19] MEDS: clonazePAM 1 MG TAB PO SCH ×2 (08:36→20:03)
[2017-05-19] MEDS: DOCUSATE SODIUM 50 MG/SENNA 8.6 MG TAB PO SCH ×2 (08:38→20:10)
[2017-05-19] MEDS: SODIUM CHLORIDE 1 GRAM TAB PO SCH ×2 (08:38→20:03)
[2017-05-19] MEDS: FAMOTIDINE 20 MG TAB PO SCH ×2 (08:38→20:03)
[2017-05-19] MEDS: APIXABAN 5 MG TABLET PO SCH ×2 (08:39→20:04)
[2017-05-19 12:00] VITALS: BP 123/70; PULSE 80; RESP 17; TEMP 97.5; O2SAT 99
[2017-05-19] MEDS: DILTIAZEM HCL 60 MG TAB PO SCH ×3 (12:14→12:18)
--- NOTE | 2017-05-19 14:43 | HHI.NPPN ---
Subjective Renal Failure: Acute Additional Remarks Hungry today, no acute complaints Review of Systems General Constitutional: Fatigue Endocrine Endocrine: Thirst Objective Data Data Vital Signs Date Time Temp Pulse Resp B/P (MAP) Pulse Ox O2 Delivery O2 Flow Rate FiO2 05/19/17 12:00 97.5 80 17 123/70 (87) 99 05/19/17 08:00 97.9 67 18 134/71 (92) 100 05/19/17 06:10 18 05/19/17 00:24 98.7 79 20 158/78 (104) 98 05/18/17 20:39 20 05/18/17 20:37 96.8 76 20 143/74 (97) 98 05/18/17 16:00 98.2 70 19 141/68 (92) 100 -: 05/19/17 0425 05/19/17 0425 Tubes & Lines Comment TLC Physical Exam General Appearance: Well Developed, Well Nourished, No Acute Distress, Comfortable Eyes Eye Exam: Pupils Equal Throat Throat Exam: Oral Mucosa [place] & Moist Pulmonary Resp Exam: Clear Bilaterally, Breath Sounds Equal, No Distress Cardiology CV Exam: Regular, Normal Sinus Rhythm, Good Perfusion Gastrointestinal/Abdomen GI Exam: Soft, Non-Tender, Bowel Sounds Present Musculoskeletal MS Exam: Joints Intact, Normal Tone, Good Strength Integumentary Skin Exam: Warm, Dry Extremeties Extremities Exam: No Edema, Pedal Pulses Palpable Neurologic Neuro Exam: Alert, Awake, Oriented, Speech Clear, Moving All Extremities Assessment/Plan Discussed Condition With: Patient Assessment Summary: BEATRIZ/Acute Renal Failure Electrolyte Assessment: Hyponatremia Problem List: (1) Hyponatremia ICD Codes: E87.1 - Hypo-osmolality and hyponatremia Plan: Mixed picture Sodium had initially improved with oral fluid restriction, 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 (off water restriction today while on tolvaptan dose). Follow AM labs. Avoid IVF; limit oral intake . Continue to monitor BMP (2) BEATRIZ (acute kidney injury) ICD Codes: N17.9 - Acute kidney failure, unspecified Plan: Secondary to renal hypoperfusion from sepsis Renal function has returned to baseline Monitor for changes Avoid nephrotoxins. (3) Sepsis ICD Codes: A41.9 - Sepsis, unspecified organism Plan: ID is following Continue antibiotics MRI reviewed, he has microabscessed and significant inflammation of left arm continue wound care (4) Acute bilateral deep vein thrombosis (DVT) of upper extremities ICD Codes: I82.623 - Acute embolism and thrombosis of deep veins of upper extremity, bilateral Plan: he is on eliquis x 6 months hematology following Chris Pedro MD May 19, 2017 14:43
[2017-05-19] MEDS ORDERED: TOLVAPTAN 15 MG TAB PO ONE (14:45)
[2017-05-19 15:55] LABS: BASOPHIL # 0.2 TH/MM3 (0-0.2); BASOPHIL % 2.4 % (0.0-2.0); EOSINOPHIL # 0.1 TH/MM3 (0-0.4); HEMATOCRIT 27.9 % (39.0-51.0); HEMO FLAGS DIFF FINAL; LYMPH % 36.4 % (9.0-44.0); LYMPHOCYTE # 2.5 TH/MM3 (1.0-4.8); MEAN CELL VOLUME 86.9 FL (80.0-100.0); MEAN CORPUSCULAR HEMOGLOBIN 29.4 PG (27.0-34.0); MEAN CORPUSCULAR HGB CONC 33.9 % (32.0-36.0); MONO % 15.2 % (0.0-8.0); PLATELET COUNT 518 TH/MM3 (150-450); RED BLOOD COUNT 3.21 MIL/MM3 (4.50-5.90); RED CELL DISTRIBUTION WIDTH 14.7 % (11.6-17.2); WHITE BLOOD COUNT 6.8 TH/MM3 (4.0-11.0)
[2017-05-19 16:00] VITALS: BP 128/73; PULSE 82; RESP 17; TEMP 96.9; O2SAT 100
[2017-05-19] MEDS ORDERED: ENOXAPARIN SODIUM 40 MG/0.4 ML SYRINGE SQ SCH (18:00)
--- NOTE | 2017-05-19 18:14 | HHI.PR ---
Subjective Remarks Patient deneis fevers or chills still c/o pain in the left arm and also c/o pain in the left buttock patient also c/o swollen left lower extremity As per RN pain has not been well controlled with current medication Objective Vitals Vital Signs Date Time Temp Pulse Resp B/P (MAP) Pulse Ox O2 Delivery O2 Flow Rate FiO2 05/19/17 16:00 96.9 82 17 128/73 (91) 100 05/19/17 12:00 97.5 80 17 123/70 (87) 99 05/19/17 08:00 97.9 67 18 134/71 (92) 100 05/19/17 06:10 18 05/19/17 00:24 98.7 79 20 158/78 (104) 98 05/18/17 20:39 20 05/18/17 20:37 96.8 76 20 143/74 (97) 98 I/O 05/18/17 05/18/17 05/18/17 05/19/17 05/19/17 05/19/17 06:59 14:59 22:59 06:59 14:59 22:59 Intake Total 200 ml 320 ml 950 ml 560 ml 100 ml Output Total 900 ml Balance 200 ml 320 ml 50 ml 560 ml 100 ml Intake Oral 120 ml 750 ml 360 ml IV Total 200 ml 200 ml 200 ml 200 ml 100 ml Output Urine Total 900 ml # Voids 2 4 # Bowel Movements 1 0 Result Diagram: 05/19/17 1510 05/19/17 0425 Objective Remarks Awake, alert and oriented 3 There is significant edema especially in the left upper extremity with associated crusting. No subcutaneous gas palpated. Induration seems to be better than previous day. There is erythema, warmth and induration on left buttock. Left lower extremity edema abdomen soft, non tender, non distended no edema in lower extremities. There is a left sided IJ Good peripheral pulses in all extremities Procedures 05/07/2017 Echo Normal left ventricular size and wall thickness. The left ventricular systolic function is normal with an estimated ejection fraction in the range of 60-65%. Left ventricular diastolic function parameters are normal. There is trace tricuspid valve regurgitation. The estimated pulmonary arterial pressure is 14.2 mmHg. No massess or vegetations noted Medications and IVs Current Medications Medications (Trade) Dose Ordered Sig/Hafsa Route Start Time Stop Time Status Last Admin (NS Flush) 2 ml UNSCH PRN IV FLUSH 05/06/17 12:45 05/15/17 05:50 (NS Flush) 2 ml BID IV FLUSH 05/06/17 21:00 05/19/17 08:33 Miscellaneous Information 1 Q361D XX 05/06/17 12:45 05/06/17 12:45 (Chlorhexidine 2% Cloth) Taper DAILY@04 TOP 05/07/17 04:00 05/03/18 03:59 05/11/17 03:45 (Chlorhexidine 2% Cloth) 3 pack UNSCH PRN TOP 05/06/17 12:45 (Tammy-Colace) 1 tab BID PO 05/06/17 21:00 05/17/17 21:12 (Milk Of Magnesia Liq) 30 ml Q12H PRN PO 05/06/17 12:45 (Senokot) 17.2 mg Q12H PRN PO 05/06/17 12:45 (Dulcolax Supp) 10 mg DAILY PRN RECTAL 05/06/17 12:45 (Lactulose Liq) 30 ml DAILY PRN PO 05/06/17 12:45 (Tylenol) 650 mg Q6H PRN PO 05/06/17 14:30 05/13/17 11:34 (Zofran Inj) 4 mg Q8HR PRN IV PUSH 05/06/17 14:30 05/06/17 18:39 (Cardizem) 60 mg Q6HR PO 05/06/17 14:45 05/14/17 18:52 (Apresoline Inj) 10 mg Q6H PRN IV PUSH 05/06/17 14:45 (KlonoPIN) 0.5 mg BID PO 05/07/17 11:15 05/19/17 08:36 (Desyrel) 200 mg HS PO 05/07/17 21:00 05/18/17 21:21 (Dilaudid Pf Inj) 1 mg Q4H PRN IV PUSH 05/07/17 10:15 05/19/17 16:03 Ampicillin Sodium 2000 mg/Sodium Chloride 100 ml @ 300 mls/hr Q4H IV 05/08/17 11:00 05/19/17 15:02 (Ambien) 10 mg HS PRN PO 05/11/17 21:00 05/18/17 21:21 (Pepcid) 20 mg BID PO 05/11/17 21:00 05/19/17 08:38 (Albuterol Neb) 2.5 mg Q2HR NEB PRN NEB 05/11/17 13:00 (Percocet 10-325 Mg) 1 tab Q4H PRN PO 05/12/17 10:00 05/19/17 17:27 (Eliquis) 10 mg BID PO 05/14/17 21:00 05/21/17 20:59 05/19/17 08:39 (NS Flush) DAILY IV FLUSH 05/16/17 09:00 05/19/17 08:33 (NS Flush) UNSCH PRN IV FLUSH 05/15/17 17:15 (Sodium Chloride) 1 gm BID PO 05/18/17 09:00 05/19/17 08:38 (Cleocin) 300 mg Q6H PO 05/18/17 16:00 05/19/17 16:03 Side: Right Location: Subclavian A/P Problem List: (1) Bacteremia due to Streptococcus ICD Code: R78.81 - Bacteremia (2) Cellulitis of left upper extremity ICD Code: L03.114 - Cellulitis of left upper limb (3) Cellulitis of right upper extremity ICD Code: L03.113 - Cellulitis of right upper limb (4) Group A streptococcal infection ICD Code: B95.0 - Streptococcus, group A, as the cause of diseases classified elsewhere Assessment and Plan Mr. Schulte is a pleasant 37 year old [employer] with a history of TBI, anxiety, depression who was admitted to the hospital on 05/06/2017 due to progressive swelling, erythema, blisters of both upper extremities, especially left upper ext. Several days prior to this admission, patient was taking care of his generator. He cut is arms and subsequently also burned his arms by the exhaust system of the generator. In the ensuing days, he noticed progressive erythema, swelling of his upper extremities and he also developed nausea, vomiting, diarrhea. Upon arrival, HR 128, Resp 18, BP 132/68. Temp 98%, 99% on 2L of O2 via NC. WBC 3.3 with 89.5% neutrophils, Hgb 13.6, HCT 38.2, Plt 71K. Sodium 102, Potassium 3.8, Cr 1.15, Lactic acid 3.7, 4.1. CT of the extremities indicated soft tissue swelling but no evidence of necrotizing fascitis. Orthopedic surgery, ID were consulted. Patient was started on Vancomycin, Zosyn and Clindamycin. - Severe Sepsis (Tachycardia, WBC < 4.0, Lactic acid >2.0, know infection upper ext). - Bilateral upper extremity cellulitis due to Group A streptococcus - Bacteremia due to Group A Streptococcus - ID consulted on following patient. Continue antibiotics as per ID. -Patient is currently on Ampicillin IV 2g Q4hrs and Clindamycin 900 mg Q8hrs. - Continue wound care. - Orthopedic surgery evaluated patient and recommended no surgical intervention. - Continue Percocet and keep Dilaudid for breakthrough. - Femoral line discontinued --> Right IJ placed - 05/[address] John. there is still significant erythema and swelling of the left upper extremity, along with some induration. ID recommends ordering MRI of upper extremities to r/o abscess formation. Will follow. Clindamycin DC'd, continue Ampicillin as per ID recommendations. - MRI upper extremities noted. MRI of the left upper extremity shows extensive cellulitis and fasciitis of the left arm with probable microabscesses formation along the posterior fascial surface of the musculature, no drainable fluid. There is also muscular edema but no evidence of osteomyelitis. I will call Dr. Lenny Irving from orthopedic surgery to discuss case with him. - Bilateral upper extremity DVT - Thrombocytopenia - Hematology was consulted. Heparin drip was discontinued and patient was transitioned to Apixaban. - Thrombocytopenia is likely due to hepatosplenomegaly as well as infection, medications. - PLT count improved to 215K - WBC 22.9 --> 16.6 --> 14.2 - Thrombocytopenia resolved. Continue management as per hematology oncology. Continue apixaban. - Leukocytosis resolved. Continue to monitor CBC. - Acute kidney injury - Hyponatremia - BEATRIZ likely due to volume depletion, sepsis. Currently resolved. - Hyponatremia is possibly psychotropic meds - Buspirone, Lexapro. - Patient has not found these meds helpful. - Hyponatremia 129 --> 121 --> 123. - Nephrology consulted. Patient on 1 liter fluid restriction - Patient started on sodium chloride tablets and sodium is slowly trending up. Continue management as per nephrology recommendations. - Anxiety/Depression - TBI - Continue Clonazepam 0.5mg BID. - Continue Trazodone. -- 05/17 seems to be stable. Offered psychiatric help however patient states will not take any antipsychotics again. Left lower extremity swelling - Check venous doppler to r/o DVT. - Cellulitis of Left Buttock - Left buttock warm and indurated on exam as well as very tender. Will order a Soft tissue us to r/o abscess formation. Full code. Apixaban. Discharge Planning Patient still hyponatremic, cellulitis still present, pending clinical improvement and ID clearance. Jonel Correa MD May 19, 2017 18:14
[2017-05-19] MEDS: traZODone HCL 100 MG TAB PO SCH (20:03)
[2017-05-19] MEDS: HYDROmorphone HCL PF 2 MG/ML VIAL IV PRN (20:05)
[2017-05-19 20:31] VITALS: BP 126/59; PULSE 80; RESP 18; TEMP 97.1; O2SAT 99
--- NOTE | 2017-05-19 20:39 | RADRPT ---
EXAM DATE/TIME: 05/19/2017 19:45 [facility] COMPARISON: No previous studies available for comparison. INDICATIONS : Left leg swelling. MEDICAL HISTORY : Seizures. Abdominal pain. Nausea. Vomiting. Post traumatic stress disorde r. Depression. Anxiety. SURGICAL HISTORY : Left hip surgery. ENCOUNTER: Initial ACUITY: 1 day PAIN SCORE: 5/10 LOCATION: Left leg. TECHNIQUE: Venous ultrasound of the leg was performed from the inguinal ligament to the proximal calf. Real-time, color Doppler and spectral tracing, compression and augmentation techniques were us ed. FINDINGS: There is normal compressibility of the deep venous system from the inguinal region to the proximal ca lf. No echogenic clot is seen in the lumen of the common femoral, femoral, popliteal, and posterior tibial veins. There is a normal response of the venous system to proximal and distal augmentation an d respiration. CONCLUSION: No evidence of DVT. Wilbert Bradley MD on May 19, 2017 at 20:37 Board Certified Radiologist. This report was verified electronically.
--- NOTE | 2017-05-19 20:40 | RADRPT ---
EXAM DATE/TIME: 05/19/2017 19:50 [facility] COMPARISON: No previous studies available for comparison. INDICATIONS : Redness/swelling left buttocks. MEDICAL HISTORY : Seizures. Abdominal pain. Nausea. Vomiting. Post traumatic stress disorder. Depression. Anxiety. SURGICAL HISTORY : Left hip surgery. ENCOUNTER: Initial ACUITY: 1 day PAIN SCORE: 5/10 LOCATION: Left buttocks. AREA EVALUATED: Left buttocks. FINDINGS: MASSES: None. FLUID COLLECTIONS: None. OTHER: Soft tissue swelling and increased vascularity is noted. CONCLUSION: No evidence of abscess or abnormal fluid collections. Soft tissue swelling. Wilbert Bardley MD on May 19, 2017 at 20:38 Board Certified Radiologist. This report was verified electronically.
[2017-05-19] MEDS: MORPHINE SULFATE 15 MG CONTROLLED RELEASE TAB PO SCH (21:25)
[2017-05-19] MEDS: ZOLPIDEM TARTRATE 10 MG TAB PO PRN (21:27)
[2017-05-20] MEDS: HYDROmorphone HCL PF 2 MG/ML VIAL IV PRN ×6 (00:07→20:43)
[2017-05-20 00:24] VITALS: BP 136/73; PULSE 84; RESP 18; TEMP 98.1; O2SAT 97
[2017-05-20] MEDS: oxyCODONE/ACETAMINOPHEN 10 MG/325 MG TAB PO PRN ×6 (02:46→22:51)
[2017-05-20] MEDS: AMPICILLIN 2 GM/NS 100 ML IV SCH ×12 (03:17→22:52)
[2017-05-20] MEDS: CLINDAMYCIN 150 MG CAP PO SCH ×4 (03:56→20:42)
[2017-05-20] MEDS: CHLORHEXIDINE GLUCONATE 2 % 1 PACK (2 CLOTHS) TOP SCH (04:00)
[2017-05-20 04:26] LABS: BICARBONATE 27.2 MEQ/L (21.0-32.0); POTASSIUM 4.4 MEQ/L (3.5-5.1)
[2017-05-20] MEDS: DILTIAZEM HCL 60 MG TAB PO SCH ×5 (05:45→22:52)
[2017-05-20] MEDS: MORPHINE SULFATE 15 MG CONTROLLED RELEASE TAB PO SCH ×3 (05:46→22:07)
[2017-05-20 08:00] VITALS: BP 125/73; PULSE 82; RESP 18; TEMP 96.8; O2SAT 98
[2017-05-20] MEDS: SODIUM CHLORIDE 0.9% FLUSH 10 ML FLUSH IV FLUSH SCH ×3 (08:20→20:48)
[2017-05-20] MEDS: clonazePAM 1 MG TAB PO SCH ×2 (08:23→20:43)
[2017-05-20] MEDS: FAMOTIDINE 20 MG TAB PO SCH ×2 (08:23→20:43)
[2017-05-20] MEDS: SODIUM CHLORIDE 1 GRAM TAB PO SCH ×2 (08:23→20:42)
[2017-05-20] MEDS: APIXABAN 5 MG TABLET PO SCH ×2 (08:24→20:42)
[2017-05-20] MEDS: DOCUSATE SODIUM 50 MG/SENNA 8.6 MG TAB PO SCH ×2 (08:26→20:47)
--- NOTE | 2017-05-20 11:41 | HHI.NPPN ---
Subjective Renal Failure: Acute Additional Remarks No acute complaints Review of Systems General Constitutional: Fatigue Endocrine Endocrine: Thirst Objective Data Data Vital Signs Date Time Temp Pulse Resp B/P (MAP) Pulse Ox O2 Delivery O2 Flow Rate FiO2 05/20/17 08:00 96.8 82 18 125/73 (90) 98 05/20/17 06:46 18 05/20/17 04:27 18 05/20/17 03:46 18 05/20/17 00:24 98.1 84 18 136/73 (94) 97 05/19/17 20:31 97.1 80 18 126/59 (81) 99 05/19/17 16:00 96.9 82 17 128/73 (91) 100 05/19/17 12:00 97.5 80 17 123/70 (87) 99 -: 05/19/17 1510 05/20/17 0345 Tubes & Lines Comment TLC Physical Exam General Appearance: Well Developed, Well Nourished, No Acute Distress, Comfortable Eyes Eye Exam: Pupils Equal Throat Throat Exam: Oral Mucosa [place] & Moist Pulmonary Resp Exam: Clear Bilaterally, Breath Sounds Equal, No Distress Cardiology CV Exam: Regular, Normal Sinus Rhythm, Good Perfusion Gastrointestinal/Abdomen GI Exam: Soft, Non-Tender, Bowel Sounds Present Musculoskeletal MS Exam: Joints Intact, Normal Tone, Good Strength Integumentary Skin Exam: Warm, Dry Extremeties Extremities Exam: No Edema, Pedal Pulses Palpable Neurologic Neuro Exam: Alert, Awake, Oriented, Speech Clear, Moving All Extremities Assessment/Plan Discussed Condition With: Patient Assessment Summary: BEATRIZ/Acute Renal Failure Electrolyte Assessment: Hyponatremia Problem List: (1) Hyponatremia ICD Codes: E87.1 - Hypo-osmolality and hyponatremia Plan: Mixed picture Sodium had initially improved with oral fluid restriction, thought to have psychogenic polydipsia after initial hypovolemic hyponatremia had corrected Repeat sodium level improved He was started on NaCl tabs Renal function is preserved Given tolvaptan 15mg x1 - 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 Na improved now - continue with fluid restriction. Avoid IVF; limit oral intake . Continue to monitor BMP (2) BEATRIZ (acute kidney injury) ICD Codes: N17.9 - Acute kidney failure, unspecified Plan: Secondary to renal hypoperfusion from sepsis Renal function has returned to baseline Monitor for changes Avoid nephrotoxins. (3) Sepsis ICD Codes: A41.9 - Sepsis, unspecified organism Plan: ID is following Continue antibiotics MRI reviewed, he has microabscessed and significant inflammation of left arm continue wound care (4) Acute bilateral deep vein thrombosis (DVT) of upper extremities ICD Codes: I82.623 - Acute embolism and thrombosis of deep veins of upper extremity, bilateral Plan: he is on eliquis x 6 months hematology following Chris Pedro MD May 20, 2017 11:41
[2017-05-20 12:00] VITALS: BP 125/70; PULSE 86; RESP 18; TEMP 97; O2SAT 99
--- NOTE | 2017-05-20 14:40 | PD.ORT.PN ---
Subjective Subjective Remarks He is experiencing mild increase in left forearm pain. No fever no chills. Right forearm has improved. Objective Vitals Vital Signs Date Time Temp Pulse Resp B/P (MAP) Pulse Ox O2 Delivery O2 Flow Rate FiO2 05/20/17 12:00 97.0 86 18 125/70 (88) 99 05/20/17 08:00 96.8 82 18 125/73 (90) 98 05/20/17 06:46 18 05/20/17 04:27 18 05/20/17 03:46 18 05/20/17 00:24 98.1 84 18 136/73 (94) 97 05/19/17 20:31 97.1 80 18 126/59 (81) 99 05/19/17 16:00 96.9 82 17 128/73 (91) 100 I/O 05/19/17 05/19/17 05/19/17 05/20/17 05/20/17 05/20/17 07:00 15:00 23:00 07:00 15:00 23:00 Intake Total 560 ml 100 ml 1270 ml 680 ml Balance 560 ml 100 ml 1270 ml 680 ml Intake Oral 360 ml 1070 ml 480 ml IV Total 200 ml 100 ml 200 ml 200 ml # Voids 4 5 5 # Bowel Movements 1 1 Result Diagram: 05/19/17 1510 05/20/17 0345 Imaging Last Impressions Upper Extremity Ultrasound 05/06/17918 Signed Impressions: Service Date/Time: Saturday, May 06, 2017 09:20 - CONCLUSION: There is noncompressible occlusive clot identified in the right basilic, within the right proximal cephalic vein with nonvisualization of the mid and distal portion of the cephalic vein secondary to patient movement. Additional clot is identified within the left mid and distal radial vein. There are bilateral axillary lymph nodes noted. Somewhat larger on the left. Norma Sampson MD Head CT 05/06/17918 Signed Impressions: Service Date/Time: Saturday, May 06, 2017 10:48 - CONCLUSION: Normal examination. Norma Sampson MD Chest X-Ray 05/06/17918 Signed Impressions: Service Date/Time: Saturday, May 06, 2017 11:17 - CONCLUSION: Normal examination. Norma Sampson MD Upper Extremity CT 05/06/17 0000 Signed Impressions: Service Date/Time: Saturday, May 06, 2017 15:56 - CONCLUSION: Normal examination other than reactive adenopathy throughout the right axilla. Jose Angel Huizar MD CT Angiography 05/06/17 0000 Signed Impressions: Service Date/Time: Saturday, May 06, 2017 15:42 - CONCLUSION: Normal examination of the pulmonary arteries. Extensive edema and reactive adenopathy throughout both axilla left worse than right. Jose Angel Huizar MD Objective Remarks RIGHT UPPER EXTREMITY: generalized swelling of the forearm Soft to palpation, soft compartments No fluctuance elbow ROM 20-110. SILT distally. able to wiggle fingers Neuro intact Vascular intact LEFT UPPER EXTREMITY: generalized swelling of the forearm/elbow/arm more so than the right. Multiple small areas of patchy dry skin. No blisters or bulleas. Mild generalized errythema Soft to palpation, soft compartments No fluctuance elbow ROM 30-90. SILT distally. able to wiggle fingers Neuro intact Vascular intact Assessment & Plan Assessment and Plan 1. Severe/improving Strep infectious process left upper extremity(Cellulitis/ Myositis/Fascitis) 2. Deep venous thrombosis left upper extremity. Although he has experienced slightly increasing pain in the left forearm, there is no clinical evidence of abscess, nec fascitis or compartment syndrome. He is grossly neurovascularly intact bilateral upper extremities. He has diffuse bilateral forearm swelling with overlying edema and mild cellulitis. He is able to fully flex and extend his fingers. I recommend continue medical management with IV antibiotics. Sheldon Bradshaw Jr., MD May 20, 2017 14:40
[2017-05-20 16:00] VITALS: BP 126/64; PULSE 80; RESP 17; TEMP 97.5; O2SAT 99
[2017-05-20 20:00] VITALS: BP 121/57; PULSE 89; RESP 18; TEMP 97.9; O2SAT 100
[2017-05-20] MEDS: traZODone HCL 100 MG TAB PO SCH (20:48)
[2017-05-20] MEDS: ZOLPIDEM TARTRATE 10 MG TAB PO PRN (22:55)
[2017-05-21] VITALS: BP 117/56; PULSE 78; RESP 18; TEMP 97.2; O2SAT 98
[2017-05-21] MEDS: HYDROmorphone HCL PF 2 MG/ML VIAL IV PRN ×4 (00:50→21:42)
[2017-05-21] MEDS: oxyCODONE/ACETAMINOPHEN 10 MG/325 MG TAB PO PRN ×5 (03:18→20:14)
[2017-05-21] MEDS: CLINDAMYCIN 150 MG CAP PO SCH ×4 (03:18→20:16)
[2017-05-21] MEDS: AMPICILLIN 2 GM/NS 100 ML IV SCH ×8 (03:19→15:24)
[2017-05-21] MEDS: CHLORHEXIDINE GLUCONATE 2 % 1 PACK (2 CLOTHS) TOP SCH (03:19)
[2017-05-21] MEDS: DILTIAZEM HCL 60 MG TAB PO SCH ×4 (04:48→23:47)
[2017-05-21 05:32] LABS: AUTOMATED NEUTROPHIL # 2.4 TH/MM3 (1.8-7.7); BASOPHIL # 0.1 TH/MM3 (0-0.2); BASOPHIL % 1.3 % (0.0-2.0); EOSINOPHIL # 0.1 TH/MM3 (0-0.4); EOSINOPHIL % 1.2 % (0.0-4.0); HEMATOCRIT 28.1 % (39.0-51.0); HEMO FLAGS DIFF FINAL; LYMPH % 38.1 % (9.0-44.0); LYMPHOCYTE # 2.2 TH/MM3 (1.0-4.8); MEAN CELL VOLUME 85.6 FL (80.0-100.0); MEAN CORPUSCULAR HEMOGLOBIN 29.2 PG (27.0-34.0); MEAN CORPUSCULAR HGB CONC 34.1 % (32.0-36.0); MONO % 16.8 % (0.0-8.0); NEUT % 42.6 % (16.0-70.0); PLATELET COUNT 425 TH/MM3 (150-450); RED BLOOD COUNT 3.28 MIL/MM3 (4.50-5.90); RED CELL DISTRIBUTION WIDTH 14.1 % (11.6-17.2); WHITE BLOOD COUNT 5.7 TH/MM3 (4.0-11.0)
[2017-05-21] MEDS: MORPHINE SULFATE 15 MG CONTROLLED RELEASE TAB PO SCH ×2 (05:53→21:41)
[2017-05-21 05:54] LABS: ANION GAP 7 MEQ/L (5-15); AST (GOT) 20 U/L (15-37); BICARBONATE 27.6 MEQ/L (21.0-32.0); BLOOD UREA NITROGEN 2 MG/DL (7-18); CHLORIDE 97 MEQ/L (98-107); GLOMERULAR FILTRATION RATE 137 ML/MIN (>89); POTASSIUM 4.2 MEQ/L (3.5-5.1); SODIUM (NA) 132 MEQ/L (136-145)
[2017-05-21 05:55] LABS: ALT (GPT) 15 U/L (12-78)
[2017-05-21 05:57] LABS: ALKALINE PHOSPHATASE 84 U/L (45-117); TOTAL BILIRUBIN ADULT 0.4 MG/DL (0.2-1.0)
[2017-05-21 08:00] VITALS: BP 121/67; PULSE 77; RESP 16; TEMP 96.5; O2SAT 99
[2017-05-21] MEDS: DOCUSATE SODIUM 50 MG/SENNA 8.6 MG TAB PO SCH ×2 (09:00→20:16)
[2017-05-21] MEDS: SODIUM CHLORIDE 0.9% FLUSH 10 ML FLUSH IV FLUSH SCH ×3 (09:00→21:00)
--- NOTE | 2017-05-21 09:34 | PD.PN.STU ---
Subjective Remarks Mr. Schulte is a pleasant 37 year old [employer] with a history of TBI, anxiety, depression who was admitted to the hospital on 05/06/2017 due to progressive swelling, erythema, blisters of both upper extremities, especially left upper ext. Several days prior to this admission, patient was taking care of his generator. He cut is arms and subsequently also burned his arms by the exhaust system of the generator. In the ensuing days, he noticed progressive erythema, swelling of his upper extremities and he also developed nausea, vomiting, diarrhea. Upon arrival, HR 128, Resp 18, BP 132/68. Temp 98%, 99% on 2L of O2 via NC. WBC 3.3 with 89.5% neutrophils, Hgb 13.6, HCT 38.2, Plt 71K. Sodium 102, Potassium 3.8, Cr 1.15, Lactic acid 3.7, 4.1. CT of the extremities indicated soft tissue swelling but no evidence of necrotizing fascitis. Orthopedic surgery, ID were consulted. Patient was started on Vancomycin, Zosyn and Clindamycin. 05/21- Pt was standing up and out of bed during the examination, reports that sitting and lying down worsens his back and buttock pain, walking alleviates the pain. Currently rates his overall pain at an 8 and at a 9 during palpation. Pt c/o Lt UE pain, upper and low back pain, Lt. buttock and Lt hip pain that was previously controlled with pain meds but pt reports worsening of the pain and as a result he feels frustrated. He attributes his hip pain from when "nurses pulled me when they were placing the line on my neck" and lack of activity/movement from the bed. Denies FLOR, SOB, chest pain, fever/chills/sweats, diarrhea, constipation, changes in urinary and bowel movements, or blood in the urine or stools. Objective Vitals Vital Signs Date Time Temp Pulse Resp B/P (MAP) Pulse Ox O2 Delivery O2 Flow Rate FiO2 05/21/17 08:00 96.5 77 16 121/67 (85) 99 05/21/17 05:37 18 05/21/17 04:25 20 05/21/17 00:00 97.2 78 18 117/56 (76) 98 05/20/17 23:11 18 05/20/17 20:00 97.9 89 18 121/57 (78) 100 05/20/17 16:00 97.5 80 17 126/64 (84) 99 05/20/17 12:00 97.0 86 18 125/70 (88) 99 I/O 05/20/17 05/20/17 05/20/17 05/21/17 05/21/17 05/21/17 07:00 15:00 23:00 07:00 15:00 23:00 Intake Total 680 ml 100 ml 1060 ml 480 ml Output Total 1 ml Balance 680 ml 100 ml 1059 ml 480 ml Intake Oral 480 ml 960 ml 480 ml IV Total 200 ml 100 ml 100 ml Stool Total 1 ml # Voids 5 5 3 # Bowel Movements 1 1 Result Diagram: 05/21/17 0500 05/21/17 0500 Other Results Laboratory Tests Test 05/18/17 13:15 05/19/17 04:25 05/19/17 15:10 05/19/17 18:10 Blood Urea Nitrogen 3 MG/DL (7-18) 2 MG/DL (7-18) Creatinine 0.57 MG/DL (0.60-1.30) 0.56 MG/DL (0.60-1.30) Calcium Level 7.9 MG/DL (8.5-10.1) 8.1 MG/DL (8.5-10.1) Sodium Level 128 MEQ/L (136-145) 130 MEQ/L (136-145) 133 MEQ/L (136-145) Chloride Level 95 MEQ/L (98-107) 96 MEQ/L (98-107) Red Blood Count 3.52 MIL/MM3 (4.50-5.90) 3.21 MIL/MM3 (4.50-5.90) Hemoglobin 10.2 GM/DL (13.0-17.0) 9.4 GM/DL (13.0-17.0) Hematocrit 30.3 % (39.0-51.0) 27.9 % (39.0-51.0) Platelet Count 496 TH/MM3 (150-450) 518 TH/MM3 (150-450) Mean Platelet Volume 6.5 FL (7.0-11.0) 6.9 FL (7.0-11.0) Monocytes (%) (Auto) 15.8 % (0.0-8.0) 15.2 % (0.0-8.0) Monocytes # (Auto) 1.2 TH/MM3 (0-0.9) 1.0 TH/MM3 (0-0.9) Basophils (%) (Auto) 2.4 % (0.0-2.0) Test 05/20/17 03:45 05/21/17 05:00 Blood Urea Nitrogen 3 MG/DL (7-18) 2 MG/DL (7-18) Albumin 2.2 GM/DL (3.4-5.0) 2.2 GM/DL (3.4-5.0) Phosphorus Level 5.0 MG/DL (2.5-4.9) 5.0 MG/DL (2.5-4.9) Red Blood Count 3.28 MIL/MM3 (4.50-5.90) Hemoglobin 9.6 GM/DL (13.0-17.0) Hematocrit 28.1 % (39.0-51.0) Mean Platelet Volume 6.6 FL (7.0-11.0) Monocytes (%) (Auto) 16.8 % (0.0-8.0) Monocytes # (Auto) 1.0 TH/MM3 (0-0.9) Sodium Level 132 MEQ/L (136-145) Chloride Level 97 MEQ/L (98-107) Imaging Last Impressions Soft Tissue Ultrasound 05/19/17 Signed Impressions: Service Date/Time: Friday, May 19, 2017 19:50 - CONCLUSION: No evidence of abscess or abnormal fluid collections. Soft tissue swelling. Wilbert Bradley MD Lower Extremity Ultrasound 05/19/17 Signed Impressions: Service Date/Time: Friday, May 19, 2017 19:45 - CONCLUSION: No evidence of DVT. Wilbert Bradley MD Upper Extremity MRI 05/17/17 Signed Impressions: Service Date/Time: May 17:56 - CONCLUSION: 1. Extensive cellulitis and fasciitis of the left arm with probable microabscess formation along the posterior fascial surface of the arm musculature. No drainable fluid. There is also muscular edema but no evidence for osteomyelitis. Chava Robbins MD Hip and Pelvis X-Ray 05/17/17 Signed Impressions: Service Date/Time: May 19:10 - CONCLUSION: 1. Postoperative left hip replacement. Mild sclerosis of the right femoral head that could represent mild changes of avascular necrosis. Chava Robbins MD Central Venous Line 05/15/17 1339 Signed Impressions: Service Date/Time: Monday, May 15, 2017 16:14 - CONCLUSION: Uncomplicated line placement as above. Anish Avila MD Chest X-Ray 05/14/17 Signed Impressions: Service Date/Time: Sunday, May 14, 2017 07:50 - CONCLUSION: Minimal bibasilar patchy infiltrates. Francisco Coulter MD Liver Ultrasound 05/07/17 Signed Impressions: Service Date/Time: Sunday, May 07, 2017 18:39 - CONCLUSION: 1. Hepatosplenomegaly 2. Gallbladder sludge. 3. Mild dilatation of the common bile duct. Because of this mild dilatation is not seen. 4. Echogenic right kidney which can be seen with medical renal disease. Brent Nugent MD Upper Extremity Ultrasound 05/06/17918 Signed Impressions: Service Date/Time: Saturday, May 06, 2017 09:20 - CONCLUSION: There is noncompressible occlusive clot identified in the right basilic, within the right proximal cephalic vein with nonvisualization of the mid and distal portion of the cephalic vein secondary to patient movement. Additional clot is identified within the left mid and distal radial vein. There are bilateral axillary lymph nodes noted. Somewhat larger on the left. Norma Sampson MD Head CT 05/06/17918 Signed Impressions: Service Date/Time: Saturday, May 06, 2017 10:48 - CONCLUSION: Normal examination. Norma Sampson MD Upper Extremity CT 05/06/17 Signed Impressions: Service Date/Time: Saturday, May 06, 2017 15:56 - CONCLUSION: Normal examination other than reactive adenopathy throughout the right axilla. Jose Angel Huizar MD CT Angiography 05/06/17 Signed Impressions: Service Date/Time: Saturday, May 06, 2017 15:42 - CONCLUSION: Normal examination of the pulmonary arteries. Extensive edema and reactive adenopathy throughout both axilla left worse than right. Jose Angel Huizar MD Objective Remarks GENERAL: pleasant [employer] male who was in NAD SKIN/MSK: LUE erythematous, edematous and tender. Significant desquamation and presence of pink/red underlying skin that is mostly dry and without telangiectasias. Serosanguineous fluid continues to weep from elbow region. LUE ROM intact at fingers and shoulder, with continued dacqel-om-es ROM at elbow. Capillary refill less than 2s and radial pulses 2+ bilaterally. Lt. axillary area tender to palpation, no LAD. Lt. buttock has 10-15cm area of ecchymoses that was nonfluctuant and tender to palpation, presence of a 2-3cm lesion covered with a dry crust. No bleeding or purulent discharge appreciated. BACK: no erythema, ecchymoses. nontender to palpation. Full ROM on flexion, limited ROM on extension due to pain. HEAD: Atraumatic. Normocephalic. EYES: Pupils equal and round. EOMI. No scleral icterus. No injection or drainage. ENT: No nasal bleeding or discharge. Mucous membranes pink and moist. NECK: Trachea midline. No JVD. Rt. IJ line in place, neoi. CARDIOVASCULAR: Regular rate and rhythm. S1 and S2 heard, no murmurs, gallops, rubs. RESPIRATORY: No accessory muscle use. Clear to auscultation. Breath sounds equal bilaterally. GASTROINTESTINAL: Abdomen soft, non-tender, nondistended. Hepatic and splenic margins not palpable. NEUROLOGICAL: Awake and alert. No obvious cranial nerve deficits. Motor grossly within normal limits. Five out of 5 muscle strength in the arms and legs. Normal speech. PSYCHIATRIC: Appropriate mood and affect; insight and judgment normal. Medications and IVs Current Medications Medications (Trade) Dose Ordered Sig/Hafsa Route Start Time Stop Time Status Last Admin (NS Flush) 2 ml UNSCH PRN IV FLUSH 05/06/17 12:45 05/15/17 05:50 (NS Flush) 2 ml BID IV FLUSH 05/06/17 21:00 05/20/17 20:48 Miscellaneous Information 1 Q361D XX 05/06/17 12:45 05/06/17 12:45 (Chlorhexidine 2% Cloth) Taper DAILY@04 TOP 05/07/17 04:00 05/03/18 03:59 05/11/17 03:45 (Chlorhexidine 2% Cloth) 3 pack UNSCH PRN TOP 05/06/17 12:45 (Tammy-Colace) 1 tab BID PO 05/06/17 21:00 05/17/17 21:12 (Milk Of Magnesia Liq) 30 ml Q12H PRN PO 05/06/17 12:45 (Senokot) 17.2 mg Q12H PRN PO 05/06/17 12:45 (Dulcolax Supp) 10 mg DAILY PRN RECTAL 05/06/17 12:45 (Lactulose Liq) 30 ml DAILY PRN PO 05/06/17 12:45 (Tylenol) 650 mg Q6H PRN PO 05/06/17 14:30 05/13/17 11:34 (Zofran Inj) 4 mg Q8HR PRN IV PUSH 05/06/17 14:30 05/06/17 18:39 (Cardizem) 60 mg Q6HR PO 05/06/17 14:45 05/20/17 22:52 (Apresoline Inj) 10 mg Q6H PRN IV PUSH 05/06/17 14:45 (KlonoPIN) 0.5 mg BID PO 05/07/17 11:15 05/20/17 20:43 (Desyrel) 200 mg HS PO 05/07/17 21:00 05/20/17 20:48 Ampicillin Sodium 2000 mg/Sodium Chloride 100 ml @ 300 mls/hr Q4H IV 05/08/17 11:00 05/21/17 07:00 (Ambien) 10 mg HS PRN PO 05/11/17 21:00 05/20/17 22:55 (Pepcid) 20 mg BID PO 05/11/17 21:00 05/20/17 20:43 (Albuterol Neb) 2.5 mg Q2HR NEB PRN NEB 05/11/17 13:00 (Percocet 10-325 Mg) 1 tab Q4H PRN PO 05/12/17 10:00 05/21/17 07:33 (Eliquis) 10 mg BID PO 05/14/17 21:00 05/21/17 20:59 05/20/17 20:42 (NS Flush) DAILY IV FLUSH 05/16/17 09:00 05/20/17 08:20 (NS Flush) UNSCH PRN IV FLUSH 05/15/17 17:15 (Sodium Chloride) 1 gm BID PO 05/18/17 09:00 05/20/17 20:42 (Cleocin) 300 mg Q6H PO 05/18/17 16:00 05/21/17 03:18 (Oramorph Sr) 15 mg Q8HR PO 05/19/17 22:00 05/21/17 05:53 (Dilaudid Pf Inj) 1 mg Q4H PRN IV 05/19/17 20:00 05/21/17 08:42 A/P Assessment and Plan Problem List: (1) Bacteremia due to Streptococcus ICD Code: R78.81 - Bacteremia (2) Cellulitis of left upper extremity ICD Code: L03.114 - Cellulitis of left upper limb (3) Cellulitis of right upper extremity ICD Code: L03.113 - Cellulitis of right upper limb (4) Group A streptococcal infection ICD Code: B95.0 - Streptococcus, group A, as the cause of diseases classified elsewhere Bilateral upper extremity cellulitis due to Group A streptococcus Bacteremia due to Group A Streptococcus -Patient is currently on Ampicillin IV 2g Q4hrs and Clindamycin 900 mg Q8hrs. Blood cultures are negative after 5d - WBC 5.7 - Continue Percocet and keep Dilaudid for breakthrough. - IJ line placed -LUE MRI performed on 05/17 revealed extensive cellulitis and soft tissue swelling of the left arm, both proximally and distally, with probable microabscess formation subcutaneously--most notably at posterior fascial surface of arm musculature. Muscular edema is present but w/o drainable fluid. Appears negative for osteomyelitis. Hyponatremia- improved -Na 132 (05/21), cont to monitor Bilateral upper extremity DVT - On Apixaban - Per Heme/Onc, patient will likely need long-term (6mo-1yr) anticoagulation upon discharge. -LLE US (05/19) reviewed and showed no signs of DVT. Anemia -2 Units of RBCs transfused -Iron studies and heme occult blood results pending -Hb 9.6, cont to monitor Anxiety/Depression -consult psych TBI - Continue Clonazepam 0.5mg BID. - Continue Trazodone. - Stable. Patient not interested in re-starting anti-anxiety medications, however he is not opposed to Psychiatry consult. Lt. Buttock Pain -wound care consult placed -Soft tissue US (05/19) reviewed and showed soft tissue swelling but no evidence of masses, abnormal fluid collections, or abscess. Plan for CT w/o contrast of left hip/buttock. Discussed with ID specialist Dr Hayward Full code. Apixaban. Discharge Planning Cellulitis still present, needs ID Clearance. Seen and examined. Case discussed at length with Miss Zimmer Samm MS III SammMesha M3 May 21, 2017 09:34 Ana Lilia Carpenter MD May 21, 2017 17:38
[2017-05-21] MEDS: SODIUM CHLORIDE 1 GRAM TAB PO SCH ×2 (10:09→20:16)
[2017-05-21] MEDS: FAMOTIDINE 20 MG TAB PO SCH ×2 (10:09→20:16)
[2017-05-21] MEDS: APIXABAN 5 MG TABLET PO SCH (10:09)
[2017-05-21] MEDS: clonazePAM 1 MG TAB PO SCH ×2 (10:10→20:16)
--- NOTE | 2017-05-21 11:37 | HHI.NPPN ---
Subjective Renal Failure: Acute Interval History Sitting up in bed. No new concerns. Sodium is lower today. (Josiane Norris) Review of Systems General Constitutional: Fatigue (Josiane Norris) Endocrine Endocrine: Thirst (Josiane Norris) Objective Data Data Vital Signs Date Time Temp Pulse Resp B/P (MAP) Pulse Ox O2 Delivery O2 Flow Rate FiO2 05/21/17 08:00 96.5 77 16 121/67 (85) 99 05/21/17 05:37 18 05/21/17 04:25 20 05/21/17 00:00 97.2 78 18 117/56 (76) 98 05/20/17 23:11 18 05/20/17 20:00 97.9 89 18 121/57 (78) 100 05/20/17 16:00 97.5 80 17 126/64 (84) 99 05/20/17 12:00 97.0 86 18 125/70 (88) 99 (Josiane Norris) -: 05/21/17 0500 05/21/17 0500 Imaging Last 72 hours Impressions Soft Tissue Ultrasound 05/19/17 0000 Signed Impressions: Service Date/Time: Friday, May 19, 2017 19:50 - CONCLUSION: No evidence of abscess or abnormal fluid collections. Soft tissue swelling. Wilbert Bradley MD Lower Extremity Ultrasound 05/19/17 0000 Signed Impressions: Service Date/Time: Friday, May 19, 2017 19:45 - CONCLUSION: No evidence of DVT. Wilbert Bradley MD Tubes & Lines Comment TLC (Josiane Norris) Physical Exam General Appearance: Well Developed, Well Nourished, No Acute Distress, Comfortable (Josiane Norris) Eyes Eye Exam: Pupils Equal (Josiane Norris) Throat Throat Exam: Oral Mucosa [place] & Moist (Josiane Norris) Pulmonary Resp Exam: Clear Bilaterally, Breath Sounds Equal, No Distress (Josiane Norris) Cardiology CV Exam: Regular, Normal Sinus Rhythm, Good Perfusion (Josiane Norris) Gastrointestinal/Abdomen GI Exam: Soft, Non-Tender, Bowel Sounds Present (Josiane Norris) Musculoskeletal MS Exam: Joints Intact, Normal Tone, Good Strength (Josiane Norris) Integumentary Skin Exam: Warm, Dry Skin Remarks erythema to upper extremities; left arm more edematous (Josiane Norris) Extremeties Extremities Exam: No Edema, Pedal Pulses Palpable (Josiane Norris) Neurologic Neuro Exam: Alert, Awake, Oriented, Speech Clear, Moving All Extremities (Josiane Norris) Assessment/Plan Discussed Condition With: Patient Assessment Summary: BEATRIZ/Acute Renal Failure Electrolyte Assessment: Hyponatremia Problem List: (1) Hyponatremia ICD Codes: E87.1 - Hypo-osmolality and hyponatremia Plan: Mixed picture Sodium had initially improved with oral fluid restriction, thought to have psychogenic polydipsia after initial hypovolemic hyponatremia had corrected Continue po fluid restriction and NaCl tabs Given Samsca yesterday 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 Continue to monitor BMP (2) BEATRIZ (acute kidney injury) ICD Codes: N17.9 - Acute kidney failure, unspecified Plan: Secondary to renal hypoperfusion from sepsis Renal function has returned to baseline Monitor for changes Avoid nephrotoxins. (3) Sepsis ICD Codes: A41.9 - Sepsis, unspecified organism Plan: ID is following Continue antibiotics MRI reviewed, he has microabscessed and significant inflammation of left arm continue wound care (4) Acute bilateral deep vein thrombosis (DVT) of upper extremities ICD Codes: I82.623 - Acute embolism and thrombosis of deep veins of upper extremity, bilateral Plan: he is on eliquis x 6 months hematology following (Josiane Norris) Problem List: (1) Hyponatremia ICD Codes: E87.1 - Hypo-osmolality and hyponatremia Plan: Mixed picture Sodium had initially improved with oral fluid restriction, thought to have psychogenic polydipsia after initial hypovolemic hyponatremia had corrected Continue po fluid restriction and NaCl tabs Given Samsca yesterday 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 Continue to monitor BMP (2) BEATRIZ (acute kidney injury) ICD Codes: N17.9 - Acute kidney failure, unspecified Plan: Secondary to renal hypoperfusion from sepsis Renal function has returned to baseline Monitor for changes Avoid nephrotoxins. (3) Sepsis ICD Codes: A41.9 - Sepsis, unspecified organism Plan: ID is following Continue antibiotics MRI reviewed, he has microabscessed and significant inflammation of left arm continue wound care (4) Acute bilateral deep vein thrombosis (DVT) of upper extremities ICD Codes: I82.623 - Acute embolism and thrombosis of deep veins of upper extremity, bilateral Plan: he is on eliquis x 6 months hematology following Plan patient was seen and examined. Continue fluid restriction. It is unclear if he has SIADH, as urine Na has been low on multiple occasions. (Nasir Rouse MD) Josiane NorrisP May 21, 2017 11:37 Nasir Rouse MD May 21, 2017 19:27
--- NOTE | 2017-05-21 11:56 | PD.WCN.NOT ---
Wound Consult Description: Received consult for L buttock wound management from Doctor Carpenter Communicated with: RN Kristy [address] [place] [address] and Doctor Carpenter Recommendation: Please cleanse buttock area gently with soap and water and pat dry. [place] buttock scab with Cavilon skin prep BID. Please consult general surgery, Ultrasound of L buttock from 05/19 is showing swelling but no abscess, L buttock periwound presents today with induration from 7 to 9 o'clock, erythema and heat. Additional Information: Patient seen on [address] [place] [address] around 11am for evaluation of L buttock wound management. Patient is able to stand for wound assessment and pull down pants to reveal dry intact crust to L buttock, Crust is a light pink color, the same color as the barrier cream patient has been using. Unable to remove barrier cream with normal saline and gauze pad, without removing dry crust. Dry crust measures ~5.5cm x~3cm. Periwound presents with induration from 7 to 9 o'clock with heat and erythema. Patient complains of pain during assessment. states," It feels like there is a piece of wood stuck in there." Spoke with patient at length regarding the etiology of wound. Patient states," I was in the intensive care here and was not turned, and I was in to much pain to turn myself and the nurses were sliding me, my skin ripped open when they were sliding me." Patient has been applying Calazime barrier cream to himself every time he has used the restroom. Patient admits to not cleaning himself before applying barrier cream. Skin prep to be applied bid to L buttock to keep crust dry and intact until seen by general surgery. Trinidad Terrazas [facility] May 21, 2017 11:55
[2017-05-21 12:00] VITALS: BP 127/76; PULSE 93; RESP 17; TEMP 97.8; O2SAT 100
--- NOTE | 2017-05-21 12:38 | HHI.IDPN ---
Subjective Subjective Remarks no fever, WBC normal co worsening pain in L buttock states is started days ago after he was moved to a stretcher He has ipsilateral hip proshteiss co worsening pain pt co difficiulty weight bearing 2/2 pain Antibiotics ampicillin iv oral clindamyicn Allergies: Coded Allergies: No Known Allergies (Unverified , 05/06/17) Objective . Vital Signs Date Time Temp Pulse Resp B/P (MAP) Pulse Ox O2 Delivery O2 Flow Rate FiO2 05/21/17 08:00 96.5 77 16 121/67 (85) 99 05/21/17 05:37 18 05/21/17 04:25 20 05/21/17 00:00 97.2 78 18 117/56 (76) 98 05/20/17 23:11 18 05/20/17 20:00 97.9 89 18 121/57 (78) 100 05/20/17 16:00 97.5 80 17 126/64 (84) 99 . Laboratory Tests Test 05/19/17 15:10 05/21/17 05:00 White Blood Count 6.8 TH/MM3 5.7 TH/MM3 Red Blood Count 3.21 MIL/MM3 3.28 MIL/MM3 Hemoglobin 9.4 GM/DL 9.6 GM/DL Hematocrit 27.9 % 28.1 % Mean Corpuscular Volume 86.9 FL 85.6 FL Mean Corpuscular Hemoglobin 29.4 PG 29.2 PG Mean Corpuscular Hemoglobin Concent 33.9 % 34.1 % Red Cell Distribution Width 14.7 % 14.1 % Platelet Count 518 TH/MM3 425 TH/MM3 Mean Platelet Volume 6.9 FL 6.6 FL Neutrophils (%) (Auto) 45.0 % 42.6 % Lymphocytes (%) (Auto) 36.4 % 38.1 % Monocytes (%) (Auto) 15.2 % 16.8 % Eosinophils (%) (Auto) 1.0 % 1.2 % Basophils (%) (Auto) 2.4 % 1.3 % Neutrophils # (Auto) 3.0 TH/MM3 2.4 TH/MM3 Lymphocytes # (Auto) 2.5 TH/MM3 2.2 TH/MM3 Monocytes # (Auto) 1.0 TH/MM3 1.0 TH/MM3 Eosinophils # (Auto) 0.1 TH/MM3 0.1 TH/MM3 Basophils # (Auto) 0.2 TH/MM3 0.1 TH/MM3 CBC Comment DIFF FINAL DIFF FINAL Differential Comment Laboratory Tests Test 05/19/17 18:10 05/20/17 03:45 05/21/17 05:00 Sodium Level 133 MEQ/L 137 MEQ/L 132 MEQ/L Blood Urea Nitrogen 3 MG/DL 2 MG/DL Creatinine 0.70 MG/DL 0.66 MG/DL Random Glucose 92 MG/DL 81 MG/DL Albumin 2.2 GM/DL 2.2 GM/DL Calcium Level 8.5 MG/DL 8.7 MG/DL Phosphorus Level 5.0 MG/DL 5.0 MG/DL Potassium Level 4.4 MEQ/L 4.2 MEQ/L Chloride Level 102 MEQ/L 97 MEQ/L Carbon Dioxide Level 27.2 MEQ/L 27.6 MEQ/L Anion Gap 8 MEQ/L 7 MEQ/L Estimat Glomerular Filtration Rate 128 ML/MIN 137 ML/MIN Total Protein 7.4 GM/DL Magnesium Level 2.0 MG/DL Alkaline Phosphatase 84 U/L Aspartate Amino Transf (AST/SGOT) 20 U/L Alanine Aminotransferase (ALT/SGPT) 15 U/L Total Bilirubin 0.4 MG/DL Imaging Last Impressions Soft Tissue Ultrasound 05/19/17 0000 Signed Impressions: Service Date/Time: Friday, May 19, 2017 19:50 - CONCLUSION: No evidence of abscess or abnormal fluid collections. Soft tissue swelling. Wilbert Bradley MD Lower Extremity Ultrasound 05/19/17 0000 Signed Impressions: Service Date/Time: Friday, May 19, 2017 19:45 - CONCLUSION: No evidence of DVT. Wilbert Bradley MD Upper Extremity MRI 05/17/17 0000 Signed Impressions: Service Date/Time: May 17:56 - CONCLUSION: 1. Extensive cellulitis and fasciitis of the left arm with probable microabscess formation along the posterior fascial surface of the arm musculature. No drainable fluid. There is also muscular edema but no evidence for osteomyelitis. Chava Robbins MD Hip and Pelvis X-Ray 05/17/17 0000 Signed Impressions: Service Date/Time: May 19:10 - CONCLUSION: 1. Postoperative left hip replacement. Mild sclerosis of the right femoral head that could represent mild changes of avascular necrosis. Chvaa Robbins MD Central Venous Line 05/15/17 1339 Signed Impressions: Service Date/Time: Monday, May 15, 2017 16:14 - CONCLUSION: Uncomplicated line placement as above. Anish Avila MD Chest X-Ray 05/14/17 Signed Impressions: Service Date/Time: Sunday, May 14, 2017 07:50 - CONCLUSION: Minimal bibasilar patchy infiltrates. Francisco Coulter MD Liver Ultrasound 05/07/17 Signed Impressions: Service Date/Time: Sunday, May 07, 2017 18:39 - CONCLUSION: 1. Hepatosplenomegaly 2. Gallbladder sludge. 3. Mild dilatation of the common bile duct. Because of this mild dilatation is not seen. 4. Echogenic right kidney which can be seen with medical renal disease. Brent Nugent MD Upper Extremity Ultrasound 05/06/17918 Signed Impressions: Service Date/Time: Saturday, May 06, 2017 09:20 - CONCLUSION: There is noncompressible occlusive clot identified in the right basilic, within the right proximal cephalic vein with nonvisualization of the mid and distal portion of the cephalic vein secondary to patient movement. Additional clot is identified within the left mid and distal radial vein. There are bilateral axillary lymph nodes noted. Somewhat larger on the left. Norma Sampson MD Head CT 05/06/17918 Signed Impressions: Service Date/Time: Saturday, May 06, 2017 10:48 - CONCLUSION: Normal examination. Norma Sapmson MD Upper Extremity CT 05/06/17 Signed Impressions: Service Date/Time: Saturday, May 06, 2017 15:56 - CONCLUSION: Normal examination other than reactive adenopathy throughout the right axilla. Jose Angel Huizar MD CT Angiography 05/06/17 Signed Impressions: Service Date/Time: Saturday, May 06, 2017 15:42 - CONCLUSION: Normal examination of the pulmonary arteries. Extensive edema and reactive adenopathy throughout both axilla left worse than right. Jose Angel Huizar MD Physical Exam CONSTITUTIONAL/GENERAL: This is an adequately nourished patient, in NAD TUBES/LINES/DRAINS: SKIN: No jaundice, no rash EYES: Pupils equal and round and reactive. No scleral icterus. No injection or drainage. ENT: Hearing grossly normal. moist oral mucosae , without visible erythema, exudates, masses, or lesions. CARDIOVASCULAR: Regular rate and rhythm without murmurs, gallops, or rubs. No JVD. Peripheral pulses symmetric. RESPIRATORY/CHEST: Symmetric, unlabored respirations. Clear to auscultation. Breath sounds equal bilaterally. No wheezes, rales, or rhonchi. GASTROINTESTINAL: Abdomen soft, non-tender, nondistended. No hepato-splenomegaly , or palpable masses. No guarding. Bowel sounds present. MUSCULOSKELETAL: lower extremities without clubbing, cyanosis, or edema. RUE edema and erythema has markedly improved, crusting, but a small area of fluctuance noted LUE with persistent weeping edema, erythema, induration looks better: clearly less edemaotuns There is a very tense, indurated area on prox forearm exquisetely tender to palpation L hip incision - well healed L buttock with large ill defined very firm area of redf-purple discoloration most cw hematoma No fluctuance, no open areas NEUROLOGICAL: Awake and alert. non focal; ambulates around avery PSYCHIATRIC: tearful, frustrted Assessment & Plan Remarks Assessment and Plan Sepsis, GAS from BUE complicated SSTI BUE complicated SSTI, cellulitis, CT e/o abscesses (loculated fluid collection) group A - ortho recommends conservative treatmetn and monitoring for signs of compartment sdf - likely has myocytis based on MRI - no drainagble abcessws BUE DVT Thrombocytopenia with high fibrinogen: resolved Refractory hyponatremia - markedly improved Hep C + / HIV negative Persistent fever and leukocytosis: resolved L buttock hematoma vs less liekly abscess. ? related to prosthetic hip trauma -cont ampicillin - cont clindamycin (po ) - Keep LUE in sling on IV pole - monitor small area of fluctuance on RUE - CT of the hip, consult ortho if abn finding and/or worsening pain Once get better and ready for dc will switch to PO - monitor for the need of drainage anticipate at least 4 weeks of total abx course - fu WBC dw Dr Jayden John,Jeannie Bnetley MD May 21, 2017 12:38
--- NOTE | 2017-05-21 13:07 | HHI.PR ---
Subjective Remarks Patient was walking in the room, says sitting and lying down worsens his back and buttock pain, walking alleviates the pain. Currently rates his overall pain at an 8 and at a 9 during palpation. Pt c/o Lt UE pain, upper and low back pain, Lt. buttock and Lt hip pain that was previously controlled with pain meds but pt reports worsening of the pain and as a result he feels frustrated. He attributes his hip pain from when "nurses pulled me when they were placing the line on my neck" and lack of activity/movement from the bed. Wound has a scab and is with bluish discoloration, r/o fracture o/ hematoma with CT, discusse yuliana Hayward ID specilaits as patient also with bacteremia. r/o abdcess. There is induration however without fluctuation. Patient denies fever or chills, no n/v/d/c. Denies FLOR, SOB, chest pain, fever/ chills/sweats, changes in urinary and bowel movements, or blood in the urine or stools. Objective Vitals Vital Signs Date Time Temp Pulse Resp B/P (MAP) Pulse Ox O2 Delivery O2 Flow Rate FiO2 05/21/17 12:00 97.8 93 17 127/76 (93) 100 05/21/17 08:00 96.5 77 16 121/67 (85) 99 05/21/17 05:37 18 05/21/17 04:25 20 05/21/17 00:00 97.2 78 18 117/56 (76) 98 05/20/17 23:11 18 05/20/17 20:00 97.9 89 18 121/57 (78) 100 05/20/17 16:00 97.5 80 17 126/64 (84) 99 I/O 05/20/17 05/20/17 05/20/17 05/21/17 05/21/17 05/21/17 07:00 15:00 23:00 07:00 15:00 23:00 Intake Total 680 ml 100 ml 1060 ml 480 ml Output Total 1 ml Balance 680 ml 100 ml 1059 ml 480 ml Intake Oral 480 ml 960 ml 480 ml IV Total 200 ml 100 ml 100 ml Stool Total 1 ml # Voids 5 5 3 # Bowel Movements 1 1 Result Diagram: 05/21/17 0500 05/21/17 0500 Imaging Last Impressions Lower Extremity CT 05/21/17 0000 Signed Impressions: Service Date/Time: Sunday, May 21, 2017 16:17 - CONCLUSION: 1. The examination is somewhat limited as the tip of the intramedullary component of the implant is not contained within the [id number] on this study. 2. Left total hip arthroplasty in good position. No fracture or hematoma. 3. Mild edema involving the subcutaneous fat overlying the left hip. Luis Angel Squires Jr., MD Soft Tissue Ultrasound 05/19/17 0000 Signed Impressions: Service Date/Time: Friday, May 19, 2017 19:50 - CONCLUSION: No evidence of abscess or abnormal fluid collections. Soft tissue swelling. Wilbert Bradley MD Lower Extremity Ultrasound 05/19/17 0000 Signed Impressions: Service Date/Time: Friday, May 19, 2017 19:45 - CONCLUSION: No evidence of DVT. Wilbert Bradley MD Upper Extremity MRI 05/17/17 0000 Signed Impressions: Service Date/Time: May 17:56 - CONCLUSION: 1. Extensive cellulitis and fasciitis of the left arm with probable microabscess formation along the posterior fascial surface of the arm musculature. No drainable fluid. There is also muscular edema but no evidence for osteomyelitis. Chava Robbins MD Hip and Pelvis X-Ray 05/17/17 0000 Signed Impressions: Service Date/Time: May 19:10 - CONCLUSION: 1. Postoperative left hip replacement. Mild sclerosis of the right femoral head that could represent mild changes of avascular necrosis. Chava Robbins MD Central Venous Line 05/15/17 1339 Signed Impressions: Service Date/Time: Monday, May 15, 2017 16:14 - CONCLUSION: Uncomplicated line placement as above. Anish Avila MD Chest X-Ray 05/14/17 0000 Signed Impressions: Service Date/Time: Sunday, May 14, 2017 07:50 - CONCLUSION: Minimal bibasilar patchy infiltrates. Francisco Coulter MD Liver Ultrasound 05/07/17 0000 Signed Impressions: Service Date/Time: Sunday, May 07, 2017 18:39 - CONCLUSION: 1. Hepatosplenomegaly 2. Gallbladder sludge. 3. Mild dilatation of the common bile duct. Because of this mild dilatation is not seen. 4. Echogenic right kidney which can be seen with medical renal disease. Brent Nugent MD Upper Extremity Ultrasound 05/06/17918 Signed Impressions: Service Date/Time: Saturday, May 06, 2017 09:20 - CONCLUSION: There is noncompressible occlusive clot identified in the right basilic, within the right proximal cephalic vein with nonvisualization of the mid and distal portion of the cephalic vein secondary to patient movement. Additional clot is identified within the left mid and distal radial vein. There are bilateral axillary lymph nodes noted. Somewhat larger on the left. Norma Sampson MD Head CT 05/06/17918 Signed Impressions: Service Date/Time: Saturday, May 06, 2017 10:48 - CONCLUSION: Normal examination. Norma Sampson MD Upper Extremity CT 05/06/17 Signed Impressions: Service Date/Time: Saturday, May 06, 2017 15:56 - CONCLUSION: Normal examination other than reactive adenopathy throughout the right axilla. Jose Angel Huizar MD CT Angiography 05/06/17 Signed Impressions: Service Date/Time: Saturday, May 06, 2017 15:42 - CONCLUSION: Normal examination of the pulmonary arteries. Extensive edema and reactive adenopathy throughout both axilla left worse than right. Jose Angel Huizar MD Objective Remarks GENERAL: Pleasant middle age male appears in NAD SKIN/MSK: LUE erythematous, edematous and tender. Significant desquamation and presence of pink/red underlying skin that is mostly dry and without telangiectasias. Serosanguineous fluid continues to weep from elbow region. LUE ROM intact at fingers and shoulder, with continued [id number] ROM at elbow. Capillary refill less than 2s and radial pulses 2+ bilaterally. Lt. axillary area tender to palpation, no LAD. Lt. buttock has 10-15cm area of ecchymoses that was nonfluctuant and tender to palpation, presence of a 2-3cm lesion covered with a dry crust. No bleeding or purulent discharge appreciated. BACK: no erythema, ecchymoses. nontender to palpation. Full ROM on flexion, limited ROM on extension due to pain. NECK: Rt. IJ line in place CARDIOVASCULAR: Regular rate and rhythm. S1 and S2 heard, no murmurs, gallops, rubs. RESPIRATORY: No accessory muscle use. Clear to auscultation. Breath sounds equal bilaterally. GASTROINTESTINAL: Abdomen soft, non-tender, nondistended. Hepatic and splenic margins not palpable. NEUROLOGICAL: Awake and alert. No obvious cranial nerve deficits. Motor grossly within normal limits. Five out of 5 muscle strength in the arms and legs. Normal speech. PSYCHIATRIC: Appropriate mood and affect; insight and judgment normal. Procedures 05/07/2017 Echo Normal left ventricular size and wall thickness. The left ventricular systolic function is normal with an estimated ejection fraction in the range of 60-65%. Left ventricular diastolic function parameters are normal. There is trace tricuspid valve regurgitation. The estimated pulmonary arterial pressure is 14.2 mmHg. No massess or vegetations noted Side: Right Location: Subclavian A/P Problem List: (1) Bacteremia due to Streptococcus ICD Code: R78.81 - Bacteremia (2) Cellulitis of left upper extremity ICD Code: L03.114 - Cellulitis of left upper limb (3) Cellulitis of right upper extremity ICD Code: L03.113 - Cellulitis of right upper limb (4) Group A streptococcal infection ICD Code: B95.0 - Streptococcus, group A, as the cause of diseases classified elsewhere Assessment and Plan Bilateral upper extremity cellulitis due to Group A streptococcus Bacteremia due to Group A Streptococcus -Patient is currently on Ampicillin IV 2g Q4hrs and Clindamycin 900 mg Q8hrs. Blood cultures are negative after 5d - WBC 5.7 - Continue Percocet and keep Dilaudid for breakthrough. - IJ line placed -LUE MRI performed on 05/17 revealed extensive cellulitis and soft tissue swelling of the left arm, both proximally and distally, with probable microabscess formation subcutaneously--most notably at posterior fascial surface of arm musculature. Muscular edema is present but w/o drainable fluid. Appears negative for osteomyelitis. Lt. Buttock Pain -wound care consult placed -Soft tissue US (05/19) reviewed and showed soft tissue swelling but no evidence of masses, abnormal fluid collections, or abscess. Plan for CT w/o contrast of left hip/buttock. Discussed with ID specialist Dr Hayward. Patient with induration without fluctuation, bluish discoloration r/o fracture, hematoma, also patien twith bacteremia poss dissemination of infection? Hyponatremia- improved -Na 132 (05/21), cont to monitor Bilateral upper extremity DVT - On Apixaban - Per Heme/Onc, patient will likely need long-term (6mo-1yr) anticoagulation upon discharge. -LLE US (05/19) reviewed and showed no signs of DVT. Anemia -2 Units of RBCs transfused -Iron studies and heme occult blood results pending -Hb 9.6, cont to monitor Anxiety/Depression -consult psych as patien ton effexor and might be the culprit for hyponatremia. Psych to eval and treat. TBI - Continue Clonazepam 0.5mg BID. - Continue Trazodone. - Stable. Patient not interested in re-starting anti-anxiety medications, however he is not opposed to Psychiatry consult. Full code. Apixaban. Discharge Planning Cellulitis/abscess/ bacteremia, needs ID Clearance. Also with induration left buttocks w/u in progress Ana Lilia Carpenter MD May 21, 2017 13:07
--- NOTE | 2017-05-21 13:13 | PD.PN.STU ---
Subjective Remarks Pt indicates that his pain at rest is not well controlled--now @ ~8/10 (up from 5-6/10 in days prior). Compared to 48hr prior, LUE edema and ROM at L elbow has improved. He indicates that skin continues to slough and pink-catina color hasn't changed. States that he feels less well today, emotionally, than he had been. His L buttock is slightly worse. He is also still complaining of L hip pain and some L leg swelling. He has no problems ambulating. He denies headache, changes in vision, SOB, chest pain, palpitations, sweats/chills, or acute calf pain. Objective Vitals Vital Signs Date Time Temp Pulse Resp B/P (MAP) Pulse Ox O2 Delivery O2 Flow Rate FiO2 05/21/17 08:00 96.5 77 16 121/67 (85) 99 05/21/17 05:37 18 05/21/17 04:25 20 05/21/17 00:00 97.2 78 18 117/56 (76) 98 05/20/17 23:11 18 05/20/17 20:00 97.9 89 18 121/57 (78) 100 05/20/17 16:00 97.5 80 17 126/64 (84) 99 I/O 05/20/17 05/20/17 05/20/17 05/21/17 05/21/17 05/21/17 07:00 15:00 23:00 07:00 15:00 23:00 Intake Total 680 ml 100 ml 1060 ml 480 ml Output Total 1 ml Balance 680 ml 100 ml 1059 ml 480 ml Intake Oral 480 ml 960 ml 480 ml IV Total 200 ml 100 ml 100 ml Stool Total 1 ml # Voids 5 5 3 # Bowel Movements 1 1 Result Diagram: 05/21/17 0500 05/21/17 0500 Imaging Last Impressions Soft Tissue Ultrasound 05/19/17 0000 Signed Impressions: Service Date/Time: Friday, May 19, 2017 19:50 - CONCLUSION: No evidence of abscess or abnormal fluid collections. Soft tissue swelling. Wilbert Bradley MD Lower Extremity Ultrasound 05/19/17 0000 Signed Impressions: Service Date/Time: Friday, May 19, 2017 19:45 - CONCLUSION: No evidence of DVT. Wilbert Bradley MD Upper Extremity MRI 05/17/17 0000 Signed Impressions: Service Date/Time: May 17:56 - CONCLUSION: 1. Extensive cellulitis and fasciitis of the left arm with probable microabscess formation along the posterior fascial surface of the arm musculature. No drainable fluid. There is also muscular edema but no evidence for osteomyelitis. Chava Robbins MD Hip and Pelvis X-Ray 05/17/17 0000 Signed Impressions: Service Date/Time: May 19:10 - CONCLUSION: 1. Postoperative left hip replacement. Mild sclerosis of the right femoral head that could represent mild changes of avascular necrosis. Chava Robbins MD Central Venous Line 05/15/17 1339 Signed Impressions: Service Date/Time: Monday, May 15, 2017 16:14 - CONCLUSION: Uncomplicated line placement as above. Anish Avila MD Chest X-Ray 05/14/17 0000 Signed Impressions: Service Date/Time: Sunday, May 14, 2017 07:50 - CONCLUSION: Minimal bibasilar patchy infiltrates. Francisco Couletr MD Liver Ultrasound 05/07/17 Signed Impressions: Service Date/Time: Sunday, May 07, 2017 18:39 - CONCLUSION: 1. Hepatosplenomegaly 2. Gallbladder sludge. 3. Mild dilatation of the common bile duct. Because of this mild dilatation is not seen. 4. Echogenic right kidney which can be seen with medical renal disease. Brent Nugent MD Upper Extremity Ultrasound 05/06/17918 Signed Impressions: Service Date/Time: Saturday, May 06, 2017 09:20 - CONCLUSION: There is noncompressible occlusive clot identified in the right basilic, within the right proximal cephalic vein with nonvisualization of the mid and distal portion of the cephalic vein secondary to patient movement. Additional clot is identified within the left mid and distal radial vein. There are bilateral axillary lymph nodes noted. Somewhat larger on the left. Norma Sampson MD Head CT 05/06/1719 Signed Impressions: Service Date/Time: Saturday, May 06, 2017 10:48 - CONCLUSION: Normal examination. Norma Sampson MD Upper Extremity CT 05/06/17 Signed Impressions: Service Date/Time: Saturday, May 06, 2017 15:56 - CONCLUSION: Normal examination other than reactive adenopathy throughout the right axilla. Jose Angel Huizar MD CT Angiography 05/06/17 0000 Signed Impressions: Service Date/Time: Saturday, May 06, 2017 15:42 - CONCLUSION: Normal examination of the pulmonary arteries. Extensive edema and reactive adenopathy throughout both axilla left worse than right. Jose Angel Huizar MD Objective Remarks LLE US revealed no evidence of DVT. L buttock US revealed soft tissue inflammation. Surgical consultation did not feel any surgical intervention was warranted at this time. Skin: -Left upper extremity edema has decreased since last visit 48hr prior. Sloughing and serosanguineous discharge at lateral epicondyle still present. Skin underlying desquamated area is pinkish-red and has clear demarcations--no proximally-spreading erythema. Most areas rubber cutting machine tender to palpation. ROM at elbow has improved to approximately 45 degrees of freedom. Radial pulse intact. Angel's test could not be performed due to pain. Gross motor and sensory neurologic function appear preserved at fingers. Overall, no evidence of compartment syndrome or underlying necrotizing process. -L buttock sore approx. 5cm x 5cm in middle medial quadrant that was covered with cream. There appears to be mild erythema, warmth, and induration extending along inferior boarder of the L buttock. Area was slightly tender to palpation. GENERAL: Patient was a male who appeared his stated age. He was up and walking at visit, but appeared to be in pain. His appeared dispirited, and at times teary, yet he was very cooperative and thankful. CV: S1, S2 present without murmurs, rubs or gallops. Pulm: CTA posteriorly at 3 levels b/l Extremities: Dorsalis pedis and posterior tibial pulses were 2+ and symmetric. Mild edema present. Neuro: Alert and oriented x4 to person, place, time, and situation. A/P Assessment and Plan PTSD/Anxiety history--Noted emotional fragility today. Although he has no interest in re-starting medications, he would be willing to speak with psychiatrist--consider consult. HypoNa appears to be stable at 132. Anemia appears to be stable at 9.6. The condition of his L arm cellulitis appears to be slowly improving. Continue current care. Discharge Planning Needs clearance from Abebe Toussaint M3 May 21, 2017 13:13
--- NOTE | 2017-05-21 17:03 | RADRPT ---
EXAM DATE/TIME: 05/21/2017 16:17 [facility] COMPARISON: HIP LEFT (AP&LAT 2/3VWS) W AP PELVIS, May 17, 2017, 19:10. INDICATIONS : Left hip pain. RADIATION DOSE: 42.99 CTDIvol (mGy) MEDICAL HISTORY : Seizures. SURGICAL HISTORY : left hip replacement ENCOUNTER: Initial ACUITY: 1 day PAIN SCALE: 7/10 LOCATION: Left hip TECHNIQUE: Volumetric scanning of the hip was performed. Using automated exposure control and adjustment of the mA and/or kV according to patient size, radiation dose was kept as low as reasonably achievable to o btain optimal diagnostic quality images. DICOM format image data is available electronically for rev iew and comparison. FINDINGS: There is a left total hip prosthesis observed. The tip of the prosthesis is not visualized on this ex am. The prosthesis is in good position. No fractures or dislocations. No hematoma appreciated. Strand ing of the overlying subcutaneous fat noted. No joint effusion. No air within the joint or soft tissu es. A subchondral geode is seen involving the superior portion of the acetabulum. CONCLUSION: 1. The examination is somewhat limited as the tip of the intramedullary component of the implant is n ot contained within the [id number] on this study. 2. Left total hip arthroplasty in good position. No fracture or hematoma. 3. Mild edema involving the subcutaneous fat overlying the left hip. Luis Angel Squires Jr., MD on May 21, 2017 at 16:57 Board Certified Radiologist. This report was verified electronically.
--- NOTE | 2017-05-21 18:18 | PD.ONC.PN ---
Subjective Subjective Remarks ongoing left arm pain does not appear to be visibly in pain on eliquis Heme-occult negative Hb stable Objective Data Date Time Temp Pulse Resp B/P (MAP) Pulse Ox O2 Delivery O2 Flow Rate FiO2 05/21/17 12:00 97.8 93 17 127/76 (93) 100 05/21/17 08:00 96.5 77 16 121/67 (85) 99 05/21/17 05:37 18 05/21/17 04:25 20 05/21/17 00:00 97.2 78 18 117/56 (76) 98 05/20/17 23:11 18 05/20/17 20:00 97.9 89 18 121/57 (78) 100 05/21/17 05/21/17 05/21/17 06:59 14:59 22:59 Intake Total 480 ml 800 ml Balance 480 ml 800 ml Result Diagram: 05/21/17 0500 05/21/17 0500 Laboratory Results Laboratory Tests Test 05/21/17 05:00 White Blood Count 5.7 TH/MM3 Red Blood Count 3.28 MIL/MM3 Hemoglobin 9.6 GM/DL Hematocrit 28.1 % Mean Corpuscular Volume 85.6 FL Mean Corpuscular Hemoglobin 29.2 PG Mean Corpuscular Hemoglobin Concent 34.1 % Red Cell Distribution Width 14.1 % Platelet Count 425 TH/MM3 Mean Platelet Volume 6.6 FL Neutrophils (%) (Auto) 42.6 % Lymphocytes (%) (Auto) 38.1 % Monocytes (%) (Auto) 16.8 % Eosinophils (%) (Auto) 1.2 % Basophils (%) (Auto) 1.3 % Neutrophils # (Auto) 2.4 TH/MM3 Lymphocytes # (Auto) 2.2 TH/MM3 Monocytes # (Auto) 1.0 TH/MM3 Eosinophils # (Auto) 0.1 TH/MM3 Basophils # (Auto) 0.1 TH/MM3 CBC Comment DIFF FINAL Differential Comment Blood Urea Nitrogen 2 MG/DL Creatinine 0.66 MG/DL Random Glucose 81 MG/DL Total Protein 7.4 GM/DL Albumin 2.2 GM/DL Calcium Level 8.7 MG/DL Phosphorus Level 5.0 MG/DL Magnesium Level 2.0 MG/DL Alkaline Phosphatase 84 U/L Aspartate Amino Transf (AST/SGOT) 20 U/L Alanine Aminotransferase (ALT/SGPT) 15 U/L Total Bilirubin 0.4 MG/DL Sodium Level 132 MEQ/L Potassium Level 4.2 MEQ/L Chloride Level 97 MEQ/L Carbon Dioxide Level 27.6 MEQ/L Anion Gap 7 MEQ/L Estimat Glomerular Filtration Rate 137 ML/MIN Imaging Studies Last 24 hours Impressions Lower Extremity CT 05/21/17 0000 Signed Impressions: Service Date/Time: Sunday, May 21, 2017 16:17 - CONCLUSION: 1. The examination is somewhat limited as the tip of the intramedullary component of the implant is not contained within the [id number] on this study. 2. Left total hip arthroplasty in good position. No fracture or hematoma. 3. Mild edema involving the subcutaneous fat overlying the left hip. Luis Angel Squires Jr., MD Administered Medications Medications (Trade) Dose Ordered Sig/Hafsa Route PRN Reason Start Time Stop Time Status Last Admin Dose Admin Sodium Chloride (NS Flush) 2 ml UNSCH PRN IV FLUSH FLUSH AFTER USING IV ACCESS 05/06/17 12:45 05/15/17 05:50 Sodium Chloride (NS Flush) 2 ml BID IV FLUSH 05/06/17 21:00 05/20/17 20:48 Miscellaneous Information 1 Q361D XX 05/06/17 12:45 05/06/17 12:45 Chlorhexidine Gluconate (Chlorhexidine 2% Cloth) Taper DAILY@04 TOP 05/07/17 04:00 05/03/18 03:59 05/11/17 03:45 Senna/Docusate Sodium (Tammy-Colace) 1 tab BID PO 05/06/17 21:00 05/17/17 21:12 Acetaminophen (Tylenol) 650 mg Q6H PRN PO Headache, fever, pain 1-4 05/06/17 14:30 05/13/17 11:34 Ondansetron HCl (Zofran Inj) 4 mg Q8HR PRN IV PUSH N/V 05/06/17 14:30 05/06/17 18:39 Diltiazem HCl (Cardizem) 60 mg Q6HR PO 05/06/17 14:45 05/20/17 22:52 Clonazepam (KlonoPIN) 0.5 mg BID PO 05/07/17 11:15 05/21/17 10:10 Trazodone HCl (Desyrel) 200 mg HS PO 05/07/17 21:00 05/20/17 20:48 Ampicillin Sodium 2000 mg/Sodium Chloride 100 ml @ 300 mls/hr Q4H IV 05/08/17 11:00 05/21/17 15:24 Zolpidem Tartrate (Ambien) 10 mg HS PRN PO INSOMNIA 05/11/17 21:00 05/20/17 22:55 Famotidine (Pepcid) 20 mg BID PO 05/11/17 21:00 05/21/17 10:09 Oxycodone/ Acetaminophen (Percocet 10-325 Mg) 1 tab Q4H PRN PO PAIN SCALE 5 TO 10 05/12/17 10:00 05/21/17 15:24 Apixaban (Eliquis) 10 mg BID PO 05/14/17 21:00 05/21/17 20:59 05/21/17 10:09 Sodium Chloride (NS Flush) DAILY IV FLUSH 05/16/17 09:00 05/20/17 08:20 Sodium Chloride (Sodium Chloride) 1 gm BID PO 05/18/17 09:00 05/21/17 10:09 Clindamycin HCl (Cleocin) 300 mg Q6H PO 05/18/17 16:00 05/21/17 15:23 Morphine Sulfate (Oramorph Sr) 15 mg Q8HR PO 05/19/17 22:00 05/21/17 05:53 Hydromorphone HCl (Dilaudid Pf Inj) 1 mg Q4H PRN IV BREAKTHROUGH PAIN 05/19/17 20:00 05/21/17 08:42 Objective Remarks GENERAL: nad SKIN: Warm and dry. HEAD: Normocephalic. LYMPHATIC: No adenopathy. CARDIOVASCULAR: Regular rate and rhythm without murmurs. RESPIRATORY: Breath sounds equal bilaterally. No accessory muscle use. GASTROINTESTINAL: Abdomen soft, non-tender, nondistended. EXTREMITIES: No cyanosis, left arm swelling l. Assessment/Plan Problem List: (1) Acute bilateral deep vein thrombosis (DVT) of upper extremities ICD Codes: I82.623 - Acute embolism and thrombosis of deep veins of upper extremity, bilateral Plan: on IV heparin gtt --Doppler ultrasound, upper extremities-->noncompressible occlusive clot in the right basilic vein within the right proximal cephalic vein with nonvisualization of the mid and distal portions of the cephalic vein secondary to patient movement. There was additional clot in the left mid and distal radial vein. --no precipitating factor. --CTA showed no PE (2) Hyponatremia ICD Codes: E87.1 - Hypo-osmolality and hyponatremia Plan: --improving (3) Thrombocytopenia ICD Codes: D69.6 - Thrombocytopenia, unspecified Status: Resolved Plan: --multifactorial d/t splenomegaly, infection, possible medication effect , consumption from DVT's --fibrinogen is preserved --liver u/s shows hepatosplenomegaly (4) Sepsis ICD Codes: A41.9 - Sepsis, unspecified organism Plan: -- Sepsis / cellulitis from the left arm. --on Ampicillin and clindamycin. --BC +group A beta strep --UC no growth (5) Axillary lymphadenopathy ICD Codes: R59.0 - Localized enlarged lymph nodes Assessment 37y/o male with bilateral DVTs and hyponatremia. h/o past medical history of PTSD, TBI and anxiety Plan - Will need to be on anticoagulation for 6 months to 1 year - DVT occurred in the setting for cellulitis - d/w rn o/n events reviewed David Holley MD May 21, 2017 18:18
[2017-05-21] MEDS: traZODone HCL 100 MG TAB PO SCH (23:46)
[2017-05-21] MEDS: ZOLPIDEM TARTRATE 10 MG TAB PO PRN (23:46)
[2017-05-22] VITALS: BP 150/85; PULSE 92; RESP 20; TEMP 97; O2SAT 98
[2017-05-22] MEDS: oxyCODONE/ACETAMINOPHEN 10 MG/325 MG TAB PO PRN ×4 (00:06→12:18)
[2017-05-22] MEDS: AMPICILLIN 2 GM/NS 100 ML IV SCH ×14 (00:07→22:26)
[2017-05-22] MEDS: CLINDAMYCIN 150 MG CAP PO SCH ×4 (03:01→20:59)
[2017-05-22] MEDS: HYDROmorphone HCL PF 2 MG/ML VIAL IV PRN ×3 (03:01→15:02)
[2017-05-22] MEDS: CHLORHEXIDINE GLUCONATE 2 % 1 PACK (2 CLOTHS) TOP SCH (03:11)
[2017-05-22 03:34] LABS: AUTOMATED NEUTROPHIL # 2.7 TH/MM3 (1.8-7.7); BASOPHIL # 0.1 TH/MM3 (0-0.2); BASOPHIL % 1.3 % (0.0-2.0); EOSINOPHIL # 0.1 TH/MM3 (0-0.4); EOSINOPHIL % 1.2 % (0.0-4.0); HEMATOCRIT 29.7 % (39.0-51.0); HEMO FLAGS DIFF FINAL; LYMPH % 43.1 % (9.0-44.0); LYMPHOCYTE # 2.9 TH/MM3 (1.0-4.8); MEAN CELL VOLUME 85.6 FL (80.0-100.0); MEAN CORPUSCULAR HEMOGLOBIN 28.9 PG (27.0-34.0); MEAN CORPUSCULAR HGB CONC 33.8 % (32.0-36.0); MONO % 14.7 % (0.0-8.0); NEUT % 39.7 % (16.0-70.0); PLATELET COUNT 469 TH/MM3 (150-450); RED BLOOD COUNT 3.47 MIL/MM3 (4.50-5.90); RED CELL DISTRIBUTION WIDTH 14.3 % (11.6-17.2); WHITE BLOOD COUNT 6.9 TH/MM3 (4.0-11.0)
[2017-05-22 03:58] LABS: BICARBONATE 28.1 MEQ/L (21.0-32.0); POTASSIUM 3.9 MEQ/L (3.5-5.1)
[2017-05-22 04:00] VITALS: BP 175/81; PULSE 109; RESP 20; TEMP 96.7; O2SAT 94
[2017-05-22] MEDS: MORPHINE SULFATE 15 MG CONTROLLED RELEASE TAB PO SCH ×2 (05:57→14:03)
[2017-05-22] MEDS: DILTIAZEM HCL 60 MG TAB PO SCH ×3 (05:57→17:44)
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
[2017-05-22] MEDS: FAMOTIDINE 20 MG TAB PO SCH ×2 (08:17→20:59)
[2017-05-22] MEDS: SODIUM CHLORIDE 1 GRAM TAB PO SCH ×2 (08:17→21:00)
[2017-05-22] MEDS: clonazePAM 1 MG TAB PO SCH ×2 (08:17→20:59)
[2017-05-22] MEDS: SODIUM CHLORIDE 0.9% FLUSH 10 ML FLUSH IV FLUSH SCH ×3 (08:20→21:00)
[2017-05-22] MEDS: DOCUSATE SODIUM 50 MG/SENNA 8.6 MG TAB PO SCH ×2 (08:21→21:00)
--- NOTE | 2017-05-22 09:40 | PD.PN.STU ---
Subjective Remarks Pt was ambulating during the examination. Pt reports feeling better emotionally and physically today, felt that the pain and lack of information contributed to him feeling down yesterday. Pt reports consistent use of Cavilon barrier spray on his Lt buttock and reports improved pruritus and discomfort since. Pt feels that his arm is getting better and that the sling has improved the swelling overnight. Denies FLOR, seizures, lightheadedness, palpitations, SOB. Objective Vitals Vital Signs Date Time Temp Pulse Resp B/P (MAP) Pulse Ox O2 Delivery O2 Flow Rate FiO2 05/22/17 04:00 96.7 109 20 175/81 (112) 94 05/22/17 00:00 97.0 92 20 150/85 (106) 98 05/21/17 12:00 97.8 93 17 127/76 (93) 100 I/O 05/21/17 05/21/17 05/21/17 05/22/17 05/22/17 05/22/17 07:00 15:00 23:00 07:00 15:00 23:00 Intake Total 480 ml 800 ml 660 ml Balance 480 ml 800 ml 660 ml Intake Oral 480 ml 800 ml 360 ml IV Total 300 ml # Voids 3 5 # Bowel Movements 1 1 Result Diagram: 05/22/1731205/22/17312 A/P Assessment and Plan Problem List: (1) Bacteremia due to Streptococcus ICD Code: R78.81 - Bacteremia (2) Cellulitis of left upper extremity ICD Code: L03.114 - Cellulitis of left upper limb (3) Cellulitis of right upper extremity ICD Code: L03.113 - Cellulitis of right upper limb (4) Group A streptococcal infection ICD Code: B95.0 - Streptococcus, group A, as the cause of diseases classified elsewhere Bilateral upper extremity cellulitis due to Group A streptococcus Bacteremia due to Group A Streptococcus -Patient is currently on Ampicillin IV 2g Q4hrs and Clindamycin 900 mg Q8hrs. Blood cultures are negative after 5d since 05/07 - WBC 6.9 - Continue Percocet and keep Dilaudid for breakthrough. - IJ line placed -LUE MRI performed on 05/17 revealed extensive cellulitis and soft tissue swelling of the left arm, both proximally and distally, with probable microabscess formation subcutaneously--most notably at posterior fascial surface of arm musculature. Muscular edema is present but w/o drainable fluid. Appears negative for osteomyelitis. Hyponatremia- improved from admission -Na 132-> 130 (05/22), cont to monitor Bilateral upper extremity DVT - On Apixaban - Per Heme/Onc, patient will likely need long-term (6mo-1yr) anticoagulation upon discharge. -LLE US (05/19) reviewed and showed no signs of DVT. Anemia -2 Units of RBCs transfused on 05/17 -Iron studies -heme occult blood negative -Hb 10.0 -cont to monitor Anxiety/Depression -Pt refuses to be restarted on medications and denies speaking to a psychiatrist TBI - Continue Clonazepam 0.5mg BID. - Continue Trazodone. - Stable. Lt. Buttock Pain -Wound care recommends and instructed pt of proper cleansing hygiene of Lt buttock area gently with soap and water and pat dry. [place] buttock scab with Cavilon skin prep BID. -Soft tissue US (05/19) reviewed and showed soft tissue swelling but no evidence of masses, abnormal fluid collections, or abscess. -CT w/o contrast of left hip/buttock reviewed and showed lt. total hip arthroplasty in good position. No fracture or hematoma. Mild edema involving the subcutaneous fat overlying the left hip -Discussed with ID specialist Dr Hayward -Dr. Smith, GS recommends no surgical intervention and to continue close monitoring and current wound care management. Full code. Apixaban. Discharge Planning Cellulitis still present, needs ID Clearance. Mesha Quijano M3 May 22, 2017 09:40
--- NOTE | 2017-05-22 09:57 | PD.PN.STU ---
Subjective Remarks Pt was ambulating during the examination. Pt reports feeling better emotionally and physically today, felt that the pain and lack of information contributed to him feeling down yesterday. Pt reports consistent use of Cavilon barrier spray on his Lt buttock and reports improved pruritus and discomfort since. Pt feels that his arm is getting better and that the sling has improved the swelling overnight. Denies FLOR, seizures, lightheadedness, palpitations, SOB. Objective Vitals Vital Signs Date Time Temp Pulse Resp B/P (MAP) Pulse Ox O2 Delivery O2 Flow Rate FiO2 05/22/17 04:00 96.7 109 20 175/81 (112) 94 05/22/17 00:00 97.0 92 20 150/85 (106) 98 05/21/17 12:00 97.8 93 17 127/76 (93) 100 I/O 05/21/17 05/21/17 05/21/17 05/22/17 05/22/17 05/22/17 07:00 15:00 23:00 07:00 15:00 23:00 Intake Total 480 ml 800 ml 660 ml Balance 480 ml 800 ml 660 ml Intake Oral 480 ml 800 ml 360 ml IV Total 300 ml # Voids 3 5 # Bowel Movements 1 1 Result Diagram: 05/22/1731205/22/17312 Imaging Last Impressions Lower Extremity CT 05/21/17 0000 Signed Impressions: Service Date/Time: Sunday, May 21, 2017 16:17 - CONCLUSION: 1. The examination is somewhat limited as the tip of the intramedullary component of the implant is not contained within the [id number] on this study. 2. Left total hip arthroplasty in good position. No fracture or hematoma. 3. Mild edema involving the subcutaneous fat overlying the left hip. Luis Angel Squires Jr., MD Soft Tissue Ultrasound 05/19/17 Signed Impressions: Service Date/Time: Friday, May 19, 2017 19:50 - CONCLUSION: No evidence of abscess or abnormal fluid collections. Soft tissue swelling. Wilbert Bradley MD Lower Extremity Ultrasound 05/19/17 Signed Impressions: Service Date/Time: Friday, May 19, 2017 19:45 - CONCLUSION: No evidence of DVT. Wilbert Bradley MD Upper Extremity MRI 05/17/17 Signed Impressions: Service Date/Time: May 17:56 - CONCLUSION: 1. Extensive cellulitis and fasciitis of the left arm with probable microabscess formation along the posterior fascial surface of the arm musculature. No drainable fluid. There is also muscular edema but no evidence for osteomyelitis. Chava Rbobins MD Hip and Pelvis X-Ray 05/17/17 Signed Impressions: Service Date/Time: May 19:10 - CONCLUSION: 1. Postoperative left hip replacement. Mild sclerosis of the right femoral head that could represent mild changes of avascular necrosis. Chava Robbins MD Central Venous Line 05/15/17 1339 Signed Impressions: Service Date/Time: Monday, May 15, 2017 16:14 - CONCLUSION: Uncomplicated line placement as above. Anish Avila MD Chest X-Ray 05/14/17 Signed Impressions: Service Date/Time: Sunday, May 14, 2017 07:50 - CONCLUSION: Minimal bibasilar patchy infiltrates. Francisco Coulter MD Liver Ultrasound 05/07/17 Signed Impressions: Service Date/Time: Sunday, May 07, 2017 18:39 - CONCLUSION: 1. Hepatosplenomegaly 2. Gallbladder sludge. 3. Mild dilatation of the common bile duct. Because of this mild dilatation is not seen. 4. Echogenic right kidney which can be seen with medical renal disease. Brent Nugent MD Upper Extremity Ultrasound 05/06/17918 Signed Impressions: Service Date/Time: Saturday, May 06, 2017 09:20 - CONCLUSION: There is noncompressible occlusive clot identified in the right basilic, within the right proximal cephalic vein with nonvisualization of the mid and distal portion of the cephalic vein secondary to patient movement. Additional clot is identified within the left mid and distal radial vein. There are bilateral axillary lymph nodes noted. Somewhat larger on the left. Norma Sampson MD Head CT 05/06/17918 Signed Impressions: Service Date/Time: Saturday, May 06, 2017 10:48 - CONCLUSION: Normal examination. Norma Sampson MD Upper Extremity CT 05/06/17 Signed Impressions: Service Date/Time: Saturday, May 06, 2017 15:56 - CONCLUSION: Normal examination other than reactive adenopathy throughout the right axilla. Jose Angel Huizar MD CT Angiography 05/06/17 0000 Signed Impressions: Service Date/Time: Saturday, May 06, 2017 15:42 - CONCLUSION: Normal examination of the pulmonary arteries. Extensive edema and reactive adenopathy throughout both axilla left worse than right. Jose Angel Huizar MD Objective Remarks GENERAL: pleasant WDWN male who was in NAD SKIN/MSK: LUE erythematous, edematous, and tender palpation. Significant desquamation and presence of dry and scaly light pink underlying skin. Serosanguineous and purulent fluid continues to weep from Lt elbow region. LUE ROM intact at fingers and shoulder, with limited ROm at the elbow. Capillary refill less than 2s and radial and ulnar pulses 2+ bilaterally. Lt. axillary area slightly tender to palpation, no LAD. Lt. buttock has around [id number] area of ecchymoses and mild erythema that was hard, nonfluctuant and tender to palpation. Presence of a 2-3cm lesion covered with a dry crust with minimal bleeding. No purulent discharge appreciated. BACK: no erythema, ecchymoses. nontender to palpation. limited ROM on flexion due to pain elicited in the Lt buttock and Lt ankle, full ROM on extension HEAD: Atraumatic. Normocephalic. EYES: Pupils equal and round. EOMI. No scleral icterus. No injection or drainage. ENT: No nasal bleeding or discharge. Mucous membranes pink and moist. NECK: Trachea midline. No JVD. Rt. IJ line in place, neoi. CARDIOVASCULAR: Regular rate and rhythm. S1 and S2 heard, no murmurs, gallops, rubs. RESPIRATORY: No accessory muscle use. Clear to auscultation. Breath sounds equal bilaterally. GASTROINTESTINAL: Abdomen soft, non-tender, nondistended. Hepatic and splenic margins not palpable. NEUROLOGICAL: Awake and alert. No obvious cranial nerve deficits. Motor grossly within normal limits. Five out of 5 muscle strength in the arms and legs. Speech is rapid, but logical. PSYCHIATRIC: Appropriate mood and affect; insight and judgment normal. Medications and IVs Current Medications Medications (Trade) Dose Ordered Sig/Hafsa Route Start Time Stop Time Status Last Admin (NS Flush) 2 ml UNSCH PRN IV FLUSH 05/06/17 12:45 05/15/17 05:50 (NS Flush) 2 ml BID IV FLUSH 05/06/17 21:00 05/22/17 08:20 Miscellaneous Information 1 Q361D XX 05/06/17 12:45 05/06/17 12:45 (Chlorhexidine 2% Cloth) Taper DAILY@04 TOP 05/07/17 04:00 05/03/18 03:59 05/11/17 03:45 (Chlorhexidine 2% Cloth) 3 pack UNSCH PRN TOP 05/06/17 12:45 (Tammy-Colace) 1 tab BID PO 05/06/17 21:00 05/17/17 21:12 (Milk Of Magnesia Liq) 30 ml Q12H PRN PO 05/06/17 12:45 (Senokot) 17.2 mg Q12H PRN PO 05/06/17 12:45 (Dulcolax Supp) 10 mg DAILY PRN RECTAL 05/06/17 12:45 (Lactulose Liq) 30 ml DAILY PRN PO 05/06/17 12:45 (Tylenol) 650 mg Q6H PRN PO 05/06/17 14:30 05/13/17 11:34 (Zofran Inj) 4 mg Q8HR PRN IV PUSH 05/06/17 14:30 05/06/17 18:39 (Cardizem) 60 mg Q6HR PO 05/06/17 14:45 05/20/17 22:52 (Apresoline Inj) 10 mg Q6H PRN IV PUSH 05/06/17 14:45 (KlonoPIN) 0.5 mg BID PO 05/07/17 11:15 05/22/17 08:17 (Desyrel) 200 mg HS PO 05/07/17 21:00 05/21/17 23:46 Ampicillin Sodium 2000 mg/Sodium Chloride 100 ml @ 300 mls/hr Q4H IV 05/08/17 11:00 05/22/17 09:10 (Ambien) 10 mg HS PRN PO 05/11/17 21:00 05/21/17 23:46 (Pepcid) 20 mg BID PO 05/11/17 21:00 05/22/17 08:17 (Albuterol Neb) 2.5 mg Q2HR NEB PRN NEB 05/11/17 13:00 (Percocet 10-325 Mg) 1 tab Q4H PRN PO 05/12/17 10:00 05/22/17 08:17 (NS Flush) DAILY IV FLUSH 05/16/17 09:00 05/22/17 08:21 (NS Flush) UNSCH PRN IV FLUSH 05/15/17 17:15 (Sodium Chloride) 1 gm BID PO 05/18/17 09:00 05/22/17 08:17 (Cleocin) 300 mg Q6H PO 05/18/17 16:00 05/22/17 08:18 (Oramorph Sr) 15 mg Q8HR PO 05/19/17 22:00 05/22/17 05:57 (Dilaudid Pf Inj) 1 mg Q6H PRN IV 05/21/17 20:00 05/22/17 09:04 (Eliquis) 5 mg BID PO 05/22/17 09:00 UNV A/P Assessment and Plan Bilateral upper extremity cellulitis due to Group A streptococcus Bacteremia due to Group A Streptococcus -Patient is currently on Ampicillin IV 2g Q4hrs and Clindamycin 900 mg Q8hrs. Blood cultures are negative after 5d since 05/07 - WBC 6.9 today - Wean off IV Dilaudid q6hr to PO Dilaudid for breakthrough pain - IJ line present -LUE MRI performed on 05/17 revealed extensive cellulitis and soft tissue swelling of the left arm, both proximally and distally, with probable microabscess formation subcutaneously--most notably at posterior fascial surface of arm musculature. Muscular edema is present but w/o drainable fluid. Appears negative for osteomyelitis. Hyponatremia- improved from admission -Na 132-> 130 (05/22), cont to monitor Bilateral upper extremity DVT - On Apixaban - Per Heme/Onc, patient will likely need long-term (6mo-1yr) anticoagulation upon discharge. -LLE US (05/19) reviewed and showed no signs of DVT. Anemia -2 Units of RBCs transfused on 05/17 -Iron studies -heme occult blood negative -Hb 10.0 -cont to monitor Anxiety/Depression -Pt refuses to be restarted on medications and denies speaking to a psychiatrist TBI - Continue Clonazepam 0.5mg BID. - Continue Trazodone. - Stable. Lt. Buttock Pain -Wound care recommends and instructed pt of proper cleansing hygiene of Lt buttock area gently with soap and water and pat dry. [place] buttock scab with Cavilon skin prep BID. -Soft tissue US (05/19) reviewed and showed soft tissue swelling but no evidence of masses, abnormal fluid collections, or abscess. -CT w/o contrast of left hip/buttock reviewed and showed lt. total hip arthroplasty in good position. No fracture or hematoma. Mild edema involving the subcutaneous fat overlying the left hip -Discussed with ID specialist Dr Hayward -Dr. Smith, GS recommends no surgical intervention and to continue close monitoring and current wound care management. Full code. DVT prophylaxis, Apixaban. Discharge Planning Cellulitis still present, needs ID Clearance. Mesha Quijano M3 May 22, 2017 09:57
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
--- NOTE | 2017-05-22 11:35 | HHI.NPPN ---
Subjective Renal Failure: Acute Interval History His sodium is slightly lower today. No new issues. (Josiane Norris) Review of Systems General Constitutional: Fatigue (Josiane Norris) Endocrine Endocrine: Thirst (Josiane Norris) Objective Data Data Vital Signs Date Time Temp Pulse Resp B/P (MAP) Pulse Ox O2 Delivery O2 Flow Rate FiO2 05/22/17 04:00 96.7 109 20 175/81 (112) 94 05/22/17 00:00 97.0 92 20 150/85 (106) 98 05/21/17 12:00 97.8 93 17 127/76 (93) 100 (Josiane Norris) -: 05/22/17 0313 05/22/17 0313 Tubes & Lines Comment TLC (Josiane Norris) Physical Exam General Appearance: Well Developed, Well Nourished, No Acute Distress, Comfortable (Josiane Norris) Eyes Eye Exam: Pupils Equal (Josiane Norris) Throat Throat Exam: Oral Mucosa [place] & Moist (Josiane Norris) Pulmonary Resp Exam: Clear Bilaterally, Breath Sounds Equal, No Distress (Josiane Norris) Cardiology CV Exam: Regular, Normal Sinus Rhythm, Good Perfusion (Josiane Norris) Gastrointestinal/Abdomen GI Exam: Soft, Non-Tender, Bowel Sounds Present (Josiane Norris) Musculoskeletal MS Exam: Joints Intact, Normal Tone, Good Strength (Josiane Norris) Integumentary Skin Exam: Warm, Dry Skin Remarks erythema to upper extremities; left arm more edematous (Josiane Norris) Extremeties Extremities Exam: No Edema, Pedal Pulses Palpable (Josiane Norris) Neurologic Neuro Exam: Alert, Awake, Oriented, Speech Clear, Moving All Extremities (Josiane Norris) Assessment/Plan Discussed Condition With: Patient Assessment Summary: BEATRIZ/Acute Renal Failure Electrolyte Assessment: Hyponatremia Problem List: (1) Hyponatremia ICD Codes: E87.1 - Hypo-osmolality and hyponatremia Plan: Mixed picture Initial hypovolemic hyponatremia 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 (2) BEATRIZ (acute kidney injury) ICD Codes: N17.9 - Acute kidney failure, unspecified Plan: Secondary to renal hypoperfusion from sepsis Renal function has returned to baseline Monitor for changes Avoid nephrotoxins. (3) Sepsis ICD Codes: A41.9 - Sepsis, unspecified organism Plan: ID is following Continue antibiotics ampicillin and PO clindamycin MRI reviewed, he has microabscessed and significant inflammation of left arm continue wound care (4) Acute bilateral deep vein thrombosis (DVT) of upper extremities ICD Codes: I82.623 - Acute embolism and thrombosis of deep veins of upper extremity, bilateral Plan: he is on eliquis x 6 months hematology following Plan We will sign off at this time. (Josiane Norris) Plan patient was seen and examined. Continue fluid restriction. (Nasir Rouse MD) Josiane Norris May 22, 2017 11:35 Nasir Rouse MD May 23, 2017 10:10
[2017-05-22 12:00] VITALS: BP 132/73; PULSE 63; RESP 17; TEMP 97.2; O2SAT 99
[2017-05-22] MEDS: APIXABAN 5 MG TABLET PO SCH ×2 (12:39→20:59)
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
[2017-05-22 16:00] VITALS: BP 156/83; PULSE 90; RESP 18; TEMP 96.5; O2SAT 96
--- NOTE | 2017-05-22 17:15 | HHI.PR ---
Subjective Remarks Patient ambulating in the room , doesn't appear in acute distress. No fever or chills. Says he still has pain in his arm and buttocks. Erythema nad edema improved with arm elevation. Patient denies n/v/d/c. Eating fairly well. Objective Vitals Vital Signs Date Time Temp Pulse Resp B/P (MAP) Pulse Ox O2 Delivery O2 Flow Rate FiO2 05/22/17 16:00 96.5 90 18 156/83 (107) 96 05/22/17 12:00 97.2 63 17 132/73 (92) 99 05/22/17 04:00 96.7 109 20 175/81 (112) 94 05/22/17 00:00 97.0 92 20 150/85 (106) 98 I/O 05/21/17 05/21/17 05/21/17 05/22/17 05/22/17 05/22/17 07:00 15:00 23:00 07:00 15:00 23:00 Intake Total 480 ml 800 ml 660 ml 100 ml Balance 480 ml 800 ml 660 ml 100 ml Intake Oral 480 ml 800 ml 360 ml IV Total 300 ml 100 ml # Voids 3 5 # Bowel Movements 1 1 Result Diagram: 05/22/173 05/22/17312 Imaging Last Impressions Lower Extremity CT 05/21/17 0000 Signed Impressions: Service Date/Time: Sunday, May 21, 2017 16:17 - CONCLUSION: 1. The examination is somewhat limited as the tip of the intramedullary component of the implant is not contained within the [id number] on this study. 2. Left total hip arthroplasty in good position. No fracture or hematoma. 3. Mild edema involving the subcutaneous fat overlying the left hip. Luis Angel Squires Jr., MD Soft Tissue Ultrasound 05/19/17 0000 Signed Impressions: Service Date/Time: Friday, May 19, 2017 19:50 - CONCLUSION: No evidence of abscess or abnormal fluid collections. Soft tissue swelling. Wilbert Bradley MD Lower Extremity Ultrasound 05/19/17 0000 Signed Impressions: Service Date/Time: Friday, May 19, 2017 19:45 - CONCLUSION: No evidence of DVT. Wilbert Bradley MD Upper Extremity MRI 05/17/17 0000 Signed Impressions: Service Date/Time: May 17:56 - CONCLUSION: 1. Extensive cellulitis and fasciitis of the left arm with probable microabscess formation along the posterior fascial surface of the arm musculature. No drainable fluid. There is also muscular edema but no evidence for osteomyelitis. Chava Robbins MD Hip and Pelvis X-Ray 05/17/17 Signed Impressions: Service Date/Time: May 19:10 - CONCLUSION: 1. Postoperative left hip replacement. Mild sclerosis of the right femoral head that could represent mild changes of avascular necrosis. Chava Robbins MD Central Venous Line 05/15/17 1339 Signed Impressions: Service Date/Time: Monday, May 15, 2017 16:14 - CONCLUSION: Uncomplicated line placement as above. Anish Avila MD Chest X-Ray 05/14/17 Signed Impressions: Service Date/Time: Sunday, May 14, 2017 07:50 - CONCLUSION: Minimal bibasilar patchy infiltrates. Francisco Coulter MD Liver Ultrasound 05/07/17 Signed Impressions: Service Date/Time: Sunday, May 07, 2017 18:39 - CONCLUSION: 1. Hepatosplenomegaly 2. Gallbladder sludge. 3. Mild dilatation of the common bile duct. Because of this mild dilatation is not seen. 4. Echogenic right kidney which can be seen with medical renal disease. Brent Nugent MD Upper Extremity Ultrasound 05/06/1719 Signed Impressions: Service Date/Time: Saturday, May 06, 2017 09:20 - CONCLUSION: There is noncompressible occlusive clot identified in the right basilic, within the right proximal cephalic vein with nonvisualization of the mid and distal portion of the cephalic vein secondary to patient movement. Additional clot is identified within the left mid and distal radial vein. There are bilateral axillary lymph nodes noted. Somewhat larger on the left. Norma Sampson MD Head CT 05/06/1719 Signed Impressions: Service Date/Time: Saturday, May 06, 2017 10:48 - CONCLUSION: Normal examination. Norma Sampson MD Upper Extremity CT 05/06/17 Signed Impressions: Service Date/Time: Saturday, May 06, 2017 15:56 - CONCLUSION: Normal examination other than reactive adenopathy throughout the right axilla. Jose Angel Huizar MD CT Angiography 05/06/17 0000 Signed Impressions: Service Date/Time: Saturday, May 06, 2017 15:42 - CONCLUSION: Normal examination of the pulmonary arteries. Extensive edema and reactive adenopathy throughout both axilla left worse than right. Jose Angel Huizar MD Objective Remarks GENERAL: Pleasant middle age male appears in NAD SKIN/MSK: LUE erythematous, edematous and tender. Significant desquamation and presence of pink/red underlying skin that is mostly dry and without telangiectasias. Serosanguineous fluid continues to weep from elbow region. LUE ROM intact at fingers and shoulder, with continued [id number] ROM at elbow. Capillary refill less than 2s and radial pulses 2+ bilaterally. Lt. axillary area tender to palpation, no LAD. Lt. buttock has 10-15cm area of ecchymoses that was nonfluctuant and tender to palpation, presence of a 2-3cm lesion covered with a dry crust. No bleeding or purulent discharge appreciated. BACK: no erythema, ecchymoses. nontender to palpation. Full ROM on flexion, limited ROM on extension due to pain. NECK: Rt. IJ line in place CARDIOVASCULAR: Regular rate and rhythm. S1 and S2 heard, no murmurs, gallops, rubs. RESPIRATORY: No accessory muscle use. Clear to auscultation. Breath sounds equal bilaterally. GASTROINTESTINAL: Abdomen soft, non-tender, nondistended. Hepatic and splenic margins not palpable. NEUROLOGICAL: Awake and alert. No obvious cranial nerve deficits. Motor grossly within normal limits. Five out of 5 muscle strength in the arms and legs. Normal speech. PSYCHIATRIC: Appropriate mood and affect; insight and judgment normal. Procedures 05/07/2017 Echo Normal left ventricular size and wall thickness. The left ventricular systolic function is normal with an estimated ejection fraction in the range of 60-65%. Left ventricular diastolic function parameters are normal. There is trace tricuspid valve regurgitation. The estimated pulmonary arterial pressure is 14.2 mmHg. No massess or vegetations noted Side: Right Location: Subclavian A/P Problem List: (1) Bacteremia due to Streptococcus ICD Code: R78.81 - Bacteremia (2) Cellulitis of left upper extremity ICD Code: L03.114 - Cellulitis of left upper limb (3) Cellulitis of right upper extremity ICD Code: L03.113 - Cellulitis of right upper limb (4) Group A streptococcal infection ICD Code: B95.0 - Streptococcus, group A, as the cause of diseases classified elsewhere Assessment and Plan Bilateral upper extremity cellulitis due to Group A streptococcus Bacteremia due to Group A Streptococcus -Patient is currently on Ampicillin IV 2g Q4hrs and Clindamycin 900 mg Q8hrs. Blood cultures are negative after 5d - WBC 5.7 - Continue Percocet and keep Dilaudid for breakthrough. - IJ line placed -LUE MRI performed on 05/17 revealed extensive cellulitis and soft tissue swelling of the left arm, both proximally and distally, with probable microabscess formation subcutaneously--most notably at posterior fascial surface of arm musculature. Muscular edema is present but w/o drainable fluid. Appears negative for osteomyelitis. Lt. Buttock Pain Imprpved. Erythema and edema, bluish discoloration also improved. No fluctuation -wound care consult placed -Soft tissue US (05/19) reviewed and showed soft tissue swelling but no evidence of masses, abnormal fluid collections, or abscess. Plan for CT w/o contrast of left hip/buttock. Discussed with ID specialist Dr Hayward. Patient with induration without fluctuation, bluish discoloration r/o fracture, hematoma, also patient with bacteremia poss dissemination of infection? Hyponatremia- improved -Na 132 (05/21), cont to monitor Bilateral upper extremity DVT - On Apixaban - Per Heme/Onc, patient will likely need long-term (6mo-1yr) anticoagulation upon discharge. -LLE US (05/19) reviewed and showed no signs of DVT. Anemia -2 Units of RBCs transfused -Iron studies and heme occult blood results pending -Hb 9.6, cont to monitor Anxiety/Depression -consult psych as patien ton effexor and might be the culprit for hyponatremia. Psych to eval and treat. TBI - Continue Clonazepam 0.5mg BID. - Continue Trazodone. - Stable. Patient not interested in re-starting anti-anxiety medications, however he is not opposed to Psychiatry consult. Full code. Apixaban. Discharge Planning Cellulitis/abscess/ bacteremia, needs ID Clearance. POss DC tomorrow if cleared by consultants. Taper narcotic will change to dilaudid PO, DC morphine says doesn't work, and DC dilaudid IV. Ana Lilia Carpenter MD May 22, 2017 17:15
[2017-05-22] MEDS: ACETAMINOPHEN/HYDROcodone 325 MG/5 MG TAB PO PRN ×2 (17:44→23:59)
--- NOTE | 2017-05-22 18:30 | HHI.PR ---
Subjective Remarks late entry - patient seen on 05/20/17 at 1:10 pm Patient states still has pain in left upper extremity Objective Vitals Vital Signs Date Time Temp Pulse Resp B/P (MAP) Pulse Ox O2 Delivery O2 Flow Rate FiO2 05/22/17 16:00 96.5 90 18 156/83 (107) 96 05/22/17 12:00 97.2 63 17 132/73 (92) 99 05/22/17 04:00 96.7 109 20 175/81 (112) 94 05/22/17 00:00 97.0 92 20 150/85 (106) 98 I/O 05/21/17 05/21/17 05/21/17 05/22/17 05/22/17 05/22/17 06:59 14:59 22:59 06:59 14:59 22:59 Intake Total 480 ml 800 ml 660 ml 100 ml Balance 480 ml 800 ml 660 ml 100 ml Intake Oral 480 ml 800 ml 360 ml IV Total 300 ml 100 ml # Voids 3 5 # Bowel Movements 1 1 Result Diagram: 05/22/1731205/22/17312 Objective Remarks Awake, alert and oriented 3 There is significant edema especially in the left upper extremity with associated crusting. No subcutaneous gas palpated. Induration seems to be better than previous day. There is erythema, warmth and induration on left buttock. Left lower extremity edema abdomen soft, non tender, non distended no edema in lower extremities. There is a left sided IJ Good peripheral pulses in all extremities Procedures 05/07/2017 Echo Normal left ventricular size and wall thickness. The left ventricular systolic function is normal with an estimated ejection fraction in the range of 60-65%. Left ventricular diastolic function parameters are normal. There is trace tricuspid valve regurgitation. The estimated pulmonary arterial pressure is 14.2 mmHg. No massess or vegetations noted Vascular Central Line Catheter: Yes Assessment to: Continue Side: Right Location: Subclavian Reason for Continuation IV access A/P Problem List: (1) Bacteremia due to Streptococcus ICD Code: R78.81 - Bacteremia (2) Cellulitis of left upper extremity ICD Code: L03.114 - Cellulitis of left upper limb (3) Cellulitis of right upper extremity ICD Code: L03.113 - Cellulitis of right upper limb (4) Group A streptococcal infection ICD Code: B95.0 - Streptococcus, group A, as the cause of diseases classified elsewhere Assessment and Plan Mr. Schulte is a pleasant 37 year old [employer] with a history of TBI, anxiety, depression who was admitted to the hospital on 05/06/2017 due to progressive swelling, erythema, blisters of both upper extremities, especially left upper ext. Several days prior to this admission, patient was taking care of his generator. He cut is arms and subsequently also burned his arms by the exhaust system of the generator. In the ensuing days, he noticed progressive erythema, swelling of his upper extremities and he also developed nausea, vomiting, diarrhea. Upon arrival, HR 128, Resp 18, BP 132/68. Temp 98%, 99% on 2L of O2 via NC. WBC 3.3 with 89.5% neutrophils, Hgb 13.6, HCT 38.2, Plt 71K. Sodium 102, Potassium 3.8, Cr 1.15, Lactic acid 3.7, 4.1. CT of the extremities indicated soft tissue swelling but no evidence of necrotizing fascitis. Orthopedic surgery, ID were consulted. Patient was started on Vancomycin, Zosyn and Clindamycin. - Severe Sepsis (Tachycardia, WBC < 4.0, Lactic acid >2.0, know infection upper ext). - Bilateral upper extremity cellulitis due to Group A streptococcus - Bacteremia due to Group A Streptococcus - ID consulted on following patient. Continue antibiotics as per ID. -Patient is currently on Ampicillin IV 2g Q4hrs and Clindamycin 900 mg Q8hrs. - Continue wound care. - Orthopedic surgery evaluated patient and recommended no surgical intervention. - Continue Percocet and keep Dilaudid for breakthrough. - Femoral line discontinued --> Right IJ placed - 05/[address] John. there is still significant erythema and swelling of the left upper extremity, along with some induration. ID recommends ordering MRI of upper extremities to r/o abscess formation. Will follow. Clindamycin DC'd, continue Ampicillin as per ID recommendations. - MRI upper extremities noted. MRI of the left upper extremity shows extensive cellulitis and fasciitis of the left arm with probable microabscesses formation along the posterior fascial surface of the musculature, no drainable fluid. There is also muscular edema but no evidence of osteomyelitis. I will call Dr. Lenny Irving from orthopedic surgery to discuss case with him. - Bilateral upper extremity DVT - Thrombocytopenia - Hematology was consulted. Heparin drip was discontinued and patient was transitioned to Apixaban. - Thrombocytopenia is likely due to hepatosplenomegaly as well as infection, medications. - PLT count improved to 215K - WBC 22.9 --> 16.6 --> 14.2 - Thrombocytopenia resolved. Continue management as per hematology oncology. Continue apixaban. - Leukocytosis resolved. Continue to monitor CBC. - Acute kidney injury - Hyponatremia - BEATRIZ likely due to volume depletion, sepsis. Currently resolved. - Hyponatremia is possibly psychotropic meds - Buspirone, Lexapro. - Patient has not found these meds helpful. - Hyponatremia 129 --> 121 --> 123. - Nephrology consulted. Patient on 1 liter fluid restriction - Patient started on sodium chloride tablets and sodium is slowly trending up. Continue management as per nephrology recommendations. - 05/20 sodium 137 - continue to monitor BMP - Anxiety/Depression - TBI - Continue Clonazepam 0.5mg BID. - Continue Trazodone. -- 05/17 seems to be stable. Offered psychiatric help however patient states will not take any antipsychotics again. Left lower extremity swelling - Check venous doppler to r/o DVT ----> negative - Cellulitis of Left Buttock - Left buttock warm and indurated on exam as well as very tender. Will order a Soft tissue us to r/o abscess formation. - 05/20 No abscess formation on US, there is soft tissue swelling. Full code. Apixaban. Discharge Planning Patient still hyponatremic, cellulitis still present, pending clinical improvement and ID clearance. Jonel Correa MD May 22, 2017 18:30
[2017-05-22 20:00] VITALS: BP 155/76; PULSE 89; RESP 17; TEMP 97.7; O2SAT 97
[2017-05-22] MEDS: HYDROmorphone HCL 2 MG TAB PO PRN (20:57)
[2017-05-22] MEDS ORDERED: HYDROmorphone HCL PF 0.5 MG/0.5 ML SYRINGE IV PUSH ONE (22:00)
[2017-05-22] MEDS: traZODone HCL 100 MG TAB PO SCH (22:26)
[2017-05-22] MEDS: ACETAMINOPHEN 325 MG TAB PO PRN (22:31)
--- NOTE | 2017-05-22 23:19 | PD.ONC.PN ---
Subjective Subjective Remarks resting comfortably f/u for UE DVT/cellulitis on anticoagulation on going treatment with antibiotics Objective Data Date Time Temp Pulse Resp B/P (MAP) Pulse Ox O2 Delivery O2 Flow Rate FiO2 05/22/17 16:00 96.5 90 18 156/83 (107) 96 05/22/17 12:00 97.2 63 17 132/73 (92) 99 05/22/17 04:00 96.7 109 20 175/81 (112) 94 05/22/17 00:00 97.0 92 20 150/85 (106) 98 Result Diagram: 05/22/1731205/22/17312 Laboratory Results Laboratory Tests Test 05/22/17 03:13 White Blood Count 6.9 TH/MM3 Red Blood Count 3.47 MIL/MM3 Hemoglobin 10.0 GM/DL Hematocrit 29.7 % Mean Corpuscular Volume 85.6 FL Mean Corpuscular Hemoglobin 28.9 PG Mean Corpuscular Hemoglobin Concent 33.8 % Red Cell Distribution Width 14.3 % Platelet Count 469 TH/MM3 Mean Platelet Volume 6.5 FL Neutrophils (%) (Auto) 39.7 % Lymphocytes (%) (Auto) 43.1 % Monocytes (%) (Auto) 14.7 % Eosinophils (%) (Auto) 1.2 % Basophils (%) (Auto) 1.3 % Neutrophils # (Auto) 2.7 TH/MM3 Lymphocytes # (Auto) 2.9 TH/MM3 Monocytes # (Auto) 1.0 TH/MM3 Eosinophils # (Auto) 0.1 TH/MM3 Basophils # (Auto) 0.1 TH/MM3 CBC Comment DIFF FINAL Differential Comment Blood Urea Nitrogen 3 MG/DL Creatinine 0.67 MG/DL Random Glucose 90 MG/DL Calcium Level 8.7 MG/DL Sodium Level 130 MEQ/L Potassium Level 3.9 MEQ/L Chloride Level 95 MEQ/L Carbon Dioxide Level 28.1 MEQ/L Anion Gap 7 MEQ/L Estimat Glomerular Filtration Rate 134 ML/MIN Administered Medications Medications (Trade) Dose Ordered Sig/Hafsa Route PRN Reason Start Time Stop Time Status Last Admin Dose Admin Sodium Chloride (NS Flush) 2 ml UNSCH PRN IV FLUSH FLUSH AFTER USING IV ACCESS 05/06/17 12:45 05/15/17 05:50 Sodium Chloride (NS Flush) 2 ml BID IV FLUSH 05/06/17 21:00 05/22/17 21:00 Miscellaneous Information 1 [id number] XX 05/06/17 12:45 05/06/17 12:45 Chlorhexidine Gluconate (Chlorhexidine 2% Cloth) Taper DAILY@04 TOP 05/07/17 04:00 05/03/18 03:59 05/11/17 03:45 Senna/Docusate Sodium (Tammy-Colace) 1 tab BID PO 05/06/17 21:00 05/17/17 21:12 Acetaminophen (Tylenol) 650 mg Q6H PRN PO Headache, fever 05/06/17 14:30 05/22/17 22:31 Ondansetron HCl (Zofran Inj) 4 mg Q8HR PRN IV PUSH N/V 05/06/17 14:30 05/06/17 18:39 Diltiazem HCl (Cardizem) 60 mg Q6HR PO 05/06/17 14:45 05/22/17 17:44 Clonazepam (KlonoPIN) 0.5 mg BID PO 05/07/17 11:15 05/22/17 20:59 Trazodone HCl (Desyrel) 200 mg HS PO 05/07/17 21:00 05/22/17 22:26 Ampicillin Sodium 2000 mg/Sodium Chloride 100 ml @ 300 mls/hr Q4H IV 05/08/17 11:00 05/22/17 22:26 Zolpidem Tartrate (Ambien) 10 mg HS PRN PO INSOMNIA 05/11/17 21:00 05/21/17 23:46 Famotidine (Pepcid) 20 mg BID PO 05/11/17 21:00 05/22/17 20:59 Sodium Chloride (NS Flush) DAILY IV FLUSH 05/16/17 09:00 05/22/17 08:21 Sodium Chloride (Sodium Chloride) 1 gm BID PO 05/18/17 09:00 05/22/17 21:00 Clindamycin HCl (Cleocin) 300 mg Q6H PO 05/18/17 16:00 05/22/17 20:59 Apixaban (Eliquis) 5 mg BID PO 05/22/17 10:00 05/22/17 20:59 Hydromorphone HCl (Dilaudid) 1 mg Q6H PRN PO PAIN 5-10 05/22/17 16:45 05/22/17 20:57 Acetaminophen/ Hydrocodone Bitart ([place] 5-325 Mg) 1 tab Q6H PRN PO pain 2-4 05/22/17 16:45 05/22/17 17:44 Objective Remarks GENERAL: nad SKIN: Warm and dry. LYMPHATIC: No adenopathy. CARDIOVASCULAR: Regular rate and rhythm without murmurs. RESPIRATORY: Breath sounds equal bilaterally. No accessory muscle use. GASTROINTESTINAL: Abdomen soft, non-tender, nondistended. EXTREMITIES: No cyanosis, UE swelling L>R Assessment/Plan Problem List: (1) Acute bilateral deep vein thrombosis (DVT) of upper extremities ICD Codes: I82.623 - Acute embolism and thrombosis of deep veins of upper extremity, bilateral Plan: on IV heparin gtt --Doppler ultrasound, upper extremities-->noncompressible occlusive clot in the right basilic vein within the right proximal cephalic vein with nonvisualization of the mid and distal portions of the cephalic vein secondary to patient movement. There was additional clot in the left mid and distal radial vein. --no precipitating factor. --CTA showed no PE (2) Hyponatremia ICD Codes: E87.1 - Hypo-osmolality and hyponatremia Plan: --improving (3) Thrombocytopenia ICD Codes: D69.6 - Thrombocytopenia, unspecified Status: Resolved Plan: --multifactorial d/t splenomegaly, infection, possible medication effect , consumption from DVT's --fibrinogen is preserved --liver u/s shows hepatosplenomegaly (4) Sepsis ICD Codes: A41.9 - Sepsis, unspecified organism Plan: -- Sepsis / cellulitis from the left arm. --on Ampicillin and clindamycin. --BC +group A beta strep --UC no growth (5) Axillary lymphadenopathy ICD Codes: R59.0 - Localized enlarged lymph nodes Assessment 37y/o male with bilateral DVTs and hyponatremia. h/o past medical history of PTSD, TBI and anxiety Plan - Will need to be on anticoagulation for 6 months to 1 year - DVT occurred in the setting for cellulitis - d/w rn o/n events reviewed David Holley MD May 22, 2017 23:19
[2017-05-23] VITALS: BP 142/64; PULSE 84; RESP 17; TEMP 97.4; O2SAT 97
[2017-05-23] MEDS: ACETAMINOPHEN 325 MG TAB PO PRN ×2 (02:17→08:31)
[2017-05-23] MEDS: CHLORHEXIDINE GLUCONATE 2 % 1 PACK (2 CLOTHS) TOP SCH (04:00)
[2017-05-23] MEDS: CLINDAMYCIN 150 MG CAP PO SCH ×4 (05:20→21:22)
[2017-05-23] MEDS: DILTIAZEM HCL 60 MG TAB PO SCH ×4 (05:21→18:13)
[2017-05-23] MEDS: AMPICILLIN 2 GM/NS 100 ML IV SCH ×12 (05:21→23:25)
[2017-05-23] MEDS: ACETAMINOPHEN/HYDROcodone 325 MG/5 MG TAB PO PRN (05:48)
[2017-05-23 08:00] VITALS: BP 156/91; PULSE 84; RESP 17; TEMP 98.4; O2SAT 97
[2017-05-23] MEDS: FAMOTIDINE 20 MG TAB PO SCH ×2 (08:30→21:22)
[2017-05-23] MEDS: APIXABAN 5 MG TABLET PO SCH ×2 (08:30→21:22)
[2017-05-23] MEDS: clonazePAM 1 MG TAB PO SCH ×2 (08:31→21:22)
[2017-05-23] MEDS: SODIUM CHLORIDE 1 GRAM TAB PO SCH ×2 (08:31→21:22)
[2017-05-23] MEDS: DOCUSATE SODIUM 50 MG/SENNA 8.6 MG TAB PO SCH ×2 (08:32→21:00)
[2017-05-23] MEDS: SODIUM CHLORIDE 0.9% FLUSH 10 ML FLUSH IV FLUSH SCH ×3 (08:32→21:22)
[2017-05-23] MEDS ORDERED: ONDANSETRON ODT 4 MG TAB PO PRN (10:45)
[2017-05-23] MEDS: HYDROmorphone HCL 2 MG TAB PO PRN (11:39)
[2017-05-23 12:00] VITALS: BP 184/96; PULSE 88; RESP 16; TEMP 98.4; O2SAT 99
--- NOTE | 2017-05-23 13:28 | HHI.PR ---
Subjective Remarks Patient says he has pain and doesn't like dilaudid, says percocet 10s helps better. No fever or chills. No n/v/d/c. Swelling and redness improving. Objective Vitals Vital Signs Date Time Temp Pulse Resp B/P (MAP) Pulse Ox O2 Delivery O2 Flow Rate FiO2 05/23/17 08:00 98.4 84 17 156/91 (112) 97 05/23/17 00:00 97.4 84 17 142/64 (90) 97 05/22/17 20:00 97.7 89 17 155/76 (102) 97 05/22/17 16:00 96.5 90 18 156/83 (107) 96 I/O 05/22/17 05/22/17 05/22/17 05/23/17 05/23/17 05/23/17 07:00 15:00 23:00 07:00 15:00 23:00 Intake Total 660 ml 100 ml 450 ml 480 ml Balance 660 ml 100 ml 450 ml 480 ml Intake Oral 360 ml 450 ml 480 ml IV Total 300 ml 100 ml # Voids 4 2 # Bowel Movements 1 2 Result Diagram: 05/22/17 0313 05/22/17 0313 Imaging Last Impressions Lower Extremity CT 05/21/17 0000 Signed Impressions: Service Date/Time: Sunday, May 21, 2017 16:17 - CONCLUSION: 1. The examination is somewhat limited as the tip of the intramedullary component of the implant is not contained within the [id number] on this study. 2. Left total hip arthroplasty in good position. No fracture or hematoma. 3. Mild edema involving the subcutaneous fat overlying the left hip. Luis Angel Squires Jr., MD Soft Tissue Ultrasound 05/19/17 0000 Signed Impressions: Service Date/Time: Friday, May 19, 2017 19:50 - CONCLUSION: No evidence of abscess or abnormal fluid collections. Soft tissue swelling. Wilbert Bradley MD Lower Extremity Ultrasound 05/19/17 0000 Signed Impressions: Service Date/Time: Friday, May 19, 2017 19:45 - CONCLUSION: No evidence of DVT. Wilbert Bradley MD Upper Extremity MRI 05/17/17 0000 Signed Impressions: Service Date/Time: May 17:56 - CONCLUSION: 1. Extensive cellulitis and fasciitis of the left arm with probable microabscess formation along the posterior fascial surface of the arm musculature. No drainable fluid. There is also muscular edema but no evidence for osteomyelitis. Chava Robbins MD Hip and Pelvis X-Ray 05/17/17 Signed Impressions: Service Date/Time: May 19:10 - CONCLUSION: 1. Postoperative left hip replacement. Mild sclerosis of the right femoral head that could represent mild changes of avascular necrosis. Chava Robbins MD Central Venous Line 05/15/17 1339 Signed Impressions: Service Date/Time: Monday, May 15, 2017 16:14 - CONCLUSION: Uncomplicated line placement as above. Anish Avila MD Chest X-Ray 05/14/17 Signed Impressions: Service Date/Time: Sunday, May 14, 2017 07:50 - CONCLUSION: Minimal bibasilar patchy infiltrates. Francisco Coulter MD Liver Ultrasound 05/07/17 Signed Impressions: Service Date/Time: Sunday, May 07, 2017 18:39 - CONCLUSION: 1. Hepatosplenomegaly 2. Gallbladder sludge. 3. Mild dilatation of the common bile duct. Because of this mild dilatation is not seen. 4. Echogenic right kidney which can be seen with medical renal disease. Brent Nugent MD Upper Extremity Ultrasound 05/06/17918 Signed Impressions: Service Date/Time: Saturday, May 06, 2017 09:20 - CONCLUSION: There is noncompressible occlusive clot identified in the right basilic, within the right proximal cephalic vein with nonvisualization of the mid and distal portion of the cephalic vein secondary to patient movement. Additional clot is identified within the left mid and distal radial vein. There are bilateral axillary lymph nodes noted. Somewhat larger on the left. Norma Sampson MD Head CT 05/06/17918 Signed Impressions: Service Date/Time: Saturday, May 06, 2017 10:48 - CONCLUSION: Normal examination. Norma Sampson MD Upper Extremity CT 05/06/17 Signed Impressions: Service Date/Time: Saturday, May 06, 2017 15:56 - CONCLUSION: Normal examination other than reactive adenopathy throughout the right axilla. Jose Angel Huizar MD CT Angiography 10/1/17 0000 Signed Impressions: Service Date/Time: Saturday, May 06, 2017 15:42 - CONCLUSION: Normal examination of the pulmonary arteries. Extensive edema and reactive adenopathy throughout both axilla left worse than right. Jose Angel Huizar MD Objective Remarks GENERAL: Pleasant middle age male appears in NAD SKIN/MSK: LUE erythematous, edematous and tender. Significant desquamation and presence of pink/red underlying skin that is mostly dry and without telangiectasias. Serosanguineous fluid continues to weep from elbow region. LUE ROM intact at fingers and shoulder, with continued [id number] ROM at elbow. Capillary refill less than 2s and radial pulses 2+ bilaterally. Lt. axillary area tender to palpation, no LAD. Lt. buttock has 10-15cm area of ecchymoses that was nonfluctuant and tender to palpation, presence of a 2-3cm lesion covered with a dry crust. No bleeding or purulent discharge appreciated. BACK: no erythema, ecchymoses. nontender to palpation. Full ROM on flexion, limited ROM on extension due to pain. NECK: Rt. IJ line in place CARDIOVASCULAR: Regular rate and rhythm. S1 and S2 heard, no murmurs, gallops, rubs. RESPIRATORY: No accessory muscle use. Clear to auscultation. Breath sounds equal bilaterally. GASTROINTESTINAL: Abdomen soft, non-tender, nondistended. Hepatic and splenic margins not palpable. NEUROLOGICAL: Awake and alert. No obvious cranial nerve deficits. Motor grossly within normal limits. Five out of 5 muscle strength in the arms and legs. Normal speech. PSYCHIATRIC: Appropriate mood and affect; insight and judgment normal. Procedures 05/07/2017 Echo Normal left ventricular size and wall thickness. The left ventricular systolic function is normal with an estimated ejection fraction in the range of 60-65%. Left ventricular diastolic function parameters are normal. There is trace tricuspid valve regurgitation. The estimated pulmonary arterial pressure is 14.2 mmHg. No massess or vegetations noted Side: Right Location: Subclavian A/P Problem List: (1) Bacteremia due to Streptococcus ICD Code: R78.81 - Bacteremia (2) Cellulitis of left upper extremity ICD Code: L03.114 - Cellulitis of left upper limb (3) Cellulitis of right upper extremity ICD Code: L03.113 - Cellulitis of right upper limb (4) Group A streptococcal infection ICD Code: B95.0 - Streptococcus, group A, as the cause of diseases classified elsewhere Assessment and Plan Bilateral upper extremity cellulitis due to Group A streptococcus Bacteremia due to Group A Streptococcus -Patient is currently on Ampicillin IV 2g Q4hrs and Clindamycin 900 mg Q8hrs. Blood cultures are negative after 5d - WBC 5.7 - Continue Percocet and keep Dilaudid for breakthrough. - IJ line placed -LUE MRI performed on 05/17 revealed extensive cellulitis and soft tissue swelling of the left arm, both proximally and distally, with probable microabscess formation subcutaneously--most notably at posterior fascial surface of arm musculature. Muscular edema is present but w/o drainable fluid. Appears negative for osteomyelitis. Lt. Buttock Pain Imprpved. Erythema and edema, bluish discoloration also improved. No fluctuation -wound care consult placed -Soft tissue US (05/19) reviewed and showed soft tissue swelling but no evidence of masses, abnormal fluid collections, or abscess. Plan for CT w/o contrast of left hip/buttock. Discussed with ID specialist Dr Hayward. Patient with induration without fluctuation, bluish discoloration r/o fracture, hematoma, also patient with bacteremia poss dissemination of infection? Hyponatremia- improved -Na 132 (05/21), cont to monitor Bilateral upper extremity DVT - On Apixaban - Per Heme/Onc, patient will likely need long-term (6mo-1yr) anticoagulation upon discharge. -LLE US (05/19) reviewed and showed no signs of DVT. Anemia -2 Units of RBCs transfused -Iron studies and heme occult blood results pending -Hb 9.6, cont to monitor Anxiety/Depression -consult psych as patient on effexor and might be the culprit for hyponatremia. Psych to eval and treat. TBI - Continue Clonazepam 0.5mg BID. - Continue Trazodone. - Stable. Patient not interested in re-starting anti-anxiety medications, however he is not opposed to Psychiatry consult. Full code. Apixaban. Discharge Planning Cellulitis/abscess/ bacteremia, needs ID Clearance. Poss DC tomorrow if cleared by consultants. Taper narcotic will change to Dilaudid PO, DC morphine says doesn't work, and DC Dilaudid IV. Ana Lilia Carpenter MD May 23, 2017 13:27
[2017-05-23] MEDS ORDERED: oxyCODONE/ACETAMINOPHEN 5 MG/325 MG TAB PO PRN (13:30)
--- NOTE | 2017-05-23 14:22 | HHI.IDPN ---
Subjective Subjective Remarks no fever, WBC normal co pain in L buttock - better persistent LUE swelling and pain - not improving Antibiotics ampicillin iv oral clindamyicn Allergies: Coded Allergies: No Known Allergies (Unverified , 05/06/17) Objective . Vital Signs Date Time Temp Pulse Resp B/P (MAP) Pulse Ox O2 Delivery O2 Flow Rate FiO2 05/23/17 08:00 98.4 84 17 156/91 (112) 97 05/23/17 00:00 97.4 84 17 142/64 (90) 97 05/22/17 20:00 97.7 89 17 155/76 (102) 97 05/22/17 16:00 96.5 90 18 156/83 (107) 96 . Laboratory Tests Test 05/22/17 03:13 White Blood Count 6.9 TH/MM3 Red Blood Count 3.47 MIL/MM3 Hemoglobin 10.0 GM/DL Hematocrit 29.7 % Mean Corpuscular Volume 85.6 FL Mean Corpuscular Hemoglobin 28.9 PG Mean Corpuscular Hemoglobin Concent 33.8 % Red Cell Distribution Width 14.3 % Platelet Count 469 TH/MM3 Mean Platelet Volume 6.5 FL Neutrophils (%) (Auto) 39.7 % Lymphocytes (%) (Auto) 43.1 % Monocytes (%) (Auto) 14.7 % Eosinophils (%) (Auto) 1.2 % Basophils (%) (Auto) 1.3 % Neutrophils # (Auto) 2.7 TH/MM3 Lymphocytes # (Auto) 2.9 TH/MM3 Monocytes # (Auto) 1.0 TH/MM3 Eosinophils # (Auto) 0.1 TH/MM3 Basophils # (Auto) 0.1 TH/MM3 CBC Comment DIFF FINAL Differential Comment Laboratory Tests Test 05/22/17 03:13 Blood Urea Nitrogen 3 MG/DL Creatinine 0.67 MG/DL Random Glucose 90 MG/DL Calcium Level 8.7 MG/DL Sodium Level 130 MEQ/L Potassium Level 3.9 MEQ/L Chloride Level 95 MEQ/L Carbon Dioxide Level 28.1 MEQ/L Anion Gap 7 MEQ/L Estimat Glomerular Filtration Rate 134 ML/MIN Imaging Last Impressions Lower Extremity CT 05/21/17 0000 Signed Impressions: Service Date/Time: Sunday, May 21, 2017 16:17 - CONCLUSION: 1. The examination is somewhat limited as the tip of the intramedullary component of the implant is not contained within the [id number] on this study. 2. Left total hip arthroplasty in good position. No fracture or hematoma. 3. Mild edema involving the subcutaneous fat overlying the left hip. Luis Angel Squires Jr., MD Soft Tissue Ultrasound 05/19/17 0000 Signed Impressions: Service Date/Time: Friday, May 19, 2017 19:50 - CONCLUSION: No evidence of abscess or abnormal fluid collections. Soft tissue swelling. Wilbert Bradley MD Lower Extremity Ultrasound 05/19/17 0000 Signed Impressions: Service Date/Time: Friday, May 19, 2017 19:45 - CONCLUSION: No evidence of DVT. Wilbert Bradley MD Upper Extremity MRI 05/17/17 0000 Signed Impressions: Service Date/Time: May 17:56 - CONCLUSION: 1. Extensive cellulitis and fasciitis of the left arm with probable microabscess formation along the posterior fascial surface of the arm musculature. No drainable fluid. There is also muscular edema but no evidence for osteomyelitis. Chava Robbins MD Hip and Pelvis X-Ray 05/17/17 0000 Signed Impressions: Service Date/Time: May 19:10 - CONCLUSION: 1. Postoperative left hip replacement. Mild sclerosis of the right femoral head that could represent mild changes of avascular necrosis. Chava Robbins MD Central Venous Line 05/15/17 1339 Signed Impressions: Service Date/Time: Monday, May 15, 2017 16:14 - CONCLUSION: Uncomplicated line placement as above. Anish Avila MD Chest X-Ray 05/14/17 0000 Signed Impressions: Service Date/Time: Sunday, May 14, 2017 07:50 - CONCLUSION: Minimal bibasilar patchy infiltrates. Francisco Coulter MD Liver Ultrasound 05/07/17 0000 Signed Impressions: Service Date/Time: Sunday, May 07, 2017 18:39 - CONCLUSION: 1. Hepatosplenomegaly 2. Gallbladder sludge. 3. Mild dilatation of the common bile duct. Because of this mild dilatation is not seen. 4. Echogenic right kidney which can be seen with medical renal disease. Brent Nugent MD Upper Extremity Ultrasound 05/06/17 0919 Signed Impressions: Service Date/Time: Saturday, May 06, 2017 09:20 - CONCLUSION: There is noncompressible occlusive clot identified in the right basilic, within the right proximal cephalic vein with nonvisualization of the mid and distal portion of the cephalic vein secondary to patient movement. Additional clot is identified within the left mid and distal radial vein. There are bilateral axillary lymph nodes noted. Somewhat larger on the left. Norma Sampson MD Head CT 05/06/17 0919 Signed Impressions: Service Date/Time: Saturday, May 06, 2017 10:48 - CONCLUSION: Normal examination. Norma Sampson MD Upper Extremity CT 05/06/17 0000 Signed Impressions: Service Date/Time: Saturday, May 06, 2017 15:56 - CONCLUSION: Normal examination other than reactive adenopathy throughout the right axilla. Jose Angel Huizar MD CT Angiography 05/06/17 0000 Signed Impressions: Service Date/Time: Saturday, May 06, 2017 15:42 - CONCLUSION: Normal examination of the pulmonary arteries. Extensive edema and reactive adenopathy throughout both axilla left worse than right. Jose Angel Huizar MD Physical Exam CONSTITUTIONAL/GENERAL: This is an adequately nourished patient, in NAD TUBES/LINES/DRAINS: SKIN: No jaundice, no rash CARDIOVASCULAR: Regular rate and rhythm without murmurs, gallops, or rubs. RESPIRATORY/CHEST: Symmetric, unlabored respirations. Clear to auscultation. GASTROINTESTINAL: Abdomen soft, non-tender, nondistended. MUSCULOSKELETAL: lower extremities without clubbing, cyanosis, or edema. RUE edema and erythema has markedly improved, crusting, but a small area of fluctuance noted - even smaller today LUE with persistent edema, erythema, induration on ventral aspect A very firm tense and possibly fluctuant area prox forearm it s very tender to palpation There is a very tense, indurated area on prox forearm exquisetely tender to palpation L hip incision - well healed L buttock with large ill defined very firm area of redf-purple discoloration most cw hematoma - better today No fluctuance, no open areas NEUROLOGICAL: Awake and alert. non focal; ambulates around avery PSYCHIATRIC: calm and cooperative Assessment & Plan Remarks Assessment and Plan Sepsis, GAS from BUE complicated SSTI BUE complicated SSTI, cellulitis, CT e/o abscesses (loculated fluid collection) group A - ortho recommends conservative treatmetn and monitoring for signs of compartment sdf - likely has myocytis based on MRI ? formed an abscess BUE DVT Thrombocytopenia with high fibrinogen: resolved Refractory hyponatremia - markedly improved Hep C + / HIV negative Persistent fever and leukocytosis: resolved L buttock hematoma vs less liekly abscess. ? related to prosthetic hip trauma - MRI unremarkbale -cont ampicillin - cont clindamycin (po ) - Keep LUE in sling on IV pole -reconsult gen surgery for LUE persistent phlegmopne/ abscess dw Jeannie Cruz MD May 23, 2017 14:22
[2017-05-23 15:16] LABS: BICARBONATE 25.7 MEQ/L (21.0-32.0); POTASSIUM 3.8 MEQ/L (3.5-5.1)
[2017-05-23 16:00] VITALS: BP 185/96; PULSE 82; RESP 19; TEMP 97.9; O2SAT 99
[2017-05-23] MEDS: SODIUM CHLOR 0.9% 1000 ML INJ 1,000 ML IV SCH (17:00)
[2017-05-23] MEDS ORDERED: SODIUM CHLORIDE 1 GRAM TAB PO ONE (17:00)
[2017-05-23] MEDS: oxyCODONE/ACETAMINOPHEN 10 MG/325 MG TAB PO PRN ×2 (17:06→21:20)
[2017-05-23 20:00] VITALS: BP 179/91; PULSE 80; RESP 17; TEMP 97.1; O2SAT 99
[2017-05-23] MEDS: traZODone HCL 100 MG TAB PO SCH (21:00)
[2017-05-23 21:54] LABS: POTASSIUM 3.6 MEQ/L (3.5-5.1)
[2017-05-24] VITALS: BP 144/70; PULSE 75; RESP 17; TEMP 98.2; O2SAT 99
[2017-05-24] MEDS: DILTIAZEM HCL 60 MG TAB PO SCH ×5 (00:02→22:33)
[2017-05-24] MEDS: oxyCODONE/ACETAMINOPHEN 10 MG/325 MG TAB PO PRN ×5 (01:23→20:54)
[2017-05-24] MEDS: ZOLPIDEM TARTRATE 10 MG TAB PO PRN ×2 (01:52→22:14)
[2017-05-24] MEDS: CLINDAMYCIN 150 MG CAP PO SCH ×4 (01:53→20:52)
[2017-05-24] MEDS: AMPICILLIN 2 GM/NS 100 ML IV SCH ×12 (01:54→22:12)
[2017-05-24] MEDS: CHLORHEXIDINE GLUCONATE 2 % 1 PACK (2 CLOTHS) TOP SCH (04:00)
[2017-05-24] MEDS: SODIUM CHLOR 0.9% 1000 ML INJ 1,000 ML IV SCH ×3 (05:26→17:13)
[2017-05-24 05:53] LABS: AUTOMATED NEUTROPHIL # 3.3 TH/MM3 (1.8-7.7); BASOPHIL # 0.1 TH/MM3 (0-0.2); EOSINOPHIL # 0.1 TH/MM3 (0-0.4); EOSINOPHIL % 1.6 % (0.0-4.0); HEMATOCRIT 28.9 % (39.0-51.0); HEMO FLAGS DIFF FINAL; LYMPH % 36.5 % (9.0-44.0); LYMPHOCYTE # 2.4 TH/MM3 (1.0-4.8); MEAN CELL VOLUME 84.8 FL (80.0-100.0); MEAN CORPUSCULAR HEMOGLOBIN 29.5 PG (27.0-34.0); MEAN CORPUSCULAR HGB CONC 34.8 % (32.0-36.0); MONO % 11.9 % (0.0-8.0); PLATELET COUNT 458 TH/MM3 (150-450); RED BLOOD COUNT 3.41 MIL/MM3 (4.50-5.90); RED CELL DISTRIBUTION WIDTH 14.1 % (11.6-17.2); WHITE BLOOD COUNT 6.7 TH/MM3 (4.0-11.0)
[2017-05-24] MEDS ORDERED: ALTEPLASE RECOMBINANT 2 MG VIAL INTRACATH ONE (06:15)
[2017-05-24 06:22] LABS: BICARBONATE 26.8 MEQ/L (21.0-32.0); POTASSIUM 3.5 MEQ/L (3.5-5.1)
[2017-05-24 08:00] VITALS: BP 155/83; PULSE 72; RESP 18; TEMP 96.7; O2SAT 100
--- NOTE | 2017-05-24 08:10 | HHI.PR ---
Subjective Remarks Pain is fairly controlled. Erythema and edema improved a little, however says there is a hard painful area below elbow that is not getting better. Also buttock hard area is still painful. No n/v/d/.c Discussed with Dr Irving considers no surgical intervention needed. I did notify Dr Hayward ID specialist, will also involve hand surgeon for eval as per Dr Hyaward patient is no improving with abx and might need I&D Objective Vitals Vital Signs Date Time Temp Pulse Resp B/P (MAP) Pulse Ox O2 Delivery O2 Flow Rate FiO2 05/24/17 00:00 98.2 75 17 144/70 (94) 99 05/23/17 20:00 97.1 80 17 179/91 (120) 99 05/23/17 16:00 97.9 82 19 185/96 (125) 99 05/23/17 12:00 98.4 88 16 184/96 (125) 99 I/O 05/23/17 05/23/17 05/23/17 05/24/17 05/24/17 05/24/17 07:00 15:00 23:00 07:00 15:00 23:00 Intake Total 480 ml 200 ml 1210 ml 940 ml 100 ml Balance 480 ml 200 ml 1210 ml 940 ml 100 ml Intake Oral 480 ml 460 ml 240 ml IV Total 200 ml 750 ml 700 ml 100 ml # Voids 2 4 3 # Bowel Movements 2 2 Result Diagram: 05/24/17 0535 05/24/17 0535 Imaging Last Impressions Lower Extremity CT 05/21/17 0000 Signed Impressions: Service Date/Time: Sunday, May 21, 2017 16:17 - CONCLUSION: 1. The examination is somewhat limited as the tip of the intramedullary component of the implant is not contained within the [id number] on this study. 2. Left total hip arthroplasty in good position. No fracture or hematoma. 3. Mild edema involving the subcutaneous fat overlying the left hip. Luis Angel Squires Jr., MD Soft Tissue Ultrasound 05/19/17 0000 Signed Impressions: Service Date/Time: Friday, May 19, 2017 19:50 - CONCLUSION: No evidence of abscess or abnormal fluid collections. Soft tissue swelling. Wilbert Bradley MD Lower Extremity Ultrasound 05/19/17 0000 Signed Impressions: Service Date/Time: Friday, May 19, 2017 19:45 - CONCLUSION: No evidence of DVT. Wilbert Bradley MD Upper Extremity MRI 05/17/17 0000 Signed Impressions: Service Date/Time: May 17:56 - CONCLUSION: 1. Extensive cellulitis and fasciitis of the left arm with probable microabscess formation along the posterior fascial surface of the arm musculature. No drainable fluid. There is also muscular edema but no evidence for osteomyelitis. Chava Robbins MD Hip and Pelvis X-Ray 05/17/17 0000 Signed Impressions: Service Date/Time: May 19:10 - CONCLUSION: 1. Postoperative left hip replacement. Mild sclerosis of the right femoral head that could represent mild changes of avascular necrosis. Chava Robbins MD Central Venous Line 05/15/17 1339 Signed Impressions: Service Date/Time: Monday, May 15, 2017 16:14 - CONCLUSION: Uncomplicated line placement as above. Anish Avila MD Chest X-Ray 05/14/17 Signed Impressions: Service Date/Time: Sunday, May 14, 2017 07:50 - CONCLUSION: Minimal bibasilar patchy infiltrates. Francisco Coulter MD Liver Ultrasound 05/07/17 Signed Impressions: Service Date/Time: Sunday, May 07, 2017 18:39 - CONCLUSION: 1. Hepatosplenomegaly 2. Gallbladder sludge. 3. Mild dilatation of the common bile duct. Because of this mild dilatation is not seen. 4. Echogenic right kidney which can be seen with medical renal disease. Brent Nugent MD Upper Extremity Ultrasound 05/06/1719 Signed Impressions: Service Date/Time: Saturday, May 06, 2017 09:20 - CONCLUSION: There is noncompressible occlusive clot identified in the right basilic, within the right proximal cephalic vein with nonvisualization of the mid and distal portion of the cephalic vein secondary to patient movement. Additional clot is identified within the left mid and distal radial vein. There are bilateral axillary lymph nodes noted. Somewhat larger on the left. Norma Sampson MD Head CT 05/06/1719 Signed Impressions: Service Date/Time: Saturday, May 06, 2017 10:48 - CONCLUSION: Normal examination. Norma Sampson MD Upper Extremity CT 05/06/17 Signed Impressions: Service Date/Time: Saturday, May 06, 2017 15:56 - CONCLUSION: Normal examination other than reactive adenopathy throughout the right axilla. Jose Angel Huizar MD CT Angiography 05/06/17 Signed Impressions: Service Date/Time: Saturday, May 06, 2017 15:42 - CONCLUSION: Normal examination of the pulmonary arteries. Extensive edema and reactive adenopathy throughout both axilla left worse than right. Jose Angel Huizar MD Objective Remarks GENERAL: Pleasant middle age male appears in NAD SKIN/MSK: LUE erythematous, edematous and tender. Significant desquamation and presence of pink/red underlying skin that is mostly dry and without telangiectasias. Serosanguineous fluid continues to weep from elbow region. LUE ROM intact at fingers and shoulder, with continued [id number] ROM at elbow. Capillary refill less than 2s and radial pulses 2+ bilaterally. Lt. axillary area tender to palpation, no LAD. Lt. buttock has 10-15cm area of ecchymoses that was nonfluctuant and tender to palpation, presence of a 2-3cm lesion covered with a dry crust. No bleeding or purulent discharge appreciated. BACK: no erythema, ecchymoses. nontender to palpation. Full ROM on flexion, limited ROM on extension due to pain. NECK: Rt. IJ line in place CARDIOVASCULAR: Regular rate and rhythm. S1 and S2 heard, no murmurs, gallops, rubs. RESPIRATORY: No accessory muscle use. Clear to auscultation. Breath sounds equal bilaterally. GASTROINTESTINAL: Abdomen soft, non-tender, nondistended. Hepatic and splenic margins not palpable. NEUROLOGICAL: Awake and alert. No obvious cranial nerve deficits. Motor grossly within normal limits. Five out of 5 muscle strength in the arms and legs. Normal speech. PSYCHIATRIC: Appropriate mood and affect; insight and judgment normal. Procedures 05/07/2017 Echo Normal left ventricular size and wall thickness. The left ventricular systolic function is normal with an estimated ejection fraction in the range of 60-65%. Left ventricular diastolic function parameters are normal. There is trace tricuspid valve regurgitation. The estimated pulmonary arterial pressure is 14.2 mmHg. No massess or vegetations noted Side: Right Location: Subclavian A/P Problem List: (1) Bacteremia due to Streptococcus ICD Code: R78.81 - Bacteremia (2) Cellulitis of left upper extremity ICD Code: L03.114 - Cellulitis of left upper limb (3) Cellulitis of right upper extremity ICD Code: L03.113 - Cellulitis of right upper limb (4) Group A streptococcal infection ICD Code: B95.0 - Streptococcus, group A, as the cause of diseases classified elsewhere Assessment and Plan Bilateral upper extremity cellulitis due to Group A streptococcus Bacteremia due to Group A Streptococcus -Patient is currently on Ampicillin IV 2g Q4hrs and Clindamycin 900 mg Q8hrs. Blood cultures are negative after 5d - WBC 5.7 - Continue Percocet and keep Dilaudid for breakthrough. - IJ line placed -LUE MRI performed on 05/17 revealed extensive cellulitis and soft tissue swelling of the left arm, both proximally and distally, with probable microabscess formation subcutaneously--most notably at posterior fascial surface of arm musculature. Muscular edema is present but w/o drainable fluid. Appears negative for osteomyelitis. Lt. Buttock Pain Improved. Erythema and edema, bluish discoloration also improved. No fluctuation. -wound care consult placed -Soft tissue US (05/19) reviewed and showed soft tissue swelling but no evidence of masses, abnormal fluid collections, or abscess. Plan for CT w/o contrast of left hip/buttock. Discussed with ID specialist Dr Hayward. Patient with induration without fluctuation, bluish discoloration r/o fracture, hematoma, also patient with bacteremia poss dissemination of infection? Hyponatremia- improved -Na 132 (05/21), cont to monitor Bilateral upper extremity DVT - On Apixaban - Per Heme/Onc, patient will likely need long-term (6mo-1yr) anticoagulation upon discharge. -LLE US (05/19) reviewed and showed no signs of DVT. Anemia -2 Units of RBCs transfused -Iron studies and heme occult blood results pending -Hb 9.6, cont to monitor Anxiety/Depression -consult psych as patient on effexor and might be the culprit for hyponatremia. Psych to eval and treat. TBI - Continue Clonazepam 0.5mg BID. - Continue Trazodone. - Stable. Patient not interested in re-starting anti-anxiety medications, however he is not opposed to Psychiatry consult. Full code. Apixaban. Discharge Planning Cellulitis/abscess/ bacteremia, needs ID Clearance. Not cleared by consultants. Taper narcotic will change to Dilaudid PO, DC morphine says doesn't work, and DC Dilaudid IV. Pain currently controlled by po meds. Per Dr Hayward Patient is not improving with abx Discussed with Dr Irving considers no surgical intervention needed. I did notify Dr Hayward ID specialist, will also involve hand surgeon for eval as per Dr Hayward patient is no improving with abx and might still need I&D Ana Lilia Carpenter MD May 24, 2017 08:10
[2017-05-24] MEDS: APIXABAN 5 MG TABLET PO SCH ×2 (09:00→20:50)
[2017-05-24] MEDS: SODIUM CHLORIDE 0.9% FLUSH 10 ML FLUSH IV FLUSH SCH ×3 (09:00→20:47)
[2017-05-24] MEDS: FAMOTIDINE 20 MG TAB PO SCH ×2 (09:00→20:52)
[2017-05-24] MEDS: SODIUM CHLORIDE 1 GRAM TAB PO SCH ×2 (09:00→20:52)
[2017-05-24] MEDS: clonazePAM 1 MG TAB PO SCH ×2 (09:00→20:50)
[2017-05-24] MEDS: DOCUSATE SODIUM 50 MG/SENNA 8.6 MG TAB PO SCH ×2 (09:00→20:52)
[2017-05-24] MEDS ORDERED: ALTEPLASE RECOMBINANT 2 MG VIAL INTRACATH PRN (10:45)
[2017-05-24] MEDS ORDERED: SODIUM CHLORIDE 1 GRAM TAB PO ONE (11:00)
[2017-05-24 12:00] VITALS: BP 156/75; PULSE 69; RESP 15; TEMP 96.4; O2SAT 99
[2017-05-24] MEDS ORDERED: VENL37.595 PO (14:28)
[2017-05-24] MEDS ORDERED: HYDR1CAP30 PO (14:28)
[2017-05-24 16:00] VITALS: BP 139/78; PULSE 79; RESP 16; TEMP 96.8; O2SAT 99
--- NOTE | 2017-05-24 18:36 | HHI.IDPN ---
Subjective Subjective Remarks no fever, WBC normal co pain in L buttock - better persistent LUE swelling and pain - not improving still 03/15 pain Antibiotics ampicillin iv oral clindamyicn Allergies: Coded Allergies: No Known Allergies (Unverified , 05/06/17) Objective . Vital Signs Date Time Temp Pulse Resp B/P (MAP) Pulse Ox O2 Delivery O2 Flow Rate FiO2 05/24/17 16:00 96.8 79 16 139/78 (98) 99 05/24/17 12:00 96.4 69 15 156/75 (102) 99 05/24/17 08:00 96.7 72 18 155/83 (107) 100 05/24/17 00:00 98.2 75 17 144/70 (94) 99 05/23/17 20:00 97.1 80 17 179/91 (120) 99 05/24/17 05/24/17 05/25/17 14:59 22:59 06:59 Intake Total 100 ml 610 ml Balance 100 ml 610 ml Intake Oral 610 ml IV Total 100 ml # Voids 3 # Bowel Movements 1 . Laboratory Tests Test 05/24/17 05:35 White Blood Count 6.7 TH/MM3 Red Blood Count 3.41 MIL/MM3 Hemoglobin 10.1 GM/DL Hematocrit 28.9 % Mean Corpuscular Volume 84.8 FL Mean Corpuscular Hemoglobin 29.5 PG Mean Corpuscular Hemoglobin Concent 34.8 % Red Cell Distribution Width 14.1 % Platelet Count 458 TH/MM3 Mean Platelet Volume 6.6 FL Neutrophils (%) (Auto) 49.0 % Lymphocytes (%) (Auto) 36.5 % Monocytes (%) (Auto) 11.9 % Eosinophils (%) (Auto) 1.6 % Basophils (%) (Auto) 1.0 % Neutrophils # (Auto) 3.3 TH/MM3 Lymphocytes # (Auto) 2.4 TH/MM3 Monocytes # (Auto) 0.8 TH/MM3 Eosinophils # (Auto) 0.1 TH/MM3 Basophils # (Auto) 0.1 TH/MM3 CBC Comment DIFF FINAL Differential Comment Laboratory Tests Test 05/23/17 13:40 05/23/17 20:55 05/24/17 05:35 Blood Urea Nitrogen 4 MG/DL 4 MG/DL 3 MG/DL Creatinine 0.58 MG/DL 0.58 MG/DL 0.61 MG/DL Random Glucose 108 MG/DL 94 MG/DL 96 MG/DL Calcium Level 8.4 MG/DL 8.4 MG/DL 8.3 MG/DL Sodium Level 124 MEQ/L 125 MEQ/L 127 MEQ/L Potassium Level 3.8 MEQ/L 3.6 MEQ/L 3.5 MEQ/L Chloride Level 91 MEQ/L 93 MEQ/L 95 MEQ/L Carbon Dioxide Level 25.7 MEQ/L 25.0 MEQ/L 26.8 MEQ/L Anion Gap 7 MEQ/L 7 MEQ/L 5 MEQ/L Estimat Glomerular Filtration Rate 159 ML/MIN 159 ML/MIN 150 ML/MIN Imaging Last Impressions Lower Extremity CT 05/21/17 0000 Signed Impressions: Service Date/Time: Sunday, May 21, 2017 16:17 - CONCLUSION: 1. The examination is somewhat limited as the tip of the intramedullary component of the implant is not contained within the [id number] on this study. 2. Left total hip arthroplasty in good position. No fracture or hematoma. 3. Mild edema involving the subcutaneous fat overlying the left hip. Luis Angel Squires Jr., MD Soft Tissue Ultrasound 05/19/17 0000 Signed Impressions: Service Date/Time: Friday, May 19, 2017 19:50 - CONCLUSION: No evidence of abscess or abnormal fluid collections. Soft tissue swelling. Wilbert Bradley MD Lower Extremity Ultrasound 05/19/17 0000 Signed Impressions: Service Date/Time: Friday, May 19, 2017 19:45 - CONCLUSION: No evidence of DVT. Wilbert Bradley MD Upper Extremity MRI 05/17/17 Signed Impressions: Service Date/Time: May 17:56 - CONCLUSION: 1. Extensive cellulitis and fasciitis of the left arm with probable microabscess formation along the posterior fascial surface of the arm musculature. No drainable fluid. There is also muscular edema but no evidence for osteomyelitis. Chava Robbins MD Hip and Pelvis X-Ray 05/17/17 Signed Impressions: Service Date/Time: May 19:10 - CONCLUSION: 1. Postoperative left hip replacement. Mild sclerosis of the right femoral head that could represent mild changes of avascular necrosis. Chava Robbins MD Central Venous Line 05/15/17 1339 Signed Impressions: Service Date/Time: Monday, May 15, 2017 16:14 - CONCLUSION: Uncomplicated line placement as above. Anish Avila MD Chest X-Ray 05/14/17 Signed Impressions: Service Date/Time: Sunday, May 14, 2017 07:50 - CONCLUSION: Minimal bibasilar patchy infiltrates. Francisco Coulter MD Liver Ultrasound 05/07/17 Signed Impressions: Service Date/Time: Sunday, May 07, 2017 18:39 - CONCLUSION: 1. Hepatosplenomegaly 2. Gallbladder sludge. 3. Mild dilatation of the common bile duct. Because of this mild dilatation is not seen. 4. Echogenic right kidney which can be seen with medical renal disease. Brent Nugent MD Upper Extremity Ultrasound 05/06/17918 Signed Impressions: Service Date/Time: Saturday, May 06, 2017 09:20 - CONCLUSION: There is noncompressible occlusive clot identified in the right basilic, within the right proximal cephalic vein with nonvisualization of the mid and distal portion of the cephalic vein secondary to patient movement. Additional clot is identified within the left mid and distal radial vein. There are bilateral axillary lymph nodes noted. Somewhat larger on the left. Norma Sampson MD Head CT 05/06/17918 Signed Impressions: Service Date/Time: Saturday, May 06, 2017 10:48 - CONCLUSION: Normal examination. Norma Sampson MD Upper Extremity CT 05/06/17 Signed Impressions: Service Date/Time: Saturday, May 06, 2017 15:56 - CONCLUSION: Normal examination other than reactive adenopathy throughout the right axilla. Jose Angel Huizar MD CT Angiography 05/06/17 Signed Impressions: Service Date/Time: Saturday, May 06, 2017 15:42 - CONCLUSION: Normal examination of the pulmonary arteries. Extensive edema and reactive adenopathy throughout both axilla left worse than right. Jose Angel Huizar MD Physical Exam CONSTITUTIONAL/GENERAL: This is an adequately nourished patient, in NAD TUBES/LINES/DRAINS: SKIN: No jaundice, no rash CARDIOVASCULAR: Regular rate and rhythm without murmurs, gallops, or rubs. RESPIRATORY/CHEST: Symmetric, unlabored respirations. Clear to auscultation. GASTROINTESTINAL: Abdomen soft, non-tender, nondistended. MUSCULOSKELETAL: lower extremities without clubbing, cyanosis, or edema. RUE edema and erythema has markedly improved, crusting, but a small area of fluctuance noted - even smaller today LUE with persistent edema, erythema, induration on ventral aspect A very firm tense and possibly fluctuant area prox forearm it s very tender to palpation There is a very tense, indurated area on prox forearm exquisetely tender to palpation There is no change since my last visit L hip incision - well healed L buttock with large ill defined very firm area smaller and less tender today No fluctuance, no open areas NEUROLOGICAL: Awake and alert. non focal; ambulates around avery PSYCHIATRIC: calm and cooperative Assessment & Plan Remarks Assessment and Plan Sepsis, GAS from BUE complicated SSTI BUE complicated SSTI, cellulitis, CT e/o abscesses (loculated fluid collection) with unresolving infection of LUE after nearly 3 weeks of tx group A - ortho recommends conservative treatmetn and monitoring for signs of compartment sdf - likely has myocytis based on MRI ? formed an abscess - treatment failure, failure for further improvement of LUE infx: suspect an abscess BUE DVT Thrombocytopenia with high fibrinogen: resolved Refractory hyponatremia - markedly improved Hep C + / HIV negative Persistent fever and leukocytosis: resolved L buttock hematoma vs less liekly abscess. ? related to prosthetic hip trauma - MRI unremarkbale -cont ampicillin - cont clindamycin (po ) - Keep LUE in sling on IV pole - consult hand surgery for LUE persistent phlegmopne/ abscess dw Dr Jayden John,Jeannie Bentley MD May 24, 2017 18:36
--- NOTE | 2017-05-24 19:24 | RADRPT ---
EXAM DATE/TIME: 05/24/2017 19:04 [facility] COMPARISON: No previous studies available for comparison. INDICATIONS : Left arm abscess. MEDICAL HISTORY : Traumatic brain injury. Polyuria. Broken back. Anxiety. Left arm abscess. SURGICAL HISTORY : Left hip surgery. ENCOUNTER: Initial ACUITY: 1 week PAIN SCORE: 4/10 LOCATION: Left arm. AREA EVALUATED: Left lower medial arm. FINDINGS: MASSES: None. FLUID COLLECTIONS: None. OTHER: Is mildly increased vascularity and edema in the area of clinical concern lower arm. No evidence of o rganized fluid collection or abscess CONCLUSION: Mild edema and increased vascularity in the area clinical concern without organized fluid collection or abscess. John Tomas MD on May 24, 2017 at 19:22 Board Certified Radiologist. This report was verified electronically.
[2017-05-24 20:35] VITALS: BP 140/75; PULSE 89; RESP 18; TEMP 97.8; O2SAT 98
[2017-05-24] MEDS: traZODone HCL 100 MG TAB PO SCH (20:48)
--- NOTE | 2017-05-24 21:08 | PD.ORT.PN ---
Subjective Subjective Remarks Patient c/o left forearm/elbow pain.Denies fever, chills or sweats. Objective Vitals Vital Signs Date Time Temp Pulse Resp B/P (MAP) Pulse Ox O2 Delivery O2 Flow Rate FiO2 05/24/17 20:35 97.8 89 18 140/75 (96) 98 05/24/17 16:00 96.8 79 16 139/78 (98) 99 05/24/17 12:00 96.4 69 15 156/75 (102) 99 05/24/17 08:00 96.7 72 18 155/83 (107) 100 05/24/17 00:00 98.2 75 17 144/70 (94) 99 I/O 05/23/17 05/23/17 05/23/17 05/24/17 05/24/17 05/24/17 07:00 15:00 23:00 07:00 15:00 23:00 Intake Total 480 ml 200 ml 1210 ml 940 ml 100 ml 610 ml Balance 480 ml 200 ml 1210 ml 940 ml 100 ml 610 ml Intake Oral 480 ml 460 ml 240 ml 610 ml IV Total 200 ml 750 ml 700 ml 100 ml # Voids 2 4 3 3 # Bowel Movements 2 2 1 Result Diagram: 05/24/17 0535 05/24/17 0535 Imaging Last Impressions Upper Extremity Ultrasound 05/06/17918 Signed Impressions: Service Date/Time: Saturday, May 06, 2017 09:20 - CONCLUSION: There is noncompressible occlusive clot identified in the right basilic, within the right proximal cephalic vein with nonvisualization of the mid and distal portion of the cephalic vein secondary to patient movement. Additional clot is identified within the left mid and distal radial vein. There are bilateral axillary lymph nodes noted. Somewhat larger on the left. Norma Sampson MD Head CT 05/06/17918 Signed Impressions: Service Date/Time: Saturday, May 06, 2017 10:48 - CONCLUSION: Normal examination. Norma Sampson MD Chest X-Ray 05/06/17918 Signed Impressions: Service Date/Time: Saturday, May 06, 2017 11:17 - CONCLUSION: Normal examination. Norma Sampson MD Upper Extremity CT 05/06/17 0000 Signed Impressions: Service Date/Time: Saturday, May 06, 2017 15:56 - CONCLUSION: Normal examination other than reactive adenopathy throughout the right axilla. Jose Angel Huizar MD CT Angiography 05/06/17 0000 Signed Impressions: Service Date/Time: Saturday, May 06, 2017 15:42 - CONCLUSION: Normal examination of the pulmonary arteries. Extensive edema and reactive adenopathy throughout both axilla left worse than right. Jose Angel Huizar MD Objective Remarks RIGHT UPPER EXTREMITY: generalized swelling of forearm and elbow Soft to palpation, soft compartments No fluctuance noted elbow ROM 20-110. SILT distally. able to wiggle fingers Neuro intact Vascular intact LEFT UPPER EXTREMITY: Generalized swelling of the forearm/elbow/arm. Tenderness with direct palpation Multiple areas of extensive patchy dry skin. No active drainage noted. Mild generalized erythema. Very tense, indurated area on the proximal forearm No obvious fluctuance noted Elbow ROM 30-90. SILT distally. able to move digits Distally motor, neuro and sensory intact Assessment & Plan Assessment and Plan 1. Severe/improving Strep infectious process left upper extremity(Cellulitis/ Myositis/Fascitis) 2. Deep venous thrombosis left upper extremity. 3. Possible left elbow olecranon bursitis Patient's condition was discussed, his options of treatment was discussed. Although he has experienced increasing pain in the left forearm/elbow, there is no clinical evidence of abscess, nec fascitis or compartment syndrome or obvious fluctuance. He is grossly neurovascularly intact bilateral upper extremities. The option of conservative management vs surgical intervention was discussed. Recommend continue medical management with IV antibiotics at this time. If his symptoms continue to worsen than will consider surgical intervention. Patient's case was discussed with Dr. Irving Will continue to follow. Hill Lopez May 24, 2017 21:08
[2017-05-24 22:31] VITALS: BP 159/85; PULSE 78; TEMP 97.3; O2SAT 98
[2017-05-24 22:56] LABS: BICARBONATE 25.8 MEQ/L (21.0-32.0); POTASSIUM 3.9 MEQ/L (3.5-5.1)
[2017-05-25] MEDS: oxyCODONE/ACETAMINOPHEN 10 MG/325 MG TAB PO PRN ×5 (00:58→16:54)
[2017-05-25] MEDS: AMPICILLIN 2 GM/NS 100 ML IV SCH ×10 (03:28→17:39)
[2017-05-25] MEDS: CHLORHEXIDINE GLUCONATE 2 % 1 PACK (2 CLOTHS) TOP SCH (03:28)
[2017-05-25] MEDS: CLINDAMYCIN 150 MG CAP PO SCH ×3 (03:28→16:00)
[2017-05-25 05:00] VITALS: BP 153/85; PULSE 89
[2017-05-25] MEDS: DILTIAZEM HCL 60 MG TAB PO SCH ×3 (05:02→18:20)
[2017-05-25 06:27] LABS: AUTOMATED NEUTROPHIL # 3.1 TH/MM3 (1.8-7.7); BASOPHIL % 0.4 % (0.0-2.0); EOSINOPHIL # 0.2 TH/MM3 (0-0.4); EOSINOPHIL % 2.5 % (0.0-4.0); HEMATOCRIT 31.2 % (39.0-51.0); HEMO FLAGS DIFF FINAL; LYMPH % 36.6 % (9.0-44.0); LYMPHOCYTE # 2.4 TH/MM3 (1.0-4.8); MEAN CELL VOLUME 85.7 FL (80.0-100.0); MEAN CORPUSCULAR HEMOGLOBIN 29.3 PG (27.0-34.0); MEAN CORPUSCULAR HGB CONC 34.2 % (32.0-36.0); NEUT % 47.5 % (16.0-70.0); PLATELET COUNT 468 TH/MM3 (150-450); RED BLOOD COUNT 3.65 MIL/MM3 (4.50-5.90); RED CELL DISTRIBUTION WIDTH 14.2 % (11.6-17.2); WHITE BLOOD COUNT 6.5 TH/MM3 (4.0-11.0)
[2017-05-25 07:09] LABS: BICARBONATE 24.5 MEQ/L (21.0-32.0); POTASSIUM 3.7 MEQ/L (3.5-5.1)
[2017-05-25 08:00] VITALS: BP 141/73; PULSE 76; RESP 16; TEMP 96.7; O2SAT 98
[2017-05-25] MEDS: DOCUSATE SODIUM 50 MG/SENNA 8.6 MG TAB PO SCH (09:00)
[2017-05-25] MEDS: clonazePAM 1 MG TAB PO SCH (09:05)
[2017-05-25] MEDS: FAMOTIDINE 20 MG TAB PO SCH (09:05)
[2017-05-25] MEDS: APIXABAN 5 MG TABLET PO SCH (09:05)
[2017-05-25] MEDS: SODIUM CHLORIDE 1 GRAM TAB PO SCH (09:06)
[2017-05-25] MEDS: SODIUM CHLORIDE 0.9% FLUSH 10 ML FLUSH IV FLUSH SCH ×2 (09:12→09:13)
[2017-05-25] MEDS: SODIUM CHLOR 0.9% 1000 ML INJ 1,000 ML IV SCH (09:12)
--- NOTE | 2017-05-25 11:50 | HHI.PYPN ---
Subjective Remarks Patient was seen today for psychiatric reevaluation, patient is in a good spirit , reports good mood, says that he is very motivated to continue his medical recommendations and medications. He feels happy because his time to go home is coming. Patient denies anhedonia, he denies hopelessness, he denies helplessness, he denies suicidal and homicidal ideation, he denies visual and auditory hallucinations. Patient does report that he has had episodes of agitation "being upset"due to miscommunication with nurses and medical staff. Patient described himself as short temper person at times too impulsive. She requested to be started in HIS psychotropics the are not related with hyponatremia. However, I confronted the patient about the fact that his hyponatremia is very severe and he has also decreased osmolality in the urine which is not explained by psychotropics. He admitted to me that he is a compulsive water drinker to the point that in the past he has drank "2-3 gallons of water per day", but he now seems to understand that this is not healthy. Review of Systems Except as stated in HPI: all other systems reviewed are Neg Mental Status Examination Appearance: Appropriate Consciousness: Alert Orientation: x4 Motor Activity: Normal gait Speech: Unremarkable Language: Adequate Fund of Knowledge: Adequate Attention and Concentration: Adequate Memory: Unremarkable Mood: Appropriate Affect: Appropriate Thought Process & Associations: Intact Thought Content: Appropriate Hallucination Type: None Delusion Type: None Suicidal Ideation: No Suicidal Plan: No Suicidal Intention: No Homicidal Ideation: No Homicidal Plan: No Homicidal Intention: No Insight: Adequate Judgment: Adequate Results Labs Test 05/24/17 22:25 05/25/17 06:10 Blood Urea Nitrogen 3 MG/DL 2 MG/DL Creatinine 0.57 MG/DL 0.85 MG/DL Random Glucose 98 MG/DL 114 MG/DL Calcium Level 8.2 MG/DL 8.6 MG/DL Sodium Level 126 MEQ/L 129 MEQ/L Potassium Level 3.9 MEQ/L 3.7 MEQ/L Chloride Level 94 MEQ/L 96 MEQ/L Carbon Dioxide Level 25.8 MEQ/L 24.5 MEQ/L Anion Gap 6 MEQ/L 9 MEQ/L Estimat Glomerular Filtration Rate 162 ML/MIN 102 ML/MIN White Blood Count 6.5 TH/MM3 Red Blood Count 3.65 MIL/MM3 Hemoglobin 10.7 GM/DL Hematocrit 31.2 % Mean Corpuscular Volume 85.7 FL Mean Corpuscular Hemoglobin 29.3 PG Mean Corpuscular Hemoglobin Concent 34.2 % Red Cell Distribution Width 14.2 % Platelet Count 468 TH/MM3 Mean Platelet Volume 6.6 FL Neutrophils (%) (Auto) 47.5 % Lymphocytes (%) (Auto) 36.6 % Monocytes (%) (Auto) 13.0 % Eosinophils (%) (Auto) 2.5 % Basophils (%) (Auto) 0.4 % Neutrophils # (Auto) 3.1 TH/MM3 Lymphocytes # (Auto) 2.4 TH/MM3 Monocytes # (Auto) 0.8 TH/MM3 Eosinophils # (Auto) 0.2 TH/MM3 Basophils # (Auto) 0.0 TH/MM3 CBC Comment DIFF FINAL Differential Comment Date/Time Source Procedure Growth Status 05/07/17 13:45 Blood Peripheral Aerobic Blood Culture - Final NO GROWTH IN 5 DAYS Complete 05/07/17 13:45 Blood Peripheral Anaerobic Blood Culture - Final NO GROWTH IN 5 DAYS Complete 05/17/17 22:55 Stool Stool Stool Occult Blood (JAREN) - Final HEMOCCULT NEGATIVE Complete 05/06/17 12:10 Urine Clean Catch Urine Culture - Final NO GROWTH IN 48 HOURS. Complete 05/06/17 15:15 Wound Arm Gram Stain - Final Complete 05/06/17 15:15 Wound Culture - Final Group A Beta Strep Complete Vitals/IOs Vital Signs Date Time Temp Pulse Resp B/P (MAP) Pulse Ox O2 Delivery O2 Flow Rate FiO2 05/25/17 08:00 96.7 76 16 141/73 (95) 98 Intake and Output 05/25/17 05/25/17 05/26/17 08:00 16:00 00:00 Intake Total 1946 ml Balance 1946 ml Assessment & Plan Problem List: (1) PTSD (post-traumatic stress disorder) ICD Codes: F43.10 - Post-traumatic stress disorder, unspecified Assessment & Plan: At the moment of this evaluation the patient does not present any significant, concerning for acute symptomatology of depression, anxiety, jenny or psychosis. He is calm and cooperative, even pleasant. Episodes of mood swings and irritability in the hospital seems to be related with character structure and increased sensitivity to rejection and frustration. 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 I will restart his psychotropics with close monitoring of laboratory parameters. Extensive psychoeducation to the patient about the importance of drinking adequate amounts of water provided. He does not meet criteria for psychiatric admission at this moment. Assessment & Plan Estimated LOS: days Justification for Cont. Inpt. Patient does not meet criteria for psychiatric admission at this moment. Mustapha Giang MD May 25, 2017 11:50
[2017-05-25 12:00] VITALS: BP 166/81; PULSE 80; RESP 18; TEMP 97.2; O2SAT 100
--- NOTE | 2017-05-25 14:37 | HHI.IDPN ---
Subjective Subjective Remarks co persistent LUE swelling and pain - not improving still 03/15 pain US negative for drainable fluis collection Antibiotics ampicillin iv oral clindamyicn Allergies: Coded Allergies: No Known Allergies (Unverified , 05/06/17) Objective . Vital Signs Date Time Temp Pulse Resp B/P (MAP) Pulse Ox O2 Delivery O2 Flow Rate FiO2 05/25/17 12:00 97.2 80 18 166/81 (109) 100 05/25/17 08:00 96.7 76 16 141/73 (95) 98 05/25/17 05:00 89 153/85 (107) 05/24/17 22:31 97.3 78 159/85 (109) 98 05/24/17 20:35 97.8 89 18 140/75 (96) 98 05/24/17 16:00 96.8 79 16 139/78 (98) 99 . Laboratory Tests Test 05/24/17 05:35 05/25/17 06:10 White Blood Count 6.7 TH/MM3 6.5 TH/MM3 Red Blood Count 3.41 MIL/MM3 3.65 MIL/MM3 Hemoglobin 10.1 GM/DL 10.7 GM/DL Hematocrit 28.9 % 31.2 % Mean Corpuscular Volume 84.8 FL 85.7 FL Mean Corpuscular Hemoglobin 29.5 PG 29.3 PG Mean Corpuscular Hemoglobin Concent 34.8 % 34.2 % Red Cell Distribution Width 14.1 % 14.2 % Platelet Count 458 TH/MM3 468 TH/MM3 Mean Platelet Volume 6.6 FL 6.6 FL Neutrophils (%) (Auto) 49.0 % 47.5 % Lymphocytes (%) (Auto) 36.5 % 36.6 % Monocytes (%) (Auto) 11.9 % 13.0 % Eosinophils (%) (Auto) 1.6 % 2.5 % Basophils (%) (Auto) 1.0 % 0.4 % Neutrophils # (Auto) 3.3 TH/MM3 3.1 TH/MM3 Lymphocytes # (Auto) 2.4 TH/MM3 2.4 TH/MM3 Monocytes # (Auto) 0.8 TH/MM3 0.8 TH/MM3 Eosinophils # (Auto) 0.1 TH/MM3 0.2 TH/MM3 Basophils # (Auto) 0.1 TH/MM3 0.0 TH/MM3 CBC Comment DIFF FINAL DIFF FINAL Differential Comment Laboratory Tests Test 05/23/17 20:55 05/24/17 05:35 05/24/17 22:25 05/25/17 06:10 Blood Urea Nitrogen 4 MG/DL 3 MG/DL 3 MG/DL 2 MG/DL Creatinine 0.58 MG/DL 0.61 MG/DL 0.57 MG/DL 0.85 MG/DL Random Glucose 94 MG/DL 96 MG/DL 98 MG/DL 114 MG/DL Calcium Level 8.4 MG/DL 8.3 MG/DL 8.2 MG/DL 8.6 MG/DL Sodium Level 125 MEQ/L 127 MEQ/L 126 MEQ/L 129 MEQ/L Potassium Level 3.6 MEQ/L 3.5 MEQ/L 3.9 MEQ/L 3.7 MEQ/L Chloride Level 93 MEQ/L 95 MEQ/L 94 MEQ/L 96 MEQ/L Carbon Dioxide Level 25.0 MEQ/L 26.8 MEQ/L 25.8 MEQ/L 24.5 MEQ/L Anion Gap 7 MEQ/L 5 MEQ/L 6 MEQ/L 9 MEQ/L Estimat Glomerular Filtration Rate 159 ML/MIN 150 ML/MIN 162 ML/MIN 102 ML/MIN Imaging Last Impressions Lower Extremity CT 05/21/17 0000 Signed Impressions: Service Date/Time: Sunday, May 21, 2017 16:17 - CONCLUSION: 1. The examination is somewhat limited as the tip of the intramedullary component of the implant is not contained within the [id number] on this study. 2. Left total hip arthroplasty in good position. No fracture or hematoma. 3. Mild edema involving the subcutaneous fat overlying the left hip. Luis Angel Squires Jr., MD Soft Tissue Ultrasound 05/19/17 0000 Signed Impressions: Service Date/Time: Friday, May 19, 2017 19:50 - CONCLUSION: No evidence of abscess or abnormal fluid collections. Soft tissue swelling. Wilbert Bradley MD Lower Extremity Ultrasound 05/19/17 0000 Signed Impressions: Service Date/Time: Friday, May 19, 2017 19:45 - CONCLUSION: No evidence of DVT. Wilbert Bradley MD Upper Extremity MRI 05/17/17 0000 Signed Impressions: Service Date/Time: May 17:56 - CONCLUSION: 1. Extensive cellulitis and fasciitis of the left arm with probable microabscess formation along the posterior fascial surface of the arm musculature. No drainable fluid. There is also muscular edema but no evidence for osteomyelitis. Chava Robbins MD Hip and Pelvis X-Ray 05/17/17 Signed Impressions: Service Date/Time: May 19:10 - CONCLUSION: 1. Postoperative left hip replacement. Mild sclerosis of the right femoral head that could represent mild changes of avascular necrosis. Chava Robbins MD Central Venous Line 05/15/17 1339 Signed Impressions: Service Date/Time: Monday, May 15, 2017 16:14 - CONCLUSION: Uncomplicated line placement as above. Anish Avila MD Chest X-Ray 05/14/17 Signed Impressions: Service Date/Time: Sunday, May 14, 2017 07:50 - CONCLUSION: Minimal bibasilar patchy infiltrates. Francisco Coulter MD Liver Ultrasound 05/07/17 Signed Impressions: Service Date/Time: Sunday, May 07, 2017 18:39 - CONCLUSION: 1. Hepatosplenomegaly 2. Gallbladder sludge. 3. Mild dilatation of the common bile duct. Because of this mild dilatation is not seen. 4. Echogenic right kidney which can be seen with medical renal disease. Brent Nugent MD Upper Extremity Ultrasound 05/06/17918 Signed Impressions: Service Date/Time: Saturday, May 06, 2017 09:20 - CONCLUSION: There is noncompressible occlusive clot identified in the right basilic, within the right proximal cephalic vein with nonvisualization of the mid and distal portion of the cephalic vein secondary to patient movement. Additional clot is identified within the left mid and distal radial vein. There are bilateral axillary lymph nodes noted. Somewhat larger on the left. Norma Sampson MD Head CT 05/06/17918 Signed Impressions: Service Date/Time: Saturday, May 06, 2017 10:48 - CONCLUSION: Normal examination. Norma Sampson MD Upper Extremity CT 05/06/17 Signed Impressions: Service Date/Time: Saturday, May 06, 2017 15:56 - CONCLUSION: Normal examination other than reactive adenopathy throughout the right axilla. Jose Angel Huizar MD CT Angiography 05/06/17 Signed Impressions: Service Date/Time: Saturday, May 06, 2017 15:42 - CONCLUSION: Normal examination of the pulmonary arteries. Extensive edema and reactive adenopathy throughout both axilla left worse than right. Jose Angel Huizar MD Physical Exam CONSTITUTIONAL/GENERAL: This is an adequately nourished patient, in NAD TUBES/LINES/DRAINS: SKIN: No jaundice, no rash CARDIOVASCULAR: Regular rate and rhythm without murmurs, gallops, or rubs. RESPIRATORY/CHEST: Symmetric, unlabored respirations. Clear to auscultation. GASTROINTESTINAL: Abdomen soft, non-tender, nondistended. MUSCULOSKELETAL: lower extremities without clubbing, cyanosis, or edema. RUE edema and erythema has markedly improved, crusting, but a small area of fluctuance noted - even smaller today LUE with persistent edema, erythema, induration on ventral aspect A very firm tense and possibly fluctuant area prox forearm it s very tender to palpation There is a very tense, indurated area on prox forearm exquisetely tender to palpation There is no change since my last visit L hip incision - well healed L buttock with large ill defined very firm area smaller and less tender - improved No fluctuance, no open areas NEUROLOGICAL: Awake and alert. non focal; ambulates around avery PSYCHIATRIC: calm and cooperative Assessment & Plan Remarks Assessment and Plan Sepsis, GAS from BUE complicated SSTI BUE complicated SSTI, cellulitis, CT e/o abscesses (loculated fluid collection) with unresolving infection of LUE after nearly 3 weeks of tx group A - ortho recommends conservative treatmetn and monitoring for signs of compartment sdf - likely has myocytis based on MRI ? formed an abscess - treatment failure, failure for further improvement of LUE infx: suspect an abscess BUE DVT Thrombocytopenia with high fibrinogen: resolved Refractory hyponatremia - markedly improved Hep C + / HIV negative Persistent fever and leukocytosis: resolved L buttock hematoma vs less liekly abscess. ? related to prosthetic hip trauma - MRI unremarkbale -cont ampicillin while i the hospital - cont clindamycin (po ) - Keep LUE in sling on IV pole - if no surgeries plan OK to dc home with another 3 weeks of oral abx ( clindamycin 300 po qid) and fu with Dr Irving - His arm needs to be monitored for clinical improvement If worse of no resolution within next 2 weeks repeat imaging studies (MRI or CT) dw Chayo Irving and Jeannie Gross MD May 25, 2017 14:37
--- NOTE | 2017-05-25 14:54 | HHI.PR ---
Subjective Remarks In the hallways ambulating. Denies fever or chills. No n/v/d/c. Patient appears in nad. pain is fairly controlled by meds. Seen by hand surgeon and was told surgery has risks and not a indication at this time. Objective Vitals Vital Signs Date Time Temp Pulse Resp B/P (MAP) Pulse Ox O2 Delivery O2 Flow Rate FiO2 05/25/17 12:00 97.2 80 18 166/81 (109) 100 05/25/17 08:00 96.7 76 16 141/73 (95) 98 05/25/17 05:00 89 153/85 (107) 05/24/17 22:31 97.3 78 159/85 (109) 98 05/24/17 20:35 97.8 89 18 140/75 (96) 98 05/24/17 16:00 96.8 79 16 139/78 (98) 99 I/O 05/24/17 05/24/17 05/24/17 05/25/17 05/25/17 05/25/17 07:00 15:00 23:00 07:00 15:00 23:00 Intake Total 940 ml 100 ml 610 ml 1946 ml Balance 940 ml 100 ml 610 ml 1946 ml Intake Oral 240 ml 610 ml 460 ml IV Total 700 ml 100 ml 1486 ml # Voids 3 3 4 # Bowel Movements 1 1 Result Diagram: 05/25/17 0610 05/25/17 0610 Imaging Last Impressions Upper Extremity Ultrasound 05/24/17 0000 Signed Impressions: Service Date/Time: May 19:04 - CONCLUSION: Mild edema and increased vascularity in the area clinical concern without organized fluid collection or abscess. John Tomas MD Lower Extremity CT 05/21/17 0000 Signed Impressions: Service Date/Time: Sunday, May 21, 2017 16:17 - CONCLUSION: 1. The examination is somewhat limited as the tip of the intramedullary component of the implant is not contained within the [id number] on this study. 2. Left total hip arthroplasty in good position. No fracture or hematoma. 3. Mild edema involving the subcutaneous fat overlying the left hip. Luis Angel Squires Jr., MD Soft Tissue Ultrasound 05/19/17 0000 Signed Impressions: Service Date/Time: Friday, May 19, 2017 19:50 - CONCLUSION: No evidence of abscess or abnormal fluid collections. Soft tissue swelling. Wilbert Bradley MD Lower Extremity Ultrasound 05/19/17 Signed Impressions: Service Date/Time: Friday, May 19, 2017 19:45 - CONCLUSION: No evidence of DVT. Wilbert Bradley MD Upper Extremity MRI 05/17/17 Signed Impressions: Service Date/Time: May 17:56 - CONCLUSION: 1. Extensive cellulitis and fasciitis of the left arm with probable microabscess formation along the posterior fascial surface of the arm musculature. No drainable fluid. There is also muscular edema but no evidence for osteomyelitis. Chava Robbins MD Hip and Pelvis X-Ray 05/17/17 Signed Impressions: Service Date/Time: May 19:10 - CONCLUSION: 1. Postoperative left hip replacement. Mild sclerosis of the right femoral head that could represent mild changes of avascular necrosis. Chava Robbins MD Central Venous Line 05/15/17 1339 Signed Impressions: Service Date/Time: Monday, May 15, 2017 16:14 - CONCLUSION: Uncomplicated line placement as above. Anish Avila MD Chest X-Ray 05/14/17 Signed Impressions: Service Date/Time: Sunday, May 14, 2017 07:50 - CONCLUSION: Minimal bibasilar patchy infiltrates. Francisco Coulter MD Liver Ultrasound 05/07/17 Signed Impressions: Service Date/Time: Sunday, May 07, 2017 18:39 - CONCLUSION: 1. Hepatosplenomegaly 2. Gallbladder sludge. 3. Mild dilatation of the common bile duct. Because of this mild dilatation is not seen. 4. Echogenic right kidney which can be seen with medical renal disease. Brent Nugent MD Head CT 05/06/17 0919 Signed Impressions: Service Date/Time: Saturday, May 06, 2017 10:48 - CONCLUSION: Normal examination. Norma Sampson MD Upper Extremity CT 05/06/17 Signed Impressions: Service Date/Time: Saturday, May 06, 2017 15:56 - CONCLUSION: Normal examination other than reactive adenopathy throughout the right axilla. Jose Angel Huizar MD CT Angiography 05/06/17 Signed Impressions: Service Date/Time: Saturday, May 06, 2017 15:42 - CONCLUSION: Normal examination of the pulmonary arteries. Extensive edema and reactive adenopathy throughout both axilla left worse than right. Jose Angel Huizar MD Objective Remarks GENERAL: Pleasant middle age male appears in NAD SKIN/MSK: LUE erythematous, edematous and tender. Significant desquamation and presence of pink/red underlying skin that is mostly dry and without telangiectasias. Serosanguineous fluid continues to weep from elbow region. LUE ROM intact at fingers and shoulder, with continued [id number] ROM at elbow. Capillary refill less than 2s and radial pulses 2+ bilaterally. Lt. axillary area tender to palpation, no LAD. Lt. buttock has 10-15cm area of ecchymoses that was nonfluctuant and tender to palpation, presence of a 2-3cm lesion covered with a dry crust. No bleeding or purulent discharge appreciated. BACK: no erythema, ecchymoses. nontender to palpation. Full ROM on flexion, limited ROM on extension due to pain. NECK: Rt. IJ line in place CARDIOVASCULAR: Regular rate and rhythm. S1 and S2 heard, no murmurs, gallops, rubs. RESPIRATORY: No accessory muscle use. Clear to auscultation. Breath sounds equal bilaterally. GASTROINTESTINAL: Abdomen soft, non-tender, nondistended. Hepatic and splenic margins not palpable. NEUROLOGICAL: Awake and alert. No obvious cranial nerve deficits. Motor grossly within normal limits. Five out of 5 muscle strength in the arms and legs. Normal speech. PSYCHIATRIC: Appropriate mood and affect; insight and judgment normal. Procedures 05/07/2017 Echo Normal left ventricular size and wall thickness. The left ventricular systolic function is normal with an estimated ejection fraction in the range of 60-65%. Left ventricular diastolic function parameters are normal. There is trace tricuspid valve regurgitation. The estimated pulmonary arterial pressure is 14.2 mmHg. No massess or vegetations noted Side: Right Location: Subclavian A/P Problem List: (1) Bacteremia due to Streptococcus ICD Code: R78.81 - Bacteremia (2) Cellulitis of left upper extremity ICD Code: L03.114 - Cellulitis of left upper limb (3) Cellulitis of right upper extremity ICD Code: L03.113 - Cellulitis of right upper limb (4) Group A streptococcal infection ICD Code: B95.0 - Streptococcus, group A, as the cause of diseases classified elsewhere Assessment and Plan Bilateral upper extremity cellulitis due to Group A streptococcus Bacteremia due to Group A Streptococcus -Patient is currently on Ampicillin IV 2g Q4hrs and Clindamycin 900 mg Q8hrs. Blood cultures are negative after 5d - WBC 5.7 - Continue Percocet and keep Dilaudid for breakthrough. - IJ line placed -LUE MRI performed on 05/17 revealed extensive cellulitis and soft tissue swelling of the left arm, both proximally and distally, with probable microabscess formation subcutaneously--most notably at posterior fascial surface of arm musculature. Muscular edema is present but w/o drainable fluid. Appears negative for osteomyelitis. Lt. Buttock Pain Improved. Erythema and edema, bluish discoloration also improved. No fluctuation. -wound care consult placed -Soft tissue US (05/19) reviewed and showed soft tissue swelling but no evidence of masses, abnormal fluid collections, or abscess. Plan for CT w/o contrast of left hip/buttock. Discussed with ID specialist Dr Hayward. Patient with induration without fluctuation, bluish discoloration r/o fracture, hematoma, also patient with bacteremia poss dissemination of infection? Hyponatremia- improved -Na 132 (05/21), cont to monitor Bilateral upper extremity DVT - On Apixaban - Per Heme/Onc, patient will likely need long-term (6mo-1yr) anticoagulation upon discharge. -LLE US (05/19) reviewed and showed no signs of DVT. Anemia -2 Units of RBCs transfused -Iron studies and heme occult blood results pending -Hb 9.6, cont to monitor Anxiety/Depression -consult psych as patient on effexor and might be the culprit for hyponatremia. Psych to eval and treat. TBI - Continue Clonazepam 0.5mg BID. - Continue Trazodone. - Stable. Patient not interested in re-starting anti-anxiety medications, however he is not opposed to Psychiatry consult. Full code. Apixaban. Discharge Planning Cellulitis/abscess/ bacteremia, needs ID Clearance. Not cleared by consultants. Taper narcotic will change to Dilaudid PO, SEKOU morphine says doesn't work, and DC Dilaudid IV. Pain currently controlled by po meds. Per Dr Hayward Patient is not improving with abx Discussed with Dr Irving considers no surgical intervention needed. I did notify Dr Hayward ID specialist, will also involve hand surgeon for eval as per Dr Hayward patient is no improving with abx and might still need I&D,. Consult hand surgeon gilson guzmán. Difficult surgery Ana Lilia Carpenter MD May 25, 2017 14:54
--- NOTE | 2017-05-25 15:23 | RADRPT ---
[facility] COMPARISON: MRI HUMERUS LEFT W & W/O CONTRAST, May 17, 2017, 17:56. US ARM LEFT, May 24, 2017, 19:04. INDICATIONS : Left arm redness and swelling. MEDICAL HISTORY : Traumatic brain injury. Polyuria. Broken back. Anxiety. Left arm abscess. SURGICAL HISTORY : Left hip surgery. ENCOUNTER: Subsequent ACUITY: One week PAIN SCORE: 4/10 LOCATION: Left arm. AREA EVALUATED: Left elbow. FINDINGS: Rowe scale and Doppler ultrasound imaging was performed of the left arm at the posterior aspect adjac ent to the elbow joint. This area was marked by the ordering physician. Similar to the prior study, i n this area there is subcutaneous edema and mild increased vascularity. No fluid collection is presen t. CONCLUSION: Subcutaneous edema and inflammation in the soft tissues superficial to the left posterior elbow. No d rainable fluid collection or abscess is identified. Brent Perez MD on May 25, 2017 at 15:20 Board Certified Radiologist. This report was verified electronically.
[2017-05-25 16:00] VITALS: BP 180/86; PULSE 76; RESP 18; TEMP 97.7; O2SAT 100
[2017-05-25] MEDS ORDERED: VENLAFAXINE HCL XR 37.5 MG CAP PO SCH (16:00)
[2017-05-25] MEDS ORDERED: busPIRone HCL 10 MG TAB PO ONE (16:00)
[2017-05-25] MEDS ORDERED: CLIN150 PO (16:07)
--- NOTE | 2017-05-25 16:07 | HHI.DS ---
Discharge Summary Admission Date May 06, 2017 at 12:20 Discharge Date: May 25, 2017 Admitting Diagnosis FORTINO UPPER DVT, CELLULITIS, HYPONATREMIA (1) Bacteremia due to Streptococcus ICD Code: R78.81 - Bacteremia (2) Cellulitis of left upper extremity ICD Code: L03.114 - Cellulitis of left upper limb (3) Cellulitis of right upper extremity ICD Code: L03.113 - Cellulitis of right upper limb (4) Group A streptococcal infection ICD Code: B95.0 - Streptococcus, group A, as the cause of diseases classified elsewhere Procedures 05/07/2017 Echo Normal left ventricular size and wall thickness. The left ventricular systolic function is normal with an estimated ejection fraction in the range of 60-65%. Left ventricular diastolic function parameters are normal. There is trace tricuspid valve regurgitation. The estimated pulmonary arterial pressure is 14.2 mmHg. No massess or vegetations noted Brief History - From Admission The patient is a 37-year-old male with past medical history of anxiety and depression who presented to the [facility] Emergency Department with a one day history of progressive swelling of the left upper extremity associated with blisters at the left elbow. The patient also reports subjective fever, diarrhea and emesis. He denies any abdominal pain, shortness of breath, chest pain. He also reports erythema in his upper extremities bilaterally left greater than right and a rash in his upper chest. On arrival to the emergency room, he was tachycardiac with heart rate in the 120s. Blood pressure 132/68 with a saturation of 99%. His laboratory data is significant for hyponatremia with sodium level of 102, lactic acidosis with lactic acid level of 3.7. There is no history of any seizures. The patient is awake, alert and oriented times three. Other labs showed thrombocytopenia with platelet count of 71, white blood cell count of 3.3. His urine toxicology screen was positive for cannabinoids. CT scan of the brain in the emergency room showed no evidence of any acute intracranial findings. He also had he also had a chest x-ray which was within normal. Ultrasound of the upper extremities showed occlusive clot in the right basilic within the right proximal cephalic vein and an additional clot noted in the left mid and distal radial vein. In the emergency room, the patient received one liter of normal saline and is currently receiving a second liter. In addition, clindamycin, Zosyn and Vancomycin were given. CBC/BMP: 05/25/17 0610 05/25/17 0610 Significant Findings Laboratory Tests Test 05/23/17 13:40 05/23/17 20:55 05/24/17 05:35 05/24/17 22:25 Blood Urea Nitrogen 4 MG/DL (7-18) 4 MG/DL (7-18) 3 MG/DL (7-18) 3 MG/DL (7- 18) Creatinine 0.58 MG/DL (0.60-1.30) 0.58 MG/DL (0.60-1.30) 0.57 MG/DL (0.60-1.30) Random Glucose 108 MG/DL (74-106) Calcium Level 8.4 MG/DL (8.5-10.1) 8.4 MG/DL (8.5-10.1) 8.3 MG/DL (8.5-10.1) 8.2 MG/DL (8.5-10.1) Sodium Level 124 MEQ/L (136-145) 125 MEQ/L (136-145) 127 MEQ/L (136-145) 126 MEQ/L (136-145) Chloride Level 91 MEQ/L (98-107) 93 MEQ/L (98-107) 95 MEQ/L (98-107) 94 MEQ/L (98-107) Red Blood Count 3.41 MIL/MM3 (4.50-5.90) Hemoglobin 10.1 GM/DL (13.0-17.0) Hematocrit 28.9 % (39.0-51.0) Platelet Count 458 TH/MM3 (150-450) Mean Platelet Volume 6.6 FL (7.0-11.0) Monocytes (%) (Auto) 11.9 % (0.0-8.0) Test 05/25/17 06:10 Red Blood Count 3.65 MIL/MM3 (4.50-5.90) Hemoglobin 10.7 GM/DL (13.0-17.0) Hematocrit 31.2 % (39.0-51.0) Platelet Count 468 TH/MM3 (150-450) Mean Platelet Volume 6.6 FL (7.0-11.0) Monocytes (%) (Auto) 13.0 % (0.0-8.0) Blood Urea Nitrogen 2 MG/DL (7-18) Random Glucose 114 MG/DL (74-106) Sodium Level 129 MEQ/L (136-145) Chloride Level 96 MEQ/L (98-107) Imaging Last Impressions Upper Extremity Ultrasound 05/24/17 0000 Signed Impressions: Service Date/Time: May 19:04 - CONCLUSION: Mild edema and increased vascularity in the area clinical concern without organized fluid collection or abscess. John Tomas MD Lower Extremity CT 05/21/17 Signed Impressions: Service Date/Time: Sunday, May 21, 2017 16:17 - CONCLUSION: 1. The examination is somewhat limited as the tip of the intramedullary component of the implant is not contained within the [id number] on this study. 2. Left total hip arthroplasty in good position. No fracture or hematoma. 3. Mild edema involving the subcutaneous fat overlying the left hip. Luis Angel Squires Jr., MD Soft Tissue Ultrasound 05/19/17 Signed Impressions: Service Date/Time: Friday, May 19, 2017 19:50 - CONCLUSION: No evidence of abscess or abnormal fluid collections. Soft tissue swelling. Wilbert Bradley MD Lower Extremity Ultrasound 05/19/17 0000 Signed Impressions: Service Date/Time: Friday, May 19, 2017 19:45 - CONCLUSION: No evidence of DVT. Wilbert Bradley MD Upper Extremity MRI 05/17/17 Signed Impressions: Service Date/Time: May 17:56 - CONCLUSION: 1. Extensive cellulitis and fasciitis of the left arm with probable microabscess formation along the posterior fascial surface of the arm musculature. No drainable fluid. There is also muscular edema but no evidence for osteomyelitis. Chava Robbins MD Hip and Pelvis X-Ray 05/17/17 Signed Impressions: Service Date/Time: May 19:10 - CONCLUSION: 1. Postoperative left hip replacement. Mild sclerosis of the right femoral head that could represent mild changes of avascular necrosis. Chava Robbins MD Central Venous Line 05/15/17 1339 Signed Impressions: Service Date/Time: Monday, May 15, 2017 16:14 - CONCLUSION: Uncomplicated line placement as above. Anish Avila MD Chest X-Ray 05/14/17 Signed Impressions: Service Date/Time: Sunday, May 14, 2017 07:50 - CONCLUSION: Minimal bibasilar patchy infiltrates. Francisco Coulter MD Liver Ultrasound 05/07/17 Signed Impressions: Service Date/Time: Sunday, May 07, 2017 18:39 - CONCLUSION: 1. Hepatosplenomegaly 2. Gallbladder sludge. 3. Mild dilatation of the common bile duct. Because of this mild dilatation is not seen. 4. Echogenic right kidney which can be seen with medical renal disease. Brent Nugent MD Head CT 05/06/17 0919 Signed Impressions: Service Date/Time: Saturday, May 06, 2017 10:48 - CONCLUSION: Normal examination. Norma Sampson MD Upper Extremity CT 05/06/17 Signed Impressions: Service Date/Time: Saturday, May 06, 2017 15:56 - CONCLUSION: Normal examination other than reactive adenopathy throughout the right axilla. Jose Angel Huizar MD CT Angiography 05/06/17 Signed Impressions: Service Date/Time: Saturday, May 06, 2017 15:42 - CONCLUSION: Normal examination of the pulmonary arteries. Extensive edema and reactive adenopathy throughout both axilla left worse than right. Jose Angel Huizar MD PE at Discharge GENERAL: Pleasant middle age male appears in NAD SKIN/MSK: LUE erythematous, edematous and tender. Significant desquamation and presence of pink/red underlying skin that is mostly dry and without telangiectasias. Serosanguineous fluid continues to weep from elbow region. LUE ROM intact at fingers and shoulder, with continued [id number] ROM at elbow. Capillary refill less than 2s and radial pulses 2+ bilaterally. Lt. axillary area tender to palpation, no LAD. Lt. buttock has 10-15cm area of ecchymoses that was nonfluctuant and tender to palpation, presence of a 2-3cm lesion covered with a dry crust. No bleeding or purulent discharge appreciated. BACK: no erythema, ecchymoses. nontender to palpation. Full ROM on flexion, limited ROM on extension due to pain. NECK: Rt. IJ line in place CARDIOVASCULAR: Regular rate and rhythm. S1 and S2 heard, no murmurs, gallops, rubs. RESPIRATORY: No accessory muscle use. Clear to auscultation. Breath sounds equal bilaterally. GASTROINTESTINAL: Abdomen soft, non-tender, nondistended. Hepatic and splenic margins not palpable. NEUROLOGICAL: Awake and alert. No obvious cranial nerve deficits. Motor grossly within normal limits. Five out of 5 muscle strength in the arms and legs. Normal speech. PSYCHIATRIC: Appropriate mood and affect; insight and judgment normal. Hospital Course Bilateral upper extremity cellulitis due to Group A streptococcus Bacteremia due to Group A Streptococcus -Patient is currently on Ampicillin IV 2g Q4hrs and Clindamycin 900 mg Q8hrs. Blood cultures are negative after 5d - WBC 5.7 - Continue Percocet and keep Dilaudid for breakthrough. - IJ line placed -LUE MRI performed on 05/17 revealed extensive cellulitis and soft tissue swelling of the left arm, both proximally and distally, with probable microabscess formation subcutaneously--most notably at posterior fascial surface of arm musculature. Muscular edema is present but w/o drainable fluid. Appears negative for osteomyelitis. Lt. Buttock Pain Improved. Erythema and edema, bluish discoloration also improved. No fluctuation. -wound care consult placed -Soft tissue US (05/19) reviewed and showed soft tissue swelling but no evidence of masses, abnormal fluid collections, or abscess. Plan for CT w/o contrast of left hip/buttock. Discussed with ID specialist Dr Hayward. Patient with induration without fluctuation, bluish discoloration r/o fracture, hematoma, also patient with bacteremia poss dissemination of infection? Hyponatremia- improved -Na 132 (05/21), cont to monitor Bilateral upper extremity DVT - On Apixaban - Per Heme/Onc, patient will likely need long-term (6mo-1yr) anticoagulation upon discharge. -LLE US (05/19) reviewed and showed no signs of DVT. Anemia -2 Units of RBCs transfused -Iron studies and heme occult blood results pending -Hb 9.6, cont to monitor Anxiety/Depression -consult psych as patient on effexor and might be the culprit for hyponatremia. Psych to eval and treat. TBI - Continue Clonazepam 0.5mg BID. - Continue Trazodone. - Stable. Patient not interested in re-starting anti-anxiety medications, however he is not opposed to Psychiatry consult. Full code. Apixaban. Discharge Planning Cellulitis/abscess/ bacteremia, needs ID Clearance. Not cleared by consultants. Taper narcotic will change to Dilaudid PO, DC morphine says doesn't work, and DC Dilaudid IV. Pain currently controlled by po meds. Per Dr Hayward Patient is not improving with abx Discussed with Dr Irving considers no surgical intervention needed. I did notify Dr Hayward ID specialist, will also involve hand surgeon for eval as per Dr Hayward patient is no improving with abx and might still need I&D,. Consult hand surgeon for eval no plan for surgery If no surgery indicated OK to dc home with another 3 weeks of oral abx ( clindamycin 300 po qid) and fu with Dr Irving per ID specialist. His arm needs to be monitored for clinical improvement. If worse of no resolution within next 2 weeks repeat imaging studies (MRI or CT) Pt Condition on Discharge: Stable Discharge Disposition: Disch w/ Home Health Serv Discharge Time: > 30 minutes Discharge Instructions DIET: Follow Instructions for: As Tolerated, No Restrictions Additional Diet Instructions: water restriction 1000 mls Activities you can perform: Regular-No Restrictions Follow up Referrals: Orthopedics - 1 Week with Lenny Irving MD PCP Follow-up - 2-3 Days New Medications: Clindamycin (Cleocin) 150 Mg Cap 300 MG PO Q6H for infection for 28 Days, #224 CAP Continued Medications: Buspirone (Buspirone) 10 Mg Tab 20 MG PO TID for Anxiety, TAB 0 Refills Clonazepam (Klonopin) 1 Mg Tab 0.5 MG PO BID for Anxiety and/or Insomnia, #60 TAB 0 Refills Escitalopram (Escitalopram) 10 Mg Tab 20 MG PO DAILY for mood, #30 TAB 0 Refills Hydroxyzine Pamoate (Hydroxyzine Pamoate) 25 Mg Cap 25 MG PO TID PRN for ANXIETY, CAP 0 Refills Ranitidine (Ranitidine) 150 Mg Tab 150 MG PO BID for Heartburn Management, #60 TAB 0 Refills Trazodone (Trazodone) 100 Mg Tablet 200 MG PO HS for Control Depression, #30 TAB 0 Refills Venlafaxine ER 24 HR (Venlafaxine ER 24 HR) 37.5 Mg Cap 37.5 MG PO DAILY, #30 CAP 0 Refills Zolpidem (Ambien) 10 Mg Tab 10 MG PO HS PRN for INSOMNIA, TAB 0 Refills Ana Lilia Carpenter MD May 25, 2017 16:07
--- NOTE | 2017-05-25 16:20 | HHI.FF ---
Face to Face Verification Diagnosis: (1) Bacteremia due to Streptococcus (2) Cellulitis of left upper extremity (3) Group A streptococcal infection (4) Axillary lymphadenopathy (5) Traumatic brain injury (6) Thrombocytopenia (7) PTSD (post-traumatic stress disorder) Home Health Nursing Order: Medical education Signs/symptoms of disease process Medication education-adverse effect Nursing assessment with vital signs I have seen patient Norman Schulte on 05/25/17. My clinical findings support the need for the requested home health care services because: Ltd mobility - disease progression I certify that my clinical findings support that this patient is homebound because: Post-op weakness Unsteady gait/balance Ana Lilia Carpenter MD May 25, 2017 16:20
[2017-05-25 17:54] VITALS: RESP 18
[2017-05-25] MEDS ORDERED: PERC10TA27 PO (18:03)
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
[2017-05-26] MEDS ORDERED: busPIRone HCL 10 MG TAB PO SCH (09:00)
== END 2017-05-25 19:07 | disposition home health service (06) | DRG 872 ==
LOC: NEPE 09:12 → NEDA 12:20 → HIME 13:30 → N07A 05-11 20:19
PROVIDERS: ADMIT Hospitalist; ATTEND Hospitalist
PROC: 0T9B70Z Drainage of Bladder with Drainage Device, Via Natural or Artificial Opening (ICD-10-PCS; principal; 2017-05-06)
PROC: 06HY33Z Insertion of Infusion Device into Lower Vein, Percutaneous Approach (ICD-10-PCS; 2017-05-06)
PROC: 02HV33Z Insertion of Infusion Device into Superior Vena Cava, Percutaneous Approach (ICD-10-PCS; 2017-05-15)
PROC: B548ZZA Ultrasonography of Superior Vena Cava, Guidance (ICD-10-PCS; 2017-05-15)
PROC: B518ZZA Fluoroscopy of Superior Vena Cava, Guidance (ICD-10-PCS; 2017-05-15)
PROC: 30233N1 Transfusion of Nonautologous Red Blood Cells into Peripheral Vein, Percutaneous Approach (ICD-10-PCS; 2017-05-17)
DX: A40.0 Sepsis due to streptococcus, group A (principal); R65.20 Severe sepsis without septic shock; N17.9 Acute kidney failure, unspecified; I82.622 Acute embolism and thrombosis of deep veins of left upper extremity; E22.2 Syndrome of inappropriate secretion of antidiuretic hormone; D69.59 Other secondary thrombocytopenia; E87.2 Acidosis; M60.032 Infective myositis, left forearm; L03.113 Cellulitis of right upper limb; L03.114 Cellulitis of left upper limb; N39.0 Urinary tract infection, site not specified; L03.317 Cellulitis of buttock; I82.613 Acute embolism and thrombosis of superficial veins of upper extremity, bilateral; E86.0 Dehydration; R16.2 Hepatomegaly with splenomegaly, not elsewhere classified; D72.810 Lymphocytopenia; E87.6 Hypokalemia; D64.9 Anemia, unspecified; G89.29 Other chronic pain; M54.89 Other dorsalgia; M72.9 Fibroblastic disorder, unspecified; R63.1 Polydipsia; M70.22 Olecranon bursitis, left elbow; B19.20 Unspecified viral hepatitis C without hepatic coma; F12.90 Cannabis use, unspecified, uncomplicated; F17.210 Nicotine dependence, cigarettes, uncomplicated; F32.9 Major depressive disorder, single episode, unspecified; F43.10 Post-traumatic stress disorder, unspecified; T22.012A Burn of unspecified degree of left forearm, initial encounter; T22.011A Burn of unspecified degree of right forearm, initial encounter; X17.XXXA Contact with hot engines, machinery and tools, initial encounter; Y92.9 Unspecified place or not applicable; Z87.820 Personal history of traumatic brain injury; Z96.642 Presence of left artificial hip joint
CPT/HCPCS: 36430; 36556; 51702; 70450; 71010; 71275; 73201; 73220; 73502; 73700; 76705; 76882; 76937; 76999; 77001; 80048; 80053; 80069; 80202; 80307; 81001; 81240; 81241; 81291; 82272; 82550; 82552; 82607; 82728; 82747; 83010; 83090; 83540; 83550; 83605; 83615; 83690; 83735; 83930; 83935; 84100; 84132; 84155; 84165; 84295; 84300; 84443; 84478; 84484; 84550; 85007; 85025; 85027; 85240; 85300; 85303; 85306; 85307; 85384; 85598; 85610; 85613; 85730; 86038; 86146; 86147; 86148; 86403; 86703; 86705; 86803; 86850; 86900; 86901; 86920; 87040; 87070; 87086; 87186; 87205; 87340; 87522; 87641; 93005; 93306; 93970; 93971; 94640; 94664; 96365; 96368; J1170; A9579; C1751; C9113; J0290; J0360; J0610; J1644; J2270; J2405; J2543; J3370; J3480; J7030; J7040; J7042; J7050; P9016; Q9967